=== PATIENT | female | born 1975 | race Caucasian/White ===

== ENCOUNTER → 2017-12-08 12:55 | Outpatient (CLI) | payer BC, SELFPAY ==
--- NOTE | 2017-12-08 13:01 | US_ITS ---
US transvaginal Ordering Physician: Emily Traore MD Patient Age: 42 years: Female HISTORY: ITS.REASON: DUBheavy periods... TECHNIQUE: Transvaginal pelvic ultrasound COMPARISON :Previous July 2016 exam. Similar appearance FINDINGS Retroflexed retroverted uterus. Uterus normal size. 9.1 cm length as 4.4 cm x 5.9 cm wide. No fibroids evident. Generous endometrial stripe measures just over 1 cm cm AP maximum thickness. Right ovary measures 2.6 x 1.7 x 2.7 cm.. Largest follicle right ovary measuring nearly 1 cm Left ovary measures 2.3 x 4.3 x 2.2 cm The more prominent follicles at left ovary. One measuring nearly 1.7 cm maximally and posterior left ovary. Another generous follicle measures 1.2 cm. Other tiny follicles left ovary. Also noted. Normal flow to both ovaries No fluid in cul-de-sac. . IMPRESSION: 1. Retroflexed retroverted uterus. Generous endometrial stripe measuring ~1 cm AP thickness 2. Ovaries normal in size with follicles bilaterally.. Generous follicles More generous follicles at left ovary noted.
== END ==
PROVIDERS: Family Provider Family Medicine; PCP Family Medicine; Visit Provider Family Medicine
DX: N93.8 Other specified abnormal uterine and vaginal bleeding (principal)
CPT/HCPCS: 76830

== ENCOUNTER 2018-01-16 06:01 | Day surgery (SDC) | payer BC, SELFPAY ==
[2018-01-14 15:58] VITALS: BMI 22.0
[2018-01-16] VITALS (9 sets, daily range): BP systolic 139–153; BP diastolic 88–97; PULSE 52–67; RESP 18–20; TEMP 36.6–36.9; O2SAT 97–99
[2018-01-16 06:39] LABS: Urine Pregnancy, HCG Qual. Negative (Negative)
--- NOTE | 2018-01-16 06:41 | P.PN_ITS ---
[facility] Anesthesia Checklist - Structural Data Admitted From: Home Planned Operative Procedure/s: d/c hyst Consent for Planned Operative Procedure(s) Verified: Yes Verified Documents: Surgical Consent - Airway Assessment C-Spine Mobility Assessed: Yes TMJ Mobility Assessed: Yes Dentition: Good Dentition - Neurological Assessment Level of Consciousness: Awake, Alert - Anesthesia Plan Anesthesia Risk discussed: Yes Anesthesia Plan: Verified ASA Class: I Anesthesia Type: General [facility] Anesthesia HX I have reviewed the patient's past medical history: Yes Medical History: Denies:: Cancer, Diabetes Mellitus Type 1, Diabetes Mellitus Type 2, MRSA, Seizures Other Medical History: Reports: Arthritis. Denies: Blood Transfusion Reaction Laterality Cases: Bilateral: Other Amputation: No Fractures: No *Family Hx:: Cancer, Diabetes, Heart Attack, Hypertension
--- NOTE | 2018-01-16 08:06 | P.OP_ITS ---
Date of procedure: 01/16/18 Pre-op Diagnosis:: Menorrhagia Post-op Diagnosis:: Menorrhagia Procedure performed:: Hysteroscopy with NovaSure ablation Surgeon:: Lake Sanders MD MECHANICAL PROCESS ENGINEER:: Saul Liu Anesthesia: LMA Estimated blood loss (mL): 50 Clinical Note:: She is a 42-year-old lady who complains of extremely heavy periods. Endometrial biopsy in my office was negative for hyperplasia or Operative findings:: She had an endometrial cavity that sounded to 8-1/2 cm. The width was 4.5 cm. The endometrium had a somewhat erythematous appearance possibly consistent with chronic endometritis. Operative note:: She was taken to the operating room where LMA anesthesia was found be adequate. She was prepped and draped in normal sterile fashion in the lithotomy position. A weighted speculum was placed in the vagina and the anterior lip of the cervix was grasped with a tenaculum. The uterus is retroverted and using Hayes dilators I dilated the cervix to approximately 5 mm. I then inserted a hysteroscope into the uterine cavity using saline as a distending media. The findings were as previously dictated. I then sounded the uterus to 8-1/2 cm. I estimated the endometrial cavity to be 5.5 cm. I then inserted the NovaSure device and the device was 4.5 cm wide. These numbers were placed in the machine. It was run through its program. I then inspected the endometrial cavity once again and photographs were taken. It appeared that the entire endometrial cavity was charred. I then injected approximately 3 cc of 0.5% ropivacaine at a 3:00, 5:00, 7:00, and 9:00 positions of the cervix. The patient tolerated the procedure well and was taken to the recovery room in excellent condition. All sponge instrument and needle counts were correct. The estimated blood loss was less than 50 cc. Condition: stable Disposition: PACU Specimens:: None Complications:: None
--- NOTE | 2018-01-16 08:09 | P.PN_ITS ---
[facility] Anesthesia Record Part I Intake, IV Amount: 300 Estimated blood loss (mL): 49 Urine output (mL): 100 Blood Products used (#): none Blood Pressure: 143/97 SaO2: 98 Pulse Rate: 52 Respiratory Rate: 18 Temperature: 98.1 F Patient is:: Drowsy, Stable Stable to PACU at:: 08:10
--- NOTE | 2018-01-16 08:09 | HMH.ANESII ---
[facility] Anesthesia Record Part II Discharge Time: 08:40 Destination: Surgical Day Care (OP Surgery) PACU nurse assessment reviewed?: Yes Patient Condition:: Good Anesthesia Complications:: None
--- NOTE | 2018-01-16 08:46 | PC.NURSE ---
0838-detailed report called to VICKY Romano 0840-Pt transported to post op via stretcher w/rails up and left in care of VICKY Romano w/bed locked in lowest position. VSS. Pt stable.
== END 2018-01-16 09:11 | disposition home or self-care (01) ==
LOC: OR 06:07
PROVIDERS: Family Provider Family Medicine; PCP Family Medicine; Visit Provider Nurse Practitioner Obstetrics & Gynecology
PROC: 0U5B8ZZ Destruction of Endometrium, Via Natural or Artificial Opening Endoscopic (ICD-10-PCS; CPT 58563; principal; 2018-01-16 07:30)
DX: N92.0 Excessive and frequent menstruation with regular cycle (principal)
CPT/HCPCS: 58563; 81025; 96374; J0131; J2405

== ENCOUNTER → 2018-01-29 20:09 | Outpatient (REF) | payer BC, SELFPAY | LOC: LAB 20:09 | PROVIDERS: Visit Provider Nurse Practitioner Family ==

== ENCOUNTER → 2018-05-18 08:37 | Outpatient (POV) | payer BC, SELFPAY | PROVIDERS: Visit Provider Physician Assistant | DX: Z00.00 Encounter for general adult medical examination without abnormal findings (principal) ==

== ENCOUNTER → 2018-07-20 08:15 | Outpatient (POV) | payer BC, SELFPAY | PROVIDERS: Family Provider Family Medicine; Visit Provider Physician Assistant | DX: Z00.00 Encounter for general adult medical examination without abnormal findings (principal) ==

== ENCOUNTER → 2018-09-03 09:20 | Outpatient (CLI) | payer BC, SELFPAY ==
--- NOTE | 2018-09-03 09:23 | MM_ITS ---
MM Dig screening mamm BI w/CAD ORDERING PHYSICIAN : Emily Traore MD PATIENT AGE: 42 years GENDER: Female COMPARISON: October, 2015August 2017 INDICATION: ITS.REASON: ROUTINE screening. 42-year-old. No hormones no new complaints. 1990 bilateral breast reduction Family history:. 2 maternal aunts with breast cancer in her 50s TECHNIQUE: Standard CC and MLO images were obtained. R2 CAD reviewed. Axillary cc views both breast FINDINGS: Moderate fibrolinear elements throughout both breast most notable retroareolar region RIGHT BREAST:Stable appearance right breast. Scattered benign calcifications. About the anterior right breast. No new densities or areas of concern. LEFT BREAST:No new findings of significant concern. The axillary cc view is quite helpful. It shows that the density in the deep left breast dissipated. IMPRESSION: .--------- . No new findings of significant concern. Bilateral follow-up in one year recommended and encouraged. BI-RADS Category: 2 Benign Finding(s) RECOMMENDED FOLLOW-UP: 1YR 1 YEAR FOLLOW-UP (A letter has been sent to the patient regarding results of the study.)
== END ==
PROVIDERS: PCP Family Medicine; Visit Provider Family Medicine
DX: Z12.31 Encounter for screening mammogram for malignant neoplasm of breast (principal)
CPT/HCPCS: 77067

== ENCOUNTER → 2018-09-15 08:38 | Outpatient (POV) | payer BC, SELFPAY | PROVIDERS: Visit Provider Dermatology | DX: Z00.00 Encounter for general adult medical examination without abnormal findings (principal) ==

== ENCOUNTER → 2018-12-14 14:01 | Outpatient (CLI) | payer BC, SELFPAY ==
--- NOTE | 2018-12-14 14:04 | US_ITS ---
US transvaginal HISTORY: Severe cramping with periods ITS.REASON: US T/V- Dysmenorrhea ORDERING PHYSICIAN: Lake Sanders MD PATIENT AGE: 43 years Comparison: None FINDINGS: The uterus is retroverted and measures 8 x 5 x 6 cm. There is a right and left lopez of the endometrium consistent with a bicornuate uterus. The endometrium is thickened at 12 mm there is some fluid in the endometrial cavity along with some irregular areas of isoechogenicity in the left horn of the endometrium. The left ovary is 3.8 x 2 x 2.9 cm. There are multiple follicles of the left ovary with the largest cystic area at 2 cm. The right ovary is 3 x 2.3 cm with a couple of follicles. There is minimal amount fluid around the uterus inferiorly. IMPRESSION: 1. Retroverted bicornuate uterus with thickened endometrium with fluid in the endometrial cavity and some irregular increased echogenicity in the left horn of endometrium which could represent blood. Please correlate with patient's phase of menstruation. 2. 2 cm left ovarian cyst. Minimal amount fluid in the pelvis.
== END ==
PROVIDERS: PCP Family Medicine; Visit Provider Nurse Practitioner Obstetrics & Gynecology
DX: N94.6 Dysmenorrhea, unspecified (principal)
CPT/HCPCS: 76830

== ENCOUNTER → 2019-09-15 14:42 | Outpatient (POV) | payer BC, SELFPAY | DX: Z00.00 Encounter for general adult medical examination without abnormal findings (principal) ==

== ENCOUNTER → 2019-11-09 09:01 | Outpatient (POV) | payer BC, SELFPAY | PROVIDERS: Visit Provider Dermatology | DX: Z00.00 Encounter for general adult medical examination without abnormal findings (principal) ==

== ENCOUNTER 2020-10-22 11:34 | Emergency (ER) | payer BC, SELFPAY ==
[2020-10-22 11:41] VITALS: BP 141/90; PULSE 69; RESP 20; TEMP 36.6; O2SAT 98; BMI 23.8
--- NOTE | 2020-10-22 11:58 | HMH.EDUTC ---
[facility] [place] Clinical Impression: Exposure to COVID-19 virus, Viral syndrome Disposition: Home, Self-Care Condition on Discharge: Good Instructions: Preventing the Spread of Coronavirus Discharge Instructions Additional Instructions: Drink plenty of fluids. Take tylenol for pain or fever. Return if you begin to have difficulty breathing. Follow up with your regular doctor. GO TO THE ER FOR ANY WORSENING SYMPTOMS Referrals: Emily Traore MD [Primary Care Provider] - Time of Disposition: 12:05 Medical Decision Making - Medical Records Medical records reviewed: No: I reviewed the patient's medical records. - Kieran Inquiry Pt receiving controlled substance: No Vital Signs: 10/22/20 11:41 10/22/20 12:10 Temperature 97.9 F 97.9 F Temperature Source Oral Oral Pulse Rate 69 Pulse Rate [Radial] 69 Respiratory Rate 20 20 Blood Pressure 141/90 H Blood Pressure [Right Arm] 141/90 H Blood Pressure Mean [Right Arm] 107 Blood Pressure Source Automatic Cuff Blood Pressure Source [Right Arm] Automatic Cuff Blood Pressure Position Sitting Blood Pressure Position [Right Arm] Sitting 02 Sat by Pulse Oximetry 98 Oxygen Delivery Method Room Air Room Air Orders (Tests/Meds): ORDERS Category Date Time Status Covid-19 Nasal PCR Sendout [facility] 10/22/20 11:40 [place] [facility] [place] - General Stated complaint: Covid exposure Time Seen by Provider: 10/22/20 12:04 Mode of Arrival: Ambulatory Source of Information: Patient Limitations: No Limitations Description of Symptoms (Recalled from Triage Doc. by RN): covid exposure, no smell, weird taste HEENT Symptoms (Recalled from RN notes): Yes Resp Symptoms (Recalled from RN notes): No Skin Symptoms (Recalled from RN notes): No MS Symptoms (Recalled from RN notes): No Functional Status (Recalled from RN notes): wnl - History of Present Illness Provider Complaint: Her boyfriend has had covid-19. She lives with him. She states that over the past 2 days she has lost her sense of smell. She denies any other symptoms. - Related Data Home Medications Medication Instructions Recorded Confirmed ixekizumab 80 mg/mL subcutaneous 80 mg SQ Q4W 12/28/18 12/21/19 auto-injector letrozole 2.5 mg tablet 2.5 mg PO DAILY tab 12/21/19 12/21/19 Previous Rx's Medication Instructions Recorded hmkudyzxxwerdtx-pobyywjjfiykwmg-AF 10 ml PO Q4-6H PRN 7 Days #118 ml 12/21/19 2 mg-30 mg-10 mg/5 mL oral syrup Allergies Allergy/AdvReac Type Severity Reaction Status Date / Time No Known Allergies Allergy Verified 12/21/19 17:53 - Worker's Comp Is this a Worker's Comp case?: No H History - Hepatitis A Screen Drug use history?: No High risk sexual behaviors?: No History of sexually transmitted infection?: No Currently employed?: No Childcare worker?: No Do you have indoor plumbing?: Yes Do you have electricity?: Yes Attestation statement:: This patient has been screened for Hepatitis A risk factors. I have reviewed the patient's past medical history: Yes Medical History: Denies:: Cancer, Diabetes Mellitus Type 1, Diabetes Mellitus Type 2, MRSA, Seizures Other Medical History: Reports: Arthritis. Denies: Blood Transfusion Reaction Laterality Cases: Bilateral: Other Other Surgeries: Yes: Dilation and Curettage, Hysterectomy-Total Amputation: No Fractures: No Comment: ablation - Social History Smoking Status: Never smoker Alcohol Intake: never Alcohol Intake Frequency:: holidays/special occasions only Substance Use Type: denies use Occupational Status: employed Housing: house Household Members: significant other Family Hx:: Cancer, Diabetes, Heart Attack, Hypertension ROS Obtained: Yes All systems reviewed & no additional complaints - Constitutional Constitutional: Reports system reviewed and no additional complaints, except as docu - Eyes Eyes: Reports system reviewed and no additional complaints, except
[2020-10-22 12:10] VITALS: BP 141/90; PULSE 69; RESP 20; TEMP 36.6; O2SAT 98
[2020-10-23 11:44] LABS: Covid-19 Nasal PCR Sendout UK Detected
--- NOTE | 2020-10-23 11:49 | PC.NURSE ---
PT CALLED AND NOTIFIED OF POSITIVE COVID RESULT
== END 2020-10-22 12:11 | disposition home or self-care (01) ==
PROVIDERS: Emergency Provider Nurse Practitioner Family; PCP Family Medicine
DX: U07.1 COVID-19 (principal)
CPT/HCPCS: 99201; U0003

== ENCOUNTER → 2021-01-16 13:54 | Outpatient (POV) | payer BC, SELFPAY | PROVIDERS: Visit Provider Dermatology | DX: Z00.00 Encounter for general adult medical examination without abnormal findings (principal) ==

== ENCOUNTER → 2021-09-19 08:15 | Outpatient (CLI) | payer BC, SELFPAY ==
[2021-09-19 08:54] LABS: Basophils # 0.1 K/mm3 (0-0.2); Basophils % 1.2 % (0.1-2.0); Eosinophils # 0.1 K/mm3 (0.0-0.4); Eosinophils % 3.3 % (0.1-12.0); Hematocrit 39.3 % (37.0-47.0); Hemoglobin 13.5 g/dL (12.2-16.2); Lymphocytes # 1.3 K/mm3 (0.7-4.5); Lymphocytes % 32.7 % (10-50); Mean Corpuscular HGB Conc 34.4 g/dL (31.8-35.4); Mean Corpuscular Hemoglobin 31.6 pg (27.0-31.2); Mean Platelet Volume 8.1 fl (7.4-10.4); Monocytes # 0.2 K/mm3 (0.1-1.0); Monocytes % 5.7 % (1.7-9.3); Neutrophils # 2.3 K/mm3 (1.8-7.8); Neutrophils % 57.2 % (37.0-80.0); Platelet Count 261 K/mm3 (142-424); Red Blood Count 4.27 M/mm3 (4.20-5.40)
[2021-09-19 09:27] LABS: Erythrocyte Sedimentation Rate 21 mm/hr (0-20)
[2021-09-19 09:41] LABS: Alanine Aminotransferase 15 U/L (12-78); Albumin Level 4.4 g/dl (3.5-5.0); Albumin/Globulin Ratio 1.6 (1.1-1.8); Alkaline Phosphatase 75 U/L (38-126); Anion Gap 10.4 mEq/L (5-15); Aspartate Amino Transferase 27 U/L (14-36); Bilirubin,Total 0.4 mg/dl (0.2-1.3); Blood Urea Nitrogen 15 mg/dl (7-17); Calcium 9.2 mg/dl (8.4-10.2); Carbon Dioxide 28 mmol/L (22.0-30.0); Chloride 107 mmol/L (98-107); Estimated Glomerular Filt Rate 77 ml/min (>60); GFR (African American) 93 ML/MIN (>60); Globulin 2.7 g/dL (1.3-3.2); Glucose 86 mg/dl (74-100); Potassium 4.4 mmoL/L (3.5-5.1); Sodium 141 mmol/L (136-145); Total Protein,Serum 7.1 g/dl (6.3-8.2)
[2021-09-19 09:47] LABS: C-Reactive Protein 0.8 mg/L (0-4)
[2021-09-25 06:03] LABS: QuantiFERON-TB Gold Plus Negative (Negative)
== END ==
PROVIDERS: Visit Provider Internal Medicine Rheumatology
DX: L40.0 Psoriasis vulgaris (principal); M25.50 Pain in unspecified joint; M35.00 Sjogren syndrome, unspecified; E53.8 Deficiency of other specified B group vitamins; R53.83 Other fatigue
CPT/HCPCS: 36415; 80053; 85025; 85651; 86140; 86480

== ENCOUNTER → 2022-04-16 15:10 | Outpatient (POV) | payer BC, SELFPAY | PROVIDERS: Visit Provider Dermatology | DX: Z00.00 Encounter for general adult medical examination without abnormal findings (principal) ==

== ENCOUNTER → 2022-04-16 15:39 | Outpatient (CLI) | payer BC, SELFPAY ==
[2022-04-16 17:07] LABS: Alanine Aminotransferase 18 U/L (12-78); Albumin Level 4.4 g/dl (3.5-5.0); Albumin/Globulin Ratio 1.5 (1.1-1.8); Alkaline Phosphatase 82 U/L (38-126); Anion Gap 10.2 mEq/L (5-15); Aspartate Amino Transferase 33 U/L (14-36); Blood Urea Nitrogen 12 mg/dl (7-17); Calcium 9.2 mg/dl (8.4-10.2); Carbon Dioxide 26 mmol/L (22.0-30.0); Chloride 107 mmol/L (98-107); Estimated Glomerular Filt Rate 77 ml/min (>60); GFR (African American) 93 ML/MIN (>60); Glucose 93 mg/dl (74-100); Potassium 4.2 mmoL/L (3.5-5.1); Sodium 139 mmol/L (136-145); Total Protein,Serum 7.4 g/dl (6.3-8.2)
[2022-04-16 17:18] LABS: Bilirubin,Total 0.1 mg/dl (0.2-1.3)
[2022-04-16 18:37] LABS: Basophils # 0.1 K/mm3 (0-0.2); Basophils % 1.1 % (0.1-2.0); Eosinophils # 0.2 K/mm3 (0.0-0.4); Eosinophils % 3.2 % (0.1-12.0); Hematocrit 39.9 % (37.0-47.0); Hemoglobin 13.5 g/dL (12.2-16.2); Lymphocytes # 1.4 K/mm3 (0.7-4.5); Lymphocytes % 28.6 % (10-50); Mean Corpuscular HGB Conc 33.8 g/dL (31.8-35.4); Mean Corpuscular Hemoglobin 31.1 pg (27.0-31.2); Mean Corpuscular Volume 91.8 fl (81-99); Monocytes # 0.3 K/mm3 (0.1-1.0); Monocytes % 6.4 % (1.7-9.3); Neutrophils % 60.6 % (37.0-80.0); Platelet Count 265 K/mm3 (142-424); Red Blood Count 4.35 M/mm3 (4.20-5.40); Red Cell Distribution Width 12.7 % (11.5-17.5)
[2022-04-19 10:46] LABS: QuantiFERON-TB Gold Plus Negative (Negative)
== END ==
LOC: LAB 15:40
PROVIDERS: PCP Family Medicine; Visit Provider Dermatology
DX: L40.0 Psoriasis vulgaris (principal); Z79.899 Other long term (current) drug therapy
CPT/HCPCS: 36415; 80053; 85025; 86480

== ENCOUNTER → 2022-04-26 11:15 | Outpatient (CLI) | payer BC, SELFPAY | PROVIDERS: PCP Family Medicine; Visit Provider Physician Assistant | DX: Z20.822 Contact with and (suspected) exposure to COVID-19 (principal) | CPT/HCPCS: C9803; U0003; U0005 ==

== ENCOUNTER → 2022-04-29 16:18 | Outpatient (CLI) | payer BC, SELFPAY ==
[2022-04-29 16:26] LABS: Microscopic, Urine URINE MICROSCOPIC (MICROSCOPIC)
[2022-04-29 17:32] LABS: Basophils # 0.1 K/mm3 (0-0.2); Basophils % 1.8 % (0.1-2.0); Eosinophils # 0.1 K/mm3 (0.0-0.4); Eosinophils % 2.1 % (0.1-12.0); Hematocrit 43.1 % (37.0-47.0); Hemoglobin 13.4 g/dL (12.2-16.2); Lymphocytes # 1.9 K/mm3 (0.7-4.5); Mean Corpuscular Hemoglobin 30.7 pg (27.0-31.2); Mean Corpuscular Volume 98.9 fl (81-99); Mean Platelet Volume 8.1 fl (7.4-10.4); Monocytes # 0.3 K/mm3 (0.1-1.0); Monocytes % 5.2 % (1.7-9.3); Neutrophils # 3.6 K/mm3 (1.8-7.8); Neutrophils % 59.8 % (37.0-80.0); Platelet Count 288 K/mm3 (142-424); Red Blood Count 4.36 M/mm3 (4.20-5.40)
[2022-04-29 18:16] LABS: Alanine Aminotransferase 18 U/L (12-78); Albumin Level 4.4 g/dl (3.5-5.0); Albumin/Globulin Ratio 1.4 (1.1-1.8); Alkaline Phosphatase 88 U/L (38-126); Anion Gap 13.3 mEq/L (5-15); Aspartate Amino Transferase 30 U/L (14-36); Bilirubin,Total 0.3 mg/dl (0.2-1.3); Blood Urea Nitrogen 14 mg/dl (7-17); Calcium 9.6 mg/dl (8.4-10.2); Carbon Dioxide 29 mmol/L (22.0-30.0); Chloride 103 mmol/L (98-107); Estimated Glomerular Filt Rate 59 ml/min (>60); GFR (African American) 72 ML/MIN (>60); Globulin 3.1 g/dL (1.3-3.2); Glucose 78 mg/dl (74-100); Potassium 4.3 mmoL/L (3.5-5.1); Sodium 141 mmol/L (136-145); Total Protein,Serum 7.5 g/dl (6.3-8.2)
[2022-04-29 18:21] LABS: C-Reactive Protein 0.5 mg/L (0-4)
[2022-04-29 19:11] LABS: Erythrocyte Sedimentation Rate 15 mm/hr (0-20)
[2022-04-29 20:21] LABS: Appearance,Urine CLEAR (Clear); Bilirubin,Urine Negative (Negative); Blood, Urine Negative (Negative); Color,Urine YELLOW (Yellow); Glucose,Urine (UA) Negative (Negative); Ketones,Urine Negative (Negative); Leukocyte Esterase,Urine Negative (Negative); Nitrate,Urine Negative (Negative); Protein,Urine Negative (Negative); Specific Gravity, Urine 1.015 (1.005-1.030); Urobilinogen,Urine 0.2 EU/dl (0.2)
== END ==
LOC: LAB 16:19
PROVIDERS: PCP Family Medicine; Visit Provider Internal Medicine Rheumatology
DX: M35.00 Sjogren syndrome, unspecified (principal); R53.83 Other fatigue; L40.9 Psoriasis, unspecified; E53.8 Deficiency of other specified B group vitamins; M25.50 Pain in unspecified joint
CPT/HCPCS: 36415; 80053; 81001; 85025; 85651; 86140

== ENCOUNTER 2022-08-18 13:17 | Emergency (ER) | payer BC, SELFPAY ==
[2022-08-18 14:00] VITALS: BP 121/86; PULSE 81; RESP 18; TEMP 37.1; O2SAT 99; BMI 25.0
--- NOTE | 2022-08-18 14:09 | EXP.UTC ---
Discharge Plan Disposition Patient Disposition: Home, Self-Care Condition: Good Prescriptions Prescriptions: New azithromycin [Zithromax Z-Scotty] 250 mg tablet See Rx Instructions .ROUTE .COMPLEX 5 Days Qty: 6 0RF Rx Instructions: For 250 mg dose pack: take 500 mg today (day 1), then 250 mg for 4 days (days 2-5) No Action Taltz Autoinjector (2 Pack) 80 mg/mL auto-injector 80 mg SQ Q4W Referrals Follow up/Referrals: Emily Traore MD [Primary Care Provider] - See instructions Activity Restrictions/Add. Instructions Additional Instructions/Restrictions: *Monitor Temp, Over the counter Motrin or Tylenol as directed/as needed Tylenol every 4 hours and Motrin every 6 hours (as long as your family doctor has told you that you can take it) for fever or pain. and straight to ER if unable to lower temp less than 101.0 after medication given *Warm salt water gargles may help to soothe the throat *Throat Lozenges? *Warm fluids like tea with honey may help to soothe the throat? *Sleep elevated *Humidifier/Vaporizer Your throat swab was sent for culture. Those results are typically sent to your primary care. Be sure to follow up in 2-3 days with your family doctor/primary care physician if no improvement so they can review those result and treat if necessary. If you don?t have a primary care doctor, I recommend you get one but in the mean time, you will have to return to a walk in clinic Follow up IMMEDIATELY for new or worsening symptoms or no Noticeable improvement over the next 48-72 hours. 911 for difficulty breathing or swallowing Clinical Impressions Clinical Impression: Pharyngitis Instructions Patient Instructions: Sore Throat Discharge ED Provider: Vashti Mayen [facility] General Stated complaint: sore throat Mode of Arrival: Ambulatory Source of Information: Patient Limitations: No Limitations Time Seen by Provider: 08/18/22 14:09 Description of Symptoms (Recalled from Triage Doc. by RN): PATIENT C/O SORE THROAT SINCE FRIDAY HEENT Symptoms (Recalled from RN notes): Yes Resp Symptoms (Recalled from RN notes): No Skin Symptoms (Recalled from RN notes): No MS Symptoms (Recalled from RN notes): No Functional Status (Recalled from RN notes): WNL History of Present Illness Provider Complaint: Patient states that she started on with sore throat States that it has continued to get worse states that she has taken her allergy medication thinking it may be allergies but has continued to get worse so she came in Related Data Home Medications Medication Instructions Recorded Confirmed ixekizumab 80 mg/mL subcutaneous 80 mg SQ Q4W PSORIATIC ARTHRITIS 12/28/18 08/18/22 auto-injector (Taltz Autoinjector (2 Pack)) Previous Rx's Medication Instructions Recorded azithromycin 250 mg tablet See Rx Instructions PO .COMPLEX 5 08/18/22 (Zithromax Z-Scotty) days #6 tabs Allergies Allergy/AdvReac Type Severity Reaction Status Date / Time No Known Allergies Allergy Verified 02/19/21 11:39 Worker's Comp Is this a Worker's Comp case?: No PFSH PFSH Surgical History (Updated 08/18/22 @ 14:04 by Linda Moe RN) History of hysterectomy Social History (Updated 08/18/22 @ 14:04 by Linda Moe RN) Smoking Status: Never smoker alcohol intake: never substance use type: denies use current occupational status: employed Travel in the last 8 weeks: None household members: significant other housing: house 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
[2022-08-18 14:17] LABS: UTC Strep Screen (Rapid) Negative (Negative)
[2022-08-18 14:18] VITALS: BP 121/86; PULSE 81; RESP 18; TEMP 37.1; O2SAT 99
== END 2022-08-18 14:20 | disposition home or self-care (01) ==
PROVIDERS: Emergency Provider Nurse Practitioner; PCP Family Medicine
DX: J02.9 Acute pharyngitis, unspecified (principal)
CPT/HCPCS: 87880; 99212; G0463

== ENCOUNTER → 2022-12-31 23:18 | Outpatient (CLI) | payer BC, SELFPAY | PROVIDERS: PCP Student in an Organized Health Care Education/Training Program; Visit Provider Student in an Organized Health Care Education/Training Program | DX: N39.0 Urinary tract infection, site not specified (principal); B96.89 Other specified bacterial agents as the cause of diseases classified elsewhere | CPT/HCPCS: 87086; 87088; 87186 ==

== ENCOUNTER → 2023-04-29 13:07 | Outpatient (POV) | payer BC, SELFPAY | PROVIDERS: Visit Provider Dermatology | DX: Z00.00 Encounter for general adult medical examination without abnormal findings (principal) ==

== ENCOUNTER → 2023-04-29 13:42 | Outpatient (CLI) | payer BC, SELFPAY ==
[2023-04-29 15:06] LABS: Alanine Aminotransferase 23 U/L (12-78); Albumin Level 4.4 g/dl (3.5-5.0); Alkaline Phosphatase 76 U/L (38-126); Aspartate Amino Transferase 32 U/L (14-36); Bilirubin,Indirect 0.2 mg/dL (0.0-0.9); Bilirubin,Total 0.2 mg/dl (0.2-1.3); Bilirubin,Unconjugated 0.3 mg/dL (0.0-1.1); Total Protein,Serum 7.3 g/dl (6.3-8.2)
[2023-05-02 00:07] LABS: QuantiFERON-TB Gold Plus Negative (Negative)
== END ==
PROVIDERS: PCP Family Medicine; Visit Provider Dermatology
DX: L40.0 Psoriasis vulgaris (principal); Z51.81 Encounter for therapeutic drug level monitoring
CPT/HCPCS: 36415; 80076; 86480

== ENCOUNTER 2023-08-04 13:54 | Emergency (ER) | payer BC, SELFPAY ==
[2023-08-04 14:00] VITALS: BP 152/93; PULSE 60; RESP 18; TEMP 36.6; O2SAT 97; BMI 24.3
--- NOTE | 2023-08-04 14:01 | EXP.UTC ---
Discharge Plan Disposition Patient Disposition: Home, Self-Care Condition: Good Prescriptions Prescriptions: New cyclobenzaprine 10 mg Tablet 10 mg PO BID PRN (Reason: Muscle Spasm) Qty: 20 0RF methylprednisolone 4 mg Tablets,Dose Pack 4 mg PO DIRECTED Qty: 21 0RF No Action celecoxib 200 mg capsule 200 mg PO BID Taltz Syringe 80 mg/mL syringe 80 mg SQ MONTHLY Referrals Follow up/Referrals: Emily Traore MD [Primary Care Provider] - See instructions Activity Restrictions/Add. Instructions Additional Instructions/Restrictions: Go home and rest. It would be best if you rested tomorrow too. No heavy lifting. No twisting. Take the oral medications as directed. The muscle relaxer (cyclobenzaprine--Flexeril) will make you drowsy, so don't drive or operate heavy machinery after taking it. Don't start the oral steroids (medrol dose pack) until tomorrow, since you had the shots in here today. Follow up with your regular doctor. GO TO THE ER FOR ANY WORSENING SYMPTOMS OR CONCERN, ESPECIALLY BOWEL OR BLADDER ISSUES, SADDLE AREA NUMBNESS, FEVER, ETC Clinical Impressions Clinical Impression: Back pain, thoracic Instructions Patient Instructions: Low Back Pain, DI for Low Back Pain, Cyclobenzaprine, Methylprednisolone Injection, Ketorolac Injection Discharge ED Provider: Mike Woodard [facility] General Stated complaint: lower back pain, no accident Time Seen by Provider: 08/04/23 14:01 Related Data Home Medications Medication Instructions Recorded Confirmed celecoxib 200 mg capsule 200 mg PO BID . 08/04/23 08/04/23 ixekizumab 80 mg/mL subcutaneous 80 mg SQ MONTHLY . 08/04/23 08/04/23 syringe (Taltz Syringe) Previous Rx's Medication Instructions Recorded cyclobenzaprine 10 mg tablet 10 mg PO BID PRN Muscle Spasm #20 08/04/23 tabs methylprednisolone 4 mg tablets in 4 mg PO DIRECTED #21 tabs 08/04/23 a dose pack Allergies Allergy/AdvReac Type Severity Reaction Status Date / Time No Known Allergies Allergy Verified 08/04/23 14:08 [facility] Disclaimer: The information contained in this section may have been updated after the patient was seen, as this information can be updated by other users. 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 current occupational exposures/hazards: No ROS Obtained: Yes All systems reviewed & no additional complaints except as documented Constitutional Constitutional: Denies chills and Denies fever(s) Eyes Eyes: Denies eye discharge ENT Ears, Nose, Mouth, and Throat: Denies dizziness, Denies otalgia and Denies sore throat Cardiovascular Cardiovascular: Denies chest pain Respiratory Respiratory: Denies shortness of breath, Denies chest congestion, Denies cough, Denies stridor and Denies wheezing Gastrointestinal Gastrointestingal: Denies nausea or vomiting Musculoskeletal Musculoskeletal: Reports as per HPI and Reports back pain Integumentary/Breasts Skin/Breast: Denies rash Neurologic Neurologic: Denies dizziness and Denies paresthesias Allergic/Immunologic Allergic/Immunologic: Denies wheezing Physical Exam General General appearance: alert and in no apparent distress Head Head exam: atraumatic, normocephalic and normal inspection Eye Eye exam: Present normal appearance, PERRL and EOMI ENT ENT exam: Present normal exam, normal oropharynx, mucous membranes moist, TM's normal bilaterally and normal external ear exam Neck Neck exam: Present normal inspection, full ROM and t
[2023-08-04 15:33] VITALS: BP 126/85; PULSE 79; RESP 18; TEMP 36.6; O2SAT 96
[2023-08-04 16:03] LABS: Microscopic, Urine URINE MICROSCOPIC (MICROSCOPIC)
[2023-08-04 16:19] LABS: Appearance,Urine CLEAR (Clear); Bilirubin,Urine Negative (Negative); Blood, Urine Negative (Negative); Color,Urine YELLOW (Yellow); Glucose,Urine (UA) Negative (Negative); Ketones,Urine Negative (Negative); Leukocyte Esterase,Urine Negative (Negative); Nitrate,Urine Negative (Negative); PH,Urine 6.5 (5.0-8.5); Protein,Urine Negative (Negative); Urobilinogen,Urine 0.2 EU/dl (0.2)
[2023-08-04 16:28] LABS: Squamous Epithelial Cell,Urine Occasional #/hpf (0-5)
== END 2023-08-04 15:00 | disposition home or self-care (01) ==
PROVIDERS: Emergency Provider Nurse Practitioner Family; PCP Family Medicine
DX: M54.6 Pain in thoracic spine (principal); M54.50 Low back pain, unspecified
CPT/HCPCS: 81001; 87086; 96372; 99212; 99214; G0463

== ENCOUNTER 2024-02-16 13:29 | Outpatient (CLI) | payer BC, SELFPAY ==
[2024-02-16 14:05] LABS: Basophils # 0.1 K/mm3 (0-0.2); Basophils % 0.9 % (0.1-2.0); Eosinophils # 0.1 K/mm3 (0.0-0.4); Eosinophils % 1.4 % (0.1-12.0); Hematocrit 40.1 % (37.0-47.0); Hemoglobin 13.3 g/dL (12.2-16.2); Lymphocytes # 1.4 K/mm3 (0.7-4.5); Lymphocytes % 20.8 % (10-50); Mean Corpuscular HGB Conc 33.2 g/dL (31.8-35.4); Mean Corpuscular Hemoglobin 31.5 pg (27.0-31.2); Mean Corpuscular Volume 94.7 fl (81-99); Mean Platelet Volume 8.1 fl (7.4-10.4); Monocytes # 0.3 K/mm3 (0.1-1.0); Monocytes % 4.1 % (1.7-9.3); Neutrophils # 4.9 K/mm3 (1.8-7.8); Neutrophils % 72.8 % (37.0-80.0); Platelet Count 245 K/mm3 (142-424); Red Blood Count 4.23 M/mm3 (4.20-5.40); Red Cell Distribution Width 12.1 % (11.5-17.5); White Blood Count 6.7 K/mm3 (4.8-10.8)
[2024-02-16 14:41] LABS: Chloride 106 mmol/L (98-107); Sodium 140 mmol/L (136-145)
[2024-02-16 14:42] LABS: Potassium 3.8 mmoL/L (3.5-5.1)
[2024-02-16 14:44] LABS: Alanine Aminotransferase 22 U/L (12-78); Alkaline Phosphatase 68 U/L (38-126); Aspartate Amino Transferase 34 U/L (14-36); Bilirubin,Total 0.6 mg/dl (0.2-1.3); Blood Urea Nitrogen 16 mg/dl (7-17); Estimated Glomerular Filt Rate 59 ml/min (>60); GFR (African American) 71 ML/MIN (>60)
[2024-02-16 14:45] LABS: Albumin Level 4.3 g/dl (3.5-5.0); Albumin/Globulin Ratio 1.6 (1.1-1.8); Anion Gap 7.8 mEq/L (5-15); Calcium 9.6 mg/dl (8.4-10.2); Carbon Dioxide 30 mmol/L (22.0-30.0); Globulin 2.7 g/dL (1.3-3.2); Glucose 85 mg/dl (74-100)
[2024-02-16 14:50] LABS: C-Reactive Protein 0.7 mg/L (0-4)
[2024-02-16 15:04] LABS: Erythrocyte Sedimentation Rate 23 mm/hr (0-20)
== END 2024-02-16 23:59 | disposition home or self-care (01) ==
LOC: LAB 13:29
PROVIDERS: PCP Family Medicine; Visit Provider Internal Medicine
DX: L40.9 Psoriasis, unspecified (principal); M25.50 Pain in unspecified joint; M35.00 Sjogren syndrome, unspecified; R53.83 Other fatigue
CPT/HCPCS: 36415; 80053; 85025; 85651; 86140

== ENCOUNTER 2024-03-09 10:26 | Outpatient (CLI) | payer BC, SELFPAY ==
--- OUTSIDE RECORDS SUMMARY | 2024-03-09 10:28 | XMS_ITS | Continuity of Care Document ---
Author Name Unknown Organization [facility] Address [address] [place] [id number] Phone Care Team Providers Care Brand Ambassador Promotional Model Name Role Phone Horace Hamilton MD Unavailable Unavailable Allergies, Adverse Reactions, Alerts Substance Reaction Status Criticality No Known Allergies Active No Inform ation Medications Medication Instructions Dosage Effective Dates (start - stop) Status Comments Celebrex 200 mg capsule take 1 capsule by oral route 2 times every day as needed for joint pain 200 MG - Active triamterene 37.5 mg-hydrochlorothiaz tunde 25 mg tablet take 1 tablet by oral route every day 1.00 tablet - Active One Daily For Women 18 mg-0.4 mg tablet Takes QD - Active Taltz Syringe 80 mg/mL subcutaneous inject 1 milliliter by subcutaneous route every 4 weeks in the abdomen, thigh, or upper arm rotating injection sites 80 MG - Active ibuprofen 200 mg tablet take 2 tablet by oral route every 6 hours as needed with food 400 MG - Active Celebrex 200 mg capsule take 1 capsule by oral route 2 times every day as needed 200 MG - No Longer Active Procedures Procedure Date Office Visit Level IV Office Visit Level IV Office Visit Level IV Office Visit Level IV Office Visit Level III Office Visit Level IV Office Visit Level IV Office Visit Level IV Office Visit Level IV Office Visit Level III Office Visit Level III Advance Directives Directive Yes / No Effective Date File Name No Information Encounters Encounter Description Practice Location Reason(s) For Visit Diagnoses Date Provider Providers Copied on Encounter Office Visit Level IV [facility] [address] [place] [address], [id number], tel:[phone] [facility] Follow Up of Psoriasis (chief complaint) Follow Up of Joint Pain (chief complaint) Vitamin B12 deficiencyPsori asisArthralgiaF atigueBody mass index (BMI) 25.0-25.9, adult Feb- 4 Alfonso Vu. [address] [place] [address], [id number]. tel:[phone] Referring Provider: Melecio Noland, [address] [place] [address], [address]. tel:[phone] Office Visit Level IV [facility] [address] [facility] [address] [place] [address], [id number], tel:[phone] [facility] Follow Up of Psoriasis (chief complaint) Follow Up of Joint Pain (chief complaint) Vitamin B12 deficiencyPsori asisArthralgias iccaFatigueBody mass index (BMI) 26.0-26.9, adult 3 Horace Duckworth. [address], [address] [place] [address], [id number], [place]. tel:[phone] Referring Provider: Melecio Noland, [facility] [address], [address]. tel:[phone] Office Visit Level IV [facility] [address] [facility] [address] [place] [address], [id number], tel:[phone] [place] [facility] Psoriasis (chief complaint) Joint Pain (chief complaint) Vitamin B12 deficiencyPsori asisArthralgias iccaFatigueBody mass index (BMI) 25.0-25.9, adultBody mass index (BMI) 26.0-26.9, adult Feb- 3 Horace Duckworth. [address], [address], [place], [place], [id number], [place]. tel:[phone] Referring Provider: Melecio Noland, [address] [place] [address], [id number]. tel:[phone] Office Visit Level IV [facility] [address] [place] [address], [id number], [place] tel:[phone] [facility] Psoriasis (chief complaint) Joint Pain (chief complaint) Vitamin B12 deficiencyPsori asisArthralgias iccaFatigueBody mass index (BMI) 25.0-25.9, adult Jarod- 2 Horace Duckworth. [address], [address], [place], [id number], [place]. tel:[phone] Referring Provider: Melecio Noland, [address] [place] [address], [id number]. tel:[phone] Office Visit Level III [facility] [address] [place] [address], [id number], [place] tel:[phone] [facility] psoriasis (chief complaint) Joint Pain (chief complaint) Vitamin B12 deficiencyPsori asisArthralgias iccaFatigueBody mass index (BMI) 25.0-25.9, adult Sep- 1 Horace Duckworth. [address], [address], [place], [id number], [place]. tel:[phone] Referring Provider: Melecio Noland, [address] [place] [address], [id number]. tel:[phone] Office Visit Level IV [facility], [address] [place] [address], [id number], [place] tel:[phone] [facility] psoriasis (chief complaint) Joint Pain (chief complaint) Vitamin B12 deficiencyPsori asisArthralgias iccaFatigueBody mass index (BMI) 25.0-25.9, adult March- 1 Kwabena Dong. [address] [place] [address], [id number], . tel:[phone] Referring Provider: Melecio Noland, [address] [place] [address], [id number]. tel:[phone] Office Visit Level IV [facility] [address] [place] [address], [id number], [place] tel:[phone] [facility] psoriasis (chief complaint) Joint Pain (chief complaint) Vitamin B12 deficiencyPsori asisArthralgias iccaFatigueBody mass index (BMI) 25.0-25.9, adult 0 Kwabena Dong. [address] [place] [address], [id number], [place]. tel:[phone] Referring Provider: Melecio Noland, [address] [place] [address], [id number]. tel:[phone] Office Visit Level IV [facility], [address] [place] [address], [id number], [place] tel:[phone] [facility] psoriasis (chief complaint) Joint Pain (chief complaint) Vitamin B12 deficiencyPsori asisArthralgiaF atigueBody mass index (BMI) 25.0-25.9, adultsicca Apr-2 0 Horace Duckworth. [address] [place] [address], [id number], [place]. tel:[phone] Referring Provider: Melecio Noland, [address] [place] [address], [id number]. tel:[phone] Office Visit Level IV [facility], [address] [place] [address], [id number], [place] tel:[phone] [facility] psoriasis (chief complaint) Joint Pain (chief complaint) Vitamin B12 deficiencyPsori asisArthralgiaF atECU Health Edge[facility] Hospitalody mass index (BMI) 25.0-25.9, adult 9 Horace Duckworth. [address], [place], [place], [id number], [place]. tel:[phone] Referring Provider: Melecio Noland, [address] [place] [address], [address]. tel:[phone] Office Visit Level III [facility] [address] [place] [address], [id number], [place] tel:[phone] [facility] psoriasis (chief complaint) Joint Pain (chief complaint) Vitamin B12 deficiencyPsori asisArthralgiaF [facility] [address] [place] [address]. [address], [place], [place], [id number]. tel:[phone] Referring Provider: Melecio Noland, [address] [place] [address], [address]. tel:[phone] Office Visit Level III [facility] [address] [place] [address], [id number], [place] tel:[phone] [facility] psoriasis (chief complaint) Joint Pain (chief complaint) Vitamin B12 deficiencyPsori asisArthralgiaF [facility] 0-201 [address]. [address], [place], [place], [id number]. tel:[phone] Referring Provider: Melecio Noland, [address] [place] [address], [address]. tel:[phone] [facility] [address] [place] [address], [id number], [place] tel:[phone] [facility] ArthralgiaFatig ueVitamin B12 deficiencyPsori [facility] 8-201 7 Jose Ferguson. [address], [address], [place], [place], [id number]. tel:[phone] Family History Family Member Type Diagnosis Age At Onset No Information Immunizations Vaccine Date Status Comments SARS-COV-2 (COVID-19) vaccin e, mRNA, spike protein, LNP, preservative free, 100 mcg/0.5mL dose (Moderna) administered Sourc e: Other Provider Flu (split) (3 yrs or older) administered Source: Other Provider Payers Payer name Insurance type Covered republican ID Authoriza tidaniel(s) [facility] National Account [id number] BL [id number] Social History Type Description Quantity Date Captured Comments Alcohol Use Details Unknown Caffeine Use Details Unknown Tobacco Use Status Current non-smoker Smoking Status Never smoker Sex Female Vital Signs Date / Time: Height Weight BMI Pulse Rate Blood Pressure Temperature Respiratory Rate Body Surface Area Head Circumference Head Circ. Percentile Wt./Constantino. Percentile BMI percentile Pulse Ox Inhaled Ox 10:12 AM 66.50 in 73.210 kg (161.40 lbs) 25.6 6 kg/m eter (2) 68 /min 138/90 mm[Hg] 97.70 F Chief Complaint And Reason For Visit From encounter dated '02/16/2024 09:15'. Follow Up of Psoriasis (chief complaint) Follow Up of Joint Pain (chief complaint). Description: The severity of the problem is mild. Pain scale: 4/10. The symptoms are intermittent. The problem has not changed. The primary symptoms reported include: pain. The locations affected since last visit are low back. Associated symptoms include fatigue and edema. Pertinent negatives include fever, infection, AM stiffness, change in vision, skinlesion(s), chest pain, changing cough and abdominal pain. Additional information: Just having some back pain but its not severe. Reason For Referral Reason For Referral No Information Plan Of Treatment Date Type Action Status Goal Lifestyle education regardin g diet completed Goal Lifestyle education regardin g diet completed Goal Lifestyle education regardin g diet completed Goal Lifestyle education regardin g diet completed Appointment Jolly Gordon BOOKED Patient Education Thumb Arthritis: Exerci ses completed Future Order: Lab Order CBC With Differential/Platelet ([id number]), Ordered on: Ordered Future Order: Lab Order Comp. Me tabolic Panel (14) ([id number]), Ordered on: Ordered Future Order: Lab Order C-Reacti ve Protein, Quant ([id number]), Ordered on: Ordered Future Order: Lab Order Sediment ation Rate-Westergren ([id number]), Ordered on: Ordered Future Order: Lab Order CBC With Differential/Platelet ([id number]), Ordered on: Ordered Future Order: Lab Order Comp. Me tabolic Panel (14) ([id number]), Ordered on: Ordered Future Order: Lab Order C-Reacti ve Protein, Quant ([id number]), Ordered on: Ordered Future Order: Lab Order Sediment ation Rate-Westergren ([id number]), Ordered on: Ordered Future Order: Lab Order UA, Comp lete w/ Micro Exam w/Rflx Culture, Comp ([id number]), Ordered on: Ordered Future Order: Lab Order CBC With Differential/Platelet ([id number]), Ordered on: Ordered Future Order: Lab Order Comp. Me tabolic Panel (14) ([id number]), Ordered on: Ordered Future Order: Lab Order C-Reacti ve Protein, Quant ([id number]), Ordered on: Ordered Future Order: Lab Order Sediment ation Rate-Westergren ([id number]), Ordered on: Ordered Future Order: Lab Order Urinalys is, Complete ([id number]), Ordered on: Ordered Future Order: Lab Order CBC With Differential/Platelet ([id number]), Ordered on: Ordered Future Order: Lab Order Comp. Me tabolic Panel (14) ([id number]), Ordered on: Ordered Future Order: Lab Order QuantiFE ENOC- TB Gold IT (Theratest) (TBQ), Ordered on: Ordered Future Order: Lab Order C-Reacti ve Protein, Quant ([id number]), Ordered on: Ordered Future Order: Lab Order Sediment ation Rate-Westergren ([id number]), Ordered on: Ordered Future Order: Lab Order CBC With Differential/Platelet ([id number]), Ordered on: Ordered Future Order: Lab Order Comp. Me tabolic Panel (14) ([id number]), Ordered on: Ordered Future Order: Lab Order CBC With Differential/Platelet ([id number]), Ordered on: Ordered Future Order: Lab Order Comp. [place] tabolic Panel (14) ([id number]), Ordered on: Ordered Future Order: Lab Order C-Reacti ve Protein, Quant ([id number]), Ordered on: Ordered Future Order: Lab Order Sediment ation Rate-Westergren ([id number]), Ordered on: Ordered Future Order: Lab Order ROSLYN by I FA with Reflex ([id number]), Ordered on: Ordered Future Order: Lab Order ROSLYN Comp rehensive Panel ([id number]), Ordered on: Ordered Future Order: Lab Order CBC With Differential/Platelet ([id number]), Ordered on: Ordered Future Order: Lab Order Comp. Me tabolic Panel (14) ([id number]), Ordered on: Ordered Future Order: Lab Order C-Reacti ve Protein, Quant ([id number]), Ordered on: Ordered Future Order: Lab Order Sediment ation Rate-Westergren ([id number]), Ordered on: Ordered Future Order: Lab Order Antinucl ear Antibodies, ROSLYN, IFA ([id number]), Ordered on: Ordered Future Order: Lab Order ROSLYN Comp rehensive Panel ([id number]), Ordered on: Ordered Future Order: Lab Order CBC With Differential/Platelet ([id number]), Ordered on: Ordered Future Order: Lab Order Comp. Me tabolic Panel (14) ([id number]), Ordered on: Ordered Future Order: Lab Order C-Reacti ve Protein, Quant ([id number]), Ordered on: Ordered Future Order: Lab Order Sediment ation Rate-Westergren ([id number]), Ordered on: Ordered Future Order: Lab Order CBC With Differential/Platelet ([id number]), Ordered on: Ordered Future Order: Lab Order C-Reacti ve Protein, Quant ([id number]), Ordered on: Ordered Future Order: Lab Order Comp. Me tabolic Panel (14) ([id number]), Ordered on: Ordered Future Order: Lab Order Sediment ation Rate-Westergren ([id number]), Ordered on: Ordered Future Order: Lab Order Vitamin B12 and Folate ([id number]), Ordered on: Ordered History Of Present Illness Encounter Date Complaint History Of Prese nt Illness Follow Up of Psoriasis The sympt oms are reported as being mild. The symptoms occur constantly. Improved with topical treatment. She is now on Topicort. She saw her junior linux administrator a few weeks ago. They discussed possibly using more systemic treatment if her scalp doesn't get better. Follow Up of Joint Pain The wai rity of the problem is mild. Pain scale: 4/10. The symptoms are intermittent. The problem has not changed. The primary symptoms reported include: pain. The locations affected since last visit are low back. Associated symptoms include fatigue and edema. Pertinent negatives include fever, infection, AM stiffness, change in vision, skin lesion(s), chest pain, changing cough and abdominal pain. Additional information: Just having some back pain but it's not severe. Follow Up of Psoriasis The sympt oms are reported as being mild. The symptoms occur constantly. Improved with topical treatment. She is now on Topicort. She saw her junior linux administrator a few weeks ago. They discussed possibly using more systemic treatment if her scalp doesn't get better. Follow Up of Joint Pain The wai rity of the problem is mild. Pain scale: 4/10. The symptoms are intermittent. The problem has not changed. The primary symptoms reported include: pain. The locations affected since last visit are low back. Associated symptoms include fatigue and edema. Pertinent negatives include fever, infection, AM stiffness, change in vision, skin lesion(s), chest pain, changing cough and abdominal pain. Additional information: Just having some back pain but it's not severe. Psoriasis The symptoms are reported as being mild. The symptoms occur constantly. Improved with topical treatment. She is now on Topicort. She saw her junior linux administrator a few weeks ago. They discussed possibly using more systemic treatment if her scalp doesn't get better. Joint Pain The severity of the problem is mild. Pain scale: 4/10. The symptoms are intermittent. The problem has not changed. The primary symptoms reported include: pain. The locations affected since last visit are low back. Associated symptoms include fatigue and edema. Pertinent negatives include fever, infection, AM stiffness, change in vision, skin lesion(s), chest pain, changing cough and abdominal pain. Additional information: Just having some back pain but it's not severe. Psoriasis The symptoms are reported as being mild. The symptoms occur constantly. Improved with topical treatment. She is now on Topicort. She saw her junior linux administrator a few weeks ago. They discussed possibly using more systemic treatment if her scalp doesn't get better. Joint Pain The severity of the problem is mild. Pain scale: 4/10. The symptoms are intermittent. The problem has not changed. The primary symptoms reported include: pain. The locations affected since last visit are low back. Associated symptoms include fatigue and edema. Pertinent negatives include fever, infection, AM stiffness, change in vision, skin lesion(s), chest pain, changing cough and abdominal pain. Additional information: Just having some back pain but it's not severe. psoriasis The symptoms are reported as being mild. The symptoms occur constantly. Improved with topical treatment. She is now on Topicort. She saw her junior linux administrator a few weeks ago. They discussed possibly using more systemic treatment if her scalp doesn't get better. Joint Pain The severity of the problem is mild. Pain scale: 4/10. The symptoms are intermittent. The problem has not changed. The primary symptoms reported include: pain. The locations affected since last visit are low back. Associated symptoms include fatigue and edema. Pertinent negatives include fever, infection, AM stiffness, change in vision, skin lesion(s), chest pain, changing cough and abdominal pain. Additional information: Just having some back pain but it's not severe. psoriasis The symptoms are reported as being mild. The symptoms occur constantly. Improved with topical treatment. She is now on Topicort. She saw her junior linux administrator a few weeks ago. They discussed possibly using more systemic treatment if her scalp doesn't get better. Joint Pain The severity of the problem is mild. Pain scale: 4/10. The symptoms are intermittent. The problem has not changed. The primary symptoms reported include: pain. The locations affected since last visit are low back. Associated symptoms include fatigue and edema. Pertinent negatives include fever, infection, AM stiffness, change in vision, skin lesion(s), chest pain, changing cough and abdominal pain. Additional information: Just having some back pain but it's not severe. psoriasis The symptoms are reported as being mild. The symptoms occur constantly. Improved with topical treatment. She is now on Topicort. She saw her junior linux administrator a few weeks ago. They discussed possibly using more systemic treatment if her scalp doesn't get better. Joint Pain The severity of the problem is mild. Pain scale: 4/10. The symptoms are intermittent. The problem has not changed. The primary symptoms reported include: pain. The locations affected since last visit are low back. Associated symptoms include fatigue and edema. Pertinent negatives include fever, infection, AM stiffness, change in vision, skin lesion(s), chest pain, changing cough and abdominal pain. Additional information: Just having some back pain but it's not severe. psoriasis The symptoms are reported as being mild. The symptoms occur constantly. Improved with topical treatment. She is now on Topicort. She saw her junior linux administrator a few weeks ago. They discussed possibly using more systemic treatment if her scalp doesn't get better. Joint Pain The severity of the problem is mild. Pain scale: 4/10. The symptoms are intermittent. The problem has not changed. The primary symptoms reported include: pain. The locations affected since last visit are low back. Associated symptoms include fatigue and edema. Pertinent negatives include fever, infection, AM stiffness, change in vision, skin lesion(s), chest pain, changing cough and abdominal pain. Additional information: Just having some back pain but it's not severe. psoriasis The symptoms are reported as being mild. The symptoms occur constantly. Improved with topical treatment. She is now on Topicort. She saw her junior linux administrator a few weeks ago. They discussed possibly using more systemic treatment if her scalp doesn't get better. Joint Pain The severity of the problem is mild. Pain scale: 4/10. The symptoms are intermittent. The problem has not changed. The primary symptoms reported include: pain. The locations affected since last visit are low back. Associated symptoms include fatigue and edema. Pertinent negatives include fever, infection, AM stiffness, change in vision, skin lesion(s), chest pain, changing cough and abdominal pain. Additional information: Just having some back pain but it's not severe. psoriasis The symptoms are reported as being mild. The symptoms occur constantly. Improved with topical treatment. She is now on Topicort. She saw her junior linux administrator a few weeks ago. They discussed possibly using more systemic treatment if her scalp doesn't get better. Joint Pain The severity of the problem is mild. Pain scale: 4/10. The symptoms are intermittent. The problem has not changed. The primary symptoms reported include: pain. The locations affected since last visit are low back. Associated symptoms include fatigue and edema. Pertinent negatives include fever, infection, AM stiffness, change in vision, skin lesion(s), chest pain, changing cough and abdominal pain. Additional information: Just having some back pain but it's not severe. psoriasis The symptoms are reported as being mild. The symptoms occur constantly. Improved with topical treatment. Joint Pain The severity of the problem is mild. Pain scale: 3/10. The symptoms are intermittent. The problem has not changed. The primary symptoms reported include: pain. The locations affected since last visit are low back and right shoulder. Associated symptoms include fatigue. Pertinent negatives include fever, AM stiffness, change in vision, skin lesion(s), chest pain, changing cough, edema and abdominal pain. Additional information: Pt took a new job in the interim that requried a lot of travel and resulted in increased joint pain from sitting. She no longer has that position. The only joints that are bothering her are the right shoulder (new) and low back pain. Functional Status Date Functional Assessmen t Pain Score 3/10 Instructions Date Instruction Additional Infor christy - Continue Taltz per Dermatology. Taltz has really helped her skin but not her joints.High-risk medication. Well tolerated and effective. No serious side effects- getting labs with dermatology for monitoring Related to Psoriasis stable Related to Fatig ue Oral B-12. At one ti me her level was very low so I encouraged her to always take it. Related to Vitamin B12 deficiency - Continue Celebrex 200 mg BID p.r.n. OA pain- She can wear a SPIKA brace at night for her thumbs/CMC oa- Can inject CMC joints if no betterMedication refilled. Labs ordered for monitoring as below.Return to clinic 6 months Related to Arthralgia Lifestyle education regarding di et Related to Body mass index [BMI] 25.0-25.9, adult Oral B-12. At one ti me her level was very low so I encouraged her to always take it. Related to Vitamin B12 deficiency - Continue Taltz. En couraged pt to take it more regularly because it will help if this is related to psoriatic arthritis. - getting labs with dermatology- I did order labs today since she has not had any in 6 months, and she has had more leg cramping. Related to Psoriasis - Continue Celebrex 200 mg BID- She can wear a SPIKA brace at night for her thumbs- Can inject if no better Related to Arthralgia - For sicca symptoms , I recommended conservative measures including frequent lubrication, avoiding stimulants, and regular dental and ophthalmic exams. Related to sicca stable Related to Fatig ue Oral B-12. At one ti me her level was very low so I encouraged her to always take it. Related to Vitamin B12 deficiency - Continue Taltz. En couraged pt to take it more regularly because it will help if this is related to psoriatic arthritis. - getting labs with dermatology Related to Psoriasis - For sicca symptoms , I recommended conservative measures including frequent lubrication, avoiding stimulants, and regular dental and ophthalmic exams. Related to sicca stable Related to Fatig ue - Start Celebrex 200 mg BID- Her thumbs are particularly worse. Left is worse. Pain radiates down inner wrist- She can wear a SPIKA brace at night- Can inject if no better- She is no longer on Letrozole. Related to Arthralgia Lifestyle education regarding di et Related to Body mass index [BMI] 26.0-26.9, adult Oral B-12. At one ti me her level was very low so I encouraged her to always take it. Related to Vitamin B12 deficiency - Continue Taltz. En couraged pt to take it more regularly because it will help if this is related to psoriatic arthritis. - getting labs with dermatology Related to Psoriasis - Start Celebrex 200 mg BID- Her thumbs are particularly worse. Left is worse. Pain radiates down inner wrist- She can wear a SPIKA brace at night- Can inject if no better- She is no longer on Letrozole. Related to Arthralgia - For sicca symptoms , I recommended conservative measures including frequent lubrication, avoiding stimulants, and regular dental and ophthalmic exams. Related to sicca stable Related to Fatig ue - For sicca symptoms , I recommended conservative measures including frequent lubrication, avoiding stimulants, and regular dental and ophthalmic exams. Related to sicca stable Related to Fatig ue resolved Related to Psori asis She is having more h and pain. Her thumbs are particularly worse. Left is worse. Pain radiates down inner wristI will mail her thumb exercises.She can wear a SPIKA brace.Can inject if needed.She is no longer on Letrizole. CBC and CMP Related to Arthralgia Oral B-12. At one ti me her level was very low so I encouraged her to always take it. Related to Vitamin B12 deficiency Lifestyle education regarding di et Related to Body mass index [BMI] 25.0-25.9, adult resolved Related to Psori asis She is having more h and pain. Her thumbs are particularly worse. Left is worse. Pain radiates down inner wristI will mail her thumb exercises.She can wear a SPIKA brace.Can inject if needed.She is no longer on Letrizole. CBC and CMP Related to Arthralgia - For sicca symptoms , I recommended conservative measures including frequent lubrication, avoiding stimulants, and regular dental and ophthalmic exams. Related to sicca stable Related to Fatig ue Oral B-12. At one ti me her level was very low so I encouraged her to always take it. Related to Vitamin B12 deficiency - For sicca symptoms , I recommended conservative measures including frequent lubrication, avoiding stimulants, and regular dental and ophthalmic exams.- will check SSA/SSB and ROSLYN. Mail order today. Related to sicca stable Related to Fatig ue resolved Related to Psori asis Oral B-12. At one ti me her level was very low so I encouraged her to always take it. Related to Vitamin B12 deficiency Ibuprofen is taken p retty regularly per patine.She is no longer on Letrizole. Related to Arthralgia - For sicca symptoms , I recommended conservative measures including frequent lubrication, avoiding stimulants, and regular dental and ophthalmic exams.- will check SSA/SSB and ROSLYN with next labs Related to sicca Related to Psori asis stable Related to Fatig ue Oral B-12. At one ti me her level was very low so I encouraged her to always take it. Related to Vitamin B12 deficiency Today the pain is mo stly in the hips.We will continue to watch thisShe will take 2 weeks of ibuprofen more consistently alternating with tylenol arthritisLetrozole did worsen the pain. Related to Arthralgia Oral B-12. At one ti me her level was very low so I encouraged her to always take it. Related to Vitamin B12 deficiency Related to Psori asis Today the pain is mo stly in the hips.We will continue to watch thisShe will take 2 weeks of ibuprofen more consistently alternating with tylenol arthritisConsider trial off of letrozole Related to Arthralgia stable Related to Fatig ue Lifestyle education regarding di et Related to Body mass index (BMI) 25.0-25.9, adult stable Related to Fatig ue She's having more tr ouble with the scalp. I gave her a pamphlet on otezla and she has a follow-up appointment with dermatology if the Topicort isn't working she'll return in one year Related to Psoriasis Oral B-12. At one ti me her level was very low so I encouraged her to always take it. Related to Vitamin B12 deficiency Today the pain is mo stly in the lumbar spine. Related to Arthralgia Oral B-12 Related to Vitam in B12 deficiency Minimal in scalp. Sh e does not feel she needs further treatment.Current PlansFollow up in 1 year: discussed with patient and provided information. Related to Psoriasis stable Related to Fatig ue Today the pain is mo stly in the lumbar spine. Related to Arthralgia Minimal in scalp. Sh e does not feel she needs further treatment.Current PlansFollow up in 1 year: discussed with patient and provided information. Related to Psoriasis Unclear why she's oreilly ving so much trouble with low B12. Right now she's taking 2 B12 tablets a day that are not sublingual. I am going to check a level and see what we need to do about supplementation. Related to Vitamin B12 deficiency I don't think her fa tigue is the autoimmune type fatigue that so debilitating. She is extremely busy working in number of jobs Related to Fatigue Today the pain is mo stly in the lumbar spine. I don't see any evidence for psoriatic arthritis.Current PlansContinued Clobex [place] 0.05%, as directed Liquid apply to rash prn, 1 Bottle, 30 days starting 04/12/2016, Ref. x3.CBC, PLATELETS & AUT DIFF (66149)METABOLIC PANEL, COMPREHENSIVE (06740)TSH (THYROID STIMULATING HORMONE) (06083)VITAMIN B-12 & FOLATE (60560) Related to Arthralgia Assessments Type Assessment Date impression assessment Psoriasis impression Current Rx: Talvalerie with her derma tologist Dr. Bella assessment Vitamin B12 deficiency assessment Arthralgia impression Four children. Young est adopted senior high school 2023. Previous Dr. Bravo and Dr. VuPatient with known psoriasis on Taltz per Dermatology No evidence for psoriatic arthritis. Her intermittent joint pain does not seem inflammatory. More degenerative in nature or related to overuse (tendonitis).History of BRCA 2 positive status post mastectomy October 2020She has had issues with De Quervain's tendonitis, CMC, arthritis. and tendonitis in her feet. assessment Fatigue impression impression assessment Body mass index [BMI] 25.0-25.9, adult Patient Care Teams Name Effective Dates (start - stop) Status Members No Information
[2024-03-11 21:22] LABS: QuantiFERON-TB Gold Plus Negative (Negative)
== END 2024-03-09 23:59 | disposition home or self-care (01) ==
LOC: LAB 10:27
PROVIDERS: PCP Family Medicine; Visit Provider Dermatology
DX: L40.0 Psoriasis vulgaris (principal); Z79.899 Other long term (current) drug therapy
CPT/HCPCS: 36415; 86480

== ENCOUNTER 2024-03-09 11:01 | Outpatient (POV) | payer BC, SELFPAY | END 2024-03-09 23:59 | disposition home or self-care (01) | LOC: SC 11:03 | PROVIDERS: PCP Family Medicine; Visit Provider Dermatology | DX: Z00.00 Encounter for general adult medical examination without abnormal findings (principal) ==

== ENCOUNTER 2024-08-16 12:53 | Outpatient (CLI) | payer BC, SELFPAY ==
[2024-08-16 13:36] LABS: Basophils # 0.1 K/mm3 (0-0.2); Basophils % 1.2 % (0.1-2.0); Eosinophils # 0.1 K/mm3 (0.0-0.4); Eosinophils % 1.2 % (0.1-12.0); Hematocrit 37.6 % (37.0-47.0); Hemoglobin 13.4 g/dL (12.2-16.2); Lymphocytes # 1.1 K/mm3 (0.7-4.5); Lymphocytes % 24.2 % (10-50); Mean Corpuscular HGB Conc 35.6 g/dL (31.8-35.4); Mean Corpuscular Hemoglobin 32.4 pg (27.0-31.2); Mean Platelet Volume 7.6 fl (7.4-10.4); Monocytes # 0.3 K/mm3 (0.1-1.0); Monocytes % 6.4 % (1.7-9.3); Neutrophils # 3.2 K/mm3 (1.8-7.8); Neutrophils % 67.1 % (37.0-80.0); Platelet Count 273 K/mm3 (142-424); Red Blood Count 4.13 M/mm3 (4.20-5.40); Red Cell Distribution Width 12.3 % (11.5-17.5); White Blood Count 4.7 K/mm3 (4.8-10.8)
[2024-08-16 13:56] LABS: Albumin Level 4.7 g/dl (3.5-5.0); Chloride 103 mmol/L (98-107); Potassium 3.9 mmoL/L (3.5-5.1); Sodium 137 mmol/L (136-145)
[2024-08-16 13:59] LABS: Alanine Aminotransferase 18 U/L (12-78); Albumin/Globulin Ratio 1.7 (1.1-1.8); Alkaline Phosphatase 62 U/L (38-126); Anion Gap 11.9 mEq/L (5-15); Aspartate Amino Transferase 28 U/L (14-36); Bilirubin,Total 0.6 mg/dl (0.2-1.3); Blood Urea Nitrogen 24 mg/dl (7-17); Carbon Dioxide 26 mmol/L (22.0-30.0); Estimated Glomerular Filt Rate 43 ml/min (>60); GFR (African American) 52 ML/MIN (>60); Globulin 2.7 g/dL (1.3-3.2); Total Protein,Serum 7.4 g/dl (6.3-8.2)
[2024-08-16 14:00] LABS: Calcium 9.6 mg/dl (8.4-10.2); Glucose 83 mg/dl (74-100)
== END 2024-08-16 23:59 | disposition home or self-care (01) ==
LOC: LAB 12:54
PROVIDERS: PCP Family Medicine; Visit Provider Nurse Practitioner Family
DX: M25.50 Pain in unspecified joint (principal); Z79.1 Long term (current) use of non-steroidal anti-inflammatories (NSAID)
CPT/HCPCS: 36415; 80053; 85025

== ENCOUNTER 2024-08-28 09:22 | Outpatient (CLI) | payer BC, SELFPAY ==
[2024-08-28 10:19] LABS: Chloride 106 mmol/L (98-107)
[2024-08-28 10:20] LABS: Potassium 3.9 mmoL/L (3.5-5.1); Sodium 139 mmol/L (136-145)
[2024-08-28 10:23] LABS: Anion Gap 9.9 mEq/L (5-15); Blood Urea Nitrogen 15 mg/dl (7-17); Calcium 9.2 mg/dl (8.4-10.2); Carbon Dioxide 27 mmol/L (22.0-30.0); Estimated Glomerular Filt Rate 66 ml/min (>60); GFR (African American) 80 ML/MIN (>60); Glucose 94 mg/dl (74-100)
== END 2024-08-28 23:59 | disposition home or self-care (01) ==
PROVIDERS: PCP Family Medicine; Visit Provider Physician Assistant
DX: N28.9 Disorder of kidney and ureter, unspecified (principal)
CPT/HCPCS: 36415; 80048

== ENCOUNTER 2024-10-21 09:49 | Outpatient (CLI) | payer BC, SELFPAY ==
[2024-10-21 10:51] LABS: Hematocrit 37.9 % (37.0-47.0); Hemoglobin 13.2 g/dL (12.2-16.2); Mean Corpuscular Hemoglobin 31.3 pg (27.0-31.2); Mean Corpuscular Volume 89.8 fl (81-99); Red Blood Count 4.22 M/mm3 (4.20-5.40); White Blood Count 4.2 K/mm3 (4.8-10.8)
[2024-10-21 10:52] LABS: Lymphocytes % 26.3 % (10-50); Mean Corpuscular HGB Conc 34.8 g/dL (31.8-35.4); Mean Platelet Volume 9.7 fl (7.4-10.4); Monocytes % 7.7 % (1.7-9.3); Neutrophils % 62.6 % (37.0-80.0); Platelet Count 252 K/mm3 (142-424); Red Cell Distribution Width 11.1 % (11.5-17.5)
[2024-10-21 10:53] LABS: Basophils # 0.1 K/mm3 (0-0.2); Basophils % 1.2 % (0.1-2.0); Eosinophils # 0.1 K/mm3 (0.0-0.4); Eosinophils % 2.2 % (0.1-12.0); Lymphocytes # 1.1 K/mm3 (0.7-4.5); Monocytes # 0.3 K/mm3 (0.1-1.0); Neutrophils # 2.6 K/mm3 (1.8-7.8)
[2024-10-21 11:00] LABS: Chloride 104 mmol/L (98-107); Potassium 4.2 mmoL/L (3.5-5.1); Sodium 133 mmol/L (136-145)
[2024-10-21 11:03] LABS: Anion Gap 6.2 mEq/L (5-15); Blood Urea Nitrogen 20 mg/dl (7-17); Calcium 9.3 mg/dl (8.4-10.2); Carbon Dioxide 27 mmol/L (22.0-30.0); Estimated Glomerular Filt Rate 58 ml/min (>60); GFR (African American) 71 ML/MIN (>60); Glucose 85 mg/dl (74-100)
== END 2024-10-21 23:59 | disposition home or self-care (01) ==
LOC: LAB 09:51
PROVIDERS: PCP Family Medicine; Visit Provider Nurse Practitioner Family
DX: Z01.810 Encounter for preprocedural cardiovascular examination (principal)
CPT/HCPCS: 36415; 80048; 85025

== ENCOUNTER 2025-01-03 11:38 | Day surgery (SDC) | payer BC, SELFPAY ==
[2024-12-31 11:00] VITALS: BMI 24.3
[2025-01-03 12:31] VITALS: BP 140/97; PULSE 77; RESP 18; TEMP 36.9; O2SAT 99
--- NOTE | 2025-01-03 13:11 | P.PNANES_ITS ---
[facility] Disclaimer: The information contained in this section may have been updated after the patient was seen, as this information can be updated by other users. 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 current occupational exposures/hazards: No caffeine: Yes Have you lived/traveled outside US in past 30 days?: No Contact w/someone who lives/traveled outside US past 30 days?: No Exposure to someone with infectious disease in past 14 days?: No Do you have a fever (greater than 100.4 F or 38 C)?: No Have you tested positive for COVID-19: No Exposed to someone with COVID-19 in past 14 days?: No Do you have a sore throat?: No Do you have a cough?: No Do you have any weakness?: No Are you experiencing any nausea/vomitting?: No Do you have any diarrhea?: No Are you experiencing any unusual bleeding?: No Do you have any muscle aches/pain?: No Do you have any abdominal pain?: No Are you experiencing loss of taste or smell?: No [facility] Anesthesia Checklist Patient Identification Patient Identification: Arm Band, Family and Verbal (Name & ) Structural Data Admitted From: Home Planned Operative Procedure/s: Colonoscopy Consent for Planned Operative Procedure(s) Verified: Yes Verified Documents: Surgical Consent and History and Physical NPO Status Verified Time NPO: 10:30 Chart Verification Results Verified: CBC and BMP Additional verifications Patient : No Anesthesia Reactions: No Hx Blood Transfusions: No Blood Transfusion Reaction: No Cardiovascular Assessment Heart Sounds: S1 & S2 Pulse Rhythm: Irregular Peripheral Edema: No Airway Assessment Mallampati Score:: Class II C-Spine Mobility Assessed: Yes (FROM demonstrated) TMJ Mobility Assessed: Yes Dentition: Good Dentition (Nothing loose per pt.) Neurological Assessment Level of Consciousness: Awake, Alert, Appropriate and Follows Commands Hx Seizures: No Numbness or tingling in extremities: No Anesthesia Plan Anesthesia Risk discussed: Yes Anesthesia Plan: Verified ASA Class: II Anesthesia Type: MAC
[2025-01-03 13:57] VITALS: O2SAT 99
--- NOTE | 2025-01-03 14:05 | P.HP_ITS ---
History of Present Illness *Admission Date: 01/03/25 *Reason for visit:: Screening for colon cancer *History of present illness: Mrs. Gordon is a 49-year-old female who is here for initial screening colonoscopy. The examination is deemed medically necessary for screening colonoscopy. The patient has been seen, interviewed and examined prior to the procedure by both myself and the anesthesia provider. [facility] Disclaimer: The information contained in this section may have been updated after the patient was seen, as this information can be updated by other users. 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 current occupational exposures/hazards: No caffeine: Yes Have you lived/traveled outside US in past 30 days?: No Contact w/someone who lives/traveled outside US past 30 days?: No Exposure to someone with infectious disease in past 14 days?: No Do you have a fever (greater than 100.4 F or 38 C)?: No Have you tested positive for COVID-19: No Exposed to someone with COVID-19 in past 14 days?: No Do you have a sore throat?: No Do you have a cough?: No Do you have any weakness?: No Are you experiencing any nausea/vomitting?: No Do you have any diarrhea?: No Are you experiencing any unusual bleeding?: No Do you have any muscle aches/pain?: No Do you have any abdominal pain?: No Are you experiencing loss of taste or smell?: No Other Medical History Have you received the Flu Vaccine for this season: No Have you received the Pneumonia Vaccine: No Review of Systems Review of Systems Review of systems (narrative): Negative *Cardiovascular Comments: Negative *Gastrointestinal Comments: Negative *Genitourinary Comments: Negative *Musculoskeletal Comments: Negative *Neurologic Comments: Negative Meds Home Medications and Allergies Home Medications ?Medication ?Instructions ?Recorded ?Confirmed ?Type celecoxib 200 mg capsule 200 mg PO BID PRN . 08/04/23 01/03/25 History ixekizumab 80 mg/mL subcutaneous 80 mg SQ MONTHLY . 08/04/23 01/03/25 History syringe (Taltz Syringe) sodium,potassium,mag sulfates 17.5 See Rx Instructions PO .COMPLEX 12/20/24 01/03/25 Rx gram-3.13 gram-1.6 gram oral soln #354 mL (Suprep Bowel Prep Kit) lisinopril 5 mg tablet 5 mg PO DAILY 12/31/24 01/03/25 History triamterene 37.5 0.5 tab PO DAILY 12/31/24 01/03/25 History mg-hydrochlorothiazide 25 mg tablet New Prescriptions to Start Prescriptions: Allergies Allergy/AdvReac Type Severity Reaction Status Date / Time No Known Allergies Allergy Verified 01/03/25 12:29 Exam Data for Last 24 hours Vital signs and Labs for Last 24 Hours: Temp Pulse Resp BP Pulse Ox O2 Del Method O2 Flow Rate 98.5 F 77 18 140/97 H 99 Nasal Cannula 5 01/03/25 12:31 01/03/25 12:31 01/03/25 12:31 01/03/25 12:31 01/03/25 12:31 01/03/25 13:57 01/03/25 13:57 I & O for Last 24 hours: Intake & Output 12/31/24 01/01/25 01/02/25 01/03/25 23:59 23:59 23:59 23:59 Weight 160 lb *Routine HEENT Exam Head: Present normocephalic Eye: Present EOMI and PERRL ENT: Present mucous membranes moist *Routine Neck Exam Neck: Present supple *Routine Respiratory Exam Respiratory: Present CTA bilaterally *Routine Cardiovascular Exam Cardiovascular: Present RRR *Routine Abdominal Exam Abdominal: Present soft and normoactive bowel sounds; Absent tenderness *Routine Rectal Exam Rectal:: deferred *Routine Genitalia Exam Genitalia:: deferred *Routine Extremities Exam Extremities: Absent cyanosis, clubbing or edema *Routine Skin Exam Skin: Present warm; Absent rash *Routine Neurological Exam Neurological: Present alert and oriented X3 Assessment and Plan *Assessment and plan (1) Screening for colon cancer: Status: Acute Category: Medical Code(s): Z12.11 - Encounter for screening for malignant neoplasm of colon Plan A/P: 1. Screening for colon cancer is the preprocedural diagnosis. The patient will be anesthetized/sedated using MAC sedation. The patient has been seen and examined. Cardiac and lung assessment prior to the examination is stable. Proceed with planned screening colonoscopy
--- NOTE | 2025-01-03 14:06 | P.PCN_ITS ---
[facility] Procedure Note Date: 01/03/25 Time: 14:20 Procedure Note:: Colonoscopy Procedure Report: Colonoscopy Endoscopist: Cyrus Morris II, MD Referring physician: Melchor Traore MD Date of Procedure: January 03, 2025 Equipment: Olympus 190 variable stiffness pediatric colonoscope Sedation: MAC sedation Indication: Mrs. Gordon is a 49-year-old female who is here for initial screening colonoscopy. She reports no abdominal pain, weight loss, change in her bowel habits or rectal bleeding. She reports no family history of colon cancer. She does state that her mother has had colonic polyps. Procedure: Prior to the procedure, a history and physical exam was performed, and patient's medications and allergies were reviewed. The risks, benefits and alternatives of the sedation and procedure were discussed with the patient. All questions were answered and informed consent was obtained. The patient was brought to the procedure room. Patient identification and proposed procedure were verified by the physician and the nurse. The patient was placed in a left lateral decubitus position and the scope was passed under direct vision. Throughout the procedure, the patient's blood pressure, pulse, and oxygen saturations were monitored continuously. The colonoscopy was accomplished without difficulty. The patient tolerated the procedure well. Findings: On digital rectal examination there was normal rectal tone. There were no external hemorrhoids. The colonoscope was introduced through the anal canal to the rectum and advanced to the cecum. The ileocecal valve and appendiceal orifice were identified. The scope was advanced a short distance into the ileum which appeared grossly normal. The scope was then withdrawn into the colon. The cecum, ascending, transverse, descending, sigmoid and rectum were grossly normal. There were no mucosal abnormalities identified. Upon retroflexion within the rectum there were grade 1-2 internal hemorrhoids. The preparation was excellent throughout with Blue Diamond Preparation Score of 9. The cecal time was 10 minutes. Impression: 1. Normal colonoscopy with intubation of the terminal ileum 2. Grade 1-2 internal hemorrhoids Plan: The patient will not require surveillance colonoscopy again for 10 years by ACS guidelines.
[2025-01-03 14:26] VITALS: BP 102/70; PULSE 71; RESP 16; O2SAT 98
[2025-01-03 14:36] VITALS: BP 99/69; PULSE 72; RESP 16; O2SAT 100
[2025-01-03 14:46] VITALS: BP 105/68; PULSE 71; RESP 16; O2SAT 97
[2025-01-03 14:56] VITALS: BP 113/74; PULSE 69; RESP 18; O2SAT 100
== END 2025-01-03 14:58 | disposition home or self-care (01) ==
PROVIDERS: PCP Family Medicine; Visit Provider Internal Medicine Gastroenterology
PROC: 0DJD8ZZ Inspection of Lower Intestinal Tract, Via Natural or Artificial Opening Endoscopic (ICD-10-PCS; CPT 45378; principal; 2025-01-03 13:30)
DX: K64.8 Other hemorrhoids (principal); Z12.11 Encounter for screening for malignant neoplasm of colon; Z83.719 Family history of colon polyps, unspecified
CPT/HCPCS: 45378

== ENCOUNTER 2025-02-16 09:05 | Outpatient (CLI) | payer BC, SELFPAY ==
[2025-02-16 09:36] LABS: Basophils % 0.8 % (0.1-2.0); Eosinophils # 0.1 K/mm3 (0.0-0.4); Eosinophils % 2.7 % (0.1-12.0); Hematocrit 37.4 % (37.0-47.0); Hemoglobin 12.6 g/dL (12.2-16.2); Lymphocytes % 27.1 % (10-50); Mean Corpuscular HGB Conc 33.7 g/dL (31.8-35.4); Mean Corpuscular Volume 92.1 fl (81-99); Mean Platelet Volume 9.8 fl (7.4-10.4); Monocytes # 0.3 K/mm3 (0.1-1.0); Monocytes % 8.1 % (1.7-9.3); Neutrophils # 2.3 K/mm3 (1.8-7.8); Nucleated Red Blood Cells # 0 10^3/uL; Nucleated Red Blood Cells % 0 %; Platelet Count 266 K/mm3 (142-424); Red Blood Count 4.06 M/mm3 (4.20-5.40); Red Cell Distribution Width 11.8 % (11.5-17.5); Red Cell Distribution Width-SD 39.8 fL; White Blood Count 3.7 K/mm3 (4.8-10.8)
[2025-02-16 09:58] LABS: Erythrocyte Sedimentation Rate 24 mm/hr (0-30)
[2025-02-16 10:32] LABS: C-Reactive Protein 0.5 mg/L (0-4)
[2025-02-17 16:19] LABS: Albumin Level 4.2 g/dl (3.5-5.0); Chloride 105 mmol/L (98-107); Potassium 4.1 mmoL/L (3.5-5.1); Sodium 141 mmol/L (136-145)
[2025-02-17 16:21] LABS: Blood Urea Nitrogen 12 mg/dl (7-17); Estimated Glomerular Filt Rate 76 ml/min (>60); GFR (African American) 92 ML/MIN (>60)
[2025-02-17 16:22] LABS: Alanine Aminotransferase 19 U/L (12-78); Albumin/Globulin Ratio 1.4 (1.1-1.8); Alkaline Phosphatase 72 U/L (38-126); Anion Gap 15.1 mEq/L (5-15); Aspartate Amino Transferase 28 U/L (14-36); Bilirubin,Total 0.8 mg/dl (0.2-1.3); Carbon Dioxide 25 mmol/L (22.0-30.0); Glucose 84 mg/dl (74-100); Total Protein,Serum 7.2 g/dl (6.3-8.2)
== END 2025-02-16 23:59 | disposition home or self-care (01) ==
LOC: LAB 09:06
PROVIDERS: PCP Family Medicine; Visit Provider Internal Medicine
DX: L40.9 Psoriasis, unspecified (principal); M25.50 Pain in unspecified joint; R53.83 Other fatigue; D84.821 Immunodeficiency due to drugs; Z79.899 Other long term (current) drug therapy; Z79.1 Long term (current) use of non-steroidal anti-inflammatories (NSAID)
CPT/HCPCS: 36415; 80053; 85025; 85651; 86140

== ENCOUNTER 2025-08-15 12:45 | Outpatient (CLI) | payer BC, SELFPAY ==
--- OUTSIDE RECORDS SUMMARY | 2024-09-20 05:45 | XMS_ITS ---
[facility] [address] [place] [id number] Care Team Providers Care Firearms Model Maker Name Role Phone Bentley Traore Primary Care Provider Allergies No Known Allergies Reason For Referral Reason FHx polyps Diagnosis 1 Encounter for screen ing colonoscopy (Z12.11) [facility] Referring Provider First Name Bentley Roche Referring Provider Last Name León Referring Provider Speciality Family Pra ctice Referred Provider TENA MORRIS Referred Provider Specialty Gastroentero logy General Notes Sonia Salamanca 10/11/20 24 4:21:29 PM > found assigned to Dr. Traore. Assigned to Azucena Lares Brynn 2024 4:25:39 PM > faxed to Dr. Morris office, Joanne Zeng 10/14/2024 9:51:05 AM > spoke with Benjie; confirmed they have order Referral Priority Routine REASON FOR VISIT 5 months, Needs shingles & flu vaccines Medications Medication SIG (Take, Route, Fr equency, Duration) Notes Start Date End Date Status Maxzide-25 37.5-25 MG 1/2 tab Orally Once a day Active Lisinopril 5 MG 1 tablet Orally Once a day; Duration: 30 day(s) Active Flonase Allergy Relief 50 MCG/ACT 1 spray in each nostril Nasally Once a day 08/27/2023 Active Taltz 80 MG/ML as directed subcutan eously every 4 weeks Active Vital Signs Weight 152.4 lbs 09/20/2024 Blood pressure systolic 120 mm Hg 09/20/20 24 Blood pressure diastolic 80 mm Hg 024 Heart Rate 82 /min 09/20/2024 Height 63.50 in 09/20/2024 BMI 26.57 kg/m2 09/20/2024 Encounters Encounter Location Date Provider Diagnosis Juan J [address] [place] [id number] 09/20/2024 Bentley Traore Essential hypertensi on I10 ; Hyperlipidemia, unspecified hyperlipidemia type E78.5 and Encounter for screening colonoscopy Z12.11 Assessments Encounter Date Diagnosis (ICD Code) Assessment Notes Treatment Notes Treatment Clinical Notes Section Notes 09/20/2024 Essential hypertension (ICD-10 - I10) 09/20/2024 Hyperlipidemia, unspecified hyperlipidemia type (ICD-10 - E78.5) 09/20/2024 Encounter for screening colonoscopy (ICD-10 - Z12.11) Plan Of Treatment Referrals Referral Date Details 09/20/2024 09/20/2024, FHx poly ps, TENA MORRIS Next Appt Details Follow Up: 6 Months, Reason: Progress Notes * LUZ CARVAJALDOB:1975 (49 yo F)Acc No.[id number]:09/20/2024 Progress Notes Patient: LUZ BARBA Provider: Bentley Traore M.D. :1975 A ge:48 Y S ex:Female Date:09/20/2024 Address:[address] [place] [address] [id number] Subjective: * Chief Complaints: * 1 . 5 months. 2. Needs shingles & flu vaccines. * HPI: C ardiology: The patient is here for a check up on Hypertension and Hyperlipidemia. Pt states she doing good and denies any new concerns. Pt states she is not fasting. Pt would like to discuss getting a screening colonoscopy. Denies : Chest Pain. D enies : Short of Breath. D enies : Dizziness. D enies : Palpitations. 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 * ROS: D ERMATOLOGY: no R juan pablo. n o H yue. G ASTROENTEROLOGY: no N ausea. n o V omiting. n o D iarrhea.? U ROLOGY: no D ifficulty urinating. n o B lood in urine. * Medical History: P soriasis, HCM, Western Blot Indeterminate, Brca2 , Flu shot 2023. * Surgical History: B reast Reduction 1990, Lymphnpodectomy, RT Side of Neck 01/09/2012, Tubal Ligation 01/2016, Hysterectomy, Oopherectomy, Cervix Remains- [facility] 04/07/2019, Bilateral Mastectomy with reconstruction 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 . * Family History: F ather: alive 75 yrs. M other: alive 71 yrs, HTN. P aternal Grand Father: .?Paternal Grand Mother: . M aternal Grand Father: . M aternal Grand Mother: . 1 sister(s) . 3 son(s) - healthy. . sister kidney disease, obese, excess spinal fluid Pt states her mother and aunt both tested positive for BRCA 2 as well. * Social History: C URRENT TOBACCO USE S moking Status: Patient does NOT smoke. C affeine: yes, frequency:daily. Exercise: yes. Home smoke detector use: yes. Marital Status: Single. New since last visit: none. 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 Past smoking status: no, Smoking status: Does not smoke. Occup. exposure: none. Recreational drug use: no. Alcohol: socially, Type: , Frequency: occasional ,Years: , Determination:. Travel ouside [place]: no. * Medications: T aking Taltz 80 MG/ML Solution Prefilled Syringe as directed subcutaneously every 4 weeks , Taking Flonase Allergy Relief 50 MCG/ACT Suspension 1 spray in each nostril Nasally Once a day , Taking Lisinopril 5 MG Tablet 1 tablet Orally Once a day , Taking Maxzide-25 37.5-25 MG Tablet 1/2 tab Orally Once a day , Discontinued metroNIDAZOLE 500 MG Tablet 1 tablet Orally Three times a day , Medication List reviewed and reconciled with the patient * Allergies: N .K.D.A. Objective: * Vitals: W t:152.4, Temp:98.3, BP:120/80, HR:82, Nurse:ROBERT, Ht: 63.50, BMI:26.57. * Examination: G eneral Examination: General Appearance: N AD. H EENT: u nremarkable.?Oral cavity: n o lesions, mucosa moist and WNL, no erythema. N karlie: s upple, no lymphadenopathy. C hest: n ormal shape and expansion. H eart: R SR. L ungs: c lear to auscultation. A bdomen: soft and nontender, no organomegaly or masses. N eurologic Exam: I ntact, gait normal. S kin: n ormal, no rash. P eripheral pulses: n ormal. E xtremities: n o leg edema. Assessment: * Assessment: 1. E ssential hypertension - I10 (Primary) 2 . H yperlipidemia, unspecified hyperlipidemia type - E78.5 3 . E ncounter for screening colonoscopy - Z12.11? Plan: * Treatment: * Follow Up: 6 Months * Images: Billing Information: * Visit Code: 26699 Office Visit, Est Pt., Level 4. * Procedure Codes: * Electronic signature of Bentley Traore MD on 08/15/2025 at 12:52 PM EDT Sign off status: Pending * Provider: Bentley Traore M.D. Date: 11/20/2023 Generated for Printi ng/Fanareng/eTransmitting on: 12:52 PM EDT History and Physical Notes * HPI (History of Present Illness) Category Sub-Category Detail Notes Category Not es Cardiology Short of Breath Chest Pain Palpitations Dizziness Examination Category Sub-Category Detail Notes Category Not es General Examination HEENT: unremarkable Heart: RSR Lungs: clear to auscultatio n Abdomen: soft and nontender, no organomegaly or masses Extremities: no leg edema General Appearance: NAD Skin: normal, no rash Neurologic Exam: Intact, gait normal Neck: supple, no lymphaden opathy Oral cavity: no lesions, mucosa m oist and WNL, no erythema Peripheral pulses: normal Chest: normal shape and exp ansion Consultation Request Notes Referral Date Referring Provider Referred Provider Not es 09/20/2024 Bentley Traore EARL FHx polyp s
--- OUTSIDE RECORDS SUMMARY | 2025-04-13 10:15 | XMS_ITS ---
Author Organization [facility] Address [address] [facility] [address] [place] [id number] Care Team Providers Care Pipe Line Walker Name Role Phone Bentley Traore Primary Care Provider Breanna Carter Unavailable [phone] Allergies No Known Allergies REASON FOR VISIT 6 Month Follow Up, Needs labs, colon cancer screening, & shingles vaccine Medications Medication SIG (Take, Route, Fr equency, Duration) Notes Start Date End Date Status Flonase Allergy Relief 50 MCG/ACT 1 spray in each nostril Nasally Once a day 08/27/2023 Active Maxzide-25 37.5-25 MG 1/2 tab Orally Onc e a day; Duration: 90 days Active Lisinopril 5 MG TAKE 1 TABLET BY SHIRA TH ONCE DAILY Orally Once a day; Duration: 90 days Active Taltz 80 MG/ML as directed subcutan eously every 4 weeks Active Vital Signs Weight 160.0 lbs 04/13/2025 Blood pressure systolic 130 mm Hg 04/13/20 25 Blood pressure diastolic 90 mm Hg 025 Heart Rate 83 /min 04/13/2025 Height 63.50 in 04/13/2025 BMI 27.9 kg/m2 04/13/2025 Encounters Encounter Location Date Provider Diagnosis Juan J [address] [facility] [address] [place] [phone] 04/13/2025 Breanna Carter Vitamin B12 deficien cy E53.8 ; Essential hypertension I10 ; Screening, lipid Z13.220 and BMI 27.0-27.9,adult Z68.27 Assessments Encounter Date Diagnosis (ICD Code) Assessment Notes Treatment Notes Treatment Clinical Notes Section Notes 04/13/2025 Vitamin B12 deficiency (ICD-10 - E53.8) c 04/13/2025 Essential hypertension (ICD-10 - I10) c 04/13/2025 Screening, lipid (ICD-10 - Z13.220) c 04/13/2025 BMI 27.0-27.9,adult (ICD-10 - Z68.27) c Plan Of Treatment Medication Medication Name Sig Start Date Stop Date Notes Maxzide-25 37.5-25 MG 1/2 tab Orally Onc e a day; Duration: 90 days Lisinopril 5 MG TAKE 1 TABLET BY ONCE DAILY Orally Once a day; Duration: 90 days Pending Test Test Name Order Date P-Vitamin B12 04/13/2025 P-Lipid Panel 04/13/2025 Next Appt Details Follow Up: via phone to repo rt test results, Reason: Progress Notes * LUZ CARVAJALDOB:1975 (49 yo F)Acc No.[id number]:04/13/2025 Progress Notes Patient: LUZ BARBA Provider: DEBBIE Eng :1975 A ge:49 Y S ex:Female Date:04/13/2025 Address:[address] [place] [address] [id number] Pcp:Bentley Traore Subjective: * Chief Complaints: * 1 . 6 Month Follow Up. 2. Needs labs, colon cancer screening, & shingles vaccine. * HPI: C ardiology: The patient is here for a check up on Hypertension and Hyperlipidemia. Pt states she is doing good and denies any new concerns. She had a c-scope in November 2024 and just had labs done at Rheumatology. * ROS: D ERMATOLOGY: no R juan [...] Tubal Ligation 01/2016, Hysterectomy, Oopherectomy, Cervix Remains- [facility] 04/07/2019, Bilateral Mastectomy with reconstruction 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 . * Family History: F ather: alive 76 [...] New since last visit: none. 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 Past smoking status: no, Smoking status: [...] 1 TABLET BY MOUTH ONCE DAILY , Discontinued Medrol 4 MG Tablet Therapy Pack as directed Orally , Medication List reviewed and reconciled with the patient * Allergies: N .K.D.A. Objective: * Vitals: W t: 160.0, Temp: 98.4, BP: 130/90, HR: 83, Nurse: ROBERT, Ht: 63.50, Repeat BP: 110/78, BMI:27.9. * Examination: G eneral Examination: General Appearance: N AD. H EENT: u nremarkable.?Oral cavity: n o lesions, mucosa moist and WNL, no erythema. N karlie: s upple, no lymphadenopathy. C hest: n ormal shape and expansion. H eart: R SR. L ungs: c lear to auscultation. A bdomen: b owel sounds present, soft and nontender. N eurologic Exam: I ntact, gait normal. S kin: n ormal, no rash. P eripheral pulses: n ormal (2+) bilaterally. E xtremities: n o leg edema. Assessment: * Assessment: 1. E ssential hypertension - I10 (Primary) 2 . V itamin B12 deficiency - E53.8 3 . S creening, lipid - Z13.220 4 . B VT 27.0-27.9,adult - Z68.27 c Plan: * Treatment: 2. V itamin B12 deficiency L AB: P-Vitamin B12 3. S creening, lipid L AB: P-Lipid Panel * Procedure Codes: 1 036F TOBACCO NON-USER, G8420 BMI<30 AND >=22 CALC & DOCU, G8950 PREHTN/HTN BP DOC INDCD F/U DOC, G8752 MOST RECENT SYSTOLIC BP < 140MM HG, G8754 MOST RECENT DIASTOLIC BP < 90MM HG * Follow Up: v ia phone to report test results * Images: Billing Information: * Visit Code: 97181 Office Visit, Est Pt., Level 4. * Procedure Codes: 1036F TOBACCO NON-USER. G8420 BMI<30 AND >=22 CALC & DOCU. G8950 PREHTN/HTN BP DOC INDCD F/U DOC. G8752 MOST RECENT SYSTOLIC BP < 140MM HG. G8754 MOST RECENT DIASTOLIC BP < 90MM HG. * Electronic signature of DEBBIE Payne on 08/15/2025 at 12:51 PM EDT Sign off status: Pending * Provider: DEBBIE Eng Date: 0 04/13/2025 Generated for [place] hebert/Twan/eTransmitting on: 1 12:51 PM EDT History and Physical Notes * Examination Category Sub-Category Detail Notes Category Not es General Examination HEENT: unremarkable Heart: RSR Lungs: clear to auscultatio n Abdomen: bowel sounds present , soft and nontender Extremities: no leg edema General Appearance: NAD Skin: normal, no rash Neurologic Exam: Intact, gait normal Neck: supple, no lymphaden opathy Oral cavity: no lesions, mucosa m oist and WNL, no erythema Peripheral pulses: normal (2+) bilatera lly Chest: normal shape and exp ansion
--- OUTSIDE RECORDS SUMMARY | 2025-04-14 04:35 | XMS_ITS ---
Author Organization [facility] Address [address] [place] [phone] Care Team Providers Care Housing Quality Standard Inspector Name Role Phone Bentley Traore Primary Care Provider Breanna Carter Unavailable [phone] Results Component Value Reference Range Notes P-Vitamin B12 Reviewed date:04/15/2025 01:00:51 PM Interpretation:338 Performing Lab: Notes/Report: CLIA: [id number] Chencho Mahajan MD, Industrial Maintenance Mechanic [address] [place] [address] , [facility] [place] [address] Test performed by [facility] Vitamin B12 693 052-4386 pg/mL P-Lipid Panel Reviewed date:04/15/2025 01:00:51 PM Interpretation:chol 205, non-hdl 150, ldl 133 Performing Lab: Notes/Report: Test performed by [facility] [address] [place] [address] Dr. [facility] C, [place] [address] Chencho Mahajan MD, Industrial Maintenance Mechanic CLIA: [id number] Cholesterol 205 <200 mg/dL Triglycerides 87 <150 mg/dL HDL Cholesterol 55 >39 mg/dL Cholesterol / HDL Ratio 3.73 0.00-4.44 Ratio Non-HDL Cholesterol 150 <130 mg/dL LDL Cholesterol (Calculation) 133 <130 mg/dL LDL Cholesterol Levels* Less than 100 mg/dL Optimal 100 to 129 mg/dL Near Optimal/ Above Optimal 130 to 159 mg/dL Borderline High 160 to 189 mg/dL High 190 mg/dL and above Very High * Categories as recommended by the 2004 ATPIII guidelines LDL/HDL Ratio 2.4 <3.3 Ratio LDL Cholesterol Patient History Test Date: 04/19/2024 LDL Results: 99 Units: mg/dL % Change: - Test Date: 04/14/2025 LDL Results: 133 Units: mg/dL % Change: +34% REASON FOR VISIT blood work Encounters Encounter Location Date Provider Diagnosis [facility] [address] [place] [id number] 04/14/2025 Breanna Carter Hyperlipidemia, unspecified hyperlipidemia type E78.5 and Vitamin B12 deficiency E53.8 Assessments Encounter Date Diagnosis (ICD Code) Assessment Notes Treatment Notes Treatment Clinical Notes Section Notes 04/14/2025 Hyperlipidemia, unspecified hyperlipidemia type (ICD-10 - E78.5) 04/14/2025 Vitamin B12 deficiency (ICD-10 - E53.8) Plan Of Treatment No Information Progress Notes * WEI CANDIDADOB:1975 (49 yo F)Acc No.[id number]:04/14/2025 Patient: LUZ BARBA Provider: DEBBIE Eng :1975 A ge:49 Y S ex:Female Date:04/14/2025 [facility] [id number] Pcp:Bentley Traore Subjective: * Chief Complaints: * 1 . Blood work. * Medical History: Objective: * Vitals: Assessment: * Assessment: 1. H yperlipidemia, unspecified hyperlipidemia type - E78.5 (Primary) 2 . V itamin B12 deficiency - E53.8 Plan: * Treatment: Value Reference Range C holesterol / HDL Ratio 3.73 0.00-4.44 - Ratio * C holesterol 205 H <200 - mg/dL * H DL Cholesterol 55 >39 - mg/dL * L DL Cholesterol (Calculation) 133 H <130 - mg/d L * L DL/HDL Ratio 2.4 <3.3 - Ratio * N on-HDL Cholesterol 150 H <130 - mg/dL * T riglycerides 87 <150 - mg/dL * Mckenzie Stroud 04/15/2025 01: 00:43 PM EDT > See phone encounter 2.?Vitamin B12 deficiency?LAB: P-Vitamin B12 (Collection Date & Time - 04/14/2025 07:25 AM)?338* Value Reference Range V itamin B12 065 989-4738 - pg/mL * Mckenzie Stroud 04/15/2025 01: 00:43 PM EDT > See phone encounter * Images: Billing Information: * Visit Code: * Procedure Codes: * Electronic signature of DEBBIE Payne on 08/15/2025 at 12:52 PM EDT Sign off status: Pending * Provider: DEBBIE Eng Date: 0 04/14/2025 Generated for [place] ng/Fanareng/eTransmitting on: 1 12:52 PM EDT
--- OUTSIDE RECORDS SUMMARY | 2025-08-02 08:45 | XMS_ITS | Encounter Summary ---
Author Organization [facility] Address [address] [place] [address] Care Team Providers Care Real Estate Transaction Manager Name Role Phone Melecio Traore MD Primary Care Provider [phone] Reason for Visit * Reason Comments Follow-up Arthralgia, unspecified joint Encounter Details Date Type Department Care Team (Late st Contact Info) Description 08/02/2025 8:45 AM EDT Office Visit [facility] RHEUMATOLOGY [address] [address] Horace Hamilton MD [address] [address] Arthralgia, unspecified joint (Primary Dx); [...] or training? Not on file Preferred Language Sri Lankan 09/17/2022 Comments No Sex and Gender Information [...] dabigatran, and rivaroxaban Cyclosporine Digoxin Diuretics Fluconazole [place] Methotrexate Other NSAIDs, medications for pain and [...] may report side effects to FDA at [phone]. Where should I keep my medication? Keep [...] documented in this encounter Progress Notes * Horace Hamilton MD - 08/02/2025 8:45 [...] is on Taltz for psoriasis per her data conversion developer. This is very effective. She reports hair [...] Procedure Laterality Date BREAST RECONSTRUCTION, BREAST TISSUE MALT LOADER REMOVAL, IMPLANT INSERTION Bilateral 06/26/2021 Procedure: BREAST TISSUE EXPANDERS EXCHANGE TO PERMANENT IMPLANTS BILATERAL; Surgeon: Quintin Lay MD; Location: [facility]; Service: Plastics; Laterality: Bilateral; BREAST SURGERY May 1991 Breast Reduction, bilateral mastectomy 10-03-20, ENDOMETRIAL ABLATION 2018 FAT GRAFTING Bilateral 06/26/2021 Procedure: BREAST REVISION WITH FAT GRAFTING BILATERAL; Surgeon: Quintin Lay MD; [facility]; Service: Plastics; Laterality: Bilateral; FAT GRAFTING Bilateral 09/24/2022 Procedure: FAT GRAFTING BILATERAL BREAST; Surgeon: Quintin Lay MD; Location: [facility]; Service: Plastics; Laterality: Bilateral; HYSTERECTOMY 2018 BSO LYMPH NODE BIOPSY 2010 MASTECTOMY bilateral 10-03-20 TUBAL ABDOMINAL LIGATION WOUND CLOSURE Bilateral 09/24/2022 Procedure: UPPER FLANK COMPLEX CLOSURE BILATERAL; Surgeon: Quintin Lay MD; Location: [facility]; Service: Plastics; Laterality: Bilateral; Family History: [...] joints - Osteoarthritis [facility] joints Four children. [facility]KU. 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 Bella - Continue Taltz per Dermatology. Taltz has really helped her skin but not her joints. High-risk medication. Well tolerated and effective. No serious side effects - High risk medication use - Immunosuppression due to medication - retirement (current) use of non-steroidal anti-inflammatories (nsaid) Celebrex Check CBC and CMP every 6 months. Lab order given today. Risks of NSAIDs discussed including GI upset, GI bleeding, renal or hepatic risks and the risk of cardiovascular disease and stroke. Warned patient not to take other NSAIDs including pxeo-lit-[id number] - Fatigue - Hair loss Check labs [...] those that have changed. Horace Hamilton MD [facility] [place] documented in this encounter Plan of Treatment Upcoming Encounters Date Type Department Care Team (Late st Contact Info) Description 01/30/2026 8:45 AM EDT Office Visit [facility] RHEUMATOLOGY [address] [address] Horace Hamilton MD [address] [id number] Scheduled Orders Name Type Priority Associated Diagnoses Orde r Schedule CBC Auto Differential Lab Routine Arthralgia, unspecified joint Psoriasis High risk medication use Immunosuppression due to drug therapy Other fatigue Ordered: 08/02/2025 Thyroid Panel With TSH Lab Routine Arthralgia, unspecified joint Psoriasis High risk medication use Immunosuppression due to drug therapy Other fatigue Expected: 08/07/2025 (Approximate), Expires: 11/01/2026 documented as of this encounter Procedures Procedure [...] fatigue documented in this encounter Results * (ABNORMAL) CBC & Differential (08/02/2025 9:29 [...] - 08/03/2025 1:06 AM EDT Performed at: [address] [place] [address] [id number] Sharepoint Application Developer: Ab Salcido MD, Phone: [phone] Patient Fasting: N us Horace Hamilton MD LAB BLOOD ORDERABLES Final Result Performing Organization Address [facility] Co de Phone Number [facility] (AMBULATORY) [address] [place] [address], [facility] [address] [place] [address], * Vitamin D,25-Hydroxy (08/02/2025 9:29 AM EDT) [facility] 25 Hydroxy, Vitamin D 34.4 30.0 - 100.0 ng/ml [facility] Comment: Reference Range for Total Vitamin D 25(OH) Deficiency <20.0 ng/mL Insufficiency 21-29 ng/mL Sufficiency 30-100 ng/mL Toxicity >100 ng/ml Blood 08/02/2025 9:29 AM EDT 08/02/2025 Narrative [facility] ([facility]) - 08/03/2025 1:06 AM EDT Performed at: [address] [place] [address] [id number] Sharepoint Application Developer: Ab Salcido MD, Phone: [phone] Patient Fasting: N us Horace Hamilton MD LAB BLOOD ORDERABLES Final Result Performing Organization Address City/[facility] Co de Phone Number [facility] (AMBULATORY) [address] [place] [address], [facility] [address] [place] [address], [place] [phone] * Vitamin B12 (08/02/2025 9:29 AM EDT) [facility] Vitamin B-12 346 211 - 946 pg/mL [facility] Comment:Results may be false ly increased if patient taking Biotin. Blood 08/02/2025 9:29 AM EDT 08/02/2025 Narrative [facility] ([facility]) - 08/03/2025 1:06 AM EDT Performed at: [address] [place] [address] [id number] Sharepoint Application Developer: Ab Salcido MD, Phone: [phone] Patient Fasting: N us Horace Hamilton MD LAB BLOOD ORDERABLES Final Result [facility] (AMBULATORY) [address] [place] [address], [facility] [address] [place] [address], [place] [phone] * Iron Profile w/o Ferritin (08/02/2025 9:29 AM EDT) [facility] TIBC 384 mcg/dL [facility] UIBC 256 112 - 346 mcg/dL [facility] Iron 128 37 - 145 mcg/dL [facility] Iron Saturation 33 20 - 50 % [facility] Blood 08/02/2025 9:29 AM EDT 08/02/2025 Narrative [facility] ([facility]) - 08/03/2025 1:06 AM EDT Performed at: [address] [place] [address] [address] [place], [place] [id number] Sharepoint Application Developer: Ab Salcido MD, Phone: [phone] Patient Fasting: N us Horace Hamilton MD LAB BLOOD ORDERABLES Final Result [facility] (AMBULATORY) [address] [place] [address], [place] [phone] [facility] [address] [place] [address], [place] [phone] * Ferritin (08/02/2025 9:29 AM EDT) Ferritin 65.00 13.00 - 150.00 ng/mL [facility] Comment:Results may be false ly decreased if patient taking Biotin. Blood 08/02/2025 9:29 AM EDT 08/02/2025 Narrative [facility] ([facility]) - 08/03/2025 1:06 AM EDT Performed at: [address] [place] [address] [id number] Sharepoint Application Developer: Ab Salcido MD, Phone: [phone] Patient Fasting: N us Horace Hamilton MD LAB BLOOD ORDERABLES Final Result Performing Organization Address [facility] Co de Phone Number [facility] ([facility]) [address] [place] [address], [place] [phone] [facility] [address] [place] [address], [place] [phone] * Sedimentation Rate (08/02/2025 9:29 AM EDT) Pathologist [facility] Sed Rate 9 0 - 30 mm/hr [facility] Blood 08/02/2025 9:29 AM EDT 08/02/2025 Narrative [facility] ([facility]) - 08/03/2025 1:06 AM EDT Performed at: [address] [place] [address] [id number] Sharepoint Application Developer: Ab Salcido MD, Phone: [phone] Patient Fasting: N us Horace Hamilton MD LAB BLOOD ORDERABLES Final Result Performing Organization Address City/[facility]/ZIP Co de Phone Number [facility] (AMBULATORY) [address] [place] [address], [place] [phone] [facility] [address] [place] [address], [place] [phone] * C-reactive Protein (08/02/2025 9:29 AM EDT) C-Reactive Protein <0.30 0.00 - 0.50 mg/dL [facility] Blood 08/02/2025 9:29 AM EDT 08/02/2025 Narrative [facility] ([facility]) - 08/03/2025 1:06 AM EDT Performed at: [address] [place] [address] [id number] Sharepoint Application Developer: Ab Salcido MD, Phone: [phone] Patient Fasting: N Horace Hamilton MD LAB BLOOD ORDERABLES Final Result [facility] ([facility]) [address] [place] [address], [facility] [address] [place] [address], * (ABNORMAL) Comprehensive Metabolic Panel (08/02/2025 9:29 AM EDT) Glucose 64(L) 65 - 99 mg/dL [facility] [...] - 08/03/2025 1:06 AM EDT Performed at: [address] [place] [address] [id number] Sharepoint Application Developer: Ab Salcido MD, Phone: [phone] Patient Fasting: N Horace Hamilton MD LAB BLOOD ORDERABLES Final Result [facility] ([facility]) [address] [place] [address], [place] [phone] [facility] [address] [place] [address], [place] [phone] documented in this encounter Visit Diagnoses Diagnosis Arthralgia, unspecified joint- Primary Psoriasis Other psoriasis High risk medication use Immunosuppression due to drug therapy Low vitamin D level Anemia, unspecified type Other fatigue documented in this encounter Care Teams Real Estate Transaction Manager Relationship Specialty Start Date End Date Melecio Traore MD [facility] [address] [facility] [address] [place] [address] PCP - General Family Medicine 06/24/21 documented as of this encounter
--- OUTSIDE RECORDS SUMMARY | 2025-08-15 12:51 | XMS_ITS | Encounter Summary ---
Author Organization [facility] ([place], [place], [place], [place]) Address [address] [place] [address] Care Team Providers Care Security Technician Name Role Phone Unavailable Primary Care Provider Unavailabl e Encounter Details Date Type Department Care Team (Late st Contact Info) Description 10/03/[address] [facility] [place] [facility] [place] [address] ProviderDonaldo MD [address] [place] [address] Social History Tobacco Use Types Packs/Day Years Used Date Smoking Tobacco: Never Assessed Comments Unknown Sex and Gender Information Value Date Recorded Sex Assigned at Not on file Legal Sex Female 6:43 PM CDT Gender Identity Not on file Sexual Orientation Not on file documented as of this encounter Miscellaneous Notes * Cerner Conversion Note - Donaldo ProviderMD - 10/03/2020 8:59 AM FARM MACHINE OPERATOR Pre Procedure Adult Entered On: 10/03/2020 9:01 EST Performed On: 10/03/2020 8:59 EST by ARNULFO ARMSTRONG RN Height and Weight, Clinical Dosing Height Source : Stated Height Entry Format : [place] Height, Feet : 5 ft(Converted to: 152 cm, 60 Inch) Height, Inches : 8 Inch(Converted to: 0 ft 8 Inch, 20.32 cm) Clinical Height : 172.72 cm Weight Source : Standing scale Weight Entry Format : [place] Clinical Dosing Weight : 72.73 kg Weight, Pounds : 160 lb Body Surface Area (BSA) : 1.86 m2 Body Mass Index : 24.4 kg/m2 (HI) [place] Body Weight : 63 kg ARNULFO ARMSTRONG RN - 10/03/2020 8:59 EST Health Histories Smoking Status : Never (less than 100 in lifetime; none in last 30 days) Smokeless Tobacco Status : Never ARNULFO ARMSTRONG RN - 10/03/2020 8:59 EST Social History (As Of: 10/03/2020 09:01:20 EST) Tobacco: Never (less than 100 in lifetime) Smoking Status. Never Smokeless Tobacco Status. (Last Updated: 09/25/2020 10:38:59 EST by Doris Ovalle Rn) Alcohol: Alcohol Use History Yes. Use in Last 12 Months: Yes. Alcohol Use Frequency Socially. (Last Updated: 09/25/2020 10:39:06 EST by Doris Ovalle Rn) Substance Abuse: Drug Use Hx: No. Use in Last 12 Months: No. (Last Updated: 09/25/2020 10:39:12 EST by Doris Ovalle Rn) Infectious Disease History Has the patient ever been tested for COVID-19? : No, Patient stated Does patient have symptoms of COVID-19? : No COVID19 Screening : No Experiencing Infectious Disease Symptoms : No symptoms Physical contact outside [place] in the last 30 days : No Infectious Disease History : Chicken pox/Shingles Tuberculosis Symptoms : None ARNULFO ARMSTRONG RN - 10/03/2020 8:59 EST COVID19 PreProcedure Screening Is this an Emergent or Add on Procedure? : No Date PreProcedure COVID-19 test known? : Yes Date of PreProcedure COVID-19 : 09/29/2020 EST Has patient been isolated since the test : Yes Exposed to COVID19 symptoms since test? : No ARNULFO ARMSTRONG RN - 10/03/2020 8:59 EST Anesthesia/Transfusion History Family History of Anesthesia Reaction : No prior transfusion(s) Transfusion History : Prior anesthesia without reaction Family History of Anesthesia Reaction : None ARNULFO ARMSTRONG RN - 10/03/2020 8:59 EST Functional Assessment Living Situation : Home Patient Lives With : Significant other(s) Persons Assisting Patient at Home : Alone Sensory Deficits : None Mobility Assistance Prior to Admission : Independent Current Home Treatments : None ARNULFO ARMSTRONG RN - 10/03/2020 8:59 EST [place] Suicide Severity Rating Scale (C-SSRS) CSSRS Past Month Wish to be : No CSSRS Past Month Suicidal Thoughts : No CSSRS Lifetime Suicide Behavior : No Suicide Severity Rating Score : 0 Suicide Severity Rating : No Additional Care Required at this time ARNULFO ARMSTRONG RN - 10/03/2020 8:59 EST Psychosocial History Do You Have a History of the Following? : Patient denies history Currently in Unsafe Situation : ARNULFO Darnell RN - 10/03/2020 8:59 EST Advance Directive Patient has Advance Directive *Q : No, patient refuses Advance Directive information ARNULFO ARMSTRONG RN - 10/03/2020 8:59 EST General Info Arrived From : Home Mode of Arrival on Unit : Ambulatory Legal Guardian : Unaccompanied Want Family/Rep/Phys Notified of Admit : No Emergency Contact #1 : Cory Salazar Emergency Contact #1 Emergency Contact #1 Relationship : S.O. Emergency Contact #2 : . Emergency Contact #2 Phone Number : . Emergency Contact #2 Relationship : . Information Obtained From : Patient Primary Language : Spanish Preferred Communication Mode : Verbal Communication Barrier : None Nursing Faculty Needed : ARNULFO Darnell RN - 10/03/2020 8:59 EST Sleep Apnea Risk Assmt Hx of Obstructive Sleep Apnea Diagnosis : No Snore Loudly : No Tired, Fatigued, or Sleepy During Day : No Observed Stopping Breathing During Sleep : No Have/Are Being Treated for Hypertension : No BMI Greater Than 35 kg/m2 : No Age over 50 Years Old : No Neck Circumference Greater Than 40 cm : No Gender Male : No STOP-BANG Sleep Apnea Risk Level Score : 0 ARNULFO ARMSTRONG RN - 10/03/2020 8:59 EST Uziel Scale Uziel Sensory Perception : No impairment Uziel Moisture : Rarely moist Uziel Activity : Walks frequently Uziel Mobility : No limitation Uziel Nutrition : Excellent Uziel Friction and Shear : No apparent problem Uziel Score : 23 ARNULFO ARMSTRONG RN - 10/03/2020 8:59 EST Fall Risk Scales ABCs Fall Injury Risk Identification : None SCHULER Hx Falls Immediate/Within 3 Months : No [place] Secondary Diagnosis : Yes SCHULER Use of Ambulatory Aid : None SCHULER IV Therapy or IV Access : Yes [place] Gait/Transferring : Normal, bedrest, immobile [place] Mental Status : Oriented to own ability [place] Fall Risk Score : 35 SCHULER Fall Scale Risk Level : 25-45 Medium Risk [place] Fall Interventions : Adequate lighting, Assistive devices within reach, Bed in low position, Call device within reach, Fall prevention handout/education per facility policy, Frequent orientation to call device, Frequent orientation to surroundings, Hourly comfort/safety rounds, Non-slip footwear, Personal items within reach, Reinforced to call for assistance before getting out of bed, Room free of clutter/spills, Upper side-rails up, Wheels locked, Wires/Cords secured Barriers to Learning : None evident Learning Style Preferences Patient : Printed materials, Verbal explanation ARNULFO ARMSTRONG RN - 10/03/2020 8:59 EST Valuables and Belongings Valuables and Belongings : Clothing, Personal items Clothing : Common streetwear Clothing Disposition : Sent to locker Personal Items : Cell phone Personal Items Disposition : Sent to locker ARNULFO ARMSTRONG RN - 10/03/2020 8:59 EST documented in this encounter Plan of Treatment Not on file documented as of this encounter Visit Diagnoses Not on filedocumented in this encounter
--- OUTSIDE RECORDS SUMMARY | 2025-08-15 12:51 | XMS_ITS | Encounter Summary ---
Author Organization [email or web address] ([place], [place], [place], [place]) Address [address] [address] Care Team Providers Care Supplemental Manager Name Role Phone Unavailable Primary Care Provider Unavailabl e Encounter Details Date Type Department Care Team (Late st Contact Info) Description 10/03/2020 Transcribed Document [facility] Family Medicine [facility] [address] ProviderDonaldo MD [address] [place] [address] Social History Tobacco Use Types Packs/Day Years Used Date Smoking Tobacco: Never Assessed Comments Unknown Sex and Gender Information Value Date Recorded Sex Assigned at Not on file Legal Sex Female 6:43 PM CDT Gender Identity Not on file Sexual Orientation Not on file documented as of this encounter Miscellaneous Notes * Cerner Conversion Note - Donaldo ProviderMD - 10/03/2020 10:53 AM 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 Name: JOLLY GORDON /Sex: 1975 Female Med Rec #: [id number] Physician: JAYCEE ROA MD-SUR Financial #: [id number] Pt. Type: O Room/Bed: Admit/Disch: 10/03/20 04:06:00 - Institution: [facility] [place] PACU Case Times Entry 1 In PACU I 10/03/20 15:13:00 Ready for PACU 10/03/20 16:06:00 Discharge Discharge from PACU 10/03/20 16:06:00 I Last Modified By: BELÉN POLLOCK, [id number]-OP CAR 10/03/20 16:06:36 Finalized By: BELÉN POLLOCK, [id number]-OP CAR Document Signatures Signed By: BELÉN POLLOCK, ONL-[id number]-OP CAR 10/03/20 16:06 documented in this encounter Plan of Treatment Not on file documented as of this encounter Visit Diagnoses Not on filedocumented in this encounter
--- OUTSIDE RECORDS SUMMARY | 2025-08-15 12:51 | XMS_ITS | Encounter Summary ---
Author Organization [employer] ([place], [place], [place], [place]) Address [address] [address] Care Team Providers Care Wire Bender Name Role Phone Unavailable Primary Care Provider Unavailabl e Encounter Details Date Type Department Care Team (Late st Contact Info) Description 10/03/2020 Transcribed Document [facility] [place] [facility] [place] [address] ProviderDonaldo MD [address] [place] [address] Social History Tobacco Use Types Packs/Day Years Used Date Smoking Tobacco: Never Assessed Comments Unknown Sex and Gender Information Value Date Recorded Sex Assigned at Not on file Legal Sex Female 6:43 PM CDT Gender Identity Not on file Sexual Orientation Not on file documented as of this encounter Miscellaneous Notes * Cerner Conversion Note - Donaldo ProviderMD - 10/03/2020 10:00 AM MANUFACTURING OPERATOR [facility] Main OR PreOp Summary Primary Physician: JAYCEE ROA MD-SUR Finalized Date/Time: 10/03/20 10:45:07 Pt. Name: JOLLY CARVAJAL /Sex: 1975 Female Med Rec #: [id number] Physician: JAYCEE ROA MD-SUR Financial #: [id number] Pt. Type: O Room/Bed: Admit/Disch: 10/03/20 04:06:00 - Institution: [facility] PreOp Case Times Entry 1 In Preop 10/03/20 08:00:00 Ready for Holding n/a Room Patient Ready for 10/03/20 10:00:00 Surgery Patient Out of Preop 10/03/20 10:15:00 Patient Out of n/a Holding Room Last Modified By: TERRA MERIDA RN 12/01/20 10:45:04 [facility] PreOp Case Times Audit 10/03/20 10:45:04 Data Specialist: JOSE ANTONIO Modifier: [id number] <*> Patient Out of Preop 10/03/20 10:10:00 Finalized By: TERRA MERIDA, RN Document Signatures Signed By: TERRA MERIDA, VICKY 10/03/20 10:45 Electronically signed by Nikunj [facility] Conversion Web Database Developer Cerner at 02/17/2023 12:11 PM CDT documented in this encounter Plan of Treatment Not on file documented as of this encounter Visit Diagnoses Not on filedocumented in this encounter
--- OUTSIDE RECORDS SUMMARY | 2025-08-15 12:51 | XMS_ITS | Referral Summary ---
Author Organization [employer] ([place], [place], [place], [place]) Address [address] [place] [address] Care Team Providers Care Database Administration Project Manager Name Role Phone Unavailable Primary Care Provider Unavailabl e Social History Tobacco Use Types Packs/Day Years Used Date Smoking Tobacco: Never Assessed Comments Unknown Sex and Gender Information Value Date Recorded Sex Assigned at Not on file Legal Sex Female 6:43 PM CDT Gender Identity Not on file Sexual Orientation Not on file Plan of Treatment Not on file
--- OUTSIDE RECORDS SUMMARY | 2025-08-15 12:51 | XMS_ITS | Encounter Summary ---
Author Organization [employer] ([place], [place], [place], [place]) Address [address] [address] Care Team Providers Care Missile Technician Name Role Phone Unavailable Primary Care Provider Unavailabl e Encounter Details Date Type Department Care Team (Late st Contact Info) Description 10/03/2020 Transcribed Document [facility] [place] [facility] [place] [address] ProviderDonaldo MD [address] [place] [address] Social History Tobacco Use Types Packs/Day Years Used Date Smoking Tobacco: Never Assessed Comments Unknown Sex and Gender Information Value Date Recorded Sex Assigned at Not on file Legal Sex Female 6:43 PM CDT Gender Identity Not on file Sexual Orientation Not on file documented as of this encounter Miscellaneous Notes * Cerner Conversion Note - Donaldo ProviderMD - 10/03/2020 9:30 AM SLIP FEEDER Time Out Documentation Entered On: 10/03/2020 9:15 EST Performed On: 10/03/2020 9:30 EST by ARNULFO ARMSTRONG, RN Time Out Documentation Procedure to be Performed : bilateral pec block ARNULFO ARMSTRONG RN - 10/03/2020 9:14 EST Time Out Pause Time : 10/03/2020 9:30 EST ARNULFO ARMSTRONG RN - 10/03/2020 9:56 EST All Activity Suspended : Yes Team Verbally Confirms Information : Correct patient identity, Correct side and site are marked, Consent form is present and accurate, Agreement on the procedure to be done, Correct patient position, Relevant images/results properly labeled/appropriately displayed, Confirm the skin prep has dried, Performed in location of procedure after prepped/draped, Performed before each procedure if multiple procedures ARNULFO ARMSTRONG RN - 10/03/2020 9:14 EST documented in this encounter Plan of Treatment Not on file documented as of this encounter Visit Diagnoses Not on filedocumented in this encounter
--- OUTSIDE RECORDS SUMMARY | 2025-08-15 12:51 | XMS_ITS | Encounter Summary ---
Author Organization [employer] ([place], [place], [place], [place]) Address [address] [place] [address] Care Team Providers Care Retail Director Name Role Phone Unavailable Primary Care Provider Unavailabl e Encounter Details Date Type Department Care Team (Late st Contact Info) Description 10/03/2020 Transcribed Document [facility] [place] [facility] [place] [address] ProviderDonaldo MD [facility] [place] [address] Social History Tobacco Use Types Packs/Day Years Used Date Smoking Tobacco: Never Assessed Comments Unknown Sex and Gender Information Value Date Recorded Sex Assigned at Not on file Legal Sex Female 6:43 PM CDT Gender Identity Not on file Sexual Orientation Not on file documented as of this encounter Miscellaneous Notes * Cerner Conversion Note - Historical ProviderMD - 10/03/2020 5:00 PM PLASTER DIE MAKER Chart Check - Review Order Profile Entered On: 10/03/2020 17:14 EST Performed On: 10/03/2020 17:14 EST by Azucena Guevara RN Chart Check Powerplans Initiated/Discontinued as Appropriate : Yes All Active Orders Reviewed : Yes Azucena Guevara RN - 10/03/2020 17:14 EST documented in this encounter Plan of Treatment Not on file documented as of this encounter Visit Diagnoses Not on filedocumented in this encounter
--- OUTSIDE RECORDS SUMMARY | 2025-08-15 12:52 | XMS_ITS | Encounter Summary ---
Author Organization [employer] ([place], [place], [place], [place]) Address [address] [place] [address] Care Team Providers Care Homicide Squad Sergeant Name Role Phone Unavailable Primary Care Provider Unavailabl e Encounter Details Date Type Department Care Team (Late st Contact Info) Description 10/03/2020 Transcribed Document [facility] [place] [facility] [place] [address] ProviderDonaldo MD [address] [place] [address] Social History Tobacco Use Types Packs/Day Years Used Date Smoking Tobacco: Never Assessed Comments Unknown Sex and Gender Information Value Date Recorded Sex Assigned at Not on file Legal Sex Female 6:43 PM CDT Gender Identity Not on file Sexual Orientation Not on file documented as of this encounter Miscellaneous Notes * Cerner Conversion Note - Donaldo ProviderMD - 10/03/2020 4:05 AM AUTOMOBILE RELOCATION ENGINEER Admission History, Adult Entered On: 10/03/2020 16:39 EST Performed On: 10/03/2020 16:38 EST by Azucena Guevara RN Advance Directive Patient has Advance Directive *Q : No, patient refuses Advance Directive information Azucena Guevara RN - 10/03/2020 16:38 EST Anesthesia/Transfusion History Family History of Anesthesia Reaction : No prior transfusion(s) Blood Transfusion Acceptable to Patient : Yes Transfusion History : Prior anesthesia without reaction Family History of Anesthesia Reaction : None Azucena Guevara RN - 10/03/2020 16:38 EST Anticipated Discharge Needs Discharge To, Anticipated : Home Anticipated Discharge Needs at This Time : None Azucena Guevara RN - 10/03/2020 16:38 EST Education Topics, Admission Orientation DCP GENERIC CODE Advance Directives : Verbalizes understanding Allergy Band Applied : Verbalizes understanding Assessment/Vital Signs : Verbalizes understanding Bed Control : Verbalizes understanding Call Light : Verbalizes understanding Confidentiality : Verbalizes understanding Diet/Room Service : Verbalizes understanding Fall Prevention : Verbalizes understanding Hand Hygiene : Verbalizes understanding Healthcare Provider Visit : Verbalizes understanding ID Band Applied : Verbalizes understanding Isolation Precautions : Verbalizes understanding Orientation to Room/Bathroom : Verbalizes understanding Patient Bill of Rights : Verbalizes understanding Patient Rights/Responsibilities : Verbalizes understanding Patient Safety : Verbalizes understanding Personal Privacy Code : Verbalizes understanding Rapid Response Initiated by Patient/Family : Verbalizes understanding Rounding : Verbalizes understanding Siderails use/risks : Verbalizes understanding Skin Precautions : Verbalizes understanding Smoking Policy : Verbalizes understanding Telemetry Monitoring : Verbalizes understanding Television/Phone : Verbalizes understanding Visiting Policy : Verbalizes understanding Azucena Guevara RN - 10/03/2020 16:38 EST Functional Assessment Living Situation : Home Patient Lives With : Significant other(s) Persons Assisting Patient at Home : Alone Mobility Assistance Prior to Admission : Independent Current Home Treatments : None Azucena Guevara RN - 10/03/2020 16:38 EST General Info Arrived From : Other: pacu Mode of Arrival on Unit : Stretcher Patient Arrival Date/Time : 10/03/2020 16:10 EST Legal Guardian : Other: RN Want Family/Rep/Phys Notified of Admit : No Emergency Contact #1 : Cory Salazar Emergency Contact #1 Emergency Contact #1 Relationship : S.O. Emergency Contact #2 : . Emergency Contact #2 Phone Number : . Emergency Contact #2 Relationship : . Information Obtained From : Patient Primary Language : Spanish Preferred Communication Mode : Verbal Communication Barrier : None Swahili Teacher Needed : No Azucena Guevara RN - 10/03/2020 16:38 EST Fall Risk Scales ABCs Fall Injury Risk Identification : None [place] Hx Falls Immediate/Within 3 Months : No [place] Secondary Diagnosis : No [place] Use of Ambulatory Aid : Bed rest/Nurse assist [place] IV Therapy or IV Access : Yes [place] Gait/Transferring : Normal, bedrest, immobile [place] Mental Status : Oriented to own ability [place] Fall Risk Score : 20 [place] Fall Scale Risk Level : 0-24 Low Risk [place] Fall Interventions : Adequate lighting, Bed in low position, Call device within [...] Preferences Patient : Printed materials, Verbal explanation Azucena Guevara RN - 10/03/2020 16:38 EST Health Histories Smoking Status : Never (less than 100 in lifetime; none in last 30 days) Smokeless Tobacco Status : Never Azucena Guevara RN - 10/03/2020 16:38 EST Social History (As Of: 10/03/2020 16:39:46 EST) Tobacco: Never (less than 100 in [...] (Last Updated: 09/25/2020 10:39:12 EST by Doris Oavlle Rn) Height and Weight, Clinical Dosing Height Source : Stated Height Entry Format : [place] Height, Feet : 5 ft(Converted to: 152 cm, 60 Inch) Height, Inches : 8 Inch(Converted to: 0 ft 8 Inch, 20.32 cm) Clinical Height : 172.72 cm Weight Source : Standing scale Weight Entry Format : [place] Clinical Dosing Weight : 72.73 kg Weight, Pounds : 160 lb Body Surface Area (BSA) : 1.86 m2 Body Mass Index : 24.4 kg/m2 ([place]) [place] Body Weight : 63 kg Azucena Guevara RN - 10/03/2020 16:38 EST Infectious Disease History Has the patient ever been tested for COVID-19? : Yes, Patient stated results Negative Date of COVID-19 test known? : Yes Date of COVID-19 Test : 09/29/2020 EST Does patient have symptoms of COVID-19? : No COVID19 Screening : No Experiencing Infectious Disease Symptoms : No symptoms Physical contact outside [place] in the last 30 days : No Infectious Disease History : Chicken pox/Shingles Tuberculosis Symptoms : None Azucena Guevara RN - 10/03/2020 16:38 EST Influenza Vaccine Asmt, Adult Previous Vaccines from Immunization Schedule : No qualifying data available. Influenza Immunization, Current Season : Yes Influenza Immunization Comment : up to date per patient Azucena Guevara RN - 10/03/2020 16:38 EST Pneumococcal Vaccine Previous Vaccines from Immunization Schedule : No qualifying data available. Pneumonia Immunization Received : No Pneumococcal Risk Assessment < Age 65 : None Azucena Guevara RN - 10/03/2020 16:38 EST Order Details Transport Mode Order Detail : Wheelchair Isolation Precautions Order Detail : Standard Precautions Order Detail : 0 IV Order Detail : 1 Oxygen Order Detail : 0 Nurse Collect Order Detail : 0 Lift/Transfer : Minimal Central Line Order Detail : No Room Service : Not Appropriate Arterial Line : No Patient Needs Meds Crushed/Liquid : No Azucena Guevara RN - 10/03/2020 16:38 EST Nutrition History Eating Poorly Due to Decreased Appetite : No Unplanned Weight Loss in Past 3-6 Months : No Malnutrition Screening Tool Total(mal) : 0 Malnutrition Screening Tool Risk Level : Patient not at risk Azucena Guevara RN - 10/03/2020 16:38 EST [place] Suicide Severity Rating Scale (C-SSRS) CSSRS Past Month Wish to be : No CSSRS Past Month Suicidal Thoughts : No CSSRS Lifetime Suicide Behavior : No Suicide Severity Rating Score : 0 Suicide Severity Rating : No Additional Care Required at this time Azucena Guevara RN - 10/03/2020 16:38 EST Psychosocial History Do You Have a History of the Following? : Patient denies history Currently in Unsafe Situation : No Azucena Guevara RN - 10/03/2020 16:38 EST Sleep Apnea Risk Assmt Hx of [...] Sleep Apnea Risk Level Score : 0 Azucena Guevara RN - 10/03/2020 16:38 EST Valuables and Belongings Valuables and Belongings : Clothing, Personal items Clothing : Common streetwear Clothing Disposition : With patient Personal Items : Cell phone Personal Items Disposition : Sent to locker, Sent to security/safe, With patient Azucena Guevara RN - 10/03/2020 16:38 EST documented in this encounter Plan of Treatment Not on file documented as of this encounter Visit Diagnoses Not on filedocumented in this encounter
--- OUTSIDE RECORDS SUMMARY | 2025-08-15 12:52 | XMS_ITS | Encounter Summary ---
[facility] Organization [facility] Address [address] [place] [address] Care Team Providers Care Metal Flooring Installer Name Role Phone Melecio Traore MD Primary Care Provider [phone] Encounter Details Date Type Department Care Team (Late st Contact Info) Description 08/03/2025 Results Follow-Up [facility] [address] [address] Horace Hamilton MD [address] [address] Social History Tobacco Use Types Packs/Day Years Used Date Smoking Tobacco: Never Smokeless Tobacco: Never Alcohol Use Standard Drinks/Week Comments Not Currently [...] or training? Not on file Preferred Language Cape Verdean 09/17/2022 Comments No Sex and Gender Information Value Date Recorded Sex Assigned at Not on file Legal Sex Female 4:39 PM EST Gender Identity Not on file Sexual Orientation Not on file documented as of this encounter Plan of Treatment Upcoming Encounters Date Type Department Care Team (Late st Contact Info) Description 01/30/2026 8:45 AM EDT Office Visit [facility] [address] [id number] Horace Hamilton MD [address] [address] documented as of this encounter Visit Diagnoses Not on filedocumented in this encounter Care Teams Metal Flooring Installer Relationship Specialty Start Date End Date Melecio Traore MD [address] [facility] [address] [facility] [address] [place] [address] PCP - General Family Medicine 06/24/21 documented as of this encounter
--- OUTSIDE RECORDS SUMMARY | 2025-08-15 12:53 | XMS_ITS | Encounter Summary ---
Author Organization [facility] Address [address] [place] [address] Care Team Providers Care Carpet Or Rug Layer Helper Name Role Phone Melecio Traore MD Primary Care Provider [phone] Encounter Details Date Type Department Care Team (Latest Contact Info) Description 08/02/2025 Travel Social History Tobacco Use Types Packs/Day Years [...] or training? Not on file Preferred Language Guyanese 09/17/2022 Comments No Sex and Gender Information Value Date Recorded Sex Assigned at Not on file Legal Sex Female 4:39 PM EST Gender Identity Not on file Sexual Orientation Not on file documented as of this encounter Plan of Treatment Upcoming Encounters Date Type Department Care Team (Late st Contact Info) Description 01/30/2026 8:45 AM EDT Office Visit [facility] [address] [phone] Horace Hamilton MD 330 [facility] [address] [place] [address] documented as of this encounter Visit Diagnoses Not on filedocumented in this encounter Care Teams Carpet Or Rug Layer Helper Relationship Specialty Start Date End Date Melecio Traore MD [address] [facility] [address] [facility] [address] [place] [address] PCP - General Family Medicine 06/24/21 documented as of this encounter
--- OUTSIDE RECORDS SUMMARY | 2025-08-15 12:53 | XMS_ITS | Encounter Summary ---
Author Organization [employer] ([place], [place], [place], [place]) Address [address] [place] [address] Care Team Providers Care Event Decorator Name Role Phone Unavailable Primary Care Provider Unavailabl e Encounter Details Date Type Department Care Team (Late st Contact Info) Description 10/04/2020 Transcribed Document [facility] Family Medicine [address] [place] [address] ProviderDonaldo MD [address] [place] [address] Social History Tobacco Use Types Packs/Day Years Used Date Smoking Tobacco: Never Assessed Comments Unknown Sex and Gender Information Value Date Recorded Sex Assigned at Not on file Legal Sex Female 6:43 PM CDT Gender Identity Not on file Sexual Orientation Not on file documented as of this encounter Miscellaneous Notes * Cerner Conversion Note - Donaldo ProviderMD - 10/04/2020 12:47 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 Use this form to write down the amount of fluid that has collected in the drainage container. Bring this form with you to your follow-up visits. Surgical drain #1 location: Date Time Amount Date Time Amount Date Time Amount Date Time Amount Date Time Amount Date Time Amount Date Time Amount Date Time Amount Date Time Amount Date Time Amount Date Time Amount Date Time Amount Date Time Amount Date Time Amount Date Time Amount Date Time Amount Date Time Amount Date Time Amount Date Time Amount Date Time Amount Date Time Amount Surgical drain #2 location: Date Time Amount Date Time Amount Date Time Amount Date Time Amount Date Time Amount Date Time Amount Date Time Amount Date Time Amount Date Time Amount Date Time Amount Date Time Amount Date Time Amount Date Time Amount Date Time Amount Date Time Amount Date Time Amount Date Time Amount Date Time Amount Date Time Amount Date Time Amount Date Time Amount This information is not intended to replace advice given to you by your health care provider. Make sure you discuss any questions you have with your health care provider. Document Released: 07/27/2018 Document Revised: 07/27/2018 Document Reviewed: 07/27/2018 Elsevier Patient Education ? 2020 [employer] Surgical Drain Record Empty your surgical drain as told by your health care provider. Use this form to write down the amount of fluid that has collected in the drainage container. Bring this form with you to your follow-up visits. Surgical drain #1 location: Date Time Amount Date Time Amount Date Time Amount Date Time Amount Date Time Amount Date Time Amount Date Time Amount Date Time Amount Date Time Amount Date Time Amount Date Time Amount Date Time Amount Date Time Amount Date Time Amount Date Time Amount Date Time Amount Date Time Amount Date Time Amount Date Time Amount Date Time Amount Date Time Amount Surgical drain #2 location: Date Time Amount Date Time Amount Date Time Amount Date Time Amount Date Time Amount Date Time Amount Date Time Amount Date Time Amount Date Time Amount Date Time Amount Date Time Amount Date Time Amount Date Time Amount Date Time Amount Date Time Amount Date Time Amount Date Time Amount Date Time Amount Date Time Amount Date Time Amount Date Time Amount This information is not intended to replace advice given to you by your health care provider. Make sure you discuss any questions you have with your health care provider. Document Released: 07/27/2018 Document Revised: 07/27/2018 Document Reviewed: 07/27/2018 Elsevier Patient Education ? 2020 [employer] Surgical Drain Record Empty your surgical drain as told by your health care provider. Use this form to write down the amount of fluid that has collected in the drainage container. Bring this form with you to your follow-up visits. Surgical drain #1 location: Date Time Amount Date Time Amount Date Time Amount Date Time Amount Date Time Amount Date Time Amount Date Time Amount Date Time Amount Date Time Amount Date Time Amount Date Time Amount Date Time Amount Date Time Amount Date Time Amount Date Time Amount Date Time Amount Date Time Amount Date Time Amount Date Time Amount Date Time Amount Date Time Amount Surgical drain #2 location: Date Time Amount Date Time Amount Date Time Amount Date Time Amount Date Time Amount Date Time Amount Date Time Amount Date Time Amount Date Time Amount Date Time Amount Date Time Amount Date Time Amount Date Time Amount Date Time Amount Date Time Amount Date Time Amount Date Time Amount Date Time Amount Date Time Amount Date Time Amount Date Time Amount This information is not intended to replace advice given to you by your health care provider. Make sure you discuss any questions you have with your health care provider. Document Released: 07/27/2018 Document Revised: 07/27/2018 Document Reviewed: 07/27/2018 Elsevier Patient Education ? 2020 [employer] Surgical Drain Record Empty your surgical drain as told by your health care provider. Use this form to write down the amount of fluid that has collected in the drainage container. Bring this form with you to your follow-up visits. Surgical drain #1 location: Date Time Amount Date Time Amount Date Time Amount Date Time Amount Date Time Amount Date Time Amount Date Time Amount Date Time Amount Date Time Amount Date Time Amount Date Time Amount Date Time Amount Date Time Amount Date Time Amount Date Time Amount Date Time Amount Date Time Amount Date Time Amount Date Time Amount Date Time Amount Date Time Amount Surgical drain #2 location: Date Time Amount Date Time Amount Date Time Amount Date Time Amount Date Time Amount Date Time Amount Date Time Amount Date Time Amount Date Time Amount Date Time Amount Date Time Amount Date Time Amount Date Time Amount Date Time Amount Date Time Amount Date Time Amount Date Time Amount Date Time Amount Date Time Amount Date Time Amount Date Time Amount This information is not intended to replace advice given to you by your health care provider. Make sure you discuss any questions you have with your health care provider. Document Released: 07/27/2018 Document Revised: 07/27/2018 Document Reviewed: 07/27/2018 Elsevier Patient Education ? 2020 [employer]. Surgical Drain Home Care Surgical drains are used to remove extra fluid that normally builds up in a surgical wound after surgery. A surgical drain helps to heal a surgical wound. Different kinds of surgical drains include: ??? Active drains. These drains use suction to pull drainage away from the surgical wound. Drainage flows through a tube to a container outside of the body. With these drains, you need to keep the bulb or the drainage container flat (compressed) at all times, except while you empty it. Flattening the bulb or container creates suction. ??? Passive drains. These drains allow fluid to drain naturally, by gravity. Drainage flows through a tube to a bandage (dressing) or a container outside of the body. Passive drains do not need to be emptied. A drain is placed during surgery. Right after surgery, drainage is usually bright red and a little thicker than water. The drainage may gradually turn yellow or pink and become thinner. It is likely that your health care provider will remove the drain when the drainage stops or when the amount decreases to 1?2 Tbsp (15?30 mL) during a 24-hour period. Supplies needed: ??? Tape. ??? Germ-free cleaning solution (sterile saline). ??? Cotton swabs. ??? Split gauze drain sponge: 4 x 4 inches (10 x 10 cm). ??? Gauze square: 4 x 4 inches (10 x 10 cm). How to care for your surgical drain Care for your drain as told by your health care provider. This is important to help prevent infection. If your drain is placed at your back, or any other zjhx-[id number] area, ask another person to assist you in performing the following tasks: General care ??? Keep the skin around the drain dry and covered with a dressing at all times. ??? Check your drain area every day for signs of infection. Check for: ? Redness, swelling, or pain. ? Pus or a bad smell. ? Cloudy drainage. ? Tenderness or pressure at the drain exit site. Changing the dressing Follow instructions from your health care provider about how to change your dressing. Change your dressing at least once a day. Change it more often if needed to keep the dressing dry. Make sure you: 1. Gather your supplies. 2. Wash your hands with soap and water before you change your dressing. If soap and water are not available, use hand weighter. 3. Remove the old dressing. Avoid using scissors to do that. 4. Wash your hands with soap and water again after removing the old dressing. 5. Use sterile saline to clean your skin around the drain. You may need to use a cotton swab to clean the skin. 6. Place the tube through the slit in a drain sponge. Place the drain sponge so that it covers your wound. 7. Place the gauze square or another drain sponge on top of the drain sponge that is on the wound. Make sure the tube is between those layers. 8. Tape the dressing to your skin. 9. Tape the drainage tube to your skin 1?2 inches (2.5?5 cm) below the place where the tube enters your body. Taping keeps the tube from pulling on any stitches (sutures) that you have. 10. Wash your hands with soap and water. 11. Write down the color of your drainage and how often you change your dressing. How to empty your active drain 1. Make sure that you have a measuring cup that you can empty your drainage into. 2. Wash your hands with soap and water. If soap and water are not available, use hand weighter. 3. Loosen any pins or clips that hold the tube in place. 4. If your health care provider tells you to strip the tube to prevent clots and tube blockages: ??? Hold the tube at the skin with one hand. Use your other hand to pinch the tubing with your thumb and first finger. ??? Gently move your fingers down the tube while squeezing very lightly. This clears any drainage, clots, or tissue from the tube. ??? You may need to do this several times each day to keep the tube clear. Do not pull on the tube. 5. Open the bulb cap or the drain plug. Do not touch the inside of the cap or the bottom of the plug. 6. Turn the device upside down and gently squeeze. 7. Empty all of the drainage into the measuring cup. 8. Compress the bulb or the container and replace the cap or the plug. To compress the bulb or the container, squeeze it firmly in the middle while you close the cap or plug the container. 9. Write down the amount of drainage that you have in each 24-hour period. If you have less than 2 Tbsp (30 mL) of drainage during 24 hours, contact your health care provider. 10. Flush the drainage down the toilet. 11. Wash your hands with soap and water. Contact a health care provider if: ??? You have redness, swelling, or pain around your drain area. ??? You have pus or a bad smell coming from your drain area. ??? You have a fever or chills. ??? The skin around your drain is warm to the touch. ??? The amount of drainage that you have is increasing instead of decreasing. ??? You have drainage that is cloudy. ??? There is a sudden stop or a sudden decrease in the amount of drainage that you have. ??? Your drain tube falls out. ??? Your active drain does not stay compressed after you empty it. Summary ??? Surgical drains are used to remove extra fluid that normally builds up in a surgical wound after surgery. ??? Different kinds of surgical drains include active drains and passive drains. Active drains use suction to pull drainage away from the surgical wound, and passive drains allow fluid to drain naturally. ??? It is important to care for your drain to prevent infection. If your drain is placed at your back, or any other almd-ag-ebvdp area, ask another person to assist you. ??? Contact your health care provider if you have redness, swelling, or pain around your drain area. This information is not intended to replace advice given to you by your health care provider. Make sure you discuss any questions you have with your health care provider. Document Released: 10/17/2001 Document Revised: 11/24/2019 Document Reviewed: 11/24/2019 [employer] Patient Education ? 2020 [employer] Exercises Following Breast Surgery The following exercises are recommended and safe to do after you have surgery on your breast or your lymph nodes near your armpit (axillary nodes). These exercises may improve your ability to move your chest, shoulders, and back (mobility). This can help to relieve pain, swelling, and stiffness that you may experience after surgery. Exercises Ask your health care provider which exercises are safe for you. Do exercises exactly as told by your health care provider and adjust them as directed. You should not feel pain when you do these exercises. Stop right away if you feel any pain. Do not begin these exercises until told by your health care provider. Deep breathing 1. Lie down on your back. You may bend your knees for comfort. 2. Slowly breathe in as much air as you can and expand your chest and abdomen. ??? Think about pushing your belly button away from your spine while you do this. ??? It may help to put your hands on your belly so you can feel it expand. 3. Slowly breathe out. Repeat these steps 4?5 times or the number of times that is comfortable for you. Wand exercise 1. Lie down on your back. You may bend your knees for comfort. 2. Position your hands so your thumbs are pointing to each other. With both hands, hold a wand-shaped object, such as a broom handle or a cane. Your hands should be about shoulder width apart on the object. 3. Start with the object resting across your hips. 4. Slowly lift the wand toward the ceiling. Use your unaffected arm to help lift the wand. If it is comfortable for you, lengthen the movement to go from your hips to over your head. Repeat these steps 5?7 times. Elbow winging 1. Lie down on your back. You may bend your knees for comfort. 2. Clasp your hands together behind your head so that your elbows point toward the ceiling. 3. Keep your hands together and move your elbows apart and down toward the floor as far as you comfortably can. Repeat these steps 5?7 times. Swelling reduction, lying down 1. Lie down on your back. You may bend your knees for comfort. 2. Raise (elevate) your affected arm above the level of your heart and keep it elevated during the exercise. You may rest your arm on top of pillows to make this easier. 3. Open and close your hand 15?25 times in a row. 4. Bend and straighten your elbow 15?25 times in a row. 5. You may keep your arm elevated for up to 45 minutes at a time. This helps to reduce swelling. Do this exercise 2?4 times a day. Swelling reduction, sitting 1. Hold a tennis ball, a rolled-up towel, or a similar object in your hand on your affected side. 2. Slowly squeeze the ball or towel. Try to do this using only your hand muscles. 3. Relax your hand. Repeat these steps 15?25 times. Shoulder blade stretch 1. Sit in a chair, facing a table. Your back should be against the back of the chair. 2. Place your unaffected arm on the table with your palm down and your elbow bent. This arm will support you and will not move during the exercise. 3. Place your affected arm on the table with your palm down and your elbow straight. 4. Slide your affected arm forward, toward the opposite side of the table, but avoid leaning forward. ??? While you do this, you should feel your shoulder blade on your affected side move away from the back of the chair. ??? You may put a towel under your hand to help it slide more easily. Repeat these steps 5?7 times. Shoulder blade squeeze 1. Sit in a stable chair with good posture. Avoid letting your back touch the back of the chair. 2. Your arms should be at your sides with your elbows bent. You may rest your forearms on a pillow. 3. Squeeze your shoulder blades together. Think about trying to bring them down and back. ??? Keep your shoulders level. ??? Do not lift your shoulders up toward your ears. 4. Relax your muscles completely before you repeat this exercise. Repeat these steps 5?7 times. Side bend 1. Sit in a stable chair with your feet flat on the floor. You may put your feet shoulder-width apart to help you feel more stable. 2. Clasp your hands together in your lap and lift your hands slowly over your head until your arms are straight. You may use your unaffected arm to help lift your other arm. 3. With your arms above your head, bend at your waist to your right so you feel a stretch in your left side. 4. Straighten your abdomen and move your arms back to the center, above your head. 5. Repeat step 3 on the other side of your body, by bending to the left until you feel a stretch in your right side. Repeat these steps 5?7 times. Chest wall stretch 1. Stand facing a corner. Put one foot near the corner and the other foot about 18 inches (45 cm) behind the forward foot. It does not matter which foot is forward. 2. Bend your elbows and place your forearms on the wall, one on each side of the corner. Your elbows should be as close to shoulder height as possible. 3. Keep your body straight as you move your hips toward the corner. Do not let your shoulders move up toward your ears. Repeat these steps 5?7 times. Wall climb, flexion 1. Stand facing a wall with your toes about 8?10 inches (20?25 cm) from the wall. 2. Place your hands on the wall, about shoulder width apart. 3. Move your hands up the wall and stretch toward the ceiling (flexion). ??? Do not let your shoulders shrug. ??? Do not arch your back. Repeat these steps 5?7 times. Wall climb, abduction 1. Stand about 18 inches (45.7 cm) from a wall, with your affected side facing the wall. 2. Bend the elbow of your arm on your affected side, and place your hand on the wall. 3. Move your hand up the wall and toward the ceiling (abduction). Do not let your shoulders shrug. Repeat these steps 5?7 times. Contact a health care provider if you: ??? Feel like you are getting weaker. ??? Have trouble doing any of the exercises. ??? Often fall or lose your balance. ??? Have pain or swelling that gets worse. ??? Develop: ? New pain or swelling. ? A feeling of heaviness in your arm. ? Headaches that are different than usual. ? Numbness or tingling in your arms or chest. ??? Become dizzy. ??? Have blurry vision. ??? Develop problems in your incisions, such as bleeding or drainage. This information is not intended to replace advice given to you by your health care provider. Make sure you discuss any questions you have with your health care provider. Document Released: 05/12/2007 Document Revised: 02/10/2020 Document Reviewed: 07/23/2019 [employer] Patient Education ? 2020 [employer] Total or Modified Radical Mastectomy, Care After This sheet gives you information about how to care for yourself after your procedure. Your health care provider may also give you more specific instructions. If you have problems or questions, contact your health care provider. What can I expect after the procedure? After the procedure, it is common to have: ??? Pain. ??? Numbness. ??? Stiffness in the arm or shoulder. ??? Feelings of stress, sadness, or depression. If the lymph nodes under your arm were removed, you may have arm swelling, weakness, or numbness on the same side of your body as your surgery. Follow these instructions at home: Incision care ??? Follow instructions from your health care provider about how to take care of your incision. Make sure you: ? Wash your hands with soap and water before you change your bandage (dressing). If soap and water are not available, use hand weighter. ? Change your dressing as told by your health care provider. ? Leave stitches (sutures), skin glue, or adhesive strips in place. These skin closures may need to stay in place for 2 weeks or longer. If adhesive strip edges start to loosen and curl up, you may trim the loose edges. Do not remove adhesive strips completely unless your health care provider tells you to do that. ??? Check your incision area every day for signs of infection. Check for: ? Redness, swelling, or more pain. ? Fluid or blood. ? Warmth. ? Pus or a bad smell. ??? If you were sent home with a surgical drain in place, follow instructions from your health care provider about emptying it. Bathing ??? Do not take baths, swim, or use a hot tub until your health care provider approves. Ask your health care provider if you may take showers. You may only be allowed to take sponge baths. Activity ??? Return to your normal activities as told by your health care provider. Ask your health care provider what activities are safe for you. ??? Avoid activities that take a lot of effort. ??? Be careful to avoid any activities that could cause an injury to your arm on the side of your surgery. ??? Do not lift anything that is heavier than 10 lb (4.5 kg), or the limit that you are told, until your health care provider says that it is safe. ??? Avoid lifting with the arm on the side of your surgery. ??? Do not carry heavy objects on your shoulder. ??? After your drain is removed, do exercises to prevent stiffness and swelling in your arm. Talk with your health care provider about which exercises are safe for you. General instructions ??? Take yitv-lvb-vxagqtc and prescription medicines only as told by your health care provider. ??? You may eat what you usually do. ??? Keep your arm raised (elevated) above the level of your heart when you are sitting or lying down. ??? Do not wear tight jewelry on your arm, wrist, or fingers on the side of your surgery. ??? You may be given a tight sleeve (compression bandage) to wear over your arm on the side of your surgery. Wear this sleeve as told by your health care provider. ??? Ask your health care provider when you can start wearing a bra or using a breast prosthesis. ??? Before you are involved in certain procedures such as giving blood or having your blood pressure checked, tell all your health care providers if lymph nodes under your arm were removed. This is important information. Follow-up ??? Keep all follow-up visits as told by your health care provider. This is important. ??? Get checked for extra fluid around your lymph nodes (lymphedema) as often as told by your health care provider. Contact a health care provider if: ??? You have a fever. ??? Your pain medicine is not working. ??? Your arm swelling, weakness, or numbness has not improved after a few weeks. ??? You have new swelling in your breast area or arm. ??? You have redness, swelling, or more pain in your incision area. ??? You have fluid or blood coming from your incision. ??? Your incision feels warm to the touch. ??? You have pus or a bad smell coming from your incision. Get help right away if: ??? You have very bad pain in your breast area or arm. ??? You have chest pain. ??? You have difficulty breathing. Summary ??? Follow instructions from your health care provider about how to take care of your incision. Check your incision area every day for signs of infection. ??? Ask your health care provider what activities are safe for you. ??? Keep all follow-up visits as told by your health care provider. This is important. ??? Make sure you know which symptoms should cause you to contact your health care provider or to get help right away. This information is not intended to replace advice given to you by your health care provider. Make sure you discuss any questions you have with your health care provider. Document Released: 06/12/2005 Document Revised: 12/24/2019 Document Reviewed: 07/24/2018 [employer] Patient Education ? 2020 [employer] Total or Modified Radical Mastectomy A total mastectomy and a modified radical mastectomy are surgeries that are done as part of treatment for breast cancer. You will have one of those types of surgery. Both types involve removing a breast. ??? In a total mastectomy (simple mastectomy), all breast tissue including the nipple will be removed. ??? In a modified radical mastectomy, lymph nodes under the arm will be removed along with the breast and nipple. Some of the lining over the muscle tissues under the breast may also be removed. These procedures may also be used to help prevent breast cancer. A preventive (prophylactic) mastectomy may be done if you are at an increased risk of breast cancer due to harmful changes (mutations) in certain genes (BRCA genes). In that case, the procedure involves removing both of your breasts. This can reduce your risk of developing breast cancer in the future. For a transgender person, a total mastectomy may be done as part of a surgical transition from female to male. Let your health care provider know about: ??? Any allergies you have. ??? All medicines you are taking, including vitamins, herbs, eye drops, creams, and qtwg-vdm-dkixpdy medicines. ??? Any problems you or family members have had with anesthetic medicines. ??? Any blood disorders you have. ??? Any surgeries you have had. ??? Any medical conditions you have. ??? Whether you are or may be . What are the risks? Generally, this is a safe procedure. However, problems may occur, including: ??? Pain. ??? Infection. ??? Bleeding. ??? Allergic reactions to medicines. ??? Scar tissue. ??? Chest numbness on the side of the surgery. ??? Fluid buildup under the skin flaps where your breast was removed (seroma). ??? Sensation of throbbing or tingling. ??? Stress or sadness from losing your breast. If you have the lymph nodes under your arm removed, you may have arm swelling, weakness, or numbness on the same side of your body as your surgery. What happens before the procedure? Staying hydrated Follow instructions from your health care provider about hydration, which may include: ??? Up to 2 hours before the procedure ? you may continue to drink clear liquids, such as water, clear fruit juice, black coffee, and plain tea. Eating and drinking restrictions Follow instructions from your health care provider about eating and drinking, which may include: ??? 8 hours before the procedure ? stop eating heavy meals or foods such as meat, fried foods, or fatty foods. ??? 6 hours before the procedure ? stop eating light meals or foods, such as toast or cereal. ??? 6 hours before the procedure ? stop drinking milk or drinks that contain milk. ??? 2 hours before the procedure ? stop drinking clear liquids. Medicines ??? Ask your health care provider about: ? Changing or stopping your regular medicines. This is especially important if you are taking diabetes medicines or blood thinners. ? Taking medicines such as aspirin and ibuprofen. These medicines can thin your blood. Do not take these medicines unless your health care provider tells you to take them. ? Taking dpkh-cvv-rxdhynf medicines, vitamins, herbs, and supplements. ??? Your health care team may give you antibiotic medicine to help prevent infection. General instructions ??? You may be checked for extra fluid around your lymph nodes (lymphedema). ??? Plan to have someone take you home from the hospital or clinic. ??? Plan to have a responsible adult care for you for at least 24 hours after you leave the hospital or clinic. This is important. ??? Ask your health care provider how your surgical site will be marked or identified. ??? You may be asked to shower with a germ-killing soap. What happens during the procedure? To lower your risk of infection: ? Your health care team will wash or sanitize their hands. ? Your skin will be washed with soap. ??? An IV will be inserted into one of your veins. ??? You will be given a medicine to make you fall asleep (general anesthetic). ??? A wide incision will be made around your nipple. The skin and nipple inside the incision will be removed along with all breast tissue. ??? If you are having a modified radical mastectomy: ? The lining over your chest muscles will be removed. ? The incision may be extended to reach the lymph nodes under your arm, or a second incision may be made. ? Lymph nodes will be removed. ??? Breast tissue and lymph nodes that are removed will be sent to the lab for testing. ??? You may have a drainage tube inserted into your incision to collect fluid that builds up after surgery. This tube will be connected to a suction bulb on the outside of your body to remove the fluid. ??? Your incision or incisions will be closed with stitches (sutures). ??? A bandage (dressing) will be placed over your breast area. If lymph nodes were removed, a dressing will also be placed under your arm. The procedure may vary among health care providers and hospitals. What happens after the procedure? Your blood pressure, heart rate, breathing rate, and blood oxygen level will be monitored until the medicines you were given have worn off. ??? You will be given pain medicine as needed. ??? You will be encouraged to get up and walk as soon as you can. ??? Your IV can be removed when you are able to eat and drink. ??? You may have a drainage tube in place for 2?3 days to prevent a collection of blood (hematoma) from developing in the breast area. You will be given instructions about caring for the drain before you go home. ??? A pressure bandage may be applied for 1?2 days to prevent bleeding or swelling. Ask your health care provider how to care for your pressure bandage at home. Summary ??? In a total mastectomy (simple mastectomy), all breast tissue including the nipple will be removed. In a modified radical mastectomy, the lymph nodes under the arm will be removed along with the breast and nipple. ??? Before the procedure, follow instructions from your health care provider about eating and drinking, and ask about changing or stopping your regular medicines. ??? You will be given a medicine to make you fall asleep (general anesthetic) during the procedure. This information is not intended to replace advice given to you by your health care provider. Make sure you discuss any questions you have with your health care provider. Document Released: 07/15/2002 Document Revised: 12/24/2019 Document Reviewed: 07/24/2018 Elsevier Patient Education ? 2020 [employer] documented in this encounter Plan of Treatment Not on file documented as of this encounter Visit Diagnoses Not on filedocumented in this encounter
--- OUTSIDE RECORDS SUMMARY | 2025-08-15 12:53 | XMS_ITS | Encounter Summary ---
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 Javascript Html Css Name Role Phone Unavailable Primary Care Provider Unavailabl e Encounter Details Date Type Department Care Team (Late st Contact Info) Description 10/04/2020 Transcribed Document [facility] [place] [facility] [place] [address] ProviderDonaldo MD [facility] [place] [address] Social History Tobacco Use Types Packs/Day Years Used Date Smoking Tobacco: Never Assessed Comments Unknown Sex and Gender Information Value Date Recorded Sex Assigned at Not on file Legal Sex Female 6:43 PM CDT Gender Identity Not on file Sexual Orientation Not on file documented as of this encounter Miscellaneous Notes * Cerner Conversion Note - Donaldo Russell MD - 10/04/2020 12:47 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 [facility] [address] [place] [address] JOLLY GORDON :1975 Visit Time:10/03/2020 Your Visit Summary Your Care Team Admitting Physician - JAYCEE ROA MD-SUR Attending Physician - JAYCEE ROA MD-SUR Primary Care Physician - JAYCEE ROGER MD-[facility] Referring Physician - JAYCEE ROA MD-SUR Your Diagnosis BRCA positive, Genetic susceptibility to malignant neoplasm of breast, Genetic susceptibility to malignant neoplasm of breast These Are Your Goals to go home What to do next Follow-Up Appointments Follow Up with JAYCEE ROA When In 8 days 10/12/2020 EST [facility] [address] [place] [address]- Medications What How Much When Instructions Next Dose ixekizumab (Taltz Prefilled Syringe 80 mg/ mL subcutaneous solution) 80 Milligram(s) SubCutaneous Every 4 Weeks 4 weeks Take your medications faithfully. Do NOT skip medication. Do NOT stop taking medications without the direction of a physician. Carry a list of your medications with you at all times, and take this medication list with you to your first follow up visit. Report any side effects. Avoid herbal remedies unless discussed with your physician. As part of your treatment plan, your physician may have prescribed a limited course of a controlled substance. This medication may be given to help people with moderate or severe pain or for other medical conditions, but there are risks involved with treatment. Common side effects may include nausea, constipation, drowsiness, sweating, itching, dry mouth, and rash. More serious side effects may include cognitive and motor impairment, like problems with thinking, concentrating, alertness, and movement (e.g. slowed reflexes), and driving and operating heavy machinery can be dangerous. It is important for you to talk to your physician if you have these side effects or questions. These controlled substances can produce physical dependence and be habit-forming if taken for an extended period of time, which means that the body has gotten used to them and may experience withdrawal symptoms if they are abruptly stopped. Withdrawal symptoms can include runny nose, sweating, goose bumps, diarrhea, abdominal cramping, rapid heartbeat, difficulty sleeping, and nervousness. Please dispose of unused and medications per your retail pharmacy guidance. Allergies No Known Allergies No Known Medication Allergies Immunizations This Visit No Immunizations Found Education Materials Surgical Drain Record Empty your surgical drain [...] 07/27/2018 Document Reviewed: 07/27/2018 Elsevier Patient Education ?? 2020 [employer]. Surgical Drain Record Empty [...] 07/27/2018 Document Reviewed: 07/27/2018 Elsevier Patient Education ?? 2020 [employer] Surgical Drain Record Empty [...] 07/27/2018 Document Reviewed: 07/27/2018 Elsevier Patient Education ?? 2020 [employer] Surgical Drain Record Empty [...] 07/27/2018 Document Revised: 07/27/2018 Document Reviewed: 07/27/2018 [employer] Patient Education ?? 2020 [employer]. Surgical Drain Home Care Surgical drains are [...] stops or when the amount decreases to 1???2 Tbsp (15???30 mL) during a 24-hour period. Supplies needed: [...] placed at your back, or any other ckkz-wp-zhdqg area, ask another person to assist you [...] and water are not available, use hand elevator conductor. 3. Remove the old dressing. Avoid using [...] Tape the drainage tube to your skin 1???2 inches (2.5???5 cm) below the place where the tube [...] and water are not available, use hand elevator conductor. 3. Loosen any pins or clips that [...] placed at your back, or any other uswd-ny-wvaai area, ask another person to assist you. ??? Contact your health care provider if you have redness, swelling, or pain around your drain area. This information is not intended to replace advice given to you by your health care provider. Make sure you discuss any questions you have with your health care provider. Document Released: 10/17/2001 Document Revised: 11/24/2019 Document Reviewed: 11/24/2019 [employer] Channel Patient Education ?? 2020 [employer] Exercises Following Breast Surgery The following [...] 3. Slowly breathe out. Repeat these steps 4???5 times or the number of times that [...] to over your head. Repeat these steps 5???7 times. Elbow winging 1. Lie down on your back. You may bend your knees for comfort. 2. Clasp your hands together behind your head so that your elbows point toward the ceiling. 3. Keep your hands together and move your elbows apart and down toward the floor as far as you comfortably can. Repeat these steps 5???7 times. Swelling reduction, lying down 1. Lie down on your back. You may bend your knees for comfort. 2. Raise (elevate) your affected arm above the level of your heart and keep it elevated during the exercise. You may rest your arm on top of pillows to make this easier. 3. Open and close your hand 15???25 times in a row. 4. Bend and straighten your elbow 15???25 times in a row. 5. You may keep your arm elevated for up to 45 minutes at a time. This helps to reduce swelling. Do this exercise 2???4 times a day. Swelling reduction, sitting 1. Hold a tennis ball, a rolled-up towel, or a similar object in your hand on your affected side. 2. Slowly squeeze the ball or towel. Try to do this using only your hand muscles. 3. Relax your hand. Repeat these steps 15???25 times. Shoulder blade stretch 1. Sit in [...] it slide more easily. Repeat these steps 5???7 times. Shoulder blade squeeze 1. Sit in [...] you repeat this exercise. Repeat these steps 5???7 times. Side bend 1. Sit in a [...] in your right side. Repeat these steps 5???7 times. Chest wall stretch 1. Stand facing [...] up toward your ears. Repeat these steps 5???7 times. Wall climb, flexion 1. Stand facing a wall with your toes about 8???10 inches (20???25 cm) from the wall. 2. Place your hands on the wall, about shoulder width apart. 3. Move your hands up the wall and stretch toward the ceiling (flexion). ??? Do not let your shoulders shrug. ??? Do not arch your back. Repeat these steps 5???7 times. Wall climb, abduction 1. Stand about 18 inches (45.7 cm) from a wall, with your affected side facing the wall. 2. Bend the elbow of your arm on your affected side, and place your hand on the wall. 3. Move your hand up the wall and toward the ceiling (abduction). Do not let your shoulders shrug. Repeat these steps 5???7 times. Contact a health care provider if [...] 05/12/2007 Document Revised: 02/10/2020 Document Reviewed: 07/23/2019 [employer] Patient Education ?? 2020 [employer] Total or Modified Radical Mastectomy, Care [...] and water are not available, use hand elevator conductor. ? Change your dressing as told by [...] safe for you. General instructions ??? Take dvfn-wqm-sunehfg and prescription medicines only as told by [...] 06/12/2005 Document Revised: 12/24/2019 Document Reviewed: 07/24/2018 [employer] Patient Education ?? 2020 [employer]. Total or Modified Radical Mastectomy A total [...] including vitamins, herbs, eye drops, creams, and mbhy-wdk-yshsmdg medicines. ??? Any problems you or family [...] Up to 2 hours before the procedure ??? you may continue to drink clear liquids, such as water, clear fruit juice, black coffee, and plain tea. Eating and drinking restrictions Follow instructions from your health care provider about eating and drinking, which may include: ??? 8 hours before the procedure ??? stop eating heavy meals or foods such as meat, fried foods, or fatty foods. ??? 6 hours before the procedure ??? stop eating light meals or foods, such as toast or cereal. ??? 6 hours before the procedure ??? stop drinking milk or drinks that contain milk. ??? 2 hours before the procedure ??? stop drinking clear liquids. Medicines ??? Ask your health care provider about: ? Changing or stopping your regular medicines. This is especially important if you are taking diabetes medicines or blood thinners. ? Taking medicines such as aspirin and ibuprofen. These medicines can thin your blood. Do not take these medicines unless your health care provider tells you to take them. ? Taking rwos-ces-fstgwtn medicines, vitamins, herbs, and supplements. ??? Your [...] have a drainage tube in place for 2???3 days to prevent a collection of blood (hematoma) from developing in the breast area. You will be given instructions about caring for the drain before you go home. ??? A pressure bandage may be applied for 1???2 days to prevent bleeding or swelling. Ask [...] 07/15/2002 Document Revised: 12/24/2019 Document Reviewed: 07/24/2018 [employer] Channel Patient Education ?? 2020 [employer]. Emergency Awareness and Preventative Care STROKE is an EMERGENCY Every Minute Counts Act FAST and Check for these signs: FACE Does the face look uneven? ARM Does one arm drift down? SPEECH Does their speech sound strange? TIME Call at any sign of stroke Stroke Risk Factors Atrial Fibrillation (irregular heartbeat) Diabetes Family history of stroke Heart Disease Heavy alcohol use High Blood Pressure High Cholesterol Physical inactivity and obesity Smoking Cigarette Smoking The facts are clear, cigarette smoking will shorten your life. Smoking can cause many illnesses along the way. As a healthcare provider, we recommend that you stop smoking. Assistance with quitting is available by contacting 0-509-RFGH-NOW. This is a free resource providing counseling, support, and referral. Or you may contact your personal physician. National Suicide Prevention Lifeline: The National Suicide Prevention Lifeline is a national network of local crisis centers that provides free and confidential emotional support to people in suicidal crisis or emotional distress 24 hours a day, 7 days a week. Don't Wait! Stop a Heart Attack Before it Starts What is a heart attack? A heart attack is damage or to a part of the heart from severely decreased or lack of blood flow to the heart. Over time, arteries can become narrow from the buildup of fat and cholesterol, which is called plaque. The plaque can rupture causing a blood clot to form. When the blood clot forms, the artery can become severely narrowed or completely blocked, causing a heart attack. Heart attack is the leading cause of in the [place]. 85% of muscle damage occurs within the first 2 hours. Delay in the recognition of heart attack symptoms increases the chances of . Know the early symptoms of a heart attack: Nausea Feeling of fullness in chest Jaw Pain Pain that travels down one or both arms Fatigue/being tired Anxiety Back Pain Chest pressure, squeezing, or discomfort Shortness of breath Sweating, or a cold sweat Feeling of impending doom There are unusual signs of a heart attack, too! Women, the elderly, and diabetics may present with atypical symptoms: Fainting/dizziness Weakness Confusion Risk Factors for a Heart Attack Some heart disease risk factors, such as age and family history, cannot be changed. Others, like smoking and lack of exercise, can be changed. Smoking High Cholesterol High Blood Pressure Family History Obesity Age Gender (Males are at higher risk) Lack of Exercise Diabetes Diet Stress Excessive Alcohol Intake If you or someone you know is experiencing the signs and symptoms of a heart attack, DON???T DELAY. Call immediately and seek help. If someone collapses, perform CPR! Do not attempt to drive if you are having symptoms of heart attack. Hands-Only CPR Why Hands-Only CPR? Hands-Only CPR has been shown to be as effective as conventional CPR for cardiac arrests that occur outside of a hospital. Survival depends on immediately receiving CPR from someone nearby. How do you perform Hands-Only CPR? There are two easy steps: Call if you see a teen or adult collapse Push hard and fast in the center of the chest at a beat of 100 beats per minute. Save a life! 4 WAYS TO GET AHEAD OF SEPSIS SEPSIS is a MEDICAL EMERGENCY. Time matters! Infections put you and your family at risk for a life-threatening condition called sepsis. Sepsis is the body's extreme response to an infection. It is life-threatening, and without timely treatment, sepsis can rapidly lead to tissue damage, organ failure, and . Sepsis happens when an infection you already have-in your skin, lungs, urinary tract or somewhere else-triggers a chain reaction throughout your body. 1 PREVENT INFECTIONS Take good care of chronic conditions. Talk to your doctor about getting the recommended vaccines. 2 PRACTICE GOOD HYGIENE Wash your hands frequently. Keep cuts or open sores clean and covered until they are healed. 3 KNOW THE SYMPTOMS Confusion or disorientation Shortness of breath High heart rate Fever, shivering, or feeling very cold Extreme pain or discomfort Clammy or sweaty skin 4 ACT FAST Get medical care IMMEDIATELY if you suspect sepsis or if you have an infection that is not getting better or is getting worse. To learn more about sepsis and how to prevent infections, visit www.cdc.gov/sepsis. Test Results Laboratory or Other Results This Visit (last charted value for your 10/03/2020 visit) Hematology 09/25/2020 10:49 AM WBC: 4.2 K/uL -- Normal range between ( 3.9 and 10.0 ) RBC: 4.02 Million/uL -- Normal range between ( 3.93 and 5.22 ) Hct: 37.0 % -- Normal range between ( 34.1 and 44.9 ) Hgb: 12.4 Gram/dL -- Normal range between ( 11.2 and 15.7 ) Platelet Count: 220 K/uL -- Normal range between ( 163 and 369 ) MCH: 30.8 pg -- Normal range between ( 25.6 and 32.2 ) MCHC: 33.5 Gram/dL -- Normal range between ( 32.3 and 36.5 ) MCV: 92.0 fL -- Normal range between ( 79.0 and 94.8 ) Slide Review: No RDW: 11.3 % -- Normal range between ( 11.6 and 14.4 ) MPV: 10.6 fL -- Normal range between ( 9.4 and 12.4 ) Microbiology 09/29/2020 2:25 PM Novel Coronavirus 2019: Negative General Chemistry 09/25/2020 10:49 AM Creatinine Level: 0.89 mg/dL -- Normal range between ( 0.55 and 1.02 ) Sodium Level: 142 mmol/L -- Normal range between ( 136 and 146 ) Potassium Level: 3.8 mmol/L -- Normal range between ( 3.5 and 5.1 ) Chloride Level: 109 mmol/L -- Normal range between ( 102 and 112 ) Carbon Dioxide Level: 30 mmol/L -- Normal range between ( 21 and 32 ) Anion Gap: 7 -- Normal range between ( 9 and 20 ) Bun/Creatinine: 13.5 -- Normal range between ( 8.0 and 20.0 ) Calcium Level: 9.5 mg/dL -- Normal range between ( 8.5 and 10.1 ) eGFR : >60 mL/min/1.73m2 eGFR NonAfrican: >60 mL/min/1.73m2 Glucose Level: 79 mg/dL -- Normal range between ( 74 and 106 ) Blood Urea Nitrogen: 12 mg/dL -- Normal range between ( 7 and 22 ) Patient Name:WEI JOLLY ABDUL I have received and understand this information and was given the opportunity to ask questions. Patient/Academic Coach Name: Patient/Academic Coach Signature: Relationship to Patient: Clinician/Hospital Academic Coach Signature: Date: Electronically signed by Nikunj, [facility] Conversion Pulmonary Physician Keith at 02/17/2023 12:13 PM CDT documented in this encounter Plan of Treatment Not on file documented as of this encounter Visit Diagnoses Not on filedocumented in this encounter
--- OUTSIDE RECORDS SUMMARY | 2025-08-15 12:53 | XMS_ITS | Patient Health Record ---
Author Organization [facility] Address [address] [place] [id number] Care Team Providers Care Postal Support Employee Name Role Phone Bentley Traore Primary Care Provider Breanna Carter Unavailable [phone] Allergies No Known Allergies Results Component Value Reference Range Notes P-Vitamin B12 Reviewed date:04/15/2025 01:00:51 PM Interpretation:338 Performing Lab: Notes/Report: Test performed by [facility] [address] [place] [address] , [address], [place] [address] Chencho Mahajan MD, Workday Senior Associate CLIA: [id number] Vitamin B12 [phone] pg/mL P-Lipid Panel Reviewed date:04/15/2025 01:00:51 PM Interpretation:chol 205, non-hdl 150, ldl 133 Performing Lab: Notes/Report: Test performed by [facility] [address] [place] [address] , [address], [place] [address] Chencho Mahajan MD, Workday Senior Associate CLIA: [id number] Cholesterol 205 <200 mg/dL Triglycerides 87 <150 [...] Results: 133 Units: mg/dL % Change: +34% Urinalysis - Inhouse Reviewed date:06/17/2025 05:04:22 PM [...] - 38 plat 155 100 - 400 Influenza Screen (in house) Reviewed date:01/28/2025 06:20:57 [...] PM Interpretation: Performing Lab: Notes/Report: Result: Neg TEN-stool panel Reviewed date:08/26/2024 08:57:20 AM Interpretation:Abnormal Performing Lab: Notes/Report: Abnormal H-BMP Reviewed date:08/30/2024 11:14:45 PM Interpretation:Normal Performing Lab: Notes/Report: NA 139 136-145 mmol/L K 3.9 3.5-5.1 mmoL/L CL 106 98-107 mmol/L CO2 27 22.0-30.0 mmol/L GAP 9.9 5-15 mEq/L BUN 15 7-17 mg/dl CREATT 0.90 0.52-1.04 mg/dl GFRAA 80 >60 ML/MIN EGFR 66 >60 ml/min GLU 94 74-100 mg/dl CA 9.2 8.4-10.2 mg/dl Medications Medication SIG (Take, Route, Fr equency, Duration) Notes Start Date End Date Status Lisinopril 5 MG TAKE 1 TABLET BY ONCE DAILY Orally Once a day; Duration: 90 days Active Albuterol Sulfate HFA 108 (90 Base) MCG/ACT 1 puff as needed Inhalation every 4 hrs, prn 06/15/2025 Active Promethazine-DM 6.25-15 MG/5ML 5 mL Orally every 6 hrs, prn 06/15/2025 Active Maxzide-25 37.5-25 MG 1/2 tab Orally Onc e a day; Duration: 90 days Active Flonase Allergy Relief 50 MCG/ACT 1 spray in each nostril Nasally Once a day 08/27/2023 Active Taltz 80 MG/ML as directed subcutan eously every 4 weeks Active Immunizations Vaccine Route Administration Date Status Comme nts xFlu shot-36 months and older IM Intramuscular 09/11/2009 Administered ppd ID Intradermal 07/01/2012 Administered Hepatitis A (adult) Unknown 09/02/2018 Administered Hepatitis A (adult) Unknown 03/12/2019 Administered Fluzone PF Quad (6-35 months) Unknown 09/02/2018 Administered Fluzone PF Quad (6-35 months) Unknown 09/01/2019 Administered Fluzone PF Quad (6-35 months) Unknown 08/21/2020 Administered Fluzone PF Quad (6-35 months) Unknown 08/28/2021 Administered Fluzone PF Quad (6-35 months) Unknown 09/10/2022 Administered Fluzone PF Quad (6-35 months) Unknown 09/11/2023 Administered COVID 19 Moderna Unknown 11/22/2020 Administered COVID 19 Moderna Unknown 12/22/2020 Administered COVID 19 Moderna Unknown 09/12/2021 Administered Problems Problem Type SNOMED Code ICD Code Onset Dates Problem Status W/U Status Risk Notes Problem Essential hypertension (30776426) HTN [Hypertension] (401.9) Active confirmed Problem Vitamin B12 deficiency (098380820) Vitamin B12 deficiency (E53.8) Active confirmed Problem Essential hypertension (62533939) Essential hypertension (I10) Active confirmed Problem Psoriasis (1304628) Other psoriasis (L40.8) Active confirmed Problem Fibrocystic breast changes (31395219) Diffuse cystic mastopathy of right breast (N60.11) Active confirmed Problem Screening for malignant neoplasm of cervix (257659285) Encounter for screening for malignant neoplasm of cervix (Z12.4) Active confirmed Problem Abnormal vaginal bleeding (086918626) DUB (dysfunctional uterine bleeding) (N93.8) Active confirmed Problem Hyperlipidaemia (10788317) Hyperlipidemia, unspecified hyperlipidemia type (E78.5) Active confirmed Problem Lymphadenopathy (61279100) Lymphadenopathy of head and neck (R59.1) Active confirmed Problem Disorder of conjunctiva (28584401) Conjunctiva disorder (H11.9) Active confirmed Problem Pterygium of left eye (548905848044514) Pterygium of left eye (H11.002) Active confirmed Vital Signs Heart Rate 78 /min 06/15/2025 Blood pressure diastolic 70 mm Hg 06/15/2025 Height 63.50 in 06/15/2025 Blood pressure systolic 116 mm Hg 06/15/2025 Weight 161 lbs 06/15/2025 BMI 28.07 kg/m2 06/15/2025 Encounters Encounter Location Date Provider Diagnosis [facility] [address] [place] [id number] 08/18/2024 Breannameir Carter Renal insufficiency N28.9 and Diarrhea, unspecified type R19.7 [facility] [address] [place] [id number] 08/23/2024 Breannameir Carter Diarrhea, unspecifie d type R19.7 [facility] [address] [place] [address] [place] [id number] 09/20/2024 Bentley Traore Essential hypertensi on I10 ; Hyperlipidemia, unspecified hyperlipidemia type E78.5 and Encounter for screening colonoscopy Z12.11 [facility] [address] [place] [id number] 01/24/2025 Bentley Traore URI (upper respirato ry infection) J06.9 and Laryngitis J04.0 [facility] [address] [place] [id number] 04/13/2025 Breannameir Carter Vitamin B12 deficien cy E53.8 ; Essential hypertension I10 ; Screening, lipid Z13.220 and BMI 27.0-27.9,adult Z68.27 [facility] [address] [place] [id number] 04/14/2025 Breanna Emma Hyperlipidemia, unspecified hyperlipidemia type E78.5 and Vitamin B12 deficiency E53.8 [facility] [address] [place] [id number] 06/15/2025 Breannameir Carter Bronchitis J40 and Proteinuria, unspecified type R80.9 [facility] [address] [place], [place] [id number] 08/26/2024 Breanna Carter [facility] [address] [place] [id number] 08/30/2024 Breanna Carter [facility] [address] [place], [place] [id number] 02/21/2025 Bentley Traore [facility] [address] [place], [place] [id number] 04/15/2025 Breanna Carter [facility] [address] [place], [place] [id number] 04/25/2025 Bentley Traore [facility] [address] [place], [place] [id number] 06/27/2025 Bentley Traore Assessments Encounter Date Diagnosis (ICD Code) Assessment Notes Treatment Notes Treatment Clinical Notes Section Notes 08/18/2024 Renal insufficiency (ICD-10 - N28.9) Will decrease maxzide dose and recheck BMP in 1 week. Will monitor BP. 08/18/2024 Diarrhea, unspecified type (ICD-10 - R19.7) 09/20/2024 Essential hypertension (ICD-10 - I10) 09/20/2024 Hyperlipidemia, unspecified hyperlipidemia type (ICD-10 - E78.5) 01/24/2025 URI (upper respiratory infection) (ICD-10 - J06.9) 01/24/2025 Laryngitis (ICD-10 - J04.0) 04/13/2025 Vitamin B12 deficiency (ICD-10 - E53.8) c 04/13/2025 Essential hypertension (ICD-10 - I10) c 06/15/2025 Bronchitis (ICD-10 - J40) 06/15/2025 Proteinuria, unspecified type (ICD-10 - R80.9) Increase water intake. 04/14/2025 Hyperlipidemia, unspecified hyperlipidemia type (ICD-10 - E78.5) 08/23/2024 Diarrhea, unspecified type (ICD-10 - R19.7) 04/14/2025 Vitamin B12 deficiency (ICD-10 - E53.8) 04/13/2025 Screening, lipid (ICD-10 - Z13.220) c 09/20/2024 Encounter for screening colonoscopy (ICD-10 - Z12.11) 04/13/2025 BMI 27.0-27.9,adult (ICD-10 - Z68.27) c Plan Of Treatment Pending Test Test Name Order Date P-Vitamin B12 04/13/2025 P-Lipid Panel 04/13/2025 Insurance Providers Payer Name Payer Address Payer Phone Subscriber Number Group Number Insured Name Patient Relationship to Insured Coverage Start Date Coverage End Date [employer] [address] [place] [address] [id number] CARVAJAL Self - patient is the insured Medications Administered Medication Instructions Date of Administration Dosage Notes B-12 11/29/2015 1 mL B-12 12/13/2015 1 mL B-12 12/23/2016 1 mL B-12 12/01/2017 1 mL B-12 03/01/2019 1 mL B-12 07/14/2019 1 mL B-12 04/23/2024 1 mL Medical (General) History Medical History History ICD Code Psoriasis HCM Western Blot Indeterminate Brca2 Flu shot 2023 Surgical History Surgery Date(Month/Year) Breast Reduction 1990 Lymphnpodectomy, RT Side of Neck 012 Tubal Ligation 01/2016 Hysterectomy, Oopherectomy, Cervix [facility] 04/07/2019 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
--- OUTSIDE RECORDS SUMMARY | 2025-08-15 12:53 | XMS_ITS | Encounter Summary ---
Author Organization [employer] ([place], [place], [place], [place]) Address [address] [place] [address] Care Team Providers Care Mandarin Chinese Teacher Name Role Phone Unavailable Primary Care Provider Unavailabl e Encounter Details Date Type Department Care Team (Late st Contact Info) Description 10/03/2020 Transcribed Document [facility] Radiology [address] [place] [address] Quintin Lay MD [facility] [address] [address] Social History Tobacco Use Types Packs/Day Years Used Date Smoking Tobacco: Never Assessed Comments Unknown Sex and Gender Information Value Date Recorded Sex Assigned at Not on file Legal Sex Female 6:43 PM CDT Gender Identity Not on file Sexual Orientation Not on file documented as of this encounter Miscellaneous Notes * [employer]ner Conversion Note - Quintin Lay MD - 10/03/2020 3:52 PM EST DATE OF PROCEDURE: 10/03/2020 SURGEON: Quintin Lay MD PREOPERATIVE DIAGNOSES: 1. Genetic predisposition to breast cancer. 2. Bilateral absent breast. POSTOPERATIVE DIAGNOSES: 1. Genetic predisposition to breast cancer. 2. Bilateral absent breast. TOY ASSEMBLY SUPERVISOR: DEBBIE Navarro. ANESTHESIA: General. PROCEDURE PERFORMED: Bilateral immediate prepectoralis implant-based breast reconstruction with placement of a tissue reconciliation manager and AlloDerm. The tissue reconciliation manager is Allergan brand full profile, volume 400 mL, base with 12 cm, serial number on the right is [id number] and serial number on the left is [id number]. The AlloDerm is 360 sq cm. The lot number on the right is [id number] and the lot number on the left is [id number]. INDICATION: The patient is a 44-year-old white female who presents to my office with a genetic predisposition to breast cancer, planning bilateral mastectomy. We discussed the main techniques. She ultimately elected to pursue with implant-based breast reconstruction. The technique, potential complications, and typical postoperative course were discussed with the patient. She indicated her understanding and wished to proceed. FINDINGS: 1. Bilateral absent breast. 2. Viable skin flaps. DESCRIPTION OF PROCEDURE: The patient was taken from preoperative holding to the operating room after informed consent was signed and on the chart and placed under general anesthesia successfully. Prior to induction of anesthesia, the patient received a prophylactic dose of antibiotics and had bilateral lower extremity sequential compression devices in place and operational. She was placed supine on the operating room table. She had a pillow placed beneath her knees. Her arms were gently abducted to 90 degrees and she had ulnar nerve padding. Her chest wall was prepped and draped in the usual sterile fashion. After properly identifying the patient and the patient's problem, Dr. Oconnor proceeded with bilateral nipple-sparing mastectomies. At the conclusion of his procedure, I commenced mine. The pockets were copiously irrigated with antibiotic solution. Hemostasis was achieved with electrocautery. The skin flaps were noted to be viable. The tissue reconciliation manager and AlloDerm were brought onto the operative field. The AlloDerm was rinsed in saline for 2 minutes. The tissue reconciliation manager was placed in the subcutaneous space and secured at the medial, central, and lateral suture tabs. AlloDerm was used for soft tissue support and secured with 3-0 Vicryl suture in a horizontal mattress fashion. Two 15-Romansh Shaquille drains were placed in the subcutaneous space, brought out the thoracoabdominal region, and secured with 3-0 nylon suture in a standard fashion. A rim of mastectomy skin was excised with a 10 blade. The skin was then temporarily closed with jose. My attention was then turned to the left side. AlloDerm and tissue reconciliation manager were brought onto the operative field. The AlloDerm was rinsed in saline for 2 minutes. The tissue reconciliation manager was placed in the subcutaneous space and secured at the medial, central, and lateral suture tabs with 2-0 silk suture. The AlloDerm was used for soft tissue support and secured with 3-0 Vicryl suture in a horizontal mattress fashion. Two 15-Romansh Shaquille drains were placed in the subcutaneous space, brought out the thoracoabdominal region, and secured with 3-0 nylon suture in a standard fashion. A rim of mastectomy skin was excised. Simultaneously, the skin was closed with 3-0 Monocryl suture in a deep dermal buried interrupted fashion and 3-0 Stratafix suture in an intracuticular fashion. A MARLENE incisional wound VAC was applied to the incision site. The drains were dressed with a Biopatch and Tegaderm. A surgical bra was applied. The case was turned over to Anesthesia, at which point the patient was awoken from general anesthesia successfully and taken to PACU in stable condition. I was present for the entire procedure. All counts were correct. ESTIMATED BLOOD LOSS: Minimal. DRAINS: 4. COMPLICATIONS: None immediate. /[id number] MD MISSY Carbajal/PATTIE / MISSY / CARMEN /[id number] documented in this encounter Plan of Treatment Not on file documented as of this encounter Visit Diagnoses Not on filedocumented in this encounter
--- OUTSIDE RECORDS SUMMARY | 2025-08-15 12:53 | XMS_ITS | Encounter Summary ---
Author Organization [employer] ([place], [place], [place], [place]) Address [address] [place] [address] Care Team Providers Care Supply Room Clerk Name Role Phone Unavailable Primary Care Provider Unavailabl e Encounter Details Date Type Department Care Team (Late st Contact Info) Description 10/04/2020 Transcribed Document [facility] Family Medicine [address] [place] [address] ProviderDonaldo MD [facility] [place] [address] Social History Tobacco Use Types Packs/Day Years Used Date Smoking Tobacco: Never Assessed Comments Unknown Sex and Gender Information Value Date Recorded Sex Assigned at Not on file Legal Sex Female 6:43 PM CDT Gender Identity Not on file Sexual Orientation Not on file documented as of this encounter Miscellaneous Notes * Cerner Conversion Note - Historical ProviderMD - 10/04/2020 5:00 AM PRIVACY OFFICER Chart Check - Review Order Profile Entered On: 10/04/2020 3:39 EST Performed On: 10/04/2020 5:00 EST by Ximena Toscano Rn Chart Check Powerplans Initiated/Discontinued as Appropriate : Yes All Active Orders Reviewed : Yes Ximena Toscano Rn - 10/04/2020 3:39 EST Electronically signed by Nikunj [facility] Conversion Interior Design Instructor Cerner at 02/17/2023 12:16 PM CDT documented in this encounter Plan of Treatment Not on file documented as of this encounter Visit Diagnoses Not on filedocumented in this encounter
--- OUTSIDE RECORDS SUMMARY | 2025-08-15 12:53 | XMS_ITS | Encounter Summary ---
Author Organization [employer] ([place], [place], [place], [place]) Address [address] [place] [address] Care Team Providers Care Testing Coordinator Name Role Phone Unavailable Primary Care Provider Unavailabl e Encounter Details Date Type Department Care Team (Late st Contact Info) Description 10/04/2020 Transcribed Document [facility] [place] [facility] [place] [address] ProviderDonaldo MD [facility] [place] [address] Social History Tobacco Use Types Packs/Day Years Used Date Smoking Tobacco: Never Assessed Comments Unknown Sex and Gender Information Value Date Recorded Sex Assigned at Not on file Legal Sex Female 6:43 PM CDT Gender Identity Not on file Sexual Orientation Not on file documented as of this encounter Miscellaneous Notes * Cerner Conversion Note - Historical ProviderMD - 10/04/2020 12:43 PM CHIEF OF ANESTHESIOLOGY Stroke/Warfarin Instructions Entered On: 10/04/2020 12:43 EST Performed On: 10/04/2020 12:43 EST by Maci Urias RN Stroke/Warfarin Instructions Stroke/TIA Discharge Ins : N/A Warfarin Discharge Ins : N/A Maci Urias RN - 10/04/2020 12:43 EST documented in this encounter Plan of Treatment Not on file documented as of this encounter Visit Diagnoses Not on filedocumented in this encounter
--- OUTSIDE RECORDS SUMMARY | 2025-08-15 12:54 | XMS_ITS | Encounter Summary ---
Author Organization [employer] ([place], [place], [place], [place]) Address [address] [place] [address] Care Team Providers Care Technical Sales Support Manager Name Role Phone Unavailable Primary Care Provider Unavailabl e Encounter Details Date Type Department Care Team (Late st Contact Info) Description 04/07/2019 Transcribed Document [facility] Family Medicine [facility] [place] [address] ProviderDonaldo MD [address] [place] [address] Social History Tobacco Use Types Packs/Day Years Used Date Smoking Tobacco: Never Assessed Comments Unknown Sex and Gender Information Value Date Recorded Sex Assigned at Not on file Legal Sex Female 6:43 PM CDT Gender Identity Not on file Sexual Orientation Not on file documented as of this encounter Miscellaneous Notes * Cerner Conversion Note - Donaldo ProviderMD - 04/07/2019 11:07 AM CDT Pre Procedure Adult Entered On: 04/07/2019 11:10 EDT Performed On: 04/07/2019 11:07 EDT by Veronica Chung Rn Height and Weight, Clinical Dosing Height Source : Stated Height Entry Format : [place] Height, Feet : 5 ft(Converted to: 152 cm, 60 Inch) Height, Inches : 8 Inch(Converted to: 0 ft 8 Inch, 20.32 cm) Clinical Height : 172.72 cm Weight Source : Standing scale Weight Entry Format : [place] Clinical Dosing Weight : 75 kg Weight, Pounds : 165 lb Body Surface Area (BSA) : 1.89 m2 Body Mass Index : 25.1 kg/m2 (HI) [place] Body Weight : 63 kg Veronica Chung Rn - 04/07/2019 11:07 EDT Health Histories Smoking Status : Never (less than 100 in lifetime; none in last 30 days) Smokeless Tobacco Status : Never Veronica Chung Rn - 04/07/2019 11:07 EDT Social History (As Of: 04/07/2019 11:10:03 EDT) Infectious Disease History Infectious Disease History : Chicken pox/Shingles Fever/Chills Last 48 Hours : No Travel To Regions with Travel Advisories : No Travel Outside [place] Within Last 30 Days : No Contact With Traveler to Advisory Region : No Tuberculosis Symptoms : None Veronica Chung Rn - 04/07/2019 11:07 EDT Anesthesia/Transfusion History Family History of Anesthesia Reaction : No prior transfusion(s) Transfusion History : Prior anesthesia without reaction Family History of Anesthesia Reaction : None Veronica Chung Rn - 04/07/2019 11:07 EDT Functional Assessment Living Situation : Home Patient Lives With : Dependent Child/Children, Spouse Current Home Treatments : None Veronica Chung Rn - 04/07/2019 11:07 EDT Psychosocial History Currently in Unsafe Situation : No Tried to Harm Yourself in the Past? : No Thoughts of Harming/Killing Yourself : No Veronica Chung Rn - 04/07/2019 11:07 EDT Advance Directive Patient has Advance Directive *Q : No, patient refuses Advance Directive information Veronica Chung Rn - 04/07/2019 11:07 EDT General Info Want Family/Rep/Phys Notified of Admit : No Emergency Contact #1 : Cory Gordon Emergency Contact #1 Phone Number : [phone] Emergency Contact #1 Relationship : Emergency Contact #2 : Melissa Tracy Emergency Contact #2 Phone Number : [phone] Emergency Contact #2 Relationship : mother Primary Language : Arabic Communication Barrier : Veronica Hartman Rn - 04/07/2019 11:07 EDT Sleep Apnea Risk Assmt Hx of Obstructive [...] Sleep Apnea Risk Level Score : 0 Veronica Chung Rn - 04/07/2019 11:07 EDT U[place]iel Scale [place] Sensory Perception : No impairment [place] Moisture : Rarely moist [place] Activity : Walks frequently [place] Mobility : No limitation [place] Nutrition : Excellent [place] Friction and Shear : No apparent problem Uziel Score : 23 Veronica Chung Rn - 04/07/2019 11:07 EDT Fall Risk Scales ABCs Fall Injury Risk Identification : None [place] Hx Falls Immediate/Within 3 Months : No [place] Secondary Diagnosis : No [place] Use of Ambulatory Aid : None [place] IV Therapy or IV Access : Yes [place] Gait/Transferring : Normal, bedrest, immobile [place] Mental Status : Oriented to own ability [place] Fall Risk Score : 20 [place] Fall Scale Risk Level : 0-24 Low Risk [place] Fall Interventions : Adequate lighting, Assistive devices within reach, Bed in low position, Call device within reach, Frequent orientation to call device, Frequent orientation to surroundings, Hourly comfort/safety rounds, Non-slip footwear, Personal items within reach, Reinforced to call for assistance before getting out of bed, Room free of clutter/spills, Upper side-rails up, Wheels locked, Wires/Cords secured Veronica Chung Rn - 04/07/2019 11:07 EDT Valuables and Belongings Valuables and Belongings : Clothing Clothing : Common streetwear Clothing Disposition : With family Veronica Chung Rn - 04/07/2019 11:07 EDT Antonella Coma [place] Best Motor Response : Obey commands [place] Best Verbal Response : Oriented [place] Eye Opening Response : Spontaneous [place] Coma Score : 15 Veronica Chung Rn - 04/07/2019 11:07 EDT documented in this encounter Plan of Treatment Not on file documented as of this encounter Visit Diagnoses Not on filedocumented in this encounter
--- OUTSIDE RECORDS SUMMARY | 2025-08-15 12:54 | XMS_ITS | Encounter Summary ---
Author Organization [employer] ([place], [place], [place], [place]) Address [address] [address] Care Team Providers Care U.S. Revenue Officer Name Role Phone Unavailable Primary Care Provider Unavailabl e Encounter Details Date Type Department Care Team (Late st Contact Info) Description 10/04/2020 Transcribed Document [facility] [place] Family Medicine [facility] [place] [address] ProviderDonaldo MD [address] [place] [id number] Social History Tobacco Use Types Packs/Day Years Used Date Smoking Tobacco: Never Assessed Comments Unknown Sex and Gender Information Value Date Recorded Sex Assigned at Not on file Legal Sex Female 6:43 PM CDT Gender Identity Not on file Sexual Orientation Not on file documented as of this encounter Miscellaneous Notes * Cerner Conversion Note - Donaldo ProviderMD - 10/04/2020 8:37 AM COMPOSITION SIDING WORKER Initial Discharge Planning Entered On: 10/04/2020 8:38 EST Performed On: 10/04/2020 8:37 EST by SHAWNA GARCIA RN-Sports Complex Attendant Initial Assessment I Previously Documented Living Environment : No qualifying data available. Living Situation : Home Patient Lives With : Significant other(s) Emergency Contact #1 : Cory Salazar Emergency Contact #1 Emergency Contact #1 Relationship : S.O. Emergency Contact #2 : . Emergency Contact #2 Phone Number : . Emergency Contact #2 Relationship : . Enter Doctors Name : Melecio León Does Patient have PCP Listed? : Yes SHAWNA GARCIA RN-Sports Complex Attendant - 10/04/2020 8:37 EST Initial Assessment II Sensory and Motor Deficits : None Current Home Treatments and Equipment : None SHAWNA GARCIA RN-Sports Complex Attendant - 10/04/2020 8:37 EST Discharge Needs I Anticipated Discharge Date : 10/04/2020 EST Anticipated Discharge To, CM : Home with family care Current Home Treatment/Equipment : Current Home Treatment/Equipment No qualifying data available. Post Acute/Home Treatments : None Documentation Status Complete : Yes SHAWNA GARCIA RN-Sports Complex Attendant - 10/04/2020 8:37 EST Discharge Needs II Professional Skilled Services : Professional Skilled Services No qualifying data available. Needs Assistance with Transportation : No Discharge Options Discussed with Patient : Discharge transportation, Outpatient services SHAWNA GARCIA RN-Sports Complex Attendant - 10/04/2020 8:37 EST Narrative Note Narrative Note : Patient underwent bilateral breast reconstruction with tissue frame catcher. Lives at home with S.O., iADLs. Plan is to return home, no services needed at this time........................sds SHAWNA GARCIA RN-Sports Complex Attendant - 10/04/2020 8:37 EST documented in this encounter Plan of Treatment Not on file documented as of this encounter Visit Diagnoses Not on filedocumented in this encounter
--- OUTSIDE RECORDS SUMMARY | 2025-08-15 12:54 | XMS_ITS | Encounter Summary ---
Author Organization [employer] ([place], [place], [place], [place]) Address [address] [address] Care Team Providers Care Runner Man Name Role Phone Unavailable Primary Care Provider Unavailabl e Encounter Details Date Type Department Care Team (Late st Contact Info) Description 09/25/2020 Transcribed Document [facility] [place] Family Medicine [facility] [place] [address] ProviderDonaldo MD [address] [place] [address] Social History Tobacco Use Types Packs/Day Years Used Date Smoking Tobacco: Never Assessed Comments Unknown Sex and Gender Information Value Date Recorded Sex Assigned at Not on file Legal Sex Female 6:43 PM CDT Gender Identity Not on file Sexual Orientation Not on file documented as of this encounter Miscellaneous Notes * Cerner Conversion Note - Donaldo ProviderMD - 09/25/2020 10:39 AM FELT PULLER PAT Adult Entered On: 09/25/2020 10:43 EST Performed On: 09/25/2020 10:39 EST by Doris Ovalle Rn Vital Measurements Temperature Source : Temporal artery scanning Temperature Mode : Fahrenheit Temperature, Fahrenheit : 98.2 Deg F Clinical Temperature, C : 36.8 Deg C Peripheral Pulse Rate : 59 bpm (LOW) Respiratory Rate : 18 Breaths/Min Systolic Blood Pressure : 167 mmHg (HI) Diastolic Blood Pressure : 86 mmHg Oxygen Saturation : 99 % Oxygen Therapy Mode : Room air Doris Ovalle Rn - 09/25/2020 10:39 EST Height and Weight, Clinical Dosing Height Source : Stated Height Entry Format : Hardeman Height, Feet : 5 ft(Converted to: 152 cm, 60 Inch) Height, Inches : 8 Inch(Converted to: 0 ft 8 Inch, 20.32 cm) Clinical Height : 172.72 cm Weight Source : Standing scale Weight Entry Format : Hardeman Clinical Dosing Weight : 72.73 kg Weight, Pounds : 160 lb Body Surface Area (BSA) : 1.86 m2 Body Mass Index : 24.4 kg/m2 (HI) Calcium Body Weight : 63 kg Doris Ovalle Rn - 09/25/2020 10:39 EST Health Histories Smoking Status : Never (less than 100 in lifetime; none in last 30 days) Smokeless Tobacco Status : Never Doris Ovalle Rn - 09/25/2020 10:39 EST Social History (As Of: 09/25/2020 10:43:33 EST) Tobacco: Never (less than 100 in [...] : Chicken pox/Shingles Tuberculosis Symptoms : None Doris Ovalle Rn - 09/25/2020 10:39 EST COVID19 PreProcedure Screening Is this an Emergent or Add on Procedure? : No Date PreProcedure COVID-19 test known? : No Has patient been isolated since the test : N/A - PreProcedure, in-person visit Exposed to COVID19 symptoms since test? : N/A - PreProcedure, in-person visit Doris Ovalle Rn - 09/25/2020 10:39 EST Anesthesia/Transfusion History Family History of Anesthesia Reaction : No prior transfusion(s) Transfusion History : Prior anesthesia without reaction Family History of Anesthesia Reaction : None Doris Ovalle Rn - 09/25/2020 10:39 EST Advance Directive Patient has Advance Directive *Q : No, patient refuses Advance Directive information Doris Ovalle Rn - 09/25/2020 10:39 EST Jal Suicide Severity Rating Scale (C-SSRS) CSSRS Past Month Wish to be : No CSSRS Past Month Suicidal Thoughts : No CSSRS Lifetime Suicide Behavior : No Suicide Severity Rating Score : 0 Suicide Severity Rating : No Additional Care Required at this time Doris Ovalle Rn - 09/25/2020 10:39 EST Psychosocial History Do You Have a History of the Following? : Patient denies history Currently in Unsafe Situation : No Doris Ovalle Rn - 09/25/2020 10:39 EST Teaching/Learning Assessment Barriers To Learning : None evident Individuals Taught : Patient Readiness to Learn : Cooperative Readiness to Learn : Explanation, Printed materials Learning Style Preferences Patient : Printed materials, Verbal explanation Doris Ovalle Rn - 09/25/2020 10:39 EST Education Topics, Periop Preadmission Perioperative Education Grid Arrival Time/Place : Verbalizes understanding NPO Status/Directions : Verbalizes understanding Preprocedure Preparations : Verbalizes understanding Preprocedure Tests/Labs : Verbalizes understanding Responsible Adult : Verbalizes understanding Take/Hold Medications Pre-Procedure : Verbalizes understanding Doris Ovalle Rn - 09/25/2020 10:39 EST General Info Arrived From : Home Mode of Arrival on Unit : Ambulatory Patient Arrival Date/Time : 09/25/2020 10:16 EST Legal Guardian : Unaccompanied Want Family/Rep/Phys Notified of Admit : No Emergency Contact #1 : Cory Salazar Emergency Contact #1 Emergency Contact #1 Relationship : S.O. Emergency Contact #2 : . Emergency Contact #2 Phone Number : . Emergency Contact #2 Relationship : . Information Obtained From : Patient Primary Language : Spanish Preferred Communication Mode : Verbal Communication Barrier : None Color Sprayer Needed : No Doris Ovalle Rn - 09/25/2020 10:39 EST Uziel Scale Uziel Sensory Perception : No impairment Uziel Moisture : Rarely moist Uziel Activity : Walks frequently Uziel Mobility : No limitation Uziel Nutrition : Adequate Uziel Friction and Shear : No apparent problem Uziel Score : 22 Doris Ovalle Rn - 09/25/2020 10:39 EST Sleep Apnea Risk Assmt Hx of [...] Sleep Apnea Risk Level Score : 0 Doris Ovalle Rn - 09/25/2020 10:39 EST Electronically signed by Nikunj [facility] Conversion Cvor Nurse Cerner at 02/17/2023 12:10 PM CDT documented in this encounter Plan of Treatment Not on file documented as of this encounter Visit Diagnoses Not on filedocumented in this encounter
--- OUTSIDE RECORDS SUMMARY | 2025-08-15 12:54 | XMS_ITS | Encounter Summary ---
Author Organization [employer] ([place], [place], [place], [place]) Address [address] [address] Care Team Providers Care Marketing Intelligence Analyst Name Role Phone Unavailable Primary Care Provider Unavailabl e Encounter Details Date Type Department Care Team (Late st Contact Info) Description 04/08/2019 Transcribed Document [facility] [place] Family Medicine [facility] [place] [address] ProviderDonaldo MD [address] [place] [address] Social History Tobacco Use Types Packs/Day Years Used Date Smoking Tobacco: Never Assessed Comments Unknown Sex and Gender Information Value Date Recorded Sex Assigned at Not on file Legal Sex Female 6:43 PM CDT Gender Identity Not on file Sexual Orientation Not on file documented as of this encounter Miscellaneous Notes * Cerner Conversion Note - Donaldo ProviderMD - 04/08/2019 3:30 PM CDT Nursing Discharge Summary Entered On: 04/08/2019 15:31 EDT Performed On: 04/08/2019 15:30 EDT by Kyung Sinha Rn Discharge Documentation Discharge Date/Time : 04/08/2019 15:10 EDT Patient Disposition, General : Discharge Discharge To : Home with ambulatory/outpatient follow-up Mode Of Departure, General Discharge : Private vehicle Accompanied By, Discharge : Significant other IV Discontinued : Yes Personal Belongings With Patient : Yes Patient Education Completed : Yes Teaching Method : Explanation, Printed materials Teaching Evaluation : Verbalizes understanding Kyung Sinha Rn - 04/08/2019 15:30 EDT documented in this encounter Plan of Treatment Not on file documented as of this encounter Visit Diagnoses Not on filedocumented in this encounter
--- OUTSIDE RECORDS SUMMARY | 2025-08-15 12:54 | XMS_ITS | Encounter Summary ---
Author Organization [employer] ([place], [place], [place], [place]) Address [address] [address] Care Team Providers Care Pediatric Allergist Name Role Phone Unavailable Primary Care Provider Unavailabl e Encounter Details Date Type Department Care Team (Late st Contact Info) Description 10/03/2020 Transcribed Document [facility] [place] Family [place] [facility] [place] [address] ProviderDonaldo MD [address] [place] [address] Social History Tobacco Use Types Packs/Day Years Used Date Smoking Tobacco: Never Assessed Comments Unknown Sex and Gender Information Value Date Recorded Sex Assigned at Not on file Legal Sex Female 6:43 PM CDT Gender Identity Not on file Sexual Orientation Not on file documented as of this encounter Miscellaneous Notes * Cerner Conversion Note - Donaldo ProviderMD - 10/03/2020 9:32 AM LIFE TESTER OUT[employer]ARD MOTORS Peripheral Nerve Block Entered On: 10/03/2020 9:58 EST Performed On: 10/03/2020 9:32 EST by ARNULFO ARMSTRONG RN Peripheral Nerve Block Peripheral Nerve Block Start Date/Time : 10/03/2020 9:32 EST Verbally Confirm Pt, Site, and Procedure : Yes Site Preparation : Chlorhexidine (Hibiclens) Peripheral Nerve Block : Pectoralis Laterality : Bilateral Peripheral Nerve Block Performed by : JAYCEE MCLAUGHLIN MD-ANS Medication Delivery Method : Single Shot Peripheral Nerve Block Assisted by : ARNULFO ARMSTRONG, RN Ultra sound used during insertion : Yes Nerve Block Activity, Patient Tolerance : Good Peripheral Nerve Block End Date/Time : 10/03/2020 9:56 EST ARNULFO ARMSTRONG RN - 10/03/2020 9:57 EST Electronically signed by Nikunj [facility] Conversion Administrative Liaison Cerner at 02/17/2023 12:33 PM CDT documented in this encounter Plan of Treatment Not on file documented as of this encounter Visit Diagnoses Not on filedocumented in this encounter
--- OUTSIDE RECORDS SUMMARY | 2025-08-15 12:54 | XMS_ITS | Encounter Summary ---
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 Role Phone Unavailable Primary Care Provider Unavailabl e Encounter Details Date Type Department Care Team (Late st Contact Info) Description 04/08/2019 Transcribed Document [facility] Family Medicine [facility] [place] [address] ProviderDonaldo MD [address] [place] [id number] Social History Tobacco Use Types Packs/Day Years Used Date Smoking Tobacco: Never Assessed Comments Unknown Sex and Gender Information Value Date Recorded Sex Assigned at Not on file Legal Sex Female 6:43 PM CDT Gender Identity Not on file Sexual Orientation Not on file documented as of this encounter Miscellaneous Notes * Cerner Conversion Note - Donaldo Russell MD - 04/08/2019 3:00 PM CDT [place] [id number] JOLLY GORDON :1975 Visit Time:04/07/2019 Your Visit Summary Your Care Team Admitting Physician - JAYCEE TORRES MD-[facility] Attending Physician - JAYCEE TORRES MD-[facility] Primary Care Physician - JAYCEE ROGER MD-[facility] Referring Physician - JAYCEE TORRES MD-[facility] Your Diagnosis Dysmenorrhea Other specified abnormal uterine and vaginal bleeding, Other specified abnormal uterine and vaginal bleeding What to do next Instructions From Your Care Team Diet after Discharge: Regular diet as tolerated, _, _ Fluid Restriction after Discharge: _ Activity after Discharge: As tolerated, Rest and relax today, No strenuous activity Lifting Restrictions: No heavy lifting over 10 pounds Weight Bearing: _ Bedrest: _ Driving after Discharge: Do not drive for 2 weeks May Return to Work/School: Showering/Bathing: _, _ Notify Provider of: Wound/Incision Care after Discharge: Keep operative site/wound site clean and dry, _ Medical Equipment for Home Use: Home Health Services: Community Services: Discharge Activity: Discharge Activity: No strenuous activities Diet: Discharge Diet: Resume usual diet as tolerated Follow-Up Appointments Follow Up with JAYCEE TORRES When Within 2 weeks Comments Call for follow up appointment Where: [address] [place] [address] [facility] [place] (1) Medications What How Much When Instructions Next Dose ixekizumab (Taltz Prefilled Syringe 80 mg/ mL subcutaneous solution) 80 Milligram(s) SubCutaneous Every 4 Weeks Take your medications faithfully. Do NOT skip [...] This Visit No Immunizations Found Education Materials Laparoscopically Assisted Vaginal Hysterectomy, Care After This sheet gives you information about how to care for yourself after your procedure. Your health care provider may also give you more specific instructions. If you have problems or questions, contact your health care provider. What can I expect after the procedure? After the procedure, it is common to have: ??? Soreness and numbness in your incision areas. ??? Abdominal pain. You will be given pain medicine to control it. ??? Vaginal bleeding and discharge. You will need to use a sanitary napkin after this procedure. ??? Sore throat from the breathing tube that was inserted during surgery. Follow these instructions at home: Medicines ??? Take nnig-kfi-owkqmuo and prescription medicines only as told by your health care provider. ??? Do not take aspirin or ibuprofen. These medicines can cause bleeding. ??? Do not drive or use heavy machinery while taking prescription pain medicine. ??? Do not drive for 24 hours if you were given a medicine to help you relax (sedative) during the procedure. Incision care ??? Follow instructions from your health care provider about how to take care of your incisions. Make sure you: ? Wash your hands with soap and water before you change your bandage (dressing). If soap and water are not available, use hand miller head assistant wet process. ? Change your dressing as told by [...] for: ? Redness, swelling, or pain. ? Fluid or blood. ? Warmth. ? Pus or a bad smell. Activity ??? Get regular exercise as told by your health care provider. You may be told to take short walks every day and go farther each time. ??? Return to your normal activities as told by your health care provider. Ask your health care provider what activities are safe for you. ??? Do not douche, use tampons, or have sexual intercourse for at least 6 weeks, or until your health care provider gives you permission. ??? Do not lift anything that is heavier than 10 lb (4.5 kg), or the limit that your health care provider tells you, until he or she says that it is safe. General instructions ??? Do not take baths, swim, or use a hot tub until your health care provider approves. Take showers instead of baths. ??? Do not drive for 24 hours if you received a sedative. ??? Do not drive or operate heavy machinery while taking prescription pain medicine. ??? To prevent or treat constipation while you are taking prescription pain medicine, your health care provider may recommend that you: ? Drink enough fluid to keep your urine clear or pale yellow. ? Take pgby-rpc-pakkyyw or prescription medicines. ? Eat foods that are high in fiber, such as fresh fruits and vegetables, whole grains, and beans. ? Limit foods that are high in fat and processed sugars, such as fried and sweet foods. ??? Keep all follow-up visits as told by your health care provider. This is important. Contact a health care provider if: ??? You have signs of infection, such as: ? Redness, swelling, or pain around your incision sites. ? Fluid or blood coming from an incision. ? An incision that feels warm to the touch. ? Pus or a bad smell coming from an incision. ??? Your incision breaks open. ??? Your pain medicine is not helping. ??? You feel dizzy or light-headed. ??? You have pain or bleeding when you urinate. ??? You have persistent nausea and vomiting. ??? You have blood, pus, or a bad-smelling discharge from your vagina. Get help right away if: ??? You have a fever. ??? You have severe abdominal pain. ??? You have chest pain. ??? You have shortness of breath. ??? You faint. ??? You have pain, swelling, or redness in your leg. ??? You have heavy bleeding from your vagina. Summary ??? After the procedure, it is common to have abdominal pain and vaginal bleeding. ??? You should not drive or lift heavy objects until your health care provider says that it is safe. ??? Contact your health care provider if you have any symptoms of infection, excessive vaginal bleeding, nausea, vomiting, or shortness of breath. This information is not intended to replace advice given to you by your health care provider. Make sure you discuss any questions you have with your health care provider. Document Released: 10/08/2012 Document Revised: 12/16/2017 Document Reviewed: 12/16/2017 [employer] Patient Education ?? 2019 [employer]. acetaminophen and oxycodone (a SEET a MIN oh fen and OX i KOE done) Endocet 10/325, Endocet 2.5/325, Endocet 5/325, Endocet 7.5/325, Nalocet, Percocet 10/325, Percocet 2.5/325, Percocet 5/325, Percocet 7.5/325, Primalev, Primlev, Roxicet, Xartemis XR What is the most important information I should know about acetaminophen and oxycodone? MISUSE OF OPIOID MEDICINE CAN CAUSE ADDICTION, OVERDOSE, OR . Keep the medication in a place where others cannot get to it. An overdose of acetaminophen can damage your liver or cause . Call your doctor at once if you have pain in your upper stomach, loss of appetite, dark urine, or jaundice (yellowing of your skin or eyes). Taking opioid medicine during may cause life-threatening withdrawal symptoms in the . Fatal side effects can occur if you use opioid medicine with alcohol, or with other drugs that cause drowsiness or slow your breathing. Stop taking this medicine and call your doctor right away if you have skin redness or a rash that spreads and causes blistering and peeling. What is acetaminophen and oxycodone? Oxycodone is an opioid pain medication, sometimes called a narcotic. Acetaminophen is a less potent pain reliever that increases the effects of oxycodone. Acetaminophen and oxycodone is a combination medicine used to relieve moderate to severe pain. Acetaminophen and oxycodone may also be used for purposes not listed in this medication guide. What should I discuss with my healthcare provider before taking acetaminophen and oxycodone? You should not use this medicine if you are allergic to acetaminophen or oxycodone, or if you have: ? severe asthma or breathing problems; or ?? a blockage in your stomach or intestines. Tell your doctor if you have ever had: ? liver disease; ?? a drug or alcohol addiction; ?? kidney disease; ?? a head injury or seizures; ?? urination problems; or ?? problems with your thyroid, pancreas, or gallbladder. If you use opioid medicine while you are , your baby could become dependent on the drug. This can cause life-threatening withdrawal symptoms in the baby after it is born. Babies born dependent on opioids may need medical treatment for several weeks. Do not breast-feed. This medicine can pass into breast milk and cause drowsiness, breathing problems, or in a nursing baby. How should I take acetaminophen and oxycodone? Follow all directions on your prescription label. Never take this medicine in larger amounts, or for longer than prescribed. An overdose can damage your liver or cause . Tell your doctor if the medicine seems to stop working as well in relieving your pain. Never share this medicine with another person, especially someone with a history of drug abuse or addiction. MISUSE CAN CAUSE ADDICTION, OVERDOSE, OR . Keep the medicine in a place where others cannot get to it. Selling or giving away acetaminophen and oxycodone is against the law. Measure liquid medicine carefully. Use the dosing syringe provided, or use a medicine dose-measuring device (not a kitchen spoon). If you need surgery or medical tests, tell the doctor ahead of time that you are using this medicine. You should not stop using this medicine suddenly. Follow your doctor's instructions about tapering your dose. Store at room temperature away from moisture and heat. Keep track of your medicine. You should be aware if anyone is using it improperly or without a prescription. Do not keep leftover opioid medication. Just one dose can cause in someone using this medicine accidentally or improperly. Ask your pharmacist where to locate a drug take-back disposal program. If there is no take-back program, flush the unused medicine down the toilet. What happens if I miss a dose? Since this medicine is used for pain, you are not likely to miss a dose. Skip any missed dose if it is almost time for your next dose. Do not use two doses at one time. What happens if I overdose? Seek emergency medical attention or call the Poison Help line at . An overdose of acetaminophen and oxycodone can be fatal. The first signs of an acetaminophen overdose include loss of appetite, nausea, vomiting, stomach pain, sweating, and confusion or weakness. Later symptoms may include pain in your upper stomach, dark urine, and yellowing of your skin or the whites of your eyes. Overdose can also cause severe muscle weakness, pinpoint pupils, very slow breathing, extreme drowsiness, or coma. What should I avoid while taking acetaminophen and oxycodone? Avoid driving or operating machinery until you know how this medicine will affect you. Dizziness or drowsiness can cause falls, accidents, or severe injuries. Do not drink alcohol. Dangerous side effects or could occur. Ask a doctor or pharmacist before using any other medicine that may contain acetaminophen (sometimes abbreviated as APAP). Taking certain medications together can lead to a fatal overdose. What are the possible side effects of acetaminophen and oxycodone? Get emergency medical help if you have signs of an allergic reaction: hives; difficulty breathing; swelling of your face, lips, tongue, or throat. Opioid medicine can slow or stop your breathing, and may occur. A person caring for you should seek emergency medical attention if you have slow breathing with long pauses, blue colored lips, or if you are hard to wake up. In rare cases, acetaminophen may cause a severe skin reaction that can be fatal. This could occur even if you have taken acetaminophen in the past and had no reaction. Stop taking this medicine and call your doctor right away if you have skin redness or a rash that spreads and causes blistering and peeling. Call your doctor at once if you have: ? noisy breathing, sighing, shallow breathing; ?? a light-headed feeling, like you might pass out; ?? weakness, tiredness, fever, unusual bruising or bleeding; ?? confusion, unusual thoughts or behavior; ?? problems with urination; ?? liver problems--nausea, upper stomach pain, tiredness, loss of appetite, dark urine, loc-colored stools, jaundice (yellowing of the skin or eyes); or ?? low cortisol levels-- nausea, vomiting, loss of appetite, dizziness, worsening tiredness or weakness. Seek medical attention right away if you have symptoms of serotonin syndrome, such as: agitation, hallucinations, fever, sweating, shivering, fast heart rate, muscle stiffness, twitching, loss of coordination, nausea, vomiting, or diarrhea. Serious side effects may be more likely in older adults and those who are overweight, malnourished, or debilitated. Long-term use of opioid medication may affect fertility (ability to have children) in men or women. It is not known whether opioid effects on fertility are permanent. Common side effects include: ? dizziness, drowsiness, feeling tired; ?? feelings of extreme happiness or sadness; ?? nausea, vomiting, stomach pain; ?? constipation; or ?? headache. This is not a complete list of side effects and others may occur. Call your doctor for medical advice about side effects. You may report side effects to FDA at 0-556-AZN-3336. What other drugs will affect acetaminophen and oxycodone? You may have breathing problems or withdrawal symptoms if you start or stop taking certain other medicines. Tell your doctor if you also use an antibiotic, antifungal medication, heart or blood pressure medication, seizure medication, or medicine to treat HIV or hepatitis C. Opioid medication can interact with many other drugs and cause dangerous side effects or . Be sure your doctor knows if you also use: ? cold or allergy medicines, bronchodilator asthma/COPD medication, or a diuretic ('water pill'); ?? medicines for motion sickness, irritable bowel syndrome, or overactive bladder; ?? other narcotic medications--opioid pain medicine or prescription cough medicine; ?? a sedative like Valium--diazepam, alprazolam, lorazepam, Xanax, Klonopin, Versed, and others; ?? drugs that make you sleepy or slow your breathing--a sleeping pill, muscle relaxer, medicine to treat mood disorders or mental illness; ?? drugs that affect serotonin levels in your body--a stimulant, or medicine for depression, Parkinson's disease, migraine headaches, serious infections, or nausea and vomiting. This list is not complete. Other drugs may affect acetaminophen and oxycodone, including prescription and uykf-mmn-xnodgek medicines, vitamins, and herbal products. Not all possible interactions are listed here. Where can I get more information? Your doctor or pharmacist can provide more information about acetaminophen and oxycodone. Remember, keep this and all other medicines out of the reach of children, never share your medicines with others, and use this medication only for the indication prescribed. Every effort has been made to ensure that the information provided by [employer]. ('[employer]') is accurate, up-to-date, and complete, but no guarantee is made to that effect. Drug information contained herein may be time sensitive. [employer] information has been compiled for use by healthcare practitioners and consumers in the [place] and therefore [employer] does not warrant that uses outside of the [place] are appropriate, unless specifically indicated otherwise. [employer] drug information does not endorse drugs, diagnose patients or recommend therapy. [employer] drug information is an informational resource designed to assist licensed healthcare practitioners in caring for their patients and/or to serve consumers viewing this service as a supplement to, and not a substitute for, the expertise, skill, knowledge and judgment of healthcare practitioners. The absence of a warning for a given drug or drug combination in no way should be construed to indicate that the drug or drug combination is safe, effective or appropriate for any given patient. [employer] does not assume any responsibility for any aspect of healthcare administered with the aid of information [employer] provides. The information contained herein is not intended to cover all possible uses, directions, precautions, warnings, drug interactions, allergic reactions, or adverse effects. If you have questions about the drugs you are taking, check with your doctor, nurse or pharmacist. Copyright 7144-6305 [employer]. Version: 18.02. Revision Date: 09/30/2018.ibuprofen (EYE bue PROE fen) Advil, Genpril, IBU, Midol IB, Motrin IB, Proprinal, Smart Sense Children's Ibuprofen What is the most important information I should know about ibuprofen? Ibuprofen can increase your risk of fatal heart attack or stroke, especially if you use it terminal operator or take high doses, or if you have heart disease. Do not use this medicine just before or after heart bypass surgery (coronary artery bypass graft, or CABG). Ibuprofen may also cause stomach or intestinal bleeding, which can be fatal. These conditions can occur without warning while you are using ibuprofen, especially in older adults. What is ibuprofen? Ibuprofen is a nonsteroidal anti-inflammatory drug (NSAID). Ibuprofen works by reducing hormones that cause inflammation and pain in the body. Ibuprofen is used to reduce fever and treat pain or inflammation caused by many conditions such as headache, toothache, back pain, arthritis, menstrual cramps, or minor injury. This medicine is used in adults and children who are at least 6 months old. Ibuprofen may also be used for purposes not listed in this medication guide. What should I discuss with my healthcare provider before taking ibuprofen? Ibuprofen can increase your risk of fatal heart attack or stroke, especially if you use it terminal operator or take high doses, or if you have heart disease. Even people without heart disease or risk factors could have a stroke or heart attack while taking this medicine. Do not use this medicine just before or after heart bypass surgery (coronary artery bypass graft, or CABG). Ibuprofen may also cause stomach or intestinal bleeding, which can be fatal. These conditions can occur without warning while you are using ibuprofen, especially in older adults. You should not use ibuprofen if you are allergic to it, or if you have ever had an asthma attack or severe allergic reaction after taking aspirin or an NSAID. Ask a doctor or pharmacist if it is safe for you to take this medicine if you have: ? heart disease, high blood pressure, high cholesterol, diabetes, or if you smoke; ?? a history of heart attack, stroke, or blood clot; ?? a history of stomach ulcers or bleeding; ?? asthma; ?? liver or kidney disease; ?? fluid retention; or ?? a connective tissue disease such as Marfan syndrome, Sjogren's syndrome, or lupus. Taking ibuprofen during the last 3 months of may harm the unborn baby. Do not use this medicine without a doctor's advice if you are . It is not known whether ibuprofen passes into breast milk or if it could affect a nursing baby. Ask a doctor before using this medicine if you are breast-feeding. Do not give ibuprofen to a child younger than 2 years old without the advice of a doctor. How should I take ibuprofen? Use exactly as directed on the label, or as prescribed by your doctor. Do not use in larger amounts or for longer than recommended. Use the lowest dose that is effective in treating your condition. Do not take more than your recommended dose. An ibuprofen overdose can damage your stomach or intestines. The maximum amount of ibuprofen for adults is 800 milligrams per dose or 3200 mg per day (4 maximum doses). Use only the smallest amount of ibuprofen needed to get relief from your pain, swelling, or fever. A child's dose of ibuprofen is based on the age and weight of the child. Carefully follow the dosing instructions provided with children's ibuprofen for the age and weight of your child. Ask a doctor or pharmacist if you have questions. Take ibuprofen with food or milk to lessen stomach upset. Shake the oral suspension (liquid) well just before you measure a dose. Measure liquid medicine with the dosing syringe provided, or with a special dose-measuring spoon or medicine cup. If you do not have a dose-measuring device, ask your pharmacist for one. The ibuprofen chewable tablet must be chewed before you swallow it. If you use this medicine long-term, you may need frequent medical tests. Store at room temperature away from moisture and heat. Do not allow the liquid medicine to freeze. Read all patient information, medication guides, and instruction sheets provided to you. Ask your doctor or pharmacist if you have any questions. What happens if I miss a dose? Since ibuprofen is used when needed, you may not be on a dosing schedule. If you are on a schedule, use the missed dose as soon as you remember. Skip the missed dose if it is almost time for your next scheduled dose. Do not use extra medicine to make up the missed dose. What happens if I overdose? Seek emergency medical attention or call the Poison Help line at . Overdose symptoms may include nausea, vomiting, stomach pain, drowsiness, black or bloody stools, coughing up blood, shallow breathing, fainting, or coma. What should I avoid while taking ibuprofen? Avoid drinking alcohol. It may increase your risk of stomach bleeding. Avoid taking aspirin while you are taking ibuprofen. Avoid taking ibuprofen if you are taking aspirin to prevent stroke or heart attack. Ibuprofen can make aspirin less effective in protecting your heart and blood vessels. If you must use both medications, take the ibuprofen at least 8 hours before or 30 minutes after you take the aspirin (non-enteric coated form). Ask a doctor or pharmacist before using any cold, allergy, or pain medicine. Many medicines available over the counter contain aspirin or other medicines similar to ibuprofen. Taking certain products together can cause you to get too much of this type of medication. Check the label to see if a medicine contains aspirin, ibuprofen, ketoprofen, or naproxen. What are the possible side effects of ibuprofen? Get emergency medical help if you have signs of an allergic reaction: sneezing, runny or stuffy nose; wheezing or trouble breathing; hives; swelling of your face, lips, tongue, or throat. Get emergency medical help if you have signs of a heart attack or stroke: chest pain spreading to your jaw or shoulder, sudden numbness or weakness on one side of the body, slurred speech, leg swelling, feeling short of breath. Stop using ibuprofen and call your doctor at once if you have: ? changes in your vision; ?? shortness of breath (even with mild exertion); ?? swelling or rapid weight gain; ?? the first sign of any skin rash, no matter how mild; ?? signs of stomach bleeding--bloody or tarry stools, coughing up blood or vomit that looks like coffee grounds; ?? liver problems--nausea, upper stomach pain, itching, tired feeling, flu-like symptoms, loss of appetite, dark urine, loc-colored stools, jaundice (yellowing of the skin or eyes); ?? kidney problems--little or no urinating, painful or difficult urination, swelling in your feet or ankles, feeling tired or short of breath; ?? low red blood cells (anemia)--pale skin, feeling light-headed or short of breath, rapid heart rate, trouble concentrating; or ?? severe skin reaction--fever, sore throat, swelling in your face or tongue, burning in your eyes, skin pain followed by a red or purple skin rash that spreads (especially in the face or upper body) and causes blistering and peeling. Common side effects may include: ? upset stomach, mild heartburn, nausea, vomiting; ?? bloating, gas, diarrhea, constipation; ?? dizziness, headache, nervousness; ?? mild itching or rash; or ?? ringing in your ears. This is not a complete list of side effects and others may occur. Call your doctor for medical advice about side effects. You may report side effects to FDA at 4-049-IHB-1154. What other drugs will affect ibuprofen? Ask your doctor before using ibuprofen if you take an antidepressant such as citalopram, escitalopram, fluoxetine (Prozac), fluvoxamine, paroxetine, sertraline (Zoloft), trazodone, or vilazodone. Taking any of these medicines with an NSAID may cause you to bruise or bleed easily. Ask a doctor or pharmacist if it is safe for you to use ibuprofen if you are also using any of the following drugs: ? lithium; ?? methotrexate; ?? a blood thinner (warfarin, Coumadin, Jantoven); ?? heart or blood pressure medication, including a diuretic or 'water pill'; or ?? steroid medicine (such as prednisone). This list is not complete. Other drugs may interact with ibuprofen, including prescription and swnt-tfy-wyluzof medicines, vitamins, and herbal products. Not all possible interactions are listed in this medication guide. Where can I get more information? Your pharmacist can provide more information about ibuprofen. Remember, keep this and all other medicines out of the reach of children, never share your medicines with others, and use this medication only for the indication prescribed. Every effort has been made to ensure that the information provided by [employer]. ('[employer]') is accurate, up-to-date, and complete, but no guarantee is made to that effect. Drug information contained herein may be time sensitive. [employer] information has been compiled for use by healthcare practitioners and consumers in the [place] and therefore [employer] does not warrant that uses outside of the [place] are appropriate, unless specifically indicated otherwise. [employer] drug information does not endorse drugs, diagnose patients or recommend therapy. [employer] drug information is an informational resource designed to assist licensed healthcare practitioners in caring for their patients and/or to serve consumers viewing this service as a supplement to, and not a substitute for, the expertise, skill, knowledge and judgment of healthcare practitioners. The absence of a warning for a given drug or drug combination in no way should be construed to indicate that the drug or drug combination is safe, effective or appropriate for any given patient. [employer] does not assume any responsibility for any aspect of healthcare administered with the aid of information [employer] provides. The information contained herein is not intended to cover all possible uses, directions, precautions, warnings, drug interactions, allergic reactions, or adverse effects. If you have questions about the drugs you are taking, check with your doctor, nurse or pharmacist. Copyright 7286-4787 [employer]. Version: 18.01. Revision Date: 01/30/2017. Emergency Awareness and Preventative Care STROKE is [...] Assistance with quitting is available by contacting 7-493-XNJLNOW. This is a free resource providing counseling, support, and referral. Or you may contact your personal physician. [place] [facility]: The National Suicide Prevention Lifeline is a [...] CPR? There are two easy steps: Call 9-1 if you see a teen or adult [...] and how to prevent infections, visit www.cdc.gov/sepsis. Patient Portal Reminder: Be sure to sign up for the [facility] patient portal, which gives you 26/05 access to your medical information ??? including these discharge instructions ??? using your computer, smartphone, or tablet. Just go to [employer] to get started. Questions? Call . Test Results Laboratory or Other Results This Visit (last charted value for your 04/07/2019 visit) Hematology 04/08/19 04:38:00 Hct: 31.2 % -- Normal range between ( 34.1 and 44.9 ) Hgb: 10.5 Gram/dL -- Normal range between ( 11.2 and 15.7 ) 04/07/19 11:30:00 WBC: 4.1 K/uL -- Normal range between ( 3.9 and 10.0 ) RBC: 4.04 Million/uL -- Normal range between ( 3.93 and 5.22 ) Platelet Count: 218 K/uL -- Normal range between ( 163 and 369 ) MCH: 31.4 pg -- Normal range between ( 25.6 and 32.2 ) MCHC: 33.4 Gram/dL -- Normal range between ( 32.3 and 36.5 ) MCV: 94.1 fL -- Normal range between ( 79.0 and 94.8 ) Slide Review: No Eos %: 2.0 % -- Normal range between ( 1.0 and 7.0 ) Emanuel #: 0.31 K/uL -- Normal range between ( 0.24 and 0.82 ) Eos #: 0.08 K/uL -- Normal range between ( 0.04 and 0.54 ) Emanuel %: 7.6 % -- Normal range between ( 4.7 and 12.5 ) Baso %: 0.5 % -- Normal range between ( 0.0 and 1.0 ) Baso #: 0.02 K/uL -- Normal range between ( 0.01 and 0.08 ) RDW: 11.8 % -- Normal range between ( 11.6 and 14.4 ) Neut %: 57.7 % -- Normal range between ( 34.0 and 71.0 ) Neut #: 2.36 K/uL -- Normal range between ( 1.56 and 6.13 ) Lymph %: 32.0 % -- Normal range between ( 19.3 and 53.0 ) Lymph #: 1.31 K/uL -- Normal range between ( 1.18 and 3.74 ) MPV: 10.3 fL -- Normal range between ( 9.4 and 12.4 ) IG#: 0 x10(3)/uL IG%: 0 % -- Normal range between ( 0 and 1 ) Blood Bank 04/07/19 11:35:00 ABO/Rh Repeat: A POS 04/07/19 11:33:00 ABO/Rh: A POS Antibody Screen (Tube): Negative [facility]SC General Chemistry 04/07/19 11:30:00 Creatinine Level: 0.91 mg/dL -- Normal range between ( 0.55 and 1.02 ) Sodium Level: 140 mmol/L -- Normal range between ( 136 and 146 ) Potassium Level: 3.8 mmol/L -- Normal range between ( 3.5 and 5.1 ) Chloride Level: 108 mmol/L -- Normal range between ( 102 and 112 ) Carbon Dioxide Level: 24 mmol/L -- Normal range between ( 21 and 32 ) Anion Gap: 12 -- Normal range between ( 9 and 20 ) Bun/Creatinine: 15.4 -- Normal range between ( 8.0 and 20.0 ) Calcium Level: 8.1 mg/dL -- Normal range between ( 8.5 and 10.1 ) eGFR : >60 mL/min/1.73m2 eGFR NonAfrican: >60 mL/min/1.73m2 Glucose Level: 81 mg/dL -- Normal range between ( 74 and 106 ) Blood Urea Nitrogen: 14 mg/dL -- Normal range between ( 7 and 22 ) Patient Name:WEIJOLLY I have received and understand this information and was given the opportunity to ask questions. Patient/Research Pharmacist Name: Patient/Research Pharmacist Signature: Relationship to Patient: Clinician/Hospital Research Pharmacist Signature: Date: documented in this encounter Plan of Treatment Not on file documented as of this encounter Visit Diagnoses Not on filedocumented in this encounter
--- OUTSIDE RECORDS SUMMARY | 2025-08-15 12:54 | XMS_ITS | Encounter Summary ---
Author Organization [employer] ([place], [place], [place], [place]) Address [address] [address] Care Team Providers Care Digester Cook Name Role Phone Unavailable Primary Care Provider Unavailabl e Encounter Details Date Type Department Care Team (Late st Contact Info) Description 10/03/2020 Transcribed Document [facility] [place] [facility] [place] [address] ProviderDonaldo MD [address] [place] [id number] Social History Tobacco Use Types Packs/Day Years Used Date Smoking Tobacco: Never Assessed Comments Unknown Sex and Gender Information Value Date Recorded Sex Assigned at Not on file Legal Sex Female 6:43 PM CDT Gender Identity Not on file Sexual Orientation Not on file documented as of this encounter Miscellaneous Notes * Cerner Conversion Note - Donaldo ProviderMD - 10/03/2020 10:53 AM CASING FINISHER AND STUFFER DOMINGO Main OR IntraOp Summary Primary Physician: JAYCEE ROA MD-SUR Finalized Date/Time: 10/03/20 15:09:31 Pt. Name: JOLLY GORDON FRANKO /Sex: 1975 Female Med Rec #: [id number] Physician: JAYCEE ROA MD-SUR Financial #: [id number] Pt. Type: O Room/Bed: [facility] Admit/Disch: 10/03/20 04:06:00 - Institution: [facility] [place] IntraOp Case Attendance Entry 1 Entry 2 Entry 3 Case Attendee JAYCEE ROA HILL, JOSEPH L, MD-MACEY LEOS PA-C MD-SUR Role Performed Surgeon/Proceduralist, Surgeon/Proceduralist, Physician retail assistant First Second Time In 10/03/20 10:26:00 10/03/20 11:45:00 10/03/20 10:26:00 Time Out 10/03/20 13:41:00 10/03/20 15:09:00 10/03/20 13:41:00 Procedure Mastectomy Breast Reconstruction, Mastectomy Simple(Bilateral), Tissue Chair Pad Maker Breast Simple(Bilateral), Breast Reconstruction Breast Reconstruction, Tissue Chair Pad Maker Breast Other Attendee Superficial Wound Closed By: Last Modified By: Herlinda Schaffer, Herlinda Hu, Herlinda Hu, RN 10/03/20 15:09:15 10/03/20 15:09:15 10/03/20 15:09:15 Entry 4 Entry 5 Entry 6 Case Attendee Herlinda Schaffer, RICK TEIXEIRA ST STULL, KELSI A, NEWSCAST PRODUCER Role Performed Special Deputy Sheriff, First Scrub, First NEWSCAST PRODUCER/Nurse Emergency Medicine Specialist Time In 10/03/20 10:26:00 10/03/20 10:26:00 10/03/20 10:26:00 Time Out 10/03/20 13:54:00 10/03/20 15:09:00 10/03/20 15:09:00 Procedure Mastectomy Mastectomy Mastectomy Simple(Bilateral), Simple(Bilateral), Simple(Bilateral), Breast Reconstruction, Breast Reconstruction, Breast Reconstruction, Tissue Chair Pad Maker Breast Tissue Chair Pad Maker Breast Tissue Chair Pad Maker Breast Other Attendee Superficial Wound Closed By: Last Modified By: Herlinda Schaffer, Herlinda Hu, RN Herlinda Schaffer, RN 10/03/20 15:09:15 10/03/20 15:09:15 10/03/20 15:09:15 Entry 7 Entry 8 Entry 9 Case Attendee GABRIEL MERAZ ST TERRY, JULIA OTHER, ATTENDEE Role Performed Scrub, Second Special Deputy Sheriff, Second Vendor Time In 10/03/20 11:39:00 10/03/20 11:55:00 10/03/20 11:55:00 Time Out 10/03/20 12:11:00 10/03/20 12:24:00 10/03/20 15:09:00 Procedure Mastectomy Mastectomy Breast Reconstruction Simple(Bilateral), Simple(Bilateral), Breast Reconstruction, Breast Reconstruction, Tissue Chair Pad Maker Breast Tissue Chair Pad Maker Breast Other Attendee LUNCH RELIEF LUNCH RELIEF KANDICE: ALLERGAN REP Superficial Wound Closed By: Last Modified By: Herlinda Schaffer, Herlinda Hu, RN Herlinda Schaffer, VICKY 10/03/20 15:09:15 10/03/20 15:09:15 10/03/20 15:09:15 Entry 10 Entry 11 Case Attendee ANUSHA MELTON PA-C Wellnitz, Sara, RN Role Performed Physician retail assistant Special Deputy Sheriff, First Time In 10/03/20 11:55:00 10/03/20 13:54:00 Time Out 10/03/20 15:09:00 10/03/20 14:05:00 Procedure Breast Reconstruction, Mastectomy Tissue Chair Pad Maker Breast Simple(Bilateral), Breast Reconstruction, Tissue Chair Pad Maker Breast Other Attendee BREAK Superficial Wound Closed By: Last Modified By: Herlinda Schaffer, Herlinda Hu, VICKY 10/03/20 15:09:15 10/03/20 15:09:15 [facility] IntraOp Case Attendance Audit 10/03/20 15:09:15 Mandrel Press Hand: [id number] Modifier: [id number] 1 <*> Procedure Mastectomy Simple(Bilateral), Breast Reconstruction 2 <+> Time Out 2 <*> Procedure Breast Reconstruction, Tissue Chair Pad Maker Breast 3 <*> Procedure Mastectomy Simple(Bilateral), Breast Reconstruction, Tissue Chair Pad Maker Breast 4 <*> Procedure Mastectomy Simple(Bilateral), Breast Reconstruction, Tissue Chair Pad Maker Breast 5 <+> Time Out 5 <*> Procedure Mastectomy Simple(Bilateral), Breast Reconstruction, Tissue Chair Pad Maker Breast 6 <+> Time Out 6 <*> Procedure Mastectomy Simple(Bilateral), Breast Reconstruction, Tissue Chair Pad Maker Breast 7 <*> Procedure Mastectomy Simple(Bilateral), Breast Reconstruction, Tissue Chair Pad Maker Breast 8 <*> Procedure Mastectomy Simple(Bilateral), Breast Reconstruction, Tissue Chair Pad Maker Breast 9 <+> Time Out 9 <*> Procedure Breast Reconstruction 10 <+> Time Out 10 <*> Procedure Breast Reconstruction, Tissue Chair Pad Maker Breast 11 <*> Procedure Mastectomy Simple(Bilateral), Breast Reconstruction, Tissue Chair Pad Maker Breast 10/03/20 14:08:50 Mandrel Press Hand: [id number] Modifier: [id number] <+> Time Out 4 <*> Procedure Mastectomy Simple(Bilateral), Breast Reconstruction, Tissue Chair Pad Maker Breast <+> 11 Case Attendee <+> 11 Role Performed <+> 11 Time In <+> 11 Time Out <+> 11 Procedure <+> 11 Other Attendee 10/03/20 13:41:49 Mandrel Press Hand: [id number] Modifier: [id number] <+> Time Out 1 <*> Procedure Mastectomy Simple(Bilateral), Breast Reconstruction 3 <+> Time Out 3 <*> Procedure Mastectomy Simple(Bilateral), Breast Reconstruction, Tissue Chair Pad Maker Breast 10/03/20 13:13:23 Mandrel Press Hand: [id number] Modifier: [id number] 2 <*> Time In 10/03/20 10:26:00 2 <*> Procedure Breast Reconstruction, Tissue Chair Pad Maker Breast <+> 10 Case Attendee <+> 10 Role Performed <+> 10 Time In <+> 10 Procedure 10/03/20 13:08:43 Mandrel Press Hand: [id number] Modifier: [id number] <+> 9 Case Attendee <+> 9 Role Performed <+> 9 Time In <+> 9 Procedure <+> 9 Other Attendee 10/03/20 12:29:20 Mandrel [employer] Hand: [id number] Modifier: [id number] <+> Time Out 7 <*> Procedure Mastectomy Simple(Bilateral), Breast Reconstruction, Tissue Chair Pad Maker Breast 8 <+> Time Out 8 <*> Procedure Mastectomy Simple(Bilateral), Breast Reconstruction, Tissue Chair Pad Maker Breast 10/03/20 11:55:28 Mandrel Press Hand: [id number] Modifier: [id number] <+> 8 Case Attendee <+> 8 Role Performed <+> 8 Time In <+> 8 Procedure <+> 8 Other Attendee 10/03/20 11:50:36 Mandrel [employer] Hand: [id number] Modifier: [id number] 1 <*> Procedure Mastectomy Simple(Bilateral), Breast Reconstruction 2 <*> Procedure Breast Reconstruction, Tissue Chair Pad Maker Breast 3 <*> Procedure Mastectomy Simple(Bilateral), Breast Reconstruction, Tissue Chair Pad Maker Breast 4 <*> Procedure Mastectomy Simple(Bilateral), Breast Reconstruction, Tissue Chair Pad Maker Breast 5 <*> Procedure Mastectomy Simple(Bilateral), Breast Reconstruction, Tissue Chair Pad Maker Breast 6 <+> Time In 6 <*> Procedure Mastectomy Simple(Bilateral), Breast Reconstruction, Tissue Chair Pad Maker Breast <+> 7 Case Attendee <+> 7 Role Performed <+> 7 Time In <+> 7 Procedure <+> 7 Other Attendee 10/03/20 11:05:14 Mandrel Press Hand: [id number] Modifier: [id number] 1 <*> Procedure Mastectomy Simple(Bilateral), Breast Reconstruction 2 <*> Procedure Breast Reconstruction, Tissue Chair Pad Maker Breast 3 <+> Time In 3 <*> Procedure Mastectomy Simple(Bilateral), Breast Reconstruction, Tissue Chair Pad Maker Breast 4 <+> Time In 4 <*> Procedure Mastectomy Simple(Bilateral), Breast Reconstruction, Tissue Chair Pad Maker Breast 5 <+> Time In 5 <*> Procedure Mastectomy Simple(Bilateral), Breast Reconstruction, Tissue Chair Pad Maker Breast <+> 6 Case Attendee <+> 6 Role Performed <+> 6 Procedure [facility] IntraOp Case Times Entry 1 Patient In Room Time 10/03/20 10:26:00 Out Room Time 10/03/20 15:09:00 Anesthesia Start Time 10/03/20 10:26:00 Stop Time 10/03/20 15:09:00 Anesthesia Ready 10/03/20 10:26:00 Surgery / Procedure Times Start Time 10/03/20 10:53:00 Stop Time 10/03/20 15:06:00 Last Modified By: Herlinda Schaffer RN 10/03/20 15:09:13 [facility] IntraOp Case Times Audit 10/03/20 15:09:13 Mandrel Press Hand: [id number] Modifier: [id number] <+> 1 Out Room Time <+> 1 Stop Time 10/03/20 15:08:23 [employer]rel Press Hand: [id number] Modifier: [id number] <+> 1 Stop Time [facility] IntraOp Cautery Entry 1 Entry 2 ESU Identification Cautery Type Monopolar ESU Monopolar ESU Cautery Type Comments ID Number [id number] ID Type Hospital Number Hospital Number Cautery Settings Cut Setting 30 30 Coag Setting 30 30 Blend Setting Bipolar Setting Argon Setting [facility] Grounding Pad Ground Pad Type Adult Adult Grounding Pad Type Comment Grounding Pad Site Right Buttock Left buttock Grounding Pad Site Comment Grounding Pad Herlinda Schaffer, RN Herlinda Schaffer, RN Applied By Grounding Pad Site Warm, dry and intact Warm, dry and intact Skin Condition Before Cautery Site Skin Condition Before Comment Grounding Pad Site Unchanged Unchanged Skin Condition After Cautery Site Skin Condition After Comment Last Modified By: Herlinda Schaffer RN Herlinda Schaffer RN 10/03/20 11:04:18 10/03/20 11:04:18 [facility] IntraOp Communication Entry 1 Entry 2 Communication To Family/Significant other Family/Significant other Comment START UPDATE Communication By Herlinda Schaffer RN STRIFLING, JOHN R, MD-SUR Date and Time 10/03/20 10:55:00 10/03/20 13:35:00 Last Modified By: Herlinda Schaffer RN Bruner, Kristen D, RN 10/03/20 11:04:31 10/03/20 14:13:11 [facility] IntraOp Communication Audit 10/03/20 14:13:11 [employer] Hand: [id number] Modifier: [id number] <+> 2 Date and Time 10/03/20 14:13:01 [employer] Hand: [id number] Modifier: [id number] <+> 2 Communication By <+> 2 Communication To <+> 2 Comment [facility] IntraOp Counts Verification Entry 1 Procedure Mastectomy Simple(Bilateral), Breast Reconstruction, Tissue Chair Pad Maker Breast Count Info Count Type Sponge, Sharps, Instrument, Miscellaneous Counts Verification Baseline/pre-procedure Sequence Count Results Not Applicable Counts Performed By Count Performed By RICK PERKINS ST (Scrub) Count Performed By Herlinda Schaffer RN (RN) Last Modified By: Herlinda Schaffer RN 10/03/20 11:04:45 [facility] IntraOp Counts Final Entry 1 Procedure Mastectomy Simple(Bilateral), Breast Reconstruction, Tissue Chair Pad Maker Breast Final Count Info Count Type Sponge, Sharps, Miscellaneous Counts Verification Skin Closure/end of Sequence procedure Count Results Correct, surgeon notified Counts Performed By Count Performed By RICK PERKINS ST (Scrub) Count Performed By Herlinda Schaffer RN (RN) Last Modified By: Herlinda Schaffer RN 10/03/20 14:51:16 [facility] IntraOp Counts Final Audit 10/03/20 14:51:16 Mandrel Press Hand: [id number] Modifier: [id number] 1 <*> Procedure Mastectomy Simple(Bilateral), Breast Reconstruction, Tissue Chair Pad Maker Breast 1 <+> Count Performed By (Scrub) 1 <+> Count Performed By (RN) [facility] IntraOp Cultures and Spec Summary Entry 1 Cultrures and Specimens Specimen Ordered: Yes Test(s) Routine/Path-Lab Requested/Final Disposition Last Modified By: Herlinda Schaffer RN 10/03/20 11:04:58 [facility] IntraOp Departure from OR Entry 1 Integumentary Assessment Integumentary WDL Assessment WDL Transfer/Handoff Transfer to PACU Phase I Handoff Method Bedside/Face to face Post-op Transport Stretcher/Gurney Via Patient Transport Herlinda Schaffer RN, Accompanied by HERMINIO WALTON CRNA Last Modified By: Herlinda Schaffer RN 10/03/20 11:08:28 [facility] IntraOp Departure from OR Audit 10/03/20 11:08:28 Mandrel Press Hand: [id number] Modifier: [id number] 1 <*> Patient Transport Accompanied by Herlinda Schaffer RN [facility] IntraOp Drains and Tubes Entry 1 Entry 2 Device Type Yared Hayes round Yared Hayes round drain drain Size 15MM 15MM Drain/Tube Activity Inserted Inserted Drain/Tube Suction Bulb Bulb Drain/Tube Drainage Device Location OPERATIVE SITE: RIGHT OPERATIVE SITE: RIGHT BREAST BREAST Method of Drainage Passive Passive Chest Tubes Connectivity Tube Dressing Dry, Intact Dry, Intact Condition Surgical Drains and Tubes Irrigation Comment Last Modified By: Herlinda Schaffer, Herlinda Hu RN 10/03/20 13:54:13 10/03/20 13:54:13 [facility] IntraOp Dressing and Packing Entry 1 Entry 2 Type Dressing Dressing Location OPSITE: RIGHT BREAST OPSITE: LEFT BREAST Wound Dressing Item Occlusive dressing, Occlusive dressing, Other Other Wound Packing Type Tape Type Supplemental Applications Applied By ANUSHA MELTON PA-C SNELLING, LAUREL, PA-C Other Comments BIOPATCH; MARLENE BIOPATCH; MARLENE DRESSING; FLUFFS; BRA DRESSING; FLUFFS; BRA Last Modified By: Herlinda Schaffer, Herlinda Hu RN 10/03/20 14:51:06 10/03/20 14:51:06 [facility] IntraOp Fire Risk Assessment Entry 1 Fire Info Surgical Site or 1- Yes Incision Above the Xyphoid Open O2 Source 0- No (Mask or Cannula) Available Ignition 1- Yes (ESU, Laser, Light Source) Fire Risk 2 Assessment Score Fire Score Fire Risk Yes Assessment Complete Fire Risk Herlinda Schaffer, portainer operator Verified By Fire Risk 10/03/20 10:26:00 Assessment Verified Date/Time Fire Risk Standard Fire Yes Safety Precautions Followed Last Modified By: Herlinda Schaffer RN 10/03/20 11:08:52 [facility] IntraOp General Case Rn L And D 1 Case Information OR OR 09 SJE Case Level 1 Room Verified Yes Wound Class I - Clean Specialty SN General Anesthesia Type General ASA Class 2 Diagnosis Preop Diagnosis BRCA2 GENE MUTATION POSITIVE Postop Same As Preop No Postop Diagnosis SEE MD POSTOP NOTE Last Modified By: Herlinda Schaffer RN 10/03/20 11:09:44 [facility] IntraOp Implant Log Entry 1 Entry 2 Entry 3 Type Tissue Implant Implant (Synthetic) Tissue Implant (Biologic) (Biologic) Implant Log Implant Type Tissue Chair Pad Maker Tissue Implant Type Tissue Tissue Implant TISS ALDRM SLCT RTM RISK CONTROL PRODUCT LIABILITY DIRECTOR TISSUE FV TISS ALDRM SLCT RTM Identification [id number] Description Implant Quantity 1 1 1 Implant Site OPSITE: RIGHT BREAST OPSITE: RIGHT BREAST OPSITE: LEFT BREAST Implant Identification Model Number Implant [id number] Identification Serial Number Implant [id number] Identification Lot Number Implant Lifecell Allergan:Inamed Lifecell Identification Aesthetics Rope Silica Machine Operator Name: Implant [id number] Identification Catalog Number Implant Size 16*20CM 400CC 16*20CM Implant Has an Yes Yes Yes Expiration Date Implant Expiration 12/03/21 03/01/25 12/03/21 Date Wasted Radioactive Material Time Implanted Tissue Implant Continue for Tissue Implant Documentation Tissue Identification Number Graft Prep Per Yes Yes Rope Silica Machine Operator Instructions: Tissue Preparation N/A N/A Method: Reconstitution Solution: Reconstitution Solution Lot Number Reconstitution Solution Expiration Date: Thawing Solution Thawing Solution Lot Number Thawing Solution Expiration Date Preparation Materials, Other Preparation Materials, Other Lot Number Preparation Materials, Other Expiration Date Tissue ROLAND HERNANDEZ MD-MIKE ROLAND HERNANDEZ MD-PLA Prepared/Processed By Rope Silica Machine Operator Yes Yes Paperwork Completed Implant Type Comment Last Modified By: Herlinda Schaffer, RN Herlinda Schaffer, RN Herlinda Schaffer, RN 10/03/20 12:44:34 10/03/20 12:44:34 10/03/20 13:06:42 Entry 4 Type Implant (Synthetic) Implant Log Implant Type Tissue Chair Pad Maker Tissue Implant Type Implant RISK CONTROL PRODUCT LIABILITY DIRECTOR TISSUE FV Identification [id number] Description Implant Quantity 1 Implant Site OPSITE:LEFT BREAST Implant Identification Model Number Implant [id number] Identification Serial Number Implant Identification Lot Number Implant Allergan:Inamed Identification Aesthetics Rope Silica Machine Operator Name: Implant [id number] Identification Catalog Number Implant Size 400CC Implant Has an Yes Expiration Date Implant Expiration 05/30/24 Date Wasted Radioactive Material Time Implanted Tissue Implant Continue for Tissue Implant Documentation Tissue Identification Number Graft Prep Per Rope Silica Machine Operator Instructions: Tissue Preparation Method: Reconstitution Solution: Reconstitution Solution Lot Number Reconstitution Solution Expiration Date: Thawing Solution Thawing Solution Lot Number Thawing Solution Expiration Date Preparation Materials, Other Preparation Materials, Other Lot Number Preparation Materials, Other Expiration Date Tissue Prepared/Processed By Rope Silica Machine Operator Paperwork Completed Implant Type Comment Last Modified By: Herlinda Schaffer RN 10/03/20 13:06:42 [facility] IntraOp Implant Log Audit 10/03/20 13:06:42 Mandrel Press Hand: [id number] Modifier: [id number] <+> 3 Implant Identification Description <+> 3 Implant Identification Lot Number <+> 3 Implant Identification Rope Silica Machine Operator Name: <+> 3 Implant Size <+> 3 Implant Expiration Date <+> 3 Implant Site <+> 3 Implant Quantity <+> 3 Implant Identification Catalog Number <+> 3 Tissue Implant Type <+> 3 Graft Prep Per Rope Silica Machine Operator Instructions: <+> 3 Tissue Preparation Method: <+> 3 Tissue Prepared/Processed By <+> 3 Rope Silica Machine Operator Paperwork Completed <+> 3 Implant Has an Expiration Date <+> 3 Type <+> 4 Implant Identification Description <+> 4 Implant Identification Serial Number <+> 4 Implant Identification Rope Silica Machine Operator Name: <+> 4 Implant Size <+> 4 Implant Expiration Date <+> 4 Implant Site <+> 4 Implant Quantity <+> 4 Implant Identification Catalog Number <+> 4 Implant Type <+> 4 Implant Has an Expiration Date <+> 4 Type [facility] IntraOp Intraoperative Assessment Entry 1 Handoff Method Other Valid History / Yes Physical in Chart Preoperative Yes Checklist Reviewed/Evaluated Allergies Reviewed Yes Patient is Latex No Sensitive Isolation Not applicable Precautions Noted Level of WDL Consciousness (WDL = Alert, Oriented to Person, Place, and Time) Skin Assessment Yes Verified Present Upon IVs Arrival to OR Last Modified By: Herlinda Schaffer RN 10/03/20 11:09:53 [facility] IntraOp Intraoperative Equipment Entry 1 Type Equipment Equipment Equipment Eladia Suction System ID Number OR 9 Intraop Monitoring Electrocardiogram Three lead placement (ECG) Electrode Placement Blood Pressure Non-Invasive BP Device Source Blood Pressure Arm, left upper Location Pulse Oximeter Hand, right Probe Site Antiembolic Devices Antiembolic Devices Sequential compression device, knee high Antiembolic Device Bilateral Location Antiembolic Device OR 9 ID Number Antiembolic Device 40 [id number] Setting Scopes Photo/Video Documentation Photo No Video No Last Modified By: Herlinda Schaffer RN 10/03/20 11:10:11 [facility] IntraOp Medication Admin Entry 1 Entry 2 Entry 3 Medication/Irrigant Bacitracin 50,000units Ancef 1Gm powder - Garamycin 80mg 2ml powder vial - [id number] injection - [id number] Combo Med List 1 - Combo Med 1 - Combo Med 1 - Combo Med Time Administered 10/03/20 12:29:00 10/03/20 12:29:00 10/03/20 12:29:00 Route of IRRIGATION W/1000ML OF Irrigation w/1000ml Irrigation w/1000ml Administration 0.9%NaCl: RIGHT BREAST 0.9%NaCl: RIGHT BREAST 0.9%NaCl: RIGHT BREAST Dose Dose [id number] 1 80 Unit of Measure units gram mg Volume QS Administered By ROLAND HERNANDEZ MD-PLA HILL, JOSEPH L, MD-PLA HILL, JOSEPH L, MD-PLA Procedure Irrigation Irrigant Volume In Irrigant Volume Out Last Modified By: Herlinda Schaffer, RN Herlinda Schaffer, RN Herlinda Schaffer, RN 10/03/20 13:47:25 10/03/20 13:47:25 10/03/20 13:47:25 Entry 4 Entry 5 Entry 6 Medication/Irrigant Ancef 1Gm powder - Garamycin 80mg 2ml Bacitracin 50,000units [id number] injection - [id number] powder vial - [id number] Combo Med List 1 - Combo Med 1 - Combo Med 1 - Combo Med Time Administered 10/03/20 13:45:00 10/03/20 13:46:00 10/03/20 13:46:00 Route of Irrigation w/1000ml Irrigation w/1000ml Irrigation w/1000ml Administration 0.9%NaCl: LEFT BREAST 0.9%NaCl: LEFT BREAST 0.9%NaCl: LEFT BREAST Dose Dose 1 80 [id number] Unit of Measure gram mg units Volume qs qs qs Administered By ROLAND HERNANDEZ MD-PLA HILL, JOSEPH L, MD-PLA HILL, JOSEPH L, MD-PLA Procedure Irrigation Irrigant Volume In Irrigant Volume Out Last Modified By: Herlinda Schaffer, RN Herlinda Schaffer, RN Herlinda Schaffer, RN 10/03/20 13:47:25 10/03/20 13:47:25 10/03/20 13:47:25 [facility] IntraOp Medication Admin Audit 10/03/20 13:47:25 Mandrel Press Hand: [id number] Modifier: [id number] 1 <*> Medication/Irrigant Bacitracin 50,000units powder vial - [id number] 1 <*> Route of Administration IRRIGATION W/1000ML OF 0.9%NaCl 2 <*> Medication/Irrigant Ancef 1Gm powder - [id number] 2 <*> Route of Administration Irrigation w/1000ml 0.9%NaCl 3 <*> Medication/Irrigant Garamycin 80mg 2ml injection - [id number] 3 <*> Route of Administration Irrigation w/1000ml 0.9%NaCl <+> 4 Medication/Irrigant <+> 4 Route of Administration <+> 4 Volume <+> 4 Administered By <+> 4 Dose <+> 4 Time Administered <+> 4 Combo Med List <+> 4 Unit of Measure <+> 5 Medication/Irrigant <+> 5 Route of Administration <+> 5 Volume <+> 5 Administered By <+> 5 Dose <+> 5 Time Administered <+> 5 Combo Med List <+> 5 Unit of Measure <+> 6 Medication/Irrigant <+> 6 Route of Administration <+> 6 Volume <+> 6 Administered By <+> 6 Dose <+> 6 Time Administered <+> 6 Combo Med List <+> 6 Unit of Measure [facility] IntraOp Patient Positioning Entry 1 Procedure Mastectomy Simple(Bilateral), Breast Reconstruction, Tissue Chair Pad Maker Breast Body Position Supine Left Arm Position Secured on padded arm board Right Arm Position Secured on padded arm board Left Leg Position Uncrossed, parallel Right Leg Position Uncrossed, parallel Feet Uncrossed Yes Pressure Points Yes Checked Positioning Devices Safety Strap, Thighs, Arm Board, Pillows, Head Rest Positioned By MACEY VARELA PA-C, HERMINIO WALTON CRNA, JAYCEE ROA MD-ELEN, Herlinda Schaffer, RN, ROLAND HERNANDEZ MD-MIKE Position Verified Positioning Yes Verified by Anesthesia Positioning Yes Verified by Surgeon Last Modified By: Herlinda Schaffer RN 10/03/20 11:10:32 [facility] IntraOp Sign In Entry 1 Patient, Site, Yes Procedure Identified Surgical Consent Yes Confirmed Relevant Surgical Yes Documents Available Surgical Site Yes Marked by person performing procedure Anesthesia Machine Yes Check Completed Medication Checks Yes Completed Allergies Yes Airway Difficult No Airway/Aspiration Risk Difficult Yes Airway/Aspiration Intervention Equipment Available Blood Loss Risk Yes Blood Loss Yes Intervention Equipment Prepared and Ready Blood Identifiers Not applicable Verified Per Policy Hypothermia Risk Yes Warming Measures Yes Taken Last Modified By: Herlinda Schaffer RN 10/03/20 11:10:38 [facility] Intra Op Sign Out Entry 1 RN Confirmation Surgical Yes Procedure(s) Identified Instrument, Sponge Yes and Sharps Counts Correct/Documented Equipment Problems N/A Documented Specimen Labeled Yes Correctly Urinary Catheter Yes Documented in IView [place] Patient Yes Recovery Concerns Reviewed with Anesthesia Provider, Surgeon and RN [place] Patient Yes Management Concerns Reviewed with Anesthesia Provider, Surgeon and RN Safety Checklist Yes Elements Complete? RN Sign Out Herlinda Schaffer, RN Signature RN Sign Out 10/03/20 15:08:00 Signature Date/Time Plan of Care Outcome - Fire Risk OUTCOME STATEMENT: Goal met Patient is free from injury related to surgical fire Plan of Care Outcome - Pt Positioning OUTCOME STATEMENT: Goal met Absence of signs and symptoms of positioning injury. Plan of Care Outcome - Skin Prep OUTCOME STATEMENT: Goal met Intraoperative care is consistent with measures to prevent infection Plan of Care Outcome - Xray/Images OUTCOME STATEMENT: N/A Absence of observable signs or symptoms of radiation injury Plan of Care Outcome - Counts OUTCOME STATEMENT: Goal met Absence of signs and symptoms of injury related to extraneous objects Last Modified By: Herlinda Schaffer RN 10/03/20 15:08:30 [facility] Intra Op Sign Out Audit 10/03/20 15:08:30 Mandrel Press Hand: [id number] Modifier: [id number] <+> 1 RN Sign Out Signature Date/Time [facility] IntraOp Skin Prep Entry 1 Procedure Mastectomy Simple(Bilateral), Breast Reconstruction, Tissue Chair Pad Maker Breast Prescribed Yes Pre-Surgical Prep Completed Prep Area CHEST/BREASTS NECK TO MID ABDOMEN. Intraop Prep Integumentary WDL Assessment WDL Prep Agents Chlorhexadine gluconate Prep by Herlinda Schaffer, VICKY Hair Removal Methods No hair removal performed Last Modified By: Herlinda Schaffer RN 10/03/20 11:10:51 SJE IntraOp Surgical Procedures Entry 1 Entry 2 Entry 3 Procedure Mastectomy Simple Breast Reconstruction Tissue Chair Pad Maker Breast Modifiers Bilateral Additional BILATERAL TOTAL Procedure MASTECTOMIES WITH Description IMMEDIATE BILATERAL BREAST RECONSTRUCTION WITH TISSUE EXPANDERS Primary Procedure Yes No No Primary Surgeon JAYCEE ROA HILL, JOSEPH L, MD-PLA HILL, JOSEPH L, MD-PLA MD-ELEN Start 10/03/20 10:53:00 10/03/20 10:53:00 10/03/20 10:53:00 Stop 10/03/20 15:06:00 10/03/20 15:06:00 10/03/20 15:06:00 Physician States Cecum Reached Anesthesia Type General General General Specialty SN General SN Plastic SN Plastic Wound Class I - Clean I - Clean I - Clean Last Modified By: Herlinda Schaffer, RN Herlinda Schaffer, RN Herlinda Schaffer, RN 10/03/20 15:08:45 10/03/20 15:09:09 10/03/20 15:09:28 SJE IntraOp Surgical Procedures Audit 10/03/20 15:09:28 Mandrel Press Hand: [id number] Modifier: [id number] <*> Procedure Tissue Chair Pad Maker Breast 3 <+> Specialty 10/03/20 15:09:09 Mandrel Press Hand: [id number] Modifier: [id number] <*> Procedure Breast Reconstruction 10/03/20 15:08:45 Mandrel Press Hand: [id number] Modifier: [id number] <*> Procedure Mastectomy Simple 2 <*> Procedure Breast Reconstruction 10/03/20 15:08:31 Mandrel Press Hand: [id number] Modifier: [id number] <+> 1 Stop <+> 2 Stop <+> 3 Stop 10/03/20 11:31:25 Mandrel Press Hand: [id number] Modifier: [id number] 1 <*> Procedure Mastectomy Simple SJE IntraOp Temp Regulation Devices Entry 1 Temp Regulation Temperature Conductive warming Regulation Device device placed over patient Temperature OR 9 Regulation Device Serial/Unit Number Temperature Lower body Regulation Site Temperature Device 43 DEGREES C Setting Temperature Herlinda Schaffer RN Regulation Device Applied by Last Modified By: Herlinda Schaffer RN 10/03/20 11:11:16 SJE IntraOp Time Out Entry 1 Entry 2 Procedure to be Mastectomy Breast Reconstruction, Performed Simple(Bilateral), Tissue Chair Pad Maker Breast Breast Reconstruction Time Out Time Out Pause Time 10/03/20 10:50:00 10/03/20 11:59:00 All activity Yes Yes suspended (unless life threatening emergency) Team Verbally Correct patient Correct patient Confirms Information identity, Correct side identity, Correct side and site are marked, and site are marked, Consent form is present Consent form is present and accurate, Agreement and accurate, Agreement on the procedure to be on the procedure to be done, Correct patient done, Correct patient position, Relevant position, Relevant images/results properly images/results properly labeled/appropriately labeled/appropriately displayed, Confirm displayed, Confirm antibiotics have been antibiotics have been administered, Confirm administered, Confirm the skin prep has the skin prep has dried, Confirm dried, Confirm prosthesis/implant/devic prosthesis/implant/devic e is present, Performed e is present, Performed in location of in location of procedure after procedure after prepped/draped prepped/draped Time Out Comment Antibiotic Yes Yes Prophylaxis Administered Or In Progress Within the Last 60 Minutes Beta Karlene N/A N/A Administered Venous Yes Yes Thromboembolism Prophylaxis Required Anticipated Critical Events Surgeon None expected None expected Anesthesia Provider None expected None expected Nursing Assures Sterility of Sterility of instruments, Implant instruments, Implant Availability Availability Essential Imaging Yes Yes Labeled and Displayed Anticipated Critical Event Comment Last Modified By: Herlinda Schaffer RN Bruner, Kristen D, RN 10/03/20 13:07:24 10/03/20 13:07:24 SJE IntraOp Time Out Audit 10/03/20 13:07:24 Mandrel Press Hand: [id number] Modifier: [id number] <*> Procedure to be Performed Mastectomy Simple(Bilateral), Breast Reconstruction <+> 2 Beta Karlene Administered <+> 2 All activity suspended (unless life threatening emergency) <+> 2 Venous Thromboembolism Prophylaxis Required <+> 2 Antibiotic Prophylaxis Administered Or In Progress Within the Last 60 Minutes <+> 2 Surgeon <+> 2 Anesthesia Provider <+> 2 Nursing Assures <+> 2 Essential Imaging Labeled and Displayed <+> 2 Time Out Pause Time <+> 2 Procedure to be Performed <+> 2 Team Verbally Confirms Information Case Comments <None> Finalized By: Herlinda Schaffer, RN Document Signatures Signed By: Herlinda Schaffer RN 10/03/20 15:09 documented in this encounter Plan of Treatment Not on file documented as of this encounter Visit Diagnoses Not on filedocumented in this encounter
--- OUTSIDE RECORDS SUMMARY | 2025-08-15 12:54 | XMS_ITS | Encounter Summary ---
Author Organization [employer] ([place], [place], [place], [place]) Address [address] [place] [address] Care Team Providers Care Rackman Name Role Phone Unavailable Primary Care Provider Unavailabl e Encounter Details Date Type Department Care Team (Late st Contact Info) Description 04/07/2019 Transcribed Document [facility] [place] Formerly [facility], [facility] [place] [address] ProviderDonaldo MD [address] [place] [address] Social History Tobacco Use Types Packs/Day Years Used Date Smoking Tobacco: Never Assessed Comments Unknown Sex and Gender Information Value Date Recorded Sex Assigned at Not on file Legal Sex Female 6:43 PM CDT Gender Identity Not on file Sexual Orientation Not on file documented as of this encounter Miscellaneous Notes * Cerner Conversion Note - Donaldo ProviderMD - 04/07/2019 1:39 PM CDT [facility] PACU Summary Primary Physician: JAYCEE TORRES III, MD Finalized Date/Time: 04/07/19 15:43:37 Pt. Name: JOLLY CARVAJAL /Sex: 1975 Female Med Rec #: [id number] Physician: JAYCEE TORRES III, MD Financial #: [id number] Pt. Type: O Room/Bed: / Admit/Disch: 04/07/19 10:30:00 - Institution: [facility] PACU Case Times Entry 1 In PACU I 04/07/19 14:24:00 Ready for PACU 04/07/19 15:24:00 Discharge Discharge from PACU 04/07/19 15:24:00 I Last Modified By: Cira Bustos, [id number] CAR 04/07/19 15:43:27 [facility] Main OR PACU Case Times Audit 04/07/19 15:43:27 Trial Consultant: [id number] Modifier: [id number] <+> 1 Ready for PACU Discharge <+> 1 Discharge from PACU I Finalized By: Cira Bustos, [id number]-OP CAR Document Signatures Signed By: Cira Bustos, [id number]-OP CAR 04/07/19 15:43 Electronically signed by Nikunj [facility] Conversion Insurance Marketing Rep Cerner at 02/17/2023 12:35 PM CDT documented in this encounter Plan of Treatment Not on file documented as of this encounter Visit Diagnoses Not on filedocumented in this encounter
--- OUTSIDE RECORDS SUMMARY | 2025-08-15 12:54 | XMS_ITS | Encounter Summary ---
Author Organization [employer] ([place], [place], [place], [place]) Address [address] [place] [address] Care Team Providers Care Personal Support Worker Name Role Phone Unavailable Primary Care Provider Unavailabl e Encounter Details Date Type Department Care Team (Late st Contact Info) Description 04/08/2019 Transcribed Document [facility] [place] [address] [place] [address] ProviderDonaldo MD [address] [place] [address] Social History Tobacco Use Types Packs/Day Years Used Date Smoking Tobacco: Never Assessed Comments Unknown Sex and Gender Information Value Date Recorded Sex Assigned at Not on file Legal Sex Female 6:43 PM CDT Gender Identity Not on file Sexual Orientation Not on file documented as of this encounter Miscellaneous Notes * Cerner Conversion Note - Donaldo Russell MD - 04/08/2019 2:54 PM CDT Patient Education Materials Follows:and Gynecology Laparoscopically Assisted Vaginal Hysterectomy, Care After This [...] these instructions at home: Medicines ??? Take bdtv-qjc-wayvuvt and prescription medicines only as told by [...] and water are not available, use hand coach operator. ? Change your dressing as told by [...] urine clear or pale yellow. ? Take cwtx-gcw-smapizu or prescription medicines. ? Eat foods that [...] 10/08/2012 Document Revised: 12/16/2017 Document Reviewed: 12/16/2017 [employer] Interactive Patient Education ? 2019 [employer] documented in this encounter Plan of Treatment Not on file documented as of this encounter Visit Diagnoses Not on filedocumented in this encounter
--- OUTSIDE RECORDS SUMMARY | 2025-08-15 12:54 | XMS_ITS | Encounter Summary ---
Author Organization [employer] ([place], [place], [place], [place]) Address [address] [place] [address] Care Team Providers Care Tray Drier Name Role Phone Unavailable Primary Care Provider Unavailabl e Encounter Details Date Type Department Care Team (Late st Contact Info) Description 10/03/2020 Transcribed Document [facility] [place] [address] [place] [address] ProviderDonaldo MD [facility], [facility] [place], [place] [id number] Social History Tobacco Use Types Packs/Day Years Used Date Smoking Tobacco: Never Assessed Comments Unknown Sex and Gender Information Value Date Recorded Sex Assigned at Not on file Legal Sex Female 6:43 PM CDT Gender Identity Not on file Sexual Orientation Not on file documented as of this encounter Miscellaneous Notes * Cerner Conversion Note - Historical ProviderMD - 10/03/2020 8:17 AM SENIOR PENSIONS ADMINISTRATOR Consult Phone Call Documentation Entered On: 10/04/2020 8:33 EST Performed On: 10/03/2020 8:17 EST by ASHLEY JOHNSON Phone Call for Consults Consult Phone Call/Page Attempt : First call Consult Reason : courtesy notification Physician Requested for Consult : OSMANI ROGER MD-FAM Physician Covering for Consult : OSMANI ROGER MD-FAM Date and Time Call Returned : 10/04/2020 8:33 EST Physician Returning Call : osmani rogre CHERYL - 10/04/2020 8:32 EST documented in this encounter Plan of Treatment Not on file documented as of this encounter Visit Diagnoses Not on filedocumented in this encounter
--- OUTSIDE RECORDS SUMMARY | 2025-08-15 12:54 | XMS_ITS | Encounter Summary ---
Author Organization [employer] ([place], [place], [place], [place]) Address [address] [place] [address] Care Team Providers Care Social Contact Worker Name Role Phone Unavailable Primary Care Provider Unavailabl e Encounter Details Date Type Department Care Team (Late st Contact Info) Description 04/08/2019 Transcribed Document [facility] [place] Medicine [facility] [place] [address] ProviderDonaldo MD [address] [place] [address] Social History Tobacco Use Types Packs/Day Years Used Date Smoking Tobacco: Never Assessed Comments Unknown Sex and Gender Information Value Date Recorded Sex Assigned at Not on file Legal Sex Female 6:43 PM CDT Gender Identity Not on file Sexual Orientation Not on file documented as of this encounter Miscellaneous Notes * Cerner Conversion Note - Donaldo Russell MD - 04/08/2019 2:51 PM CDT Patient: JOLLY GORDON Age: 43 years Sex: Female : 1975 Associated Diagnoses: None Author: JAYCEE TORRES III, MD Subjective Chief complaint. No complaints. Ambulating. voiding. reji po. Health Status Allergies: Allergic Reactions (All) No Known Allergies No Known Medication Allergies, Allergies (2) Active Reaction No Known Allergies None Documented No Known Medication Allergies None Documented Current medications: Home Medications (1) Active Taltz Prefilled Syringe 80 mg/mL subcutaneous solution 80 mg, SubCutaneous, R0Boend , Medications (14) Active Scheduled: (2) #NaCl 0.9% *FLUSH* inj 10 mL 10 mL, IV Push, Q12H docusate sodium 100 mg cap 100 mg 1 Cap, Oral, BID Continuous: (2) lactated ringers 1,000 mL 1,000 mL, IntraVENous, 100 mL/Hr Normosol-R 1,000 mL 1,000 mL, IntraVENous, 100 mL/Hr PRN: (10) #NaCl 0.9% *FLUSH* inj 10 mL 10 mL, IV Push, See Comment acetaminophen/oxyCODONE 325/10 mg tab 1 Tab, Oral, Q4H acetaminophen/oxyCODONE 325/5 mg tab 1 Tab, Oral, Q3H famotidine 20 mg tab 20 mg 1 Tab, Oral, PREOP HYDROmorphone 1 mg/1 mL inj 1 mg 1 mL, IV Push, Q2H ibuprofen 600 mg tab 600 mg 1 Tab, Oral, Q6H ondansetron 4 mg/2 mL inj 4 mg 2 mL, IV Push, Q4H promethazine 25 mg tab 6.25 mg 0.25 Tab, Oral, Q4H promethazine 25 mg/1 mL inj 12.5 mg 0.5 mL, IV Push, Q6H zolpidem 5 mg tab 5 mg 1 Tab, Oral, At Bedtime Problem list: Active Problems (1) Psoriasis Objective VS/Measurements Vitals Signs (last 24 hrs) Last Charted Minimum Maximum Mon HR 54 (APR 07 15:17) 54 (APR 07 15:17) 61 (APR 07 15:02) Resp Rate 16 (APR 07:17) 14 (APR 07 15:02) 16 (APR 07 15:17) SBP 116 (APR 07:17) 116 (APR 07 15:17) 128 (APR 07 15:02) DBP L 59 (APR 07:17) L 59 (APR 07 15:17) 68 (APR 07 15:02) MAP 82 (APR 07 15:17) 82 (APR 07 15:17) 92 (APR 07 15:02) SpO2 100 (APR 07 15:17) 99 (APR 07 15:02) 100 (APR 07 15:17) General: Alert and oriented, No acute distress. Eye: Pupils are equal, round and reactive to light. HENT: Normocephalic. Neck: Supple. Respiratory: Respirations are non-labored. Gastrointestinal: Soft, Non-distended, Normal postop abdominal tenderness. Genitourinary: perineum intact- scant bleeding. Musculoskeletal: no calf tenderness. Neurologic: Alert, Oriented. Psychiatric: Appropriate mood & affect. Results Review General results Interpretation: Radiology Results No Radiology Results Found Impression and Plan Assessment and Plan: Course: Progressing as expected. POD#1. Home. Precautions. Pelvic rest. No straining/driving. Percocet 5mg #20. f/u 2 wks. documented in this encounter Plan of Treatment Not on file documented as of this encounter Visit Diagnoses Not on filedocumented in this encounter
--- OUTSIDE RECORDS SUMMARY | 2025-08-15 12:54 | XMS_ITS | Encounter Summary ---
Author Organization [employer] ([place], [place], [place], [place]) Address [address] [place] [address] Care Team Providers Care Combination Technician Name Role Phone Unavailable Primary Care Provider Unavailabl e Encounter Details Date Type Department Care Team (Late st Contact Info) Description 10/03/2020 Transcribed Document [facility] [place] [facility] [place] [address] ProviderDonaldo MD [address] [place] [address] Social History Tobacco Use Types Packs/Day Years Used Date Smoking Tobacco: Never Assessed Comments Unknown Sex and Gender Information Value Date Recorded Sex Assigned at Not on file Legal Sex Female 6:43 PM CDT Gender Identity Not on file Sexual Orientation Not on file documented as of this encounter Miscellaneous Notes * Cerner Conversion Note - Donaldo ProviderMD - 10/03/2020 4:11 PM SERGEANT MISSILE CREWMAN Pain Assessment Entered On: 10/04/2020 3:38 EST Performed On: 10/04/2020 3:30 EST by Ximena Toscano Rn Intervention Information: acetaminophen-oxyCODONE Performed by Ximena Toscano Rn on 10/04/2020 02:30:00 EST acetaminophen-oxyCODONE,1Tab Oral,Pain (Mild 1-3) Pain Assessment Pain Assessment : Follow-up assessment Pain Scale Goal : 4 Pain Scale Used : 0-10 Scale Pain Improved by Intervention : Yes Ximena Toscano Rn - 10/04/2020 3:37 EST Pain Scale Intensity : 0 Ximena Toscano Rn - 10/04/2020 3:37 EST Image 4 - Images currently included in the form version of this document have not been included in the text rendition version of the form. documented in this encounter Plan of Treatment Not on file documented as of this encounter Visit Diagnoses Not on filedocumented in this encounter
--- OUTSIDE RECORDS SUMMARY | 2025-08-15 12:54 | XMS_ITS | Clinical Summary ---
Author Organization [employer] ([place], [place], [place], [place]) Address [address] [place] [address] Care Team Providers Care Plan Checker Name Role Phone Unavailable Primary Care Provider [...]
--- OUTSIDE RECORDS SUMMARY | 2025-08-15 12:54 | XMS_ITS | Encounter Summary ---
Author Organization [employer] ([place], [place], [place], [place]) Address [address] [place] [address] Care Team Providers Care Phonograph Needle Tip Maker Name Role Phone Unavailable Primary Care Provider Unavailabl e Encounter Details Date Type Department Care Team (Late st Contact Info) Description 04/07/2019 Transcribed Document [facility] [place] Medicine [facility] [place] [address] ProviderDonaldo MD [address] [place] [address] Social History Tobacco Use Types Packs/Day Years Used Date Smoking Tobacco: Never Assessed Comments Unknown Sex and Gender Information Value Date Recorded Sex Assigned at Not on file Legal Sex Female 6:43 PM CDT Gender Identity Not on file Sexual Orientation Not on file documented as of this encounter Miscellaneous Notes * Cerner Conversion Note - Donaldo Russell MD - 04/07/2019 2:19 PM CDT DATE OF PROCEDURE: 04/07/2019 PREOPERATIVE DIAGNOSIS(ES): 1. Abnormal uterine bleeding. 2. Dysmenorrhea. POSTOPERATIVE DIAGNOSIS(ES): 1. Abnormal uterine bleeding. 2. Dysmenorrhea. PROCEDURE: Laparoscopic-assisted vaginal hysterectomy with bilateral salpingo-oophorectomy. SURGEON: Melecio Shepherd III, M.D. UNCLAIMED PROPERTY OFFICER: Eryn Ellington PA-C. ANESTHESIA: General endotracheal. FINDINGS: 1. Normal-appearing uterus, tubes, and ovaries. 2. Lots of stool in the bowel. DRAINS/CATHETERS: Olvera to gravity. ESTIMATED BLOOD LOSS: 100 mL. COMPLICATIONS: None. DESCRIPTION OF PROCEDURE: Patient was taken to the operating room where general anesthesia was achieved. She was prepped and draped in usual sterile fashion with a Olvera catheter and Hulka manipulator being placed. Access to the abdominal cavity was gained using a 10-mm Optiview at the umbilicus. Pneumoperitoneum was achieved. 10-mm ports were placed in the left and right lower quadrant. 10-mm LigaSure was used to take down the IP ligaments, the round ligament, broad ligaments. Uterine arteries were then skeletonized. Bladder flap was created. Uterine arteries were then taken using a 10-mm LigaSure. The cardinal ligaments were also secured in similar fashion. Attention was then turned to the vaginal portion of the case. Circumferential injection with 0.25% Marcaine with epinephrine was made. A circumferential vaginal incision was made around the cervix. Anterior and posterior colpotomies were made. Uterosacral ligaments were clamped with curved Pura's, cut, and secured using Derrick suture ligature method. The specimen was then removed intact. The cuff was then closed horizontally in a running locked fashion with 0 chromic. Care was taken to incorporate the uterosacral ligaments into the lateral apices. Irrigation was performed. Good hemostasis noted. Pneumoperitoneum was re-achieved. Irrigation performed in abdomen and good hemostasis noted. The fascial defects in the left and right lower quadrant were closed using cone and suture passer. Counts were correct at the end of the case. Time-out was performed prior to case beginning. She did receive prophylactic antibiotics and wore pneumatic compression devices on lower extremities throughout. Skin edges were reapproximated with subcuticular stitch of 3-0 Monocryl. Steri-Strips and sterile dressing were applied. She went to recovery room in stable condition. Melecio Shepherd III, M.D. Dict: 04/07/2019 14:19:58 Trans: 04/07/2019 17:59:21 CC1: Melecio Shepherd III, M.D. documented in this encounter Plan of Treatment Not on file documented as of this encounter Visit Diagnoses Not on filedocumented in this encounter
--- OUTSIDE RECORDS SUMMARY | 2025-08-15 12:54 | XMS_ITS | Encounter Summary ---
Author Organization [employer] ([place], [place], [place], [place]) Address [address] [place] [address] Care Team Providers Care Electric Meter Repairer Helper Name Role Phone Unavailable Primary Care Provider Unavailabl e Encounter Details Date Type Department Care Team (Late st Contact Info) Description 04/07/2019 Transcribed Document [facility] [place] Family Medicine [address] [place] [address] ProviderDonaldo MD [facility] [place] [address] Social History Tobacco Use Types Packs/Day Years Used Date Smoking Tobacco: Never Assessed Comments Unknown Sex and Gender Information Value Date Recorded Sex Assigned at Not on file Legal Sex Female 6:43 PM CDT Gender Identity Not on file Sexual Orientation Not on file documented as of this encounter Miscellaneous Notes * Cerner Conversion Note - Historical ProviderMD - 04/07/2019 11:02 AM CDT Pediatric Growth Entered On: 04/07/2019 11:02 EDT Performed On: 04/07/2019 11:02 EDT by Madina Gold [facility] Unit Coord Height and Weight, Clinical Dosing Weight Source : Standing scale Weight Entry Format : Barren Clinical Dosing Weight : 75 kg Weight, Pounds : 165 lb [facility] - 04/07/2019 11:02 EDT documented in this encounter Plan of Treatment Not on file documented as of this encounter Visit Diagnoses Not on filedocumented in this encounter
--- OUTSIDE RECORDS SUMMARY | 2025-08-15 12:54 | XMS_ITS | Encounter Summary ---
Author Organization [employer] ([place], [place], [place], [place]) Address [address] [address] Care Team Providers Care Shipping Technician Name Role Phone Unavailable Primary Care Provider Unavailabl e Encounter Details Date Type Department Care Team (Late st Contact Info) Description 10/09/2020 Transcribed Document [facility] Surgery - [facility] [place] [address] [place] [address] Jaycee Roa MD [address] [place] [address] Social History Tobacco Use Types Packs/Day Years Used Date Smoking Tobacco: Never Assessed Comments Unknown Sex and Gender Information Value Date Recorded Sex Assigned at Not on file Legal Sex Female 6:43 PM CDT Gender Identity Not on file Sexual Orientation Not on file documented as of this encounter Miscellaneous Notes * Cerner Conversion Note - Jaycee Roa MD - 10/09/2020 2:14 PM EST Patient: JOLLY GORDON Age: 44 Years Sex: Female : 1975 Admit Date 10/03/2020 04:06 Discharge Date 10/04/2020 13:46 Primary Care Provider JAYCEE ROGER MD-[facility] Discharge Diagnosis BRCA positive 10/04/2020 Z15.01 ICD-10-CM Procedures SN - Proc - Procedure: 1. Right total nipple-sparing mastectomy. 2. Left total nipple-sparing mastectomy. [1] Bilateral immediate prepectoralis implant-based breast reconstruction with placement of a tissue lathe turner and AlloDerm. The tissue lathe turner is Allergan brand full profile, volume 400 mL, base with 12 cm, serial number on the right is [id number] and serial number on the left is [id number]. The AlloDerm is 360 sq cm. The lot number on the right is [id number] and the lot number on the left is [id number]. [2] Reason for Hospitalization Ms. Gordon is a 44-year-old female patient with a diagnosis of BRCA gene mutation. She requested bilateral prophylactic mastectomy with reconstruction. After the risks and benefits of operative intervention were explained to her, she wished to proceed. [3] Hospital Course On the day of admission the patient was taken to the operating room by Dr. Roa where she underwent the first 2 surgical procedures listed above. Following completion of these procedures Dr. Choco Hernandez completed the additional procedure listed above. All these procedures were tolerated by the patient without any complications. Postoperatively the patient was taken to the recovery room followed by admission to the medical surgical floor. On the first postoperative day patient was afebrile and her vital signs were stable. She was having only minimal postsurgical pain. She was tolerating her diet without any nausea and vomiting. She had ambulated multiple times a day in the flores independently. On this day following evaluation by Dr. Roa and Dr. Hernandez the patient was found to be stable for discharge home. Discharge Disposition Home Discharge Follow Up JAYCEE ROA - In 8 days 10/12/2020 Discharge Medications (1) Active Taltz Prefilled Syringe 80 mg/mL subcutaneous solution 80 mg, SubCutaneous, [id number] Code Status No Code Status Order on Record Condition on Discharge Stable Consulting Physicians JAYCEE MCLAUGHLIN MD-ANS Patient Discharge Summary Orders Usual diet as tolerated Light activity until seen in follow-up Patient was instructed on discontinuation of her bilateral chest dressings Patient was also instructed on home care of Yared-Hayes drains as well as emptying and recording amounts to be brought to her follow-up appointment. [1] Operative Report; JAYCEE ROA MD-SUR 10/04/2020 08:58 EST [2] Operative Report; ROLAND HERNANDEZ MD-MIKE 10/03/2020 14:52 EST [3] Operative Report; JAYCEE ROA MD-SUR 10/04/2020 08:58 EST documented in this encounter Plan of Treatment Not on file documented as of this encounter Visit Diagnoses Not on filedocumented in this encounter
--- OUTSIDE RECORDS SUMMARY | 2025-08-15 12:54 | XMS_ITS | Encounter Summary ---
Author Organization [employer] ([place], [place], [place], [place]) Address [address] [address] Care Team Providers Care Call Worker Name Role Phone Unavailable Primary Care Provider Unavailabl e Encounter Details Date Type Department Care Team (Late st Contact Info) Description 10/04/2020 Transcribed Document [facility] [place] [address] [place] [address] ProviderDonaldo MD [facility] [place] [address] Social History Tobacco Use Types Packs/Day Years Used Date Smoking Tobacco: Never Assessed Comments Unknown Sex and Gender Information Value Date Recorded Sex Assigned at Not on file Legal Sex Female 6:43 PM CDT Gender Identity Not on file Sexual Orientation Not on file documented as of this encounter Miscellaneous Notes * Cerner Conversion Note - Historical ProviderMD - 10/04/2020 2:00 AM NEURO OPHTHALMOLOGIST Manager Business Intelligence Details Entered On: 10/04/2020 1:06 EST Performed On: 10/04/2020 2:00 EST by Ximena Toscano Rn Order Details Transport Mode Order Detail : Wheelchair Isolation Precautions Order Detail : Standard Precautions Order Detail : 0 IV Order Detail : 1 Oxygen Order Detail : 0 Nurse Collect Order Detail : 0 Lift/Transfer : Minimal Central Line Order Detail : No Room Service : Not Appropriate Arterial Line : No Patient Needs Meds Crushed/Liquid : No Ximena Toscano Rn - 10/04/2020 1:06 EST documented in this encounter Plan of Treatment Not on file documented as of this encounter Visit Diagnoses Not on filedocumented in this encounter
--- OUTSIDE RECORDS SUMMARY | 2025-08-15 12:54 | XMS_ITS | Encounter Summary ---
Author Organization [employer] ([place], [place], [place], [place]) Address [address] [place] [address] Care Team Providers Care Systems Integration Engineer Name Role Phone Unavailable Primary Care Provider Unavailabl e Encounter Details Date Type Department Care Team (Late st Contact Info) Description 10/03/2020 Transcribed Document [facility] [place] [address] [place] [address] ProviderDonaldo MD [facility] [place], [place] [address] Social History Tobacco Use Types Packs/Day Years Used Date Smoking Tobacco: Never Assessed Comments Unknown Sex and Gender Information Value Date Recorded Sex Assigned at Not on file Legal Sex Female 6:43 PM CDT Gender Identity Not on file Sexual Orientation Not on file documented as of this encounter Miscellaneous Notes * Cerner Conversion Note - Donaldo ProviderMD - 10/03/2020 5:19 PM SITE SAFETY REPRESENTATIVE Patient: JOLLY GORDON Age: 44 years Sex: Female : 1975 Associated Diagnoses: None Author: BLANCA VIEYRA, [facility] verified patient's allergies and home medication list with pharmacy records and are as follows: Home Medications (1) Active Taltz Prefilled Syringe 80 mg/mL subcutaneous solution 80 mg, SubCutaneous, [id number] Allergies (2) Active Reaction No Known Allergies No Known Medication Allergies Thank you, Blanca Vieyra, LucilaD, MSCR, BCPS documented in this encounter Plan of Treatment Not on file documented as of this encounter Visit Diagnoses Not on filedocumented in this encounter
--- OUTSIDE RECORDS SUMMARY | 2025-08-15 12:54 | XMS_ITS ---
Author Organization [facility] Address [address] [place] [address] Care Team Providers Care Solar Energy System Installer Name Role Phone Melecio Traore MD Primary Care Provider [phone] Rheumatology - External Fill Status:Enrolled (Active) Start date:08/02/2024 Enrollment date:08/02/2024 Enrollment reason:Identified as being on target medication Current support & services provided:Benefits Investigation, External Pharmacy Dispensing Linked medications:Ixekizumab (Patient Reported) Linked problems:Psoriasis (Active) Continued Care and Services Coordination
--- OUTSIDE RECORDS SUMMARY | 2025-08-15 12:54 | XMS_ITS | Encounter Summary ---
Author Organization [employer] ([place], [place], [place], [place]) Address [address] [address] Care Team Providers Care Blood Or Blood Bank Technician Name Role Phone Unavailable Primary Care Provider Unavailabl e Encounter Details Date Type Department Care Team (Late st Contact Info) Description 10/04/2020 Transcribed Document [facility] [place] [facility] [place] [address] ProviderDonaldo MD [address] [place] [address] Social History Tobacco Use Types Packs/Day Years Used Date Smoking Tobacco: Never Assessed Comments Unknown Sex and Gender Information Value Date Recorded Sex Assigned at Not on file Legal Sex Female 6:43 PM CDT Gender Identity Not on file Sexual Orientation Not on file documented as of this encounter Miscellaneous Notes * Cerner Conversion Note - Donaldo ProviderMD - 10/04/2020 2:09 PM LIBRARIAN HELPER Nursing Discharge Summary Entered On: 10/04/2020 14:10 EST Performed On: 10/04/2020 14:09 EST by Jenniffer Royal Rn Discharge Documentation Discharge Date/Time : 10/04/2020 13:40 EST Patient Disposition, General : Discharge Discharge To : Home with ambulatory/outpatient follow-up Mode Of Departure, General Discharge : Private vehicle IV Discontinued : Yes Personal Belongings With Patient : Yes Pt's Own Supply of Medications Returned : No patient supply of medications to return Prescriptions Given to Patient : No Medications Given to Patient : No Discharge Instructions Reviewed With, Opportunity For Questions Given : Patient, Significant other Patient Education Completed : Yes Teaching Method : Explanation, Printed materials Teaching Evaluation : Verbalizes understanding Education Comment : Discharge teaching and education performed, patient verbalized understanding. Jenniffer Royal Rn - 10/04/2020 14:09 EST Electronically signed by Nikunj [facility] Conversion Storm Door Maker Cerner at 02/17/2023 12:32 PM CDT documented in this encounter Plan of Treatment Not on file documented as of this encounter Visit Diagnoses Not on filedocumented in this encounter
--- OUTSIDE RECORDS SUMMARY | 2025-08-15 12:54 | XMS_ITS | Encounter Summary ---
Author Organization [employer] ([place], [place], [place], [place]) Address [address] [place] [address] Care Team Providers Care Livestock Sales Representative Name Role Phone Unavailable Primary Care Provider Unavailabl e Encounter Details Date Type Department Care Team (Late st Contact Info) Description 04/07/2019 Transcribed Document [facility] [place] [facility] [place] [address] ProviderDonaldo MD [address] [place] [address] Social History Tobacco Use Types Packs/Day Years Used Date Smoking Tobacco: Never Assessed Comments Unknown Sex and Gender Information Value Date Recorded Sex Assigned at Not on file Legal Sex Female 6:43 PM CDT Gender Identity Not on file Sexual Orientation Not on file documented as of this encounter Miscellaneous Notes * Cerner Conversion Note - Donaldo ProviderMD - 04/07/2019 1:30 PM CDT [facility] PreOp Summary Primary Physician: JAYCEE TORRES III, MD Finalized Date/Time: 04/07/19 13:11:06 Pt. Name: JOLLY CARVAJAL /Sex: 1975 Female Med Rec #: [id number] Physician: JAYCEE TORRES III, MD Financial #: [id number] Pt. Type: O Room/Bed: Admit/Disch: 04/07/19 10:30:00 - Institution: [facility] PreOp Case Times Entry 1 In Preop 04/07/19 10:45:00 Ready for Holding n/a Room Patient Ready for 04/07/19 11:38:00 Surgery Patient Out of Preop 04/07/19 13:08:00 Patient Out of n/a Holding Room Last Modified By: JOHNNY BERNAL 04/07/19 13:11:04 [facility] PreOp Case Times Audit 04/07/19 13:11:04 Unit Director: RODERICK Modifier: [email or web address] <+> 1 Patient Out of Preop Finalized By: JOHNNY BERNAL Document Signatures Signed By: JOHNNY BERNAL 04/07/19 13:11 Electronically signed by Nikunj [facility] Conversion Stock Crane Operator Cerner at 02/17/2023 12:38 PM CDT documented in this encounter Plan of Treatment Not on file documented as of this encounter Visit Diagnoses Not on filedocumented in this encounter
--- OUTSIDE RECORDS SUMMARY | 2025-08-15 12:54 | XMS_ITS | Clinical Summary ---
Author Organization [facility] Address [address] [place] [address] Care Team Providers Care Manager Order Name Role Phone Unavailable Primary Care Provider Unavailabl e Social History Tobacco Use Types Packs/Day Years Used Date Smoking Tobacco: Never Assessed Comments Unknown Sex and Gender Information Value Date Recorded Sex Assigned at Female 07/10/2022 10:16 AM EDT Legal Sex Female 7:46 PM EDT Gender Identity Female 07/10/2022 10:16 AM EDT Sexual Orientation Not on file Plan of Treatment Health Maintenance Due Date Last Done Comments [facility]-Depression Screening 1975 [facility]-/Child/Adol SDOH Screenings 1975 [facility]- SDOH Screenings 1991 [facility]-Adult SDOH Screenings 1991 [facility]-DTaP,Tdap,and Td Vaccine s (1 - Tdap) 1992 [facility]-Hepatitis B Vaccines (1 of 3 - 19+ 3-dose series) 1992 [facility]-Pap Smear 1994 [facility]-Cervical Cancer Screening 2003 [facility]-HPV/Cotest 2003 CT Colonography 2018 Colonoscopy 2018 FIT-DNA 2018 FIT 2018 FOBT 2018 Sigmoidoscopy 2018 [facility]-Colorectal Cancer Screening 2018 [facility]-Pneumococcal Vaccine: 50 + Years (1 of 1 - PCV) 2023 [facility]-Zoster Vaccines (1 of 2) 2023 [id number] Vaccine (1 - 20 24-25 season) 2025 [facility]-Influenza Vaccine (#1) 2025 HPV Vaccines Aged Out No longer eligi ble based on patient's age to complete this topic [facility]-HIB Vaccines Aged Out No longer e ligible based on patient's age to complete this topic [facility]-Hepatitis A Vaccines Aged Out No longer eligible based on patient's age to complete this topic [facility]-IPV Vaccines Aged Out No longer e ligible based on patient's age to complete this topic [facility]-Rotavirus Vaccines Aged Out No lo nger eligible based on patient's age to complete this topic
--- OUTSIDE RECORDS SUMMARY | 2025-08-15 12:54 | XMS_ITS | Encounter Summary ---
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 Name: JOLLY GORDON FRANKO /Sex: 1975 Female Med Rec #: [id number] Physician: JAYCEE TORRES III, MD Financial #: [id number] Pt. Type: O Room/Bed: [facility] Admit/Disch: 04/07/19 15:59:00 - Institution: [facility] IntraOp Case Attendance Entry 1 Entry 2 Entry 3 Case Attendee JAYCEE TORRES III, MD WICKER, KAREN KIM, MARIE RICE RN Role Performed Surgeon/Proceduralist, MECHANICAL TECH/Nurse Financial Institution Treasurer Detention Sergeant, First First Time In 04/07/19 13:18:00 04/07/19 13:18:00 04/07/19 13:18:00 Time Out 04/07/19 14:31:00 04/07/19 14:31:00 04/07/19 14:31:00 Procedure Vaginal Hysterectomy Vaginal Hysterectomy Vaginal Hysterectomy Lap Assisted Lap Assisted Lap Assisted Other Attendee Superficial Wound Closed By: Last Modified By: MARIE CHAIREZ, MARIE CLINE, MARIE CLINE RN 04/07/19 14:19:41 04/07/19 14:19:41 04/07/19 14:19:41 Entry 4 Entry 5 Entry 6 Case Attendee RODNEY GRACE ST Dooley, Carol, RN OTHER, ATTENDEE #1 Role Performed Scrub, First Scrub, Second Student Time In 04/07/19 13:18:00 04/07/19 13:50:00 04/07/19 13:18:00 Time Out 04/07/19 14:31:00 04/07/19 14:31:00 04/07/19 14:31:00 Procedure Vaginal Hysterectomy Vaginal Hysterectomy Vaginal Hysterectomy Lap Assisted Lap Assisted Lap Assisted Other Attendee KT STODDARD Superficial Wound Closed By: Last Modified By: MARIE CHAIREZ, MARIE CLINE, MARIE CLINE RN 04/07/19 14:19:41 04/07/19 14:19:41 04/07/19 14:19:41 Entry 7 Entry 8 Case Attendee SAROJ MAN PA-C Shannon, Patrick Role Performed Physician infertility medical assistant, Ancillary Time In 04/07/19 13:18:00 04/07/19 13:18:00 Time Out 04/07/19 14:31:00 04/07/19 14:31:00 Procedure Vaginal Hysterectomy Vaginal Hysterectomy Lap Assisted Lap Assisted Other Attendee Superficial Wound Closed By: Last Modified By: MARIE CHAIREZ, MARIE CLINE RN 04/07/19 14:19:41 04/07/19 14:19:41 [facility] IntraOp Case Attendance Audit 04/07/19 14:19:41 Careers Adviser: CRMOSS Modifier: CRMOSS 1 <+> Time Out 1 <*> Procedure Vaginal Hysterectomy Lap Assisted 2 <+> Time Out 2 <*> Procedure Vaginal Hysterectomy Lap Assisted 3 <+> Time Out 3 <*> Procedure Vaginal Hysterectomy Lap Assisted 4 <+> Time Out 4 <*> Procedure Vaginal Hysterectomy Lap Assisted 5 <+> Time Out 5 <*> Procedure Vaginal Hysterectomy Lap Assisted 6 <+> Time Out 6 <*> Procedure Vaginal Hysterectomy Lap Assisted 7 <+> Time Out 7 <*> Procedure Vaginal Hysterectomy Lap Assisted 8 <+> Time Out 8 <*> Procedure Vaginal Hysterectomy Lap Assisted 04/07/19 14:09:56 Careers Adviser: CRMOSS Modifier: CRMOSS 1 <*> Procedure Vaginal Hysterectomy Lap Assisted 2 <*> Procedure Vaginal Hysterectomy Lap Assisted 3 <*> Procedure Vaginal Hysterectomy Lap Assisted 4 <*> Procedure Vaginal Hysterectomy Lap Assisted 5 <*> Procedure Vaginal Hysterectomy Lap Assisted 6 <*> Procedure Vaginal Hysterectomy Lap Assisted 7 <*> Procedure Vaginal Hysterectomy Lap Assisted 8 <+> Time In 8 <*> Procedure Vaginal Hysterectomy Lap Assisted 04/07/19 14:09:53 Careers Adviser: CRMOSS Modifier: CRMOSS <+> 8 Case Attendee <+> 8 Role Performed <+> 8 Procedure 04/07/19 13:57:04 Careers Adviser: CRMOSS Modifier: CRMOSS 1 <+> Time In 1 <*> Procedure Vaginal Hysterectomy Lap Assisted 2 <+> Time In 2 <*> Procedure Vaginal Hysterectomy Lap Assisted 3 <+> Time In 3 <*> Procedure Vaginal Hysterectomy Lap Assisted 4 <+> Time In 4 <*> Procedure Vaginal Hysterectomy Lap Assisted 5 <+> Time In 5 <*> Procedure Vaginal Hysterectomy Lap Assisted 6 <+> Time In 6 <*> Procedure Vaginal Hysterectomy Lap Assisted 7 <+> Time In 7 <*> Procedure Vaginal Hysterectomy Lap Assisted [facility] IntraOp Case Times Entry 1 Patient In Room Time 04/07/19 13:18:00 Out Room Time 04/07/19 14:31:00 Anesthesia Start Time 04/07/19 13:18:00 Stop Time 04/07/19 14:31:00 Anesthesia Ready 04/07/19 13:18:00 Surgery / Procedure Times Start Time 04/07/19 13:39:00 Stop Time 04/07/19 14:21:00 Last Modified By: MARIE CHAIREZ RN 04/07/19 14:19:39 [facility] IntraOp Case Times Audit 04/07/19 14:19:39 Careers Adviser: CRMOSS Modifier: CRMOSS <+> 1 Out Room Time <+> 1 Stop Time <+> 1 Stop Time [facility] IntraOp Cautery Entry 1 ESU Identification Cautery Type Monopolar ESU ID Number [id number] ID Type Hospital Number Cautery Settings Cut Setting 30 Coag Setting 30 ESU Grounding Pad Ground Pad Type Adult Grounding Pad Site Right thigh Grounding Pad MARIE CHAIREZ RN Applied By Grounding Pad Site Warm, dry and intact Skin Condition Before Cautery Grounding Pad Site Unchanged Skin Condition After Cautery Last Modified By: MARIE CHAIREZ RN 04/07/19 12:47:41 [facility] IntraOp Communication Entry 1 Communication To Family/Significant other Comment START OF PROCEDURE Last Modified By: MARIE CHAIREZ RN 04/07/19 12:47:53 [facility] IntraOp Counts Verification Entry 1 Procedure Vaginal Hysterectomy Lap Assisted Count Info Count Type Sponge, Sharps, Instrument Counts Verification Baseline/pre-procedure Sequence Count Results Correct, surgeon notified Counts Performed By Count Performed By RODNEY GRACE ST (Scrub) Count Performed By MARIE CHAIREZ RN (RN) Last Modified By: MARIE CHAIREZ RN 04/07/19 12:48:08 [facility] IntraOp Counts Final Entry 1 Procedure Vaginal Hysterectomy Lap Assisted Final Count Info Count Type Sponge, Sharps Counts Verification Skin Closure/end of Sequence procedure Count Results Correct, surgeon notified Counts Performed By Count Performed By RODNEY GRACE ST (Scrub) Count Performed By MARIE CHAIREZ RN (RN) Last Modified By: MARIE CHAIREZ RN 04/07/19 14:10:18 [facility] IntraOp Cultures and Spec Summary Entry 1 Cultrures and Specimens Specimen Ordered: Yes Specimens Types Pathology Specimen(s) Labeled Pathology and Sent to Last Modified By: MARIE CHAIREZ RN 04/07/19 12:48:13 [facility] IntraOp Delays Entry 1 Delay Reason Surgeon late - did not call Duration 48 Minute(s) Last Modified By: MARIE CHAIREZ RN 04/07/19 13:44:16 [facility] IntraOp Departure from OR Entry 1 Integumentary Assessment Integumentary WDL Assessment WDL Transfer/Handoff Transfer to PACU Phase I Handoff Method Bedside/Face to face Post-op Transport Stretcher/Gurney Via Patient Transport MARIE CHAIREZ RN, Accompanied by DANISH ROSAS CRNA Last Modified By: MARIE CHAIREZ RN 04/07/19 12:48:23 [facility] IntraOp Dressing and Packing Entry 1 Type Dressing Location abdomen Wound Dressing Item 2x2's, Skin adhesive, Steristrip Applied By SAROJ MAN PA-C Last Modified By: MARIE CHAIREZ RN 04/07/19 12:48:48 [facility] IntraOp Fire Risk Assessment Entry 1 Fire Info Surgical Site or 0- No Incision Above the Xyphoid Open O2 Source 0- No (Mask or Cannula) Available Ignition 1- Yes (ESU, Laser, Light Source) Fire Risk 1 Assessment Score Fire Score Fire Risk Yes Assessment Complete Fire Risk MARIE CHAIREZ RN Assessment Verified By Fire Risk 04/07/19 13:18:00 Assessment Verified Date/Time Fire Risk Standard Fire Yes Safety Precautions Followed Last Modified By: MARIE CHAIREZ RN 04/07/19 13:43:49 [facility] IntraOp Fire Risk Assessment Audit 04/07/19 13:43:49 Careers Adviser: AGNES Modifier: CRMOSS <+> 1 Fire Risk Assessment Verified Date/Time [facility] IntraOp General Case Hogshead Hand 1 Case Information OR OR 02 S[facility] Case Level 1 Room Verified Yes Wound Class II - Clean-Contaminated Specialty SN Gynecology Anesthesia Type General ASA Class 1 Diagnosis Preop Diagnosis DYSMENORRHEA, AUB Postop Same As Preop No Postop Diagnosis DICTATED BY MD Last Modified By: MARIE CHAIREZ RN 04/07/19 13:46:44 [facility] IntraOp General Case Data Audit 04/07/19 13:46:44 Careers Adviser: CRMMIRIAN Modifier: CRMOSS <+> 1 ASA Class <+> 1 Preop Diagnosis [facility] IntraOp Intraoperative Assessment Entry 1 Handoff Method Other Valid History / Yes Physical in Chart Preoperative Yes Checklist Reviewed/Evaluated Allergies Reviewed Yes Patient is Latex No Sensitive Isolation Not applicable Precautions Noted Level of WDL Consciousness (WDL = Alert, Oriented to Person, Place, and Time) Skin Assessment Yes Verified Present Upon IVs Arrival to OR Last Modified By: MARIE CHAIREZ RN 04/07/19 12:49:27 [facility] IntraOp Intraoperative Equipment Entry 1 Equipment Equipment Other Intraop Monitoring Electrocardiogram Three lead placement (ECG) Electrode Placement Blood Pressure Non-Invasive BP Device Source Antiembolic Devices Antiembolic Devices Sequential compression device, knee high Antiembolic Device Bilateral Location Scopes Photo/Video Documentation Photo No Video No Last Modified By: MARIE CHAIREZ RN 04/07/19 12:49:37 [facility] IntraOp Medication Admin Entry 1 Medication/Irrigant Marcaine 0.5% w/ epinephrine 1:200,000 30ml vial - [id number] Route of LOCAL Administration Dose Dose 30 Unit of Measure ml Administered By JAYCEE TORRES III, MD Procedure Irrigation Last Modified By: MARIE CHAIREZ RN 04/07/19 12:49:53 [facility] IntraOp Patient Positioning Entry 1 Procedure Vaginal Hysterectomy Lap Assisted Body Position Lithotomy Left Arm Position Tucked and padded at side Right Arm Position Tucked and padded at side Left Leg Position Secured in Leg Hannah Right Leg Position Secured in Leg Hannah Feet Uncrossed Yes Pressure Points Yes Checked Positioning Devices Stirrups/Leg Hannah, Boot, Pad, Mattress Positioned By MARIE CHAIREZ, VICKY, DANISH ROSAS, LICHA, JAYCEE TORRES III, MD, SAROJ MAN PA-C Position Verified Positioning Yes Verified by Anesthesia Positioning Yes Verified by Surgeon Last Modified By: MARIE CHAIREZ RN 04/07/19 12:51:12 [facility] IntraOp Sign In Entry 1 Patient, Site, Yes Procedure Identified Surgical Consent Yes Confirmed Relevant Surgical Yes Documents Available Surgical Site N/A Marked by person performing procedure Anesthesia Machine Yes Check Completed Medication Checks Yes Completed Allergies Yes Airway Difficult No Airway/Aspiration Risk Difficult Yes Airway/Aspiration Intervention Equipment Available Blood Loss Risk Yes Blood Loss Yes Intervention Equipment Prepared and Ready Blood Identifiers Not applicable Verified Per Policy Hypothermia Risk Yes Warming Measures Yes Taken Last Modified By: MARIE CHAIREZ RN 04/07/19 12:51:22 [facility] Intra Op Sign Out Entry 1 [...] Checklist Yes Elements Complete? RN Sign Out MARIE HCAIREZ RN Signature RN Sign Out 04/07/19 14:31:00 Signature Date/Time Plan of Care Outcome - [...] related to extraneous objects Last Modified By: MARIE CHAIREZ RN 04/07/19 14:20:02 [facility] Intra Op Sign Out Audit 04/07/19 14:20:02 Careers Adviser: CRMOSS Modifier: CRMOSS <+> 1 Urinary Catheter Documented in IView 04/07/19 14:19:51 Careers Adviser: CRMOSS Modifier: CRMOSS <+> 1 RN Sign Out Signature Date/Time [facility] IntraOp Skin Prep Entry 1 Procedure Vaginal Hysterectomy Lap Assisted Prescribed Yes Pre-Surgical Prep Completed Prep Area ABDOMEN, VAGINA Intraop Prep Integumentary WDL Assessment WDL Prep Agents Betadine solution, Chloraprep Prep by MARIE CHAIREZ RN Hair Removal Methods No hair removal performed Last Modified By: MARIE CHAIREZ RN 04/07/19 12:51:35 [facility] IntraOp Surgical Procedures Entry 1 Procedure Vaginal Hysterectomy Lap Assisted Additional LAVH Procedure Description Primary Procedure Yes Primary Surgeon JAYCEE TORRES III, MD Start 04/07/19 13:39:00 Stop 04/07/19 14:21:00 Anesthesia Type General Specialty SN Gynecology Wound Class II - Clean-Contaminated Last Modified By: MARIE CHAIREZ RN 04/07/19 14:20:05 [facility] IntraOp Surgical Procedures Audit 04/07/19 14:20:05 Careers Adviser: CRMOSS Modifier: CRMOSS <+> 1 Start <+> 1 Stop [facility] IntraOp Temp Regulation Devices Entry 1 Temp Regulation Temperature Conductive warming Regulation Device device placed over patient Temperature Upper body Regulation Site Temperature Device 43 DEGREES C Setting Temperature DANISH ROSAS CRNA Regulation Device Applied by Last Modified By: MARIE CHAIREZ RN 04/07/19 12:51:53 [facility] IntraOp Time Out Entry 1 Procedure to be Vaginal Hysterectomy Performed Lap Assisted Time Out Time Out Pause Time 04/07/19 13:38:00 All activity Yes suspended (unless life threatening emergency) Team Verbally Correct patient Confirms Information identity, Correct side and site are marked, Consent form is present and accurate, Agreement on the procedure to be done, Correct patient position, Relevant images/results properly labeled/appropriately displayed, Confirm antibiotics have been administered, Confirm the skin prep has dried, Confirm prosthesis/implant/devic e is present, Performed in location of procedure after prepped/draped Antibiotic Yes Prophylaxis Administered Or In Progress Within the Last 60 Minutes Beta Karlene N/A Administered Venous Yes Thromboembolism Prophylaxis Required Anticipated Critical Events Surgeon None expected Anesthesia Provider None expected Nursing Assures Sterility of instruments, Equipment concerns or issues Essential Imaging N/A Labeled and Displayed Last Modified By: MARIE CHAIREZ RN 04/07/19 13:43:19 Case Comments <None> Finalized By: Vianca Diaz, RN Document Signatures Signed By: MARIE CHAIREZ RN 04/07/19 14:20 Vianca Diaz RN 04/08/19 08:45 Unfinalized History Date/Time Username Reason for Unfinalizing Freetext Reason for Unfinalizing 04/08/19 08:45 MINE Modify Pick List documented in this encounter Plan of Treatment Not on file documented as of this encounter Visit Diagnoses Not on filedocumented in this encounter
--- OUTSIDE RECORDS SUMMARY | 2025-08-15 12:54 | XMS_ITS | Encounter Summary ---
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 Role Phone Unavailable Primary Care Provider Unavailabl e Encounter Details Date Type Department Care Team (Late st Contact Info) Description 10/04/2020 Transcribed Document [facility] Family Medicine [facility] [place] [address] ProviderDonaldo MD [address] [place] [id number] Social History Tobacco Use Types Packs/Day Years Used Date Smoking Tobacco: Never Assessed Comments Unknown Sex and Gender Information Value Date Recorded Sex Assigned at Not on file Legal Sex Female 6:43 PM CDT Gender Identity Not on file Sexual Orientation Not on file documented as of this encounter Miscellaneous Notes * Cerner Conversion Note - Donaldo ProviderMD - 10/04/2020 8:38 AM 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 : No Patient/Family Notified of Plan : Yes Discharge To Care Management : Home/Residential/Longterm or Self Care -01 SHAWNA GARCIA RN-Branch Manager Trainee - 10/04/2020 8:38 EST documented in this encounter Plan of Treatment Not on file documented as of this encounter Visit Diagnoses Not on filedocumented in this encounter
--- OUTSIDE RECORDS SUMMARY | 2025-08-15 12:54 | XMS_ITS | Clinical Summary ---
Author Organization [facility] Address [address] [place] [address] Care Team Providers Care Horologist Apprentice Name Role Phone Melecio Traore MD Primary Care Provider [phone] Allergies No known active allergies Medications Ixekizumab (Taltz) 80 MG/ML solution auto-injector Inject 80 mg under the skin into the appropriate area as directed Every 30 (Thirty) Days. Active ibuprofen (ADVIL,MOTRIN) 200 MG tablet Take 1 tablet by mouth Every 6 (Six) Hours As Needed for Mild Pain. Active multivitamin with minerals (ONE DAILY FOR WOMEN PO) Take 1 tablet by mouth Daily. Active celecoxib (CeleBREX) 200 MG capsule Take 1 capsule by mouth 2 (Two) Times a Day As Needed for Mild Pain. 60 capsule 5 5 Active celecoxib (CeleBREX) 200 MG capsule Take 1 capsule by mouth 2 (Two) Times a Day. 08/02/20 25 Discontin ued(Reord er) triamterene-hy drochlorothiaz tunde (DYAZIDE) 37.5-25 MG per capsule Take 1 capsule by mouth Every Morning. 07/29/20 25 Discontin ued(*Ther apy completed ) lisinopril (PRINIVIL,ZEST RIL) 5 MG tablet Take 1 tablet by mouth Daily. 4 07/29/20 25 Discontin ued(*Ther apy completed ) Active Problems Problem Noted Date Diagnosed Date High risk medication use 08/02/2025 Immunosuppression due to drug therapy 08/02/2025 rn long term care (current) use of n on-steroidal anti-inflammatories (nsaid) 08/16/2024 Assessment & Plan (08/16/2024 8:40 AM EDT): Celebrex Check CBC and CMP every 6 months. Lab order given today. Arthralgia 08/12/2024 Assessment & Plan (08/16/2024 8:47 AM EDT): Four children. Youngest adopted senior high school [address]. [address] Bravo and Dr. Vu Patient with known psoriasis on Taltz per Dermatology No evidence for psoriatic arthritis. Her intermittent joint pain does not seem inflammatory. More degenerative in nature or related to overuse (tendonitis). 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 and tendonitis in her feet. - Continue Celebrex 200 mg BID p.r.n. OA pain - She can wear a SPIKA brace at night for her thumbs/CMC oa - Thumbs doing well. - Medication refill declined. Labs ordered for monitoring as below. - Leg cramping/foot cramping occurs twice a week. - She has had diarrhea and nausea. Recommend follow up with PCP - Instructed her to stay well hydrated. - She can trial magnesium lotion. Avoiding supplements due to frequent diarrhea. - Return to clinic 6 months Vitamin B 12 deficiency 07/29/2024 Assessment & Plan (08/12/2024 8:05 AM EDT): Oral B12, at one time her level was very low so encouraged her to always take it. Fatigue 07/29/2024 Assessment & Plan (08/12/2024 8:04 AM EDT): Stable Psoriasis 07/29/2024 Assessment & Plan (08/12/2024 8:04 AM EDT): Current Rx: José Manuel with her product manager e commerce Dr. Bella - Continue José Manuel per Dermatology. Taltz has really helped her skin but not her joints. High-risk medication. Well tolerated and effective. No serious side effects - getting labs with dermatology for monitoring Encounters Date Type Department Care Team Description 08/03/2025 Results [facility] [address] [phone] Horace Hamilton MD 08/02/2025 8:45 AM EDT Office Visit [facility] [address] [place] [phone] Horace Hamilton MD Arthralgia, unspecified joint (Primary Dx); Psoriasis; High risk medication use; Immunosuppression due to drug therapy; Low vitamin D level; Anemia, unspecified type; Other fatigue 08/02/2025 Travel from Last 3 Months Immunizations Immunization Administration Dates Next Due COVID-19 (MODERNA) 1st,2nd,3rd Dose Monovalent 0 12/22/2020,11/22/2020 Influenza, Unspecified 08/22/2021 Social History Tobacco Use Types Packs/Day Years [...] or training? Not on file Preferred Language Zimbabwean 09/17/2022 Comments No Sex and Gender Information Value Date Recorded Sex Assigned at Not on file Legal Sex Female 4:39 PM EST Gender Identity Not on file Sexual Orientation Not on file Last Filed Vital Signs Vital Sign Reading Time Taken Comments Blood Pressure 118/70 08/02/2025 8:44 AM EDT Pulse 96 08/02/2025 8:44 AM EDT Temperature 36.6 C (97.9 F) 08/02/2025 8:44 AM EDT Respiratory Rate 18 09/24/2022 10:30 AM EST Oxygen Saturation 97% 09/24/2022 10:30 AM EST Inhaled Oxygen Concentration - - Weight 74 kg (163 lb 3.2 oz) 08/02/2025 8:44 AM EDT Height 172.7 cm (5' 8 ) 08/02/2025 8:44 AM EDT Body Mass Index 24.81 08/02/2025 8:44 AM EDT Plan of Treatment Upcoming Encounters Date Type Department Care Team (Late st Contact Info) Description 01/30/2026 8:45 AM EDT Office Visit [facility] R[facility] [address] [phone] Horace Hamilton MD 330 [facility] [address] [place] [address] Health Maintenance Due Date Last Done Comments Annual Gynecologic Pelvic an d Breast Exam 1975 Pneumococcal Vaccine 50+ (1 of 2 - PCV) 1992 TDAP/TD VACCINES (1 - Tdap) 1992 ZOSTER VACCINE (1 of 2) 1992 COLON CANCER SCREENING 5 YEA R SIGMOIDOSCOPY [address] COLONOGRAPHY 2018 FECAL OCCULT BLOOD TEST 2018 FIT Testing (1 year) 2018 ANNUAL PHYSICAL 06/22/2021 HEPATITIS C SCREENING 06/22/2021 COLOGUARD 11/23/2024 11/23/2021 COLORECTAL CANCER SCREENING 11/23/2024 INFLUENZA VACCINE 06/03/2025 08/18/2024, , 09/10/2022, Additional history exists Medical Devices Implanted Type Area Mud Jack Nozzle Worker Device Identifier Shelf Expiration Date Model / Serial / Lot Bilateral Temporary Tissue Expanders Implant Brst Gel Natrelle Inspira Smoth Cohesive Xf/P 525cc - [id number] Implanted:Qty : 1 on 06/26/2021 by Quintin Lay MD at [facility] Implant Right: Breast [employer] [id number] / / [id number] Brst Gel Natrelle Inspira Smoth Cohesive Xf/P 525cc - [id number] Implanted:Qty : 1 on 06/26/2021 by Quintin Lay MD at [facility] Implant Left: Breast [employer] [id number] / / [id number] Dev Contrl Tiss Stratafix Spiral Mncryl Ud 3/0 Pls 30cm - [id number] Implanted:Qty : 1 on 09/24/2022 by Quintin Lay MD at [facility] Implant Right: Breast [employer] J [employer] J [id number] 06/02/2024 [id number] / / [id number] Dev Contrl Tiss Stratafix Spiral Mncryl Ud 3/0 Pls 30cm - [id number] Implanted:Qty : 1 on 09/24/2022 by Quintin Lay MD at [facility] Implant Left: Breast [employer] J [employer] J 06/02/2024 [id number] / / [id number] Procedures Procedure Name Priority Date/Time Associated Diagnosis Comments CBC AND DIFFERENTIAL Routine 08/02/2025 9:29 AM EDT VITAMIN D,25-HYDROXY Routine 08/02/2025 9:29 AM EDT Low vitamin D level Arthralgia, unspecified joint Psoriasis High risk medication use Immunosuppression due to drug therapy Other fatigue VITAMIN B12 Routine 08/02/2025 9:29 AM EDT Arthralgia, unspecified joint Psoriasis High risk medication use Immunosuppression due to drug therapy Other fatigue IRON PROFILE Routine 08/02/2025 9:29 AM EDT [...] Immunosuppression due to drug therapy Other fatigue C-REACTIVE PROTEIN Routine 08/02/2025 9: 29 AM EDT Arthralgia, unspecified joint Psoriasis High risk medication use Immunosuppression due to drug therapy Other fatigue COMPREHENSIVE METABOLIC PANEL Routine 08/02/2025 9:29 AM EDT Arthralgia, unspecified joint Psoriasis High risk medication use Immunosuppression due to drug therapy Other fatigue from Last 3 Months Results * Iron Profile w/o Ferritin (08/02/2025 9:29 AM EDT) TIBC 384 mcg/dL [facility] UIBC 256 112 - 346 mcg/dL [facility] Iron 128 37 - 145 mcg/dL [facility] Iron Saturation 33 20 - 50 % [facility] Blood 08/02/2025 9:29 AM EDT 08/02/2025 Narrative [facility] (AMBULATORY) - 08/03/2025 1:06 AM EDT Performed at: [address] [place] [id number] Usability Architect: Ab Salcido MD, Phone: [phone] Patient Fasting: N Horace Hamilton MD LAB BLOOD ORDERABLES Final Result [facility] (AMBULATORY) [address] [place] [address], [place] [phone] [facility] [address] [place] [address], * Vitamin D,25-Hydroxy (08/02/2025 9:29 AM EDT) 25 Hydroxy, Vitamin D 34.4 30.0 - 100.0 ng/ml [facility] Comment: Reference Range for Total Vitamin D 25(OH) Deficiency <20.0 ng/mL Insufficiency 21-29 ng/mL Sufficiency 30-100 ng/mL Toxicity >100 ng/ml Blood 08/02/2025 9:2 9 AM EDT 08/02/2025 Narrative [facility] [employer] [facility] (AMBULATORY) - 08/03/2025 1:06 AM EDT Performed at: [address] [place] [address] [address] [place], [place] [id number] Usability Architect: Ab Salcido MD, Phone: [phone] Patient Fasting: N us Horace Hamilton MD LAB BLOOD ORDERABLES Final Result Performing Organization Address [facility] Co de Phone Number [facility] (AMBULATORY) [address] [place] [address], [facility] [address] [place] [address], * Sedimentation Rate (08/02/2025 9:29 AM EDT) [facility] Sed Rate 9 0 - 30 mm/hr [facility] Blood 08/02/2025 9:29 AM EDT 08/02/2025 Narrative [facility] (AMBULATORY) - 08/03/2025 1:06 AM EDT Performed at: [address] [place] [address] [address] [place], [place] [id number] Usability Architect: Ab Salcido MD, Phone: [phone] Patient Fasting: N us Horace Hamilton MD LAB BLOOD ORDERABLES Final Result Performing Organization Address [facility] de Phone Number [facility] (AMBULATORY) [address] [place] [address], [place] [phone] [facility] [address] [place] [address], * (ABNORMAL) CBC & Differential (08/02/2025 9:29 AM EDT) [facility] WBC 3.84 3.40 - 10.80 10*3/mm3 [facility] [...] 08/03/2025 1:06 AM EDT Performed at: [address] [place] [id number] Usability Architect: Ab Salcido MD, Phone: [phone] Patient Fasting: N Horace Hamilton MD LAB BLOOD ORDERABLES Final Result [facility] (AMBUL[facility]ORY) [address] [place] [address], [place] [phone] [facility] [address] [place] [address], [place] [phone] * C-reactive Protein (08/02/2025 9:29 AM EDT) [facility] C-Reactive Protein <0.30 0.00 - 0.50 mg/dL [facility] Blood 08/02/2025 9:29 AM EDT 08/02/2025 Narrative [facility] (AMBULATORY) - 08/03/2025 1:06 AM EDT Performed at: [address] [place] [id number] Usability Architect: Ab Salcido MD, Phone: [phone] Patient Fasting: N us Horace Hamilton MD LAB BLOOD ORDERABLES Final Result Performing Organization Address [facility]/ZIP Co de Phone Number [facility] ([facility]) [address] [place] [address], [facility] [address] [place] [address], * Ferritin (08/02/2025 9:29 AM EDT) [facility] Ferritin 65.00 13.00 - 150.00 ng/mL [facility] Comment:Results may be false ly decreased if patient taking Biotin. Blood 08/02/2025 9:29 AM EDT 08/02/2025 Narrative [facility] (AMBULATORY) - 08/03/2025 1:06 AM EDT Performed at: [address] [place] [id number] Usability Architect: Ab Salcido MD, Phone: [phone] Patient Fasting: N us Horace Hamilton MD LAB BLOOD ORDERABLES Final Result Performing Organization Address City/[facility]/ZIP Co de Phone Number [facility] (AMBULATORY) [address] [place] [address], [facility] [address] [place] [address], * Vitamin B12 (08/02/2025 9:29 AM EDT) [facility] Vitamin B-12 346 211 - 946 pg/mL [facility] Comment:Results may be false ly increased if patient taking Biotin. Blood 08/02/2025 9:29 AM EDT 08/02/2025 Narrative [facility] (AMBULATORY) - 08/03/2025 1:06 AM EDT Performed at: [address] [place] [address] [place], [place] [id number] Usability Architect: Ab Salcido MD, Phone: [phone] Patient Fasting: N Horace Hamilton MD LAB BLOOD ORDERABLES Final Result [facility] [employer] [facility] (AMBULATORY) [address] [place] [address], [facility] [address] [place] [address], * (ABNORMAL) Comprehensive Metabolic Panel (08/02/2025 9:29 AM EDT) Pathologist [facility] Glucose 64(L) 65 - 99 mg/dL [facility] [...] 08/03/2025 1:06 AM EDT Performed at: [address] [place] [id number] Usability Architect: Ab Salcido MD, Phone: [phone] Patient Fasting: N Horace Hamilton MD LAB BLOOD ORDERABLES Final Result [facility] (AMBULATORY) [address] [place] [address], [facility] [address] [place] [address], [place] [phone] from Last 3 Months Insurance Care Teams Horologist Apprentice Relationship Specialty Start Date End Date Melecio Traore MD [address] [place] [facility] [address] [place] [address] PCP - General Family Medicine 06/24/21
--- OUTSIDE RECORDS SUMMARY | 2025-08-15 12:54 | XMS_ITS | Encounter Summary ---
Author Organization [employer] ([place], [place], [place], [place]) Address [address] [place] [address] Care Team Providers Care Automation Test Engineer Name Role Phone Unavailable Primary Care Provider Unavailabl e Encounter Details Date Type Department Care Team (Late st Contact Info) Description 10/04/2020 Transcribed Document [facility] Surgery - [employer] [address] [place] [address] Melecio Oconnor MD [address] [place] [address] Social History Tobacco Use Types Packs/Day Years Used Date Smoking Tobacco: Never Assessed Comments Unknown Sex and Gender Information Value Date Recorded Sex Assigned at Not on file Legal Sex Female 6:43 PM CDT Gender Identity Not on file Sexual Orientation Not on file documented as of this encounter Miscellaneous Notes * Cerner Conversion Note - Melecio Oconnor MD - 10/04/2020 9:58 AM EST DATE OF PROCEDURE: 10/03/2020 SURGEON: Melecio Oconnor MD PREOPERATIVE DIAGNOSIS: BRCA gene mutation. POSTOPERATIVE DIAGNOSIS: BRCA gene mutation. PROCEDURES PERFORMED: 1. Right total nipple-sparing mastectomy. 2. Left total nipple-sparing mastectomy. AUTOMOTIVE ENGINEERING TEACHER: Shree Trevino PA-C. ANESTHESIA: General. ESTIMATED BLOOD LOSS: 20 mL. COMPLICATIONS: None. OPERATIVE INDICATIONS: Ms. Gordon is a 44-year-old female patient with a diagnosis of BRCA gene mutation. She requested bilateral prophylactic mastectomy with reconstruction. After the risks and benefits of operative intervention were explained to her, she wished to proceed. OPERATIVE FINDINGS: She had evidence of previous bilateral breast reduction. Otherwise, her breast tissue was normal without any masses or adenopathy. DESCRIPTION OF PROCEDURE: After obtaining informed consent, Ms. Gordon was taken to the operating room and placed in a supine position. General anesthesia was induced. Her chest was prepped and draped in usual sterile fashion. Attention was turned to the right side, where a nipple-sparing skin incision was made in the inframammary crease. Dissection down to the level of chest wall was achieved using electrocautery. Next, the breast tissue was elevated off the pectoralis major muscle to include the muscle fascia in the specimen. Next, the skin flap was created using electrocautery. This was taken to the clavicle superiorly, the sternum medially, the inframammary crease inferiorly, and the latissimus dorsi muscle laterally. The breast tissue was removed and marked with a stitch in the 12 o'clock position and passed off and sent to Pathology. Meticulous hemostasis was ensured using electrocautery. Attention was then turned to the left side, where an identical nipple-sparing incision was made in the inframammary crease. The breast tissue was also elevated off the pectoralis major muscle to include the muscle fascia in the specimen. Next, the same skin flap was created using electrocautery. This was taken to the clavicle superiorly, the sternum medially, the inframammary crease inferiorly, and the latissimus dorsi muscle laterally. The breast tissue was then removed and marked with a stitch in the 12 o'clock position and passed off and sent to Pathology. Meticulous hemostasis was ensured using electrocautery. At this point, care of Ms. Gordon was transferred to Dr. Quintin Lay for completion of his reconstruction portion of the procedure. All sponge, needle, and instrument counts were correct at the end of my portion of the procedure. There were no complications. Ms. Gordon tolerated the procedure well. /[id number] MD MARCELLUS Hobson/PATTIE / MARCELLUS / MODL /[id number] CC: Quintin Lay MD [facility] documented in this encounter Plan of Treatment Not on file documented as of this encounter Visit Diagnoses Not on filedocumented in this encounter
--- OUTSIDE RECORDS SUMMARY | 2025-08-15 12:54 | XMS_ITS | Encounter Summary ---
Author Organization [employer] ([place], [place], [place], [place]) Address [address] [place] [address] Care Team Providers Care Special Shopper Name Role Phone Unavailable Primary Care Provider Unavailabl e Encounter Details Date Type Department Care Team (Late st Contact Info) Description 10/04/2020 Transcribed Document [facility] Surgery - [employer] [address] [place] [address] Melecio Oconnor MD [address] [place] [address] Social History Tobacco Use Types Packs/Day Years Used Date Smoking Tobacco: Never Assessed Comments Unknown Sex and Gender Information Value Date Recorded Sex Assigned at Not on file Legal Sex Female 6:43 PM CDT Gender Identity Not on file Sexual Orientation Not on file documented as of this encounter Miscellaneous Notes * Cerner Conversion Note - Melecio Oconnor MD - 10/04/2020 9:50 AM EST Patient: JOLLY GORDON Age: 44 Years Sex: Female : 1975 Subjective Doing very well. No overnight issues. Intake & Output Intake & Output Totals Last 24 Hours (7a-7a) Intake (18 Events) Continuous Infusions (791.25 mL) Medications (4.25 mL) Surgical Services Intake (1700 mL) Output (15 Events) Olvera Catheter (1250 mL) Surgical Drain/Tube Output: (175 mL) Urine Voided (Volume) (1300 mL) Input Total: 2495.5 mL Output Total: 2725 mL Balance: -229.5 mL Vital Signs T: 36.9 ??C TMIN: 36.4 ??C TMAX: 36.9 ??C HR: 62(Monitored) RR: 16 BP: 110/68 SpO2: 99% HT: 172.72 cm WT: 72.73 kg BMI: 24.4 Physical Exam Chest looks great. No hematoma. Serous drain fluid VTE Risk Total Score VTE Prophylaxis - Surgical Sequential Compression Device Start: 10/03/20 16:11:00 EST, Bilateral, Length: Knee High, While patient is in bed, Continuous Order (MACEY VARELA PA-C) Assessment/Plan POD #1 s/p bilat mastectomy D/c home today. F/u next week. BRCA positive Z15.01, Genetic susceptibility to malignant neoplasm of breast Z15.01, Genetic susceptibility to malignant neoplasm of breast Z15.01 Orders: Diet, Adult Path Tissue Request, Sendout Path Tissue Request, Sendout Pathology Tissue Request Pathology Tissue Request SENDOUT REPORT Medications Inpatient morphine, 2 mg= 1 mL, IV Push, Q2H, PRN Percocet 5/325 oral tablet, 1 Tab, Oral, Q4H, PRN Sodium Chloride 0.45% with KCl 20 mEq/L 1,000 mL, 1000 mL, IntraVENous Home Taltz Prefilled Syringe 80 mg/mL subcutaneous solution, 80 mg, SubCutaneous, [id number] Labs Results SEP 25 10:49 142 109 12 / 79 3.8 30 0.89 \ SEP 25 10:49 \ 12.4 / 4.2 220 / 37.0 \ No qualifying data available. Imaging Results (Last 24 Hours) No Radiology Results Found Problem List/Past Medical History Ongoing Arthritis BRCA2 positive Psoriasis Historical No qualifying data Procedure/Surgical History breast reduction bilateral 1990, hysterectomy 2018, Laparoscopy, surgical, ablation of uterine fibroid(s) including intraoperative ultrasound guidance and monitoring, radiofrequency, lymph node removal from neck 2010, tubal ligation 2015. Allergies No Known Allergies No Known Medication Allergies documented in this encounter Plan of Treatment Not on file documented as of this encounter Visit Diagnoses Not on filedocumented in this encounter
[2025-08-15 16:51] LABS: Triiodothryronine (T3) Uptake 31 % (23.5-40.5)
[2025-08-15 16:52] LABS: Free Thyroxine Index 2.3 ug/dL (5.93-13.13); T4 (Thyroxine) 7.3 ug/dl (5.53-11.0)
[2025-08-15 17:05] LABS: Thyroid Stimulating Hormone 1.39 uIU/mL (0.465-4.68)
[2025-08-15 17:06] LABS: Thyroid Stimulating Hormone 1.36 uIU/mL (0.465-4.68)
== END 2025-08-15 23:59 | disposition home or self-care (01) ==
PROVIDERS: PCP Family Medicine; Visit Provider Internal Medicine
DX: M25.50 Pain in unspecified joint (principal); L40.9 Psoriasis, unspecified; D84.821 Immunodeficiency due to drugs; R79.89 Other specified abnormal findings of blood chemistry; D64.9 Anemia, unspecified; Z79.899 Other long term (current) drug therapy
CPT/HCPCS: 36415; 84436; 84443; 84479

== ENCOUNTER 2025-08-18 12:39 | Outpatient (CLI) | payer BC, SELFPAY ==
--- OUTSIDE RECORDS SUMMARY | 2024-09-20 05:45 | XMS_ITS ---
Author Organization [facility] Address [address] [place] [id number] Care Team Providers Care Torch Shearer Name Role Phone Bentley Traore Primary Care Provider Allergies No Known Allergies Reason For Referral Reason FHx polyps Diagnosis 1 Encounter for screen ing colonoscopy (Z12.11) [facility] Referring Provider First Name Bentley Roche Referring [...] eously every 4 weeks Active Vital Signs Blood pressure systolic 120 mm Hg 09/20/20 24 Blood pressure diastolic 80 mm Hg 024 Heart Rate 82 /min 09/20/2024 Height 63.50 in 09/20/2024 Weight 152.4 lbs 09/20/2024 BMI 26.57 kg/m2 09/20/2024 Encounters Encounter Location Date Provider Diagnosis Juan J [address] [place] [phone] 09/20/2024 Bentley Traore Essential hypertensi on I10 [...] Notes * LUZ CARVAJALDOB:1975 (49 yo F)Acc No.[id number]:09/20/2024 Progress Notes Patient: LUZ BARBA Provider: Bentley Traore M.D. :1975 A ge:48 Y S ex:Female Date:09/20/2024 Address:[address] [place] [address] [place], [id number] Subjective: * Chief Complaints: * 1 . [...] Palpitations. 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 * ROS: D [...] Tubal Ligation 01/2016, Hysterectomy, Oopherectomy, Cervix Remains- [facility] 04/07/2019, Bilateral Mastectomy with reconstruction for [...] New since last visit: none. 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 Past smoking status: no, Smoking status: [...] * Images: Billing Information: * Visit Code: 42947 Office Visit, Est Pt., Level 4. * Procedure Codes: * Electronic signature of Bentley Traore MD on 08/18/2025 at 12:43 PM EDT Sign off status: Pending * Provider: Bentley Traore M.D. Date: 11/20/2023 Generated for Printi ng/Fanareng/eTransmitting on: 12:43 PM EDT History and Physical Notes * [...]
--- OUTSIDE RECORDS SUMMARY | 2025-01-24 11:00 | XMS_ITS ---
[facility] Organization [facility] Address [address] [place] [id number] Care Team Providers Care Movement Assembler Name Role Phone Bentley Traore Primary Care Provider Allergies No Known Allergies Results Component Value Reference Range Notes Influenza Screen (in house) Reviewed date:01/28/2025 06:20:57 PM Interpretation: Performing Lab: Notes/Report: results Neg CBC Fingerstick (in house) Reviewed date:01/28/2025 06:21:08 PM Interpretation: Performing Lab: Notes/Report: wbc 4.2 3.5 - 10 lym 22.4% 15 - 50 mid 5.7% 2 - 15 gran 71.9% 35 - 80 rbc 3.53 3.5 - 5.5 hgb 11.3 11.5 - 16.5 hct 32.1 35 - 55 mcv 91.0 75 - 100 mch 32.1 25 - 35 mchc 35.3 31 - 38 plat 187 100 - 400 Covid test (in house) Reviewed date:01/28/2025 06:21:23 PM Interpretation: Performing Lab: Notes/Report: Result: Neg REASON FOR VISIT no voice ,drainage Medications Medication SIG (Take, Route, Fr equency, Duration) Notes Start Date End Date Status Medrol 4 MG as directed Orally; Duration: 6 days 01/24/2025 Active Taltz 80 MG/ML as directed subcutan eously every 4 weeks Active Lisinopril 5 MG TAKE 1 TABLET BY ONCE DAILY; Duration: 30 Active Flonase Allergy Relief 50 MCG/ACT 1 spray in each nostril Nasally Once a day 08/27/2023 Active Maxzide-25 37.5-25 MG 1/2 tab Orally Once a day Active Vital Signs Blood pressure systolic 120 mm Hg 01/25/20 25 Blood pressure diastolic 80 mm Hg 025 Heart Rate 85 /min 01/24/2025 Height 63.50 in 01/24/2025 Weight 161.6 lbs 01/24/2025 BMI 28.17 kg/m2 01/24/2025 Encounters Encounter Location Date Provider Diagnosis [facility] [address] [facility] [address] [place] [id number] 01/24/2025 Bentley Traore URI (upper respirato ry infection) J06.9 and Laryngitis J04.0 Assessments Encounter Date Diagnosis (ICD Code) Assessment Notes Treatment Notes Treatment Clinical Notes Section Notes 01/24/2025 URI (upper respiratory infection) (ICD-10 - J06.9) 01/24/2025 Laryngitis (ICD-10 - J04.0) Plan Of Treatment Medication Medication Name Sig Start Date Stop Date Notes Medrol 4 MG as directed Orally; Duration: 6 days Next Appt Details Follow Up: prn, Reason: Progress Notes * LUZ CARVAJALDOB:1975 (49 yo F)Acc No.[id number]:01/24/2025 Progress Notes Patient: LUZ BARBA Provider: Bentley Traore M.D. :1975 A ge:49 Y S ex:Female Date:01/24/2025 Address:[address] [place] [address] [id number] Subjective: * Chief Complaints: * 1 . No voice ,drainage. * HPI: E NT/respiratory: The patient is here today with c/o cough, sinus drainage and hoarseness. Pt states this started on Friday, and yesterday she started to lose her voice. 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 49 year old female presents with c/o cough. c/o post nasal drainage. Denies : sore throat. D enies : Fever. D enies : Chest Pain. D enies : Short of Breath. * ROS: D ERMATOLOGY: no R juan pablo. n o H yue. * Medical History: P soriasis, HCM, Western Blot Indeterminate, Brca2 , Flu shot 2023. 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 * Hospitalization/Major Diagno stic Procedure: D enies Past Hospitalization. * Family History: F ather: alive 76 yrs. M other: alive 72 yrs, HTN. P aternal Grand Father: .?Paternal [...] New since last visit: none. 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 Past smoking status: no, Smoking status: [...] nostril Nasally Once a day , Taking Maxzide-25 37.5-25 MG Tablet 1/2 tab Orally Once a day , Taking Lisinopril 5 MG Tablet TAKE 1 TABLET BY MOUTH ONCE DAILY , Medication List reviewed and reconciled with the patient * Allergies: N .K.D.A. Objective: * Vitals: W t: 161.6, Temp: 98.3, BP: 120/80, HR: 85, O2 Sat: 99% on RA, Nurse: ROBERT, Ht: 63.50, BMI:28.17. Assessment: * Assessment: 1. U RI (upper respiratory infection) - J06.9 (Primary) 2 . L aryngitis - J04.0 Plan: * Treatment: Value Reference Range w bc 4.2 3.5 - 10 * l ym 22.4% 15 - 50 * m id 5.7% 2 - 15 * g ran 71.9% 35 - 80 * r bc 3.53 3.5 - 5.5 * h gb 11.3 11.5 - 16.5 * h ct 32.1 35 - 55 * m cv 91.0 75 - 100 * m ch 32.1 25 - 35 * m chc 35.3 31 - 38 * p lat 187 100 - 400 * Qing Mullenira 01/24/2025 4:23:56 PM > , Provider reviewed results while patient in office. ?LAB: Covid test (in house) (Collection Date & Time - 01/24/2025)* Value Reference Range R esult: Neg * Naz Keane Trina 01/24/2025 04 :36:27 PM > Provider reviewed results while patient in office. 2.?Laryngitis? Start Medrol Tablet Therapy Pack, 4 MG, as directed, Orally, 6 days, 1.?? * Labs: * L ab: Influenza Screen (in house) (Collection Date & Time - 01/24/2025) Value Reference Range r esults Neg * Naz Keane Trina 01/24/2025 04 :38:26 PM > Provider reviewed results while patient in office. * Procedure Codes: 9 [address] [place], [address] Flu Test- Nasal Swab, Modifiers: QW , 41439 COVID TEST IN HOUSE, Modifiers: QW , 55444 CBC WITH AUTO DIFF, 30511 CAPILLARY BLOOD DRAW, 3074F SYST BP LT 130 MM HG, 3079F DIAST BP 80-89 MM HG * Follow Up: p rn * Images: Billing Information: * Visit Code: 42577 Office Visit, Est Pt., Level 3. * Procedure Codes: [address] [place]. [address] Flu Test- Nasal Swab. Modifiers: QW 71332 COVID TEST IN HOUSE. Modifiers: QW 27992 CBC WITH AUTO DIFF. 47261 CAPILLARY BLOOD DRAW. 3074F SYST BP LT 130 MM HG. 3079F DIAST BP 80-89 MM HG. * Electronic signature of Bentley Traore MD on 08/18/2025 at 12:44 PM EDT Sign off status: Pending * Provider: Bentley Traore M.D. Date: 0 01/24/2025 Generated for Barrington hebert/Twan/Heath on: 1 12:44 PM EDT History and Physical Notes * HPI (History of Present Illness) Category Sub-Category Detail Notes Category Not es ENT/respiratory sore throat Short of Breath Chest Pain cough Fever post nasal drainage
--- OUTSIDE RECORDS SUMMARY | 2025-04-13 10:15 | XMS_ITS ---
Author Organization [facility] Address [address] [facility] [address] [place] [id number] Care Team Providers Care Commercial Retoucher Name Role Phone Bentley Traore Primary Care Provider Breanna Carter Unavailable [phone] Allergies No Known Allergies REASON FOR VISIT [...] weeks Active Vital Signs Blood pressure systolic 130 mm Hg 04/13/20 25 Blood pressure diastolic 90 mm Hg 025 Heart Rate 83 /min 04/13/2025 Height 63.50 in 04/13/2025 Weight 160.0 lbs 04/13/2025 BMI 27.9 kg/m2 04/13/2025 Encounters Encounter Location Date Provider Diagnosis Juan J [address] [facility] [address] [place] [id number] 04/13/2025 Breanna Carter Vitamin B12 deficien cy [...] Notes * LUZ CARVAJALDOB:1975 (49 yo F)Acc No.[id number]:04/13/2025 Progress Notes Patient: LUZ BARBA Provider: DEBBIE Eng :1975 A ge:49 Y S ex:Female Date:04/13/2025 Address:[address] [place] [address] [id number] Pcp:Bentley Traore Subjective: * Chief Complaints: * [...] Tubal Ligation 01/2016, Hysterectomy, Oopherectomy, Cervix Remains- [facility] 04/07/2019, Bilateral Mastectomy with reconstruction for prophylaxis [...] New since last visit: none. 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 Past smoking status: no, Smoking status: [...] creening, lipid - Z13.220 4 . B NJ 27.0-27.9,adult - Z68.27 c Plan: * Treatment: [...] * Images: Billing Information: * Visit Code: 61511 Office Visit, Est Pt., Level 4. * Procedure Codes: 1036F TOBACCO NON-USER. G8420 BMI<30 AND >=22 CALC & DOCU. G8950 PREHTN/HTN BP DOC INDCD F/U DOC. G8752 MOST RECENT SYSTOLIC BP < 140MM HG. G8754 MOST RECENT DIASTOLIC BP < 90MM HG. * Electronic signature of DEBBIE Payne on 08/18/2025 at 12:43 PM EDT Sign off status: Pending * Provider: DEBBIE Eng Date: 0 04/13/2025 Generated for Bar[place] hebert/Twan/eTransmitting on: 1 12:43 PM EDT History and Physical Notes [...]
--- OUTSIDE RECORDS SUMMARY | 2025-04-14 04:35 | XMS_ITS ---
Author Organization [facility] Address [address] [facility] [address] [place] [id number] Care Team Providers Care Ux Researcher Name Role Phone Bentley Traore Primary Care Provider Breanna Carter Unavailable [phone] Results Component Value Reference Range Notes P-Vitamin B12 Reviewed date:04/15/2025 01:00:51 PM Interpretation:338 Performing Lab: Notes/Report: Test performed by [employer] [address] [place] [address] , [address], [place] [address] Chencho Mahajan MD, Physics Technician CLIA: [id number] Vitamin B12 695 873-1621 pg/mL P-Lipid Panel Reviewed date:04/15/2025 01:00:51 PM Interpretation:chol 205, non-hdl 150, ldl 133 Performing Lab: Notes/Report: Test performed by [facility] [address] [place] [address] , [address], [place] [address] Chencho Mahajan MD, Physics Technician CLIA: [id number] Cholesterol 205 <200 mg/dL Triglycerides 87 <150 [...] Provider Diagnosis [facility] [address] [place] [phone] 04/14/2025 Breanna Carter Hyperlipidemia, unspecified hyperlipidemia type E78.5 and Vitamin B12 deficiency E53.8 Assessments Encounter Date Diagnosis (ICD Code) Assessment Notes Treatment Notes Treatment Clinical Notes Section Notes 04/14/2025 Hyperlipidemia, unspecified hyperlipidemia type (ICD-10 - E78.5) 04/14/2025 Vitamin B12 deficiency (ICD-10 - E53.8) Plan Of Treatment No Information Progress Notes * WEI CANDIDADOB:1975 (49 yo F)Acc No.[id number]:04/14/2025 Patient: LUZ BARBA Provider: DEBBIE Eng :1975 A ge:49 Y S ex:Female Date:04/14/2025 Address:[facility] [id number] Pcp:Bentley Traore Subjective: * Chief Complaints: * [...] AM)?338* Value Reference Range V itamin B12 506 611-6575 - pg/mL * Mckenzie Stroud 04/15/2025 01: 00:43 PM EDT > See phone encounter * Images: Billing Information: * Visit Code: * Procedure Codes: * Electronic signature of DEBBIE Payne on 08/18/2025 at 12:43 PM EDT Sign off status: Pending * Provider: DEBBIE Eng Date: 0 04/14/2025 Generated for [place] ng/Fanareng/eTransmitting on: 1 12:43 PM EDT
--- OUTSIDE RECORDS SUMMARY | 2025-06-15 06:15 | XMS_ITS ---
[facility] Address [address] [place] [id number] Care Team Providers Care Process Engineering Intern Name Role Phone Bentley Traore Primary Care Provider Breanna Carter Unavailable [phone] Allergies No Known Allergies Results Component Value Reference Range Notes Urinalysis - Inhouse Reviewed date:06/17/2025 05:04:22 PM Interpretation: Performing Lab: Notes/Report: Color/Clarity yellow/clear Leuk neg Nitrite neg Urobili 3.2 Protein 1+ pH 5.5 Blood neg Sp. Gr. 1.010 Ketone neg Bili neg Gluc neg CBC Fingerstick (in house) Reviewed date:06/17/2025 05:04:22 PM Interpretation: Performing Lab: Notes/Report: wbc 4.1 3.5 - 10 lym 33.2 15 - 50 mid 6.1 2 - 15 gran 60.7 35 - 80 rbc 4.30 3.5 - 5.5 hgb 13.7 11.5 - 16.5 hct 39.2 35 - 55 mcv 91.0 75 - 100 mch 31.9 25 - 35 mchc 35.0 31 - 38 plat 155 100 - 400 REASON FOR VISIT Chest Congestion Medications Medication SIG (Take, Route, Fr equency, Duration) Notes Start Date End Date Status Lisinopril 5 MG TAKE 1 TABLET BY SHIRA TH ONCE DAILY Orally Once a day; Duration: 90 days Active Albuterol Sulfate HFA 108 (90 Base) MCG/ACT 1 puff as needed Inhalation every 4 hrs, prn 06/15/2025 Active Maxzide-25 37.5-25 MG 1/2 tab Orally Onc e a day; Duration: 90 days Active Flonase Allergy Relief 50 MCG/ACT 1 spray in each nostril Nasally Once a day 08/27/2023 Active Taltz 80 MG/ML as directed subcutan eously every 4 weeks Active Promethazine-DM 6.25-15 MG/5ML 5 mL Orally every 6 hrs, prn 06/15/2025 Active Vital Signs Blood pressure systolic 116 mm Hg 06/15/20 25 Blood pressure diastolic 70 mm Hg 025 Heart Rate 78 /min 06/15/2025 Height 63.50 in 06/15/2025 Weight 161 lbs 06/15/2025 BMI 28.07 kg/m2 06/15/2025 Encounters Encounter Location Date Provider Diagnosis [facility] [address] [place] [id number] 06/15/2025 Breanna Carter Bronchitis J40 and Proteinuria, unspecified type R80.9 Assessments Encounter Date Diagnosis (ICD Code) Assessment Notes Treatment Notes Treatment Clinical Notes Section Notes 06/15/2025 Bronchitis (ICD-10 - J40) 06/15/2025 Proteinuria, unspecified type (ICD-10 - R80.9) Increase water intake. Plan Of Treatment Medication Medication Name Sig Start Date Stop Date Notes Albuterol Sulfate HFA 108 (9 0 Base) MCG/ACT 1 puff as needed Inhalation every 4 hrs, prn 06/15/2025 Promethazine-DM 6.25-15 MG/5ML 5 mL Orally every 6 hrs, prn 06/15/2025 Treatment Notes Assessment Notes Proteinuria, unspecified type Increase w ater intake. Next Appt Details Follow Up: prn, Reason: Progress Notes * LUZ CARVAJALDOB:1975 (49 yo F)Acc No.[id number]:06/15/2025 Progress Notes Patient: LUZ BARBA Provider: DEBBIE Eng :1975 A ge:49 Y S ex:Female Date:06/15/2025 Address:[address] [place] [address] [id number] Pcp:Bentley Traore Subjective: * Chief Complaints: * 1 . Chest Congestion. * HPI: E NT/respiratory: 49 year old female presents with c/o chest congestion P t here for chest congestion. Pt states this started a few days ago. Pt states that she not getting better. Denies : sore throat. D enies : cough. D enies : nasal congestion. D enies : Fever. D enies : ear pain. D enies : Chest Pain. D enies : Short of Breath. D enies : headache. D enies : dizziness. D enies : body aches. U rology: c/o flank pain b ilateral. Denies : frequent urination. D enies : burning sensation.? * ROS: D ERMATOLOGY: no R juan [...] Tubal Ligation 01/2016, Hysterectomy, Oopherectomy, Cervix Remains- [facility] 04/07/2019, Bilateral Mastectomy with reconstruction for [...] New since last visit: none. 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 Past smoking status: no, Smoking status: Does [...] TAKE 1 TABLET BY MOUTH ONCE DAILY Orally Once a day , Medication List reviewed and reconciled with the patient * Allergies: N .K.D.A. Objective: * Vitals: W t: 161, Temp: 98.7, BP: 116/70, HR: 78, Nurse: pe, Ht: 63.50, BMI:28.07. * Examination: E NT/Respiratory: General Appearance: N AD. E ars: a uditory canals normal bilaterally, TM's WNL. N ose : n ormal, no lesions, nares patent. S inuses : n on tender bilaterally. O ral cavity : n o erythema or exudate seen on pharynx. N karlie : no cervical lymphadenopathy. H eart : R RR, normal S1 S2, no murmurs. L ungs: e xpiratory wheezes, no rales. Assessment: * Assessment: 1. B ronchitis - J40 (Primary) 2 . P roteinuria, unspecified type - R80.9? Plan: * Treatment: Value Reference Range w bc 4.1 3.5 - 10 * l ym 33.2 15 - 50 * m id 6.1 2 - 15 * g ran 60.7 35 - 80 * r bc 4.30 3.5 - 5.5 * h gb 13.7 11.5 - 16.5 * h ct 39.2 35 - 55 * m cv 91.0 75 - 100 * m ch 31.9 25 - 35 * m chc 35.0 31 - 38 * p lat 155 100 - 400 * Lorrie Powers 06/15/2025 1 1:15:28 AM EDT > Provider reviewed results while patient in office. 2.?Proteinuria, unspecified type?LAB: Urinalysis - Inhouse (Collection Date & Time - 06/15/2025)* Value Reference Range C olor/Clarity yellow/clear * L euk neg * N itrite neg * U robili 3.2 * P rotein 1+ * p H 5.5 * B lood neg * S p. Gr. 1.010 * K etone neg * B kylee neg * G maddy neg * Lorrie Powers 06/15/2025 1 1:13:57 AM EDT > Provider reviewed results while patient in office. Notes: Increase water intake.?? * Procedure Codes: 8 1002 Urinalysis, no micro, 327[address] CBC WITH AUTO DIFF, 82381 CAPILLARY BLOOD DRAW * Follow Up: p rn * Images: Billing Information: * Visit Code: 17651 Office Visit, Est Pt., Level 3. * Procedure Codes: 56093 Urinalysis, no micro. 93559 CBC WITH AUTO DIFF. 38517 CAPILLARY BLOOD DRAW. * Electronic signature of DEBBIE Payne on 08/18/2025 at 12:45 PM EDT Sign off status: Pending * Provider: DEBBIE Eng Date: 0 06/15/2025 Generated for Alejai emilee/Fanareng/eTransmitting on: 1 12:45 PM EDT History and Physical Notes * HPI (History of Present Illness) Category Sub-Category Detail Notes Category Not es ENT/respiratory sore throat ear pain Short of Breath Chest Pain cough Fever headache chest congestion Pt here for chest co ngestion. Pt states this started a few days ago. Pt states that she not getting better nasal congestion dizziness body aches Urology frequent urination burning sensation flank pain bilateral Examination Category Sub-Category Detail Notes Category Not es ENT/Respiratory Oral cavity : no erythema or exudate s een on pharynx Sinuses : non tender bilateral ly Ears: auditory canals norm al bilaterally, TM's WNL Neck : no cervical lymphade nopathy Heart : RRR, normal S1 S2, n o murmurs Lungs: expiratory wheezes, no rales General Appearance: NAD Nose : normal, no lesions, nares patent
--- OUTSIDE RECORDS SUMMARY | 2025-08-02 08:45 | XMS_ITS | Encounter Summary ---
Author Organization [facility] Address [address] [place] [address] Care Team Providers Care Nnp Name Role Phone Melecio Traore MD Primary Care Provider [phone] Reason for Visit * Reason Comments Follow-up Arthralgia, unspecified joint Encounter Details Date Type Department Care Team (Late st Contact Info) Description 08/02/2025 8:45 AM EDT Office Visit [facility] RHE[facility]ATOLOGY [address] [address] Horace Hamilton MD [address] [address] Arthralgia, unspecified joint (Primary Dx); Psoriasis; High risk medication use; Immunosuppression due to drug therapy; Low vitamin D level; Anemia, unspecified type; Other fatigue Social History Tobacco Use Types Packs/Day Years Used Date Smoking Tobacco: Never Smokeless Tobacco: Never Tobacco Cessation:Counseling Given: Not Answered Alcohol Use Standard Drinks/Week Comments Not Currently 0 (1 standard drink = 0.6 oz pur e alcohol) rare, socially Abuse Screen Answer Date Recorded Feels Unsafe at Home or Work/School no 09/24/2022 Feels Threatened by Someone no 09/04 Does Anyone Try to Keep You From Having Contact with Others or Doing Things Outside Your Home? no 09/24/2022 Physical Signs of Abuse Present no 09/24/2022 Housing Stability Answer Date Recorded Current Living Arrangements home 09/04 Potentially Unsafe Housing Conditions Not on abby e 09/24/2022 Disabilities Answer Date Recorded Difficulty Concentrating, Remembering or Making Decisions no 09/24/2022 Difficulty Managing Errands Independently no 09/24/2022 Education Answer Date Recorded Help with school or training? Not on file Preferred Language Moroccan 09/17/2022 Comments No Sex and Gender Information Value Date Recorded Sex Assigned at Not on file Legal Sex Female 4:39 PM EST Gender Identity Not on file Sexual Orientation Not on file documented as of this encounter Last Filed Vital Signs Vital Sign Reading Time Taken Comments Blood Pressure 118/70 08/02/2025 8:44 AM EDT Pulse 96 08/02/2025 8:44 AM EDT Temperature 36.6 C (97.9 F) 08/02/2025 8:44 AM EDT Respiratory Rate - - Oxygen Saturation - - Inhaled Oxygen Concentration - - Weight 74 kg (163 lb 3.2 oz) 08/02/2025 8:44 AM EDT Height 172.7 cm (5' 8 ) 08/02/2025 8:44 AM EDT Body Mass Index 24.81 08/02/2025 8:44 AM EDT documented in this encounter Patient Instructions * Patient Instructions* Horace Hamilton MD - 08/02/2025 8:45 AM EDT Celecoxib Capsules What is this medication? CELECOXIB (sell a KOX ib) treats mild to moderate pain, inflammation, or arthritis. It belongs to agroup of medications called NSAIDs. This medicine may be used for other purposes; ask your health care provider or pharmacist if you have questions. COMMON BRAND NAME(S): Celebrex What should I tell my care team before I take this medication? They need to know if you have any of these conditions: Bleeding disorder Coronary artery bypass graft (CABG) the past 2 weeks Frequently drink alcohol Heart attack Heart disease Heart failure High blood pressure High levels of potassium in your blood Kidney disease Liver disease Low red blood cell levels Lung or breathing disease, such as asthma Receiving steroids, such as dexamethasone or prednisone Stomach bleeding Stomach or intestine problems Take medications that treat or prevent blood clots Tobacco use An unusual or allergic reaction to celecoxib, other medications, foods, dyes, or preservatives or trying to get How should I use this medication? Take this medication by mouth with water. Take it as directed on the prescription label at the sametime every day. Do not cut, crush, or chew this medication. Swallow the capsules whole. You may open the capsule and put the contents in 1 teaspoon of applesauce. Swallow the medication and applesauce right away. Do not chew the medication or applesauce. A special MedGuide will be given to you by the pharmacist with each prescription and refill. Be sure to read this information carefully each time. Talk to your care team about the use of this medication in children. While it may be prescribed forchildren as young as 2 years for selected conditions, precautions do apply. People 65 years and older may have a stronger reaction and need a smaller dose. Overdosage: If you think you have taken too much of this medicine contact a poison control center or emergency room at once. NOTE: This medicine is only for you. Do not share this medicine with others. What if I miss a dose? If you miss a dose, take it as soon as you can. If it is almost time for your next dose, take only that dose. Do not take double or extra doses. What may interact with this medication? Do not take this medication with any of the following: Cidofovir Ketorolac Thioridazine This medication may also interact with the following: Alcohol Aspirin and aspirin-like medications Atomoxetine Certain medications for blood pressure, heart disease, irregular heartbeat Certain medications for mental health conditions Certain medications that treat or prevent blood clots, such as warfarin, enoxaparin, dalteparin, apixaban, dabigatran, and rivaroxaban Cyclosporine Digoxin Diuretics Fluconazole Justice Addition Methotrexate Other NSAIDs, medications for pain and inflammation, such as ibuprofen or naproxen Pemetrexed Rifampin Steroid medications, such as prednisone or cortisone This list may not describe all possible interactions. Give your health care provider a list of all the medicines, herbs, non-prescription drugs, or dietary supplements you use. Also tell them if you smoke, drink alcohol, or use illegal drugs. Some items may interact with your medicine. What should I watch for while using this medication? Visit your care team for regular checks on your progress. Tell your care team if your symptoms do not start to get better or if they get worse. Do not take other medications that contain aspirin, ibuprofen, or naproxen with this medication. Side effects such as stomach upset, nausea, or ulcers may be more likely to occur. Many non-prescription medications contain aspirin, ibuprofen, or naproxen. Always read labels carefully. This medication can cause serious ulcers and bleeding in the stomach. It can happen with no warning. Tobacco, alcohol, older age, and poor health can also increase risks. Call your care team right away if you have stomach pain or blood in your vomit or stool. This medication does not prevent a heart attack or stroke. This medication may increase the chance of a heart attack or stroke. The chance may increase the longer you use this medication or if you have heart disease. If you take aspirin to prevent a heart attack or stroke, talk to your care team about using this medication. This medication may cause serious skin reactions. They can happen weeks to months after starting the medication. Contact your care team right away if you notice fevers or flu-like symptoms with a rash. The rash may be red or purple and then turn into blisters or peeling of the skin. You may also notice a red rash with swelling of the face, lips, or lymph nodes in your neck or under your arms. Talk to your care team if you wish to become or think you might be . This medication can cause serious defects if used after 20 weeks of . Your care team will monitor you closely if you need to take it between weeks 20 and 30 of . It is not recommended to take this medication after 30 weeks of . This medication may affect your coordination, reaction time, or judgment. Do not drive or operate machinery until you know how this medication affects you. Sit up or stand slowly to reduce the risk of dizzy or fainting spells. Drinking alcohol with this medication can increase the risk of these side effects. Be careful brushing or flossing your teeth or using a toothpick because you may get an infection orbleed more easily. If you have any dental work done, tell your dentist you are receiving this medication. This medication may make it more difficult to get . Talk to your care team if you are concerned about your fertility. What side effects may I notice from receiving this medication? Side effects that you should report to your care team as soon as possible: Allergic reactions--skin rash, itching, hives, swelling of the face, lips, tongue, or throat Bleeding--bloody or black, tar-like stools, vomiting blood or brown material that looks like coffeegrounds, red or dark brown urine, small red or purple spots on skin, unusual bruising or bleeding Heart attack--pain or tightness in the chest, shoulders, arms, or jaw, nausea, shortness of breath,cold or clammy skin, feeling faint or lightheaded Heart failure--shortness of breath, swelling of ankles, feet, or hands, sudden weight gain, unusualweakness or fatigue Increase in blood pressure Kidney injury--decrease in the amount of urine, swelling of the ankles, hands, or feet Liver injury--right upper belly pain, loss of appetite, nausea, light-colored stool, dark yellow orbrown urine, yellowing skin or eyes, unusual weakness or fatigue Rash, fever, and swollen lymph nodes Redness, blistering, peeling, or loosening of the skin, including inside the mouth Stroke--sudden numbness or weakness of the face, arm, or leg, trouble speaking, confusion, trouble walking, loss of balance or coordination, dizziness, severe headache, change in vision Side effects that usually do not require medical attention (report to your care team if they continue or are bothersome): Headache Loss of appetite Nausea Upset stomach This list may not describe all possible side effects. Call your doctor for medical advice about side effects. You may report side effects to FDA at 8-502-IXK-1132. Where should I keep my medication? Keep out of the reach of children and pets. Store at room temperature between 15 and 30 degrees C (59 and 86 degrees F). Get rid of any unused medication after the expiration date. To get rid of medications that are no longer needed or have : Take the medication to a medication take-back program. Check with your pharmacy or law enforcement to find a location. If you cannot return the medication, check the label or package insert to see if the medication should be thrown out in the garbage or flushed down the toilet. If you are not sure, ask your care team. If it is safe to put it in the trash, empty the medication out of the container. Mix the medication with cat litter, dirt, coffee grounds, or other unwanted substance. Seal the mixture in a bag or container. Put it in the trash. NOTE: This sheet is a summary. It may not cover all possible information. If you have questions about this medicine, talk to your doctor, pharmacist, or health care provider. ?? 2023 Elsevier/Gold Standard (2023-07-13 00:00:00) documented in this encounter Progress Notes * Nicola Soler RN - 08/02/2025 8:45 AM EDTAddended by: NICOLA SOLER on: 08/15/2025 02:11 PM Modules accepted: Orders * Horace Hamilton MD - 08/02/2025 8:45 AM EDT Images from the original note were not included. Office Follow Up Date: 08/02/2025 Patient Name: Jolly Gordon Date of : 1975 Referring Physician: No ref. provider found Chief Complaint: Chief Complaint Patient presents with Follow-up Arthralgia, unspecified joint History of Present Illness: Jolly Gordon is a 49 y.o. female who is here today for followup on joint pain. She is a former Dr. Bravo and Dr. Donita Vu patient. Overall she has been doing well. No swollen joints. No flares of psoriasis. She denies any recent injuries or infections. We prescribed her Celebrex 200 mg twice daily as needed for joint pain. She declines refills today. She is on Taltz for psoriasis per her res habilitation assistant. This is very effective. She reports hair loss in the interim and wants her thyroid checked History of Present Illness Subjective Review of Systems: Review of Systems Constitutional: Positive for fatigue and unexpected weight gain. Negative for chills, fever and unexpected weight loss. HENT: Negative for mouth sores, sinus pressure and sore throat. Eyes: Negative for pain and redness. Respiratory: Negative for cough and shortness of breath. Cardiovascular: Negative for chest pain. Gastrointestinal: Positive for diarrhea. Negative for abdominal pain, blood in stool, nausea, vomiting and GERD. Endocrine: Negative for polydipsia and polyuria. Genitourinary: Negative for dysuria, genital sores and hematuria. Musculoskeletal: Positive for arthralgias. Negative for back pain, joint swelling, myalgias, neck pain and neck stiffness. Skin: Positive for dry skin. Negative for rash and bruise. Neurological: Negative for seizures, weakness, numbness and memory problem. Hematological: Negative for adenopathy. Does not bruise/bleed easily. Psychiatric/Behavioral: Negative for depressed mood. The patient is not nervous/anxious. 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 Fatigue Osteoarthritis Psoriasis Spinal headache 28 year ago with vaginal Vitamin B12 deficiency (non anemic) Vitamin D deficiency Past Surgical History: Past Surgical History: Procedure Laterality Date BREAST RECONSTRUCTION, BREAST TISSUE DESIGN SUPERVISOR REMOVAL, IMPLANT INSERTION Bilateral 06/26/2021 Procedure: BREAST TISSUE EXPANDERS EXCHANGE TO PERMANENT IMPLANTS BILATERAL; Surgeon: Quintin Lay MD; Location: [facility] OR; Service: Plastics; Laterality: Bilateral; BREAST SURGERY May 1991 Breast Reduction, bilateral mastectomy 10-03-20, ENDOMETRIAL ABLATION 2017 FAT GRAFTING Bilateral 06/26/2021 Procedure: BREAST REVISION WITH FAT GRAFTING BILATERAL; Surgeon: Quintin Lay MD; Location: [facility] OR; Service: Plastics; Laterality: Bilateral; FAT GRAFTING Bilateral 09/24/2022 Procedure: FAT GRAFTING BILATERAL BREAST; Surgeon: Quintin Lay MD; Location: [facility] OR; Service: Plastics; Laterality: Bilateral; HYSTERECTOMY 2018 BSO LYMPH NODE BIOPSY 2010 MASTECTOMY bilateral 10-03-20 TUBAL ABDOMINAL LIGATION WOUND CLOSURE Bilateral 09/24/2022 Procedure: UPPER FLANK COMPLEX CLOSURE BILATERAL; Surgeon: Quintin Lay MD; Location: [facility] OR; Service: Plastics; Laterality: Bilateral; Family History: History reviewed. No pertinent family history. Social History: Social History Socioeconomic History Marital status: Tobacco Use Smoking status: Never Smokeless tobacco: Never Vaping Use Vaping status: Never Used Substance and Sexual Activity Alcohol use: Not Currently Comment: rare, socially Drug use: Never Sexual activity: Yes Partners: Male Medications: Current Outpatient Medications: celecoxib (CeleBREX) 200 MG capsule, Take 1 capsule by mouth 2 (Two) Times a Day As Needed for MildPain., Disp: 60 capsule, Rfl: 5 ibuprofen (ADVIL,MOTRIN) 200 MG tablet, Take 1 tablet by mouth Every 6 (Six) Hours As Needed for Mild Pain., Disp: , Rfl: Ixekizumab (Taltz) 80 MG/ML solution auto-injector, Inject 80 mg under the skin into the appropriate area as directed Every 30 (Thirty) Days., Disp: , Rfl: multivitamin with minerals (ONE DAILY FOR WOMEN PO), Take 1 tablet by mouth Daily., Disp: , Rfl: Allergies: No Known Allergies Objective Vital Signs: Vitals: 08/02/25 0844 BP: 118/70 Pulse: 96 Temp: 97.9 ??F (36.6 ??C) Weight: 74 kg (163 lb 3.2 oz) Height: 172.7 cm (68 ) PainSc: 2 Body mass index is 24.81 kg/m??. Physical Exam: Physical Exam MUSCULOSKELETAL: No peripheral synovitis Enlarged CMC joints thumbs Complete joint exam was performed including the MCPs, PIPs, DIPs of the hands, wrists, elbows, shoulders, hips, knees and ankles. No soft tissue swelling or tenderness is present except as above. General: The patient is well-developed and well nourished. Cooperative, alert and oriented. Affect is normal. Hydration appears normal. HEENT: Normocephalic and atraumatic. Lids and conjunctiva are normal. Pupils are equal and sclera are clear. Oropharynx is clear NECK neck is supple without adenopathy, masses or thyromegaly. CARDIOVASCULAR: Regular rate and rhythm. No murmurs, rubs or gallops LUNGS: Effort is normal. Lungs are clear bilateral ABDOMEN: Not examined EXTREMITIES: Peripheral pulses are intact. No clubbing. SKIN: No rashes. No subcutaneous nodules. No digital ulcers. No sclerodactyly. NEUROLOGIC: Gait is normal. Strength testing is normal. No focal neurologic deficits Results Review: Labs: Lab Results Component Value Date GLUCOSE 90 09/17/2022 BUN 12 09/17/2022 CREATININE 0.81 09/17/2022 EGFR 89.7 09/17/2022 BCR 14.8 09/17/2022 K 4.0 09/17/2022 CO2 27.0 09/17/2022 CALCIUM 9.9 09/17/2022 Lab Results Component Value Date WBC 4.06 09/17/2022 HGB 13.8 09/17/2022 HCT 39.7 09/17/2022 MCV 91.9 09/17/2022 PLT 216 09/17/2022 No results found for: SEDRATE No results found for: CRP No results found for: QUANTIFERO , QUANTITB1 , QUANTITB2 , QUANTIFERN , QUANTIFERM , QUANTITBGLDP No results found for: RF No results found for: HEPBSAG , HEPAIGM , HEPBIGMCORE , HEPCVIRUSABY Procedures Assessment / Plan - Arthralgias of multiple joints - Osteoarthritis CMC joints Four children. [facility]. 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 Bella No evidence for psoriatic arthritis. Her intermittent joint pain does not seem inflammatory. More degenerative in nature or related to overuse (tendonitis). 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 and tendonitis in her feet. - Continue celecoxib 200 mg BID p.r.n. OA pain - She can wear a SPIKA brace at night for her thumbs/CMC osteoarthritis - Thumbs doing well. - She does not take the celecoxib that often. Refilled - Labs ordered for monitoring as below including thyroid studies with her hair loss complaint today. - Return to clinic 6 months - Psoriasis Current Rx: Taltz with her res habilitation assistant Dr. Bella - Continue Taltz per Dermatology. Taltz has really helped her skin but not her joints. High-risk medication. Well tolerated and effective. No serious side effects - High risk medication use - Immunosuppression due to medication - halfway (current) use of non-steroidal anti-inflammatories (nsaid) Celebrex Check CBC and CMP every 6 months. Lab order given today. Risks of NSAIDs discussed including GI upset, GI bleeding, renal or hepatic risks and the risk of cardiovascular disease and stroke. Warned patient not to take other NSAIDs including [id number] - Fatigue - Hair loss Check labs as below Assessment & Plan 1. Arthralgia, unspecified joint 2. Psoriasis 3. High risk medication use 4. Immunosuppression due to drug therapy 5. Low vitamin D level 6. Anemia, unspecified type 7. Other fatigue Orders Placed This Encounter Procedures Comprehensive Metabolic Panel CBC Auto Differential C-reactive Protein Sedimentation Rate Thyroid Panel With TSH Ferritin Iron Profile w/o Ferritin Vitamin B12 Vitamin D,25-Hydroxy New Medications Ordered This Visit Medications celecoxib (CeleBREX) 200 MG capsule Sig: Take 1 capsule by mouth 2 (Two) Times a Day As Needed for Mild Pain. Dispense: 60 capsule Refill: 5 Follow Up: Return in about 6 months (around 01/30/2026). Discussed plan of care in detail with the patient today. Patient verbalized understanding and agrees. I confirm accuracy of unchanged data/findings which have been carried forward from previous visit. I have updated appropriately those that have changed. Horace Hamilton MD [facility] [place] documented in this encounter Plan of Treatment Upcoming Encounters Date Type Department Care Team (Late st Contact Info) Description 01/30/2026 8:45 AM EDT Office Visit [facility] RHEUMATOLOGY [address] [address] Horace Hamilton MD [address] [id number] Scheduled Orders Name Type Priority Associated Diagnoses Orde r Schedule CBC Auto Differential Lab Routine Arthralgia, unspecified joint Psoriasis High risk medication use Immunosuppression due to drug therapy Other fatigue Ordered: 08/02/2025 documented as of this encounter Procedures Procedure Name Priority Date/Time Associated Diagnosis Comments IRON PROFILE Routine 08/02/2025 9:29 AM EDT Anemia, unspecified type Arthralgia, unspecified joint Psoriasis High risk medication use Immunosuppression due to drug therapy Other fatigue VITAMIN D,25-HYDROXY Routine 08/02/2025 9:29 AM EDT Low vitamin D level Arthralgia, unspecified joint Psoriasis High risk medication use Immunosuppression due to drug therapy Other fatigue SEDIMENTATION RATE Routine 08/02/2025 9: 29 AM EDT Arthralgia, unspecified joint Psoriasis High risk medication use Immunosuppression due to drug therapy Other fatigue CBC AND DIFFERENTIAL Routine 08/02/2025 9:29 AM EDT C-REACTIVE PROTEIN Routine 08/02/2025 9: 29 AM EDT Arthralgia, unspecified joint Psoriasis High risk medication use Immunosuppression due to drug therapy Other fatigue FERRITIN Routine 08/02/2025 9:29 AM EDT Anemia, unspecified type Arthralgia, unspecified joint Psoriasis High risk medication use Immunosuppression due to drug therapy Other fatigue VITAMIN B12 Routine 08/02/2025 9:29 AM EDT Arthralgia, unspecified joint Psoriasis High risk medication use Immunosuppression due to drug therapy Other fatigue COMPREHENSIVE METABOLIC PANEL Routine 08/02/2025 9:29 AM EDT Arthralgia, unspecified joint Psoriasis High risk medication use Immunosuppression due to drug therapy Other fatigue documented in this encounter Results * Thyroid Panel With TSH (08/15/2025) Blood us Horace Hamilton MD LAB BLOOD ORDERABLES Final Result [facility] (AM[facility]ULAT[facility]) [address] [place] [address], * (ABNORMAL) CBC & Differential (08/02/2025 9:29 AM EDT) WBC 3.84 3.40 - 10.80 10*3/mm3 [facility] RBC 4.36 3.77 - 5.28 10*6/mm3 [facility] Hemoglobin 13.9 12.0 - 15.9 g/dL [facility] Hematocrit 41.0 34.0 - 46.6 % [facility] MCV 94.0 79.0 - 97.0 fL [facility] MCH 31.9 26.6 - 33.0 pg [facility] MCHC 33.9 31.5 - 35.7 g/dL [facility] RDW 11.7(L) 12.3 - 15.4 % [facility] Platelets 235 140 - 450 10*3/mm3 [facility] Neutrophil Rel % 59.9 42.7 - 76.0 % [facility] Lymphocyte Rel % 27.6 19.6 - 45.3 % [facility] Monocyte Rel % 9.1 5.0 - 12.0 % [facility] Eosinophil Rel % 2.3 0.3 - 6.2 % [facility] Basophil Rel % 0.8 0.0 - 1.5 % [facility] Neutrophils Absolute 2.30 1.70 - 7.00 10*3/mm3 [facility] Lymphocytes Absolute 1.06 0.70 - 3.10 10*3/mm3 [facility] Monocytes Absolute 0.35 0.10 - 0.90 10*3/mm3 [facility] Eosinophils Absolute 0.09 0.00 - 0.40 10*3/mm3 [facility] Basophils Absolute 0.03 0.00 - 0.20 10*3/mm3 [facility] Immature Granulocyte Rel % 0.3 0.0 - 0.5 % [facility] Immature Grans Absolute 0.01 0.00 - 0.05 10*3/mm3 [facility] nRBC 0.0 0.0 - 0.2 /100 WBC [facility] 08/02/2025 9:29 AM EDT 08/02/2025 Narrative [facility] ([facility]) - 08/03/2025 1:06 AM EDT Performed at: [address] [place] [id number] Statistical Consultant: Ab Salcido MD, Phone: [phone] Patient Fasting: N Horace Hamilton MD LAB BLOOD ORDERABLES Final Result Performing Organization Address City/State/[facility] Co de Phone Number [facility] ([facility]) [address] [place] [address], [facility] [address] [place] [address], * Vitamin D,25-Hydroxy (08/02/2025 9:29 AM EDT) [facility] 25 Hydroxy, Vitamin D 34.4 30.0 - 100.0 ng/ml [facility] Comment: Reference Range for Total Vitamin D 25(OH) Deficiency <20.0 ng/mL Insufficiency 21-29 ng/mL Sufficiency 30-100 ng/mL Toxicity >100 ng/ml Blood 08/02/2025 9:29 AM EDT 08/02/2025 Narrative [facility] ([facility]) - 08/03/2025 1:06 AM EDT Performed at: [address] [place] [address] [address] [place], [place] [id number] Statistical Consultant: Ab Salcido MD, Phone: [phone] Patient Fasting: N us Horace Hamilton MD LAB BLOOD ORDERABLES Final Result Performing Organization Address [facility] de Phone Number [facility] ([facility]) [address] [place] [address], [place] [phone] [facility] [address] [place] [address], [place] [phone] * Vitamin B12 (08/02/2025 9:29 AM EDT) [facility] Vitamin B-12 346 211 - 946 pg/mL [facility] Comment:Results may be false ly increased if patient taking Biotin. Blood 08/02/2025 9:29 AM EDT 08/02/2025 Narrative [facility] ([facility]BULATORY) - 08/03/2025 1:06 AM EDT Performed at: [address] [place] [address] [id number] Statistical Consultant: Ab Salcido MD, Phone: [phone] Patient Fasting: N us Horace Hamilton MD LAB BLOOD ORDERABLES Final Result Performing Organization Address [facility] Co de Phone Number [facility] (AMBULATORY) [address] [place] [address], [place] [phone] [facility] [address] [place] [address], [place] [phone] * Iron Profile w/o Ferritin (08/02/2025 9:29 AM EDT) Pathologist [facility] TIBC 384 mcg/dL [facility] UIBC 256 112 - 346 mcg/dL [facility] Iron 128 37 - 145 mcg/dL [facility] Iron Saturation 33 20 - 50 % [facility] Blood 08/02/2025 9:29 AM EDT 08/02/2025 Narrative [facility] ([facility]) - 08/03/2025 1:06 AM EDT Performed at: [address] [place] [address] [id number] Statistical Consultant: Ab Salicdo MD, Phone: [phone] Patient Fasting: N us Horace Hamilton MD LAB BLOOD ORDERABLES Final Result Performing Organization Address [facility] de Phone Number [facility] ([facility]BULATORY) [address] [place] [address], [facility] [address] [place] [address], * Ferritin (08/02/2025 9:29 AM EDT) Ferritin 65.00 13.00 - 150.00 ng/mL [facility] Comment:Results may be false ly decreased if patient taking Biotin. Blood 08/02/2025 9:29 AM EDT 08/02/2025 Narrative [facility] ([facility]) - 08/03/2025 1:06 AM EDT Performed at: [address] [place] [address] [id number] Statistical Consultant: Ab Salcido MD, Phone: [phone] Patient Fasting: N us Horace Hamilton MD LAB BLOOD ORDERABLES Final Result Performing Organization Address [facility] de Phone Number [facility] (AMBULATORY) [address] [place] [address], [facility] [address] [place] [address], * Sedimentation Rate (08/02/2025 9:29 AM EDT) Sed Rate 9 0 - 30 mm/hr [facility] Blood 08/02/2025 9:29 AM EDT 08/02/2025 Narrative [facility] ([facility]) - 08/03/2025 1:06 AM EDT Performed at: [address] [place] [address] [address] [place], [place] [id number] Statistical Consultant: Ab Salcido MD, Phone: [phone] Patient Fasting: N us Horace Hamilton MD LAB BLOOD ORDERABLES Final Result Performing Organization Address [facility] Co de Phone Number [facility] (AMBULATORY) [address] [place] [address], [place] [phone] [facility] [address] [place] [address], [place] [phone] * C-reactive Protein (08/02/2025 9:29 AM EDT) Pathologist [facility] C-Reactive Protein <0.30 0.00 - 0.50 mg/dL [facility] Blood 08/02/2025 9:29 AM EDT 08/02/2025 Narrative [facility] ([facility]) - 08/03/2025 1:06 AM EDT Performed at: [address] [place] [address] [address] [place], [place] [id number] Statistical Consultant: Ab Salcido MD, Phone: [phone] Patient Fasting: N us Horace Hamilton MD LAB BLOOD ORDERABLES Final Result Performing Organization Address [facility] Co de Phone Number [facility] (AMBULATORY) [address] [place] [address], [place] [phone] [facility] [address] [place] [address], [place] [phone] * (ABNORMAL) Comprehensive Metabolic Panel (08/02/2025 9:29 AM EDT) Pathologist [facility] Glucose 64(L) 65 - 99 mg/dL [facility] BUN 13.0 6.0 - 20.0 mg/dL [facility] Creatinine 0.94 0.57 - 1.00 mg/dL [facility] EGFR Result 73.6 >60.0 mL/min/1.7 3 [facility] Comment: GFR Categories in Chronic Kidney Disease (CKD) GFR Category GFR (mL/min/1.73) Interpretation G1 90 or greater Normal or high (1) G2 60-89 Mild decrease (1) G3a 45-59 Mild to moderate decrease G3b 30-44 Moderate to severe decrease G4 15-29 Severe decrease G5 14 or less Kidney failure (1)In the absence of evidence of kidney disease, neither GFR category G1 or G2 fulfill the criteria for CKD. eGFR calculation 2020 CKD-EPI creatinine equation, which does not include race as a factor BUN/Creatinine Ratio 13.8 7.0 - 25.0 [facility] Sodium 141 136 - 145 mmol/L [facility] Potassium 3.9 3.5 - 5.2 mmol/L [facility] Chloride 102 98 - 107 mmol/L [facility] Total CO2 24.4 22.0 - 29.0 mmol/L [facility] Calcium 9.3 8.6 - 10.5 mg/dL [facility] Total Protein 7.3 6.0 - 8.5 g/dL [facility] Albumin 4.5 3.5 - 5.2 g/dL [facility] Globulin 2.8 gm/dL [facility] A/G Ratio 1.6 g/dL [facility] Total Bilirubin 0.5 0.0 - 1.2 mg/dL [facility] Alkaline Phosphatase 80 39 - 117 U/L [facility] AST (SGOT) 27 1 - 32 U/L [facility] ALT (SGPT) 15 1 - 33 U/L [facility] Blood 08/02/2025 9:29 AM EDT 08/02/2025 Narrative [facility] ([facility]) - 08/03/2025 1:06 AM EDT Performed at: [address] [id number] Statistical Consultant: Ab Salcido MD, Phone: [phone] Patient Fasting: N us Horace Hamilton MD LAB BLOOD ORDERABLES Final Result [facility] ([facility]) [address] [place] [address], [place] [phone] [facility] [address] [place] [address], [place] [phone] documented in this encounter Visit Diagnoses Diagnosis Arthralgia, unspecified joint- Primary Psoriasis Other psoriasis High risk medication use Immunosuppression due to drug therapy Low vitamin D level Anemia, unspecified type Other fatigue documented in this encounter Care Teams Nnp Relationship Specialty Start Date End Date Melecio Traore MD [address] [facility] [address] [facility] [address] [place] [address] PCP - General Family Medicine 06/24/21 documented as of this encounter
--- OUTSIDE RECORDS SUMMARY | 2025-08-18 12:42 | XMS_ITS | Encounter Summary ---
Author Organization [employer] ([place], [place], [place], [place]) Address [address], [place] [address] Care Team Providers Care Supervisor Microbiology Technologists Name Role Phone Unavailable Primary Care Provider Unavailabl e Encounter Details Date Type Department Care Team (Late st Contact Info) Description 10/03/2020 Transcribed Document [facility] [facility] Family [place] [facility] [place] [address] ProviderDonaldo MD [address] [place] [address] Social History Tobacco Use Types Packs/Day Years Used Date Smoking Tobacco: Never Assessed Comments Unknown Sex and Gender Information Value Date Recorded Sex Assigned at Not on file Legal Sex Female 6:43 PM CDT Gender Identity Not on file Sexual Orientation Not on file documented as of this encounter Miscellaneous Notes * Cerner Conversion Note - Donaldo ProviderMD - 10/03/2020 10:53 AM FLIGHT ATTENDANT INFLIGHT SERVICES [facility] Main OR PACU Summary Primary Physician: JAYCEE ROA MD-SUR Finalized Date/Time: 10/03/20 16:06:44 Pt. Name: JOLLY GORDON /Sex: 1975 Female Med Rec #: [id number] Physician: JAYCEE ROA MD-SUR Financial #: [id number] Pt. Type: O Room/Bed: Admit/Disch: 10/03/20 04:06:00 - Institution: [facility] [place] [place] Main OR PACU Case Times Entry 1 In PACU I 10/03/20 15:13:00 Ready for PACU 10/03/20 16:06:00 Discharge Discharge from PACU 10/03/20 16:06:00 I Last Modified By: BELÉN POLLOCK, [id number] CAR 10/03/20 16:06:36 Finalized By: BELÉN POLLOCK, [id number] CAR Document Signatures Signed By: BELÉN POLLOCK, [id number] CAR 10/03/20 16:06 documented in this encounter Plan of Treatment Not on file documented as of this encounter Visit Diagnoses Not on filedocumented in this encounter
--- OUTSIDE RECORDS SUMMARY | 2025-08-18 12:42 | XMS_ITS | Encounter Summary ---
Author Organization [employer] ([place], [place], [place], [place]) Address [address], [place] [address] Care Team Providers Care Crisis Therapist Name Role Phone Unavailable Primary Care Provider Unavailabl e Encounter Details Date Type Department Care Team (Late st Contact Info) Description 10/03/2020 Transcribed Document [facility] [place] [facility] [place] [address] ProviderDonaldo MD [address] [place] [address] Social History Tobacco Use Types Packs/Day Years Used Date Smoking Tobacco: Never Assessed Comments Unknown Sex and Gender Information Value Date Recorded Sex Assigned at Not on file Legal Sex Female 6:43 PM CDT Gender Identity Not on file Sexual Orientation Not on file documented as of this encounter Miscellaneous Notes * Cerner Conversion Note - Donaldo ProviderMD - 10/03/2020 9:30 AM GREASE AND TALLOW PUMPER Time Out Documentation Entered On: 10/03/2020 9:15 [...]
--- OUTSIDE RECORDS SUMMARY | 2025-08-18 12:42 | XMS_ITS | Encounter Summary ---
Author Organization [employer] ([place], [place], [place], [place]) Address [address] [place] [address] Care Team Providers Care Communication Clerk Name Role Phone Unavailable Primary Care Provider Unavailabl e Encounter Details Date Type Department Care Team (Late st Contact Info) Description 10/03/2020 Transcribed Document [facility] Family Medicine [facility] [place] [address] ProviderDonaldo MD [facility] [place] [address] Social History Tobacco Use Types [...] - Historical ProviderMD - 10/03/2020 5:00 PM REFRACTORY BRICKLAYER Chart Check - Review Order Profile Entered [...]
--- OUTSIDE RECORDS SUMMARY | 2025-08-18 12:42 | XMS_ITS | Encounter Summary ---
Author Organization [employer] ([place], [place], [place], [place]) Address [address] [address] Care Team Providers Care Interactive Project Manager Name Role Phone Unavailable Primary Care Provider Unavailabl e Encounter Details Date Type Department Care Team (Late st Contact Info) Description 10/03/2020 Transcribed Document [facility] [place] [facility] [place] [address] ProviderDonaldo MD [address] [place] [address] Social History Tobacco Use Types Packs/Day Years Used Date Smoking Tobacco: Never Assessed Comments Unknown Sex and Gender Information Value Date Recorded Sex Assigned at Not on file Legal Sex Female 6:43 PM CDT Gender Identity Not on file Sexual Orientation Not on file documented as of this encounter Miscellaneous Notes * Cerner Conversion Note - Donaldo ProviderMD - 10/03/2020 10:00 AM QUANTITATIVE RESEARCHER [facility] Main OR PreOp Summary Primary Physician: JAYCEE ROA MD-SUR Finalized Date/Time: 10/03/20 10:45:07 Pt. Name: JOLLY CARVAJAL /Sex: 1975 Female Med Rec #: [id number] Physician: JAYCEE ROA MD-SUR Financial #: [id number] Pt. Type: O Room/Bed: Admit/Disch: 10/03/20 04:06:00 - Institution: [facility] PreOp Case Times Entry 1 In Preop 10/03/20 08:00:00 Ready for Holding n/a Room Patient Ready for 10/03/20 10:00:00 Surgery Patient Out of Preop 10/03/20 10:15:00 Patient Out of n/a Holding Room Last Modified By: TERRA MERIDA RN 12/01/20 10:45:04 [facility] PreOp Case Times Audit 10/03/20 10:45:04 Seasonal Delivery Driver: JOSE ANTONIO Modifier: [id number] <*> Patient Out of Preop 10/03/20 10:10:00 Finalized By: TERRA MERIDA, RN Document Signatures Signed By: TERRA MERIDA, VICKY 10/03/20 10:45 Electronically signed by Nikunj [facility] Conversion Household Refrigeration Mechanic Cerner at 02/17/2023 12:11 PM CDT documented in this encounter Plan of Treatment Not on file documented as of this encounter Visit Diagnoses Not on filedocumented in this encounter
--- OUTSIDE RECORDS SUMMARY | 2025-08-18 12:43 | XMS_ITS | Encounter Summary ---
Author Organization [employer] ([place], [place], [place], [place]) Address [address], [place] [address] Care Team Providers Care Bird Raiser Name Role Phone Unavailable Primary Care Provider Unavailabl e Encounter Details Date Type Department Care Team (Late st Contact Info) Description 10/03/2020 Transcribed Document [facility] [place] [facility] [place] [address] ProviderDonaldo MD [address] [place] [address] Social History Tobacco Use Types Packs/Day Years Used Date Smoking Tobacco: Never Assessed Comments Unknown Sex and Gender Information Value Date Recorded Sex Assigned at Not on file Legal Sex Female 6:43 PM CDT Gender Identity Not on file Sexual Orientation Not on file documented as of this encounter Miscellaneous Notes * Cerner Conversion Note - Donaldo ProviderMD - 10/03/2020 4:05 AM SITECORE DEVELOPER Admission History, Adult Entered On: 10/03/2020 16:39 [...] Obtained From : Patient Primary Language : French Preferred Communication Mode : Verbal Communication Barrier : None Press Tender Incendiary Grenade Needed : No Azucena Guevara RN - [...] Scale Risk Level : 0-24 Low Risk [place] Fall Interventions : Adequate lighting, Bed in [...] 09/25/2020 10:39:12 EST by Doris Ovalle Rn) Height and Weight, Clinical Dosing Height Source : Stated Height Entry Format : [place] Height, Feet : 5 ft(Converted to: 152 cm, 60 Inch) Height, Inches : 8 Inch(Converted to: 0 ft 8 Inch, 20.32 cm) Clinical Height : 172.72 cm Weight Source : Standing scale Weight Entry Format : [place] Clinical Dosing Weight : 72.73 kg Weight, Pounds : 160 lb Body Surface Area (BSA) : 1.86 m2 Body Mass Index : 24.4 kg/m2 (HI) [place] Body Weight : 63 kg Azucena Guevara [...] Azucena Guevara RN - 10/03/2020 16:38 EST [place] Suicide Severity Rating Scale (C-SSRS) CSSRS Past [...]
--- OUTSIDE RECORDS SUMMARY | 2025-08-18 12:43 | XMS_ITS | Encounter Summary ---
Author Organization [employer] ([place], [place], [place], [place]) Address [address] [place] [address] Care Team Providers Care Video Producer Name Role Phone Unavailable Primary Care Provider Unavailabl e Encounter Details Date Type Department Care Team (Late st Contact Info) Description 10/03/2020 Transcribed Document [facility] [place] [facility] [place] [address] ProviderDonaldo MD [address] [place] [address] Social History Tobacco Use Types Packs/Day Years Used Date Smoking Tobacco: Never Assessed Comments Unknown Sex and Gender Information Value Date Recorded Sex Assigned at Not on file Legal Sex Female 6:43 PM CDT Gender Identity Not on file Sexual Orientation Not on file documented as of this encounter Miscellaneous Notes * Cerner Conversion Note - Donaldo ProviderMD - 10/03/2020 8:59 AM VIDEO JOURNALIST Pre Procedure Adult Entered On: 10/03/2020 9:01 EST Performed On: 10/03/2020 8:59 EST by ARNULFO ARMSTRONG RN Height and Weight, Clinical Dosing Height Source : Stated Height Entry Format : [place] Height, Feet : 5 ft(Converted to: 152 cm, 60 Inch) Height, Inches : 8 Inch(Converted to: 0 ft 8 Inch, 20.32 cm) Clinical Height : 172.72 cm Weight Source : Standing scale Weight Entry Format : [place] Clinical Dosing Weight : 72.73 kg Weight, Pounds : 160 lb Body Surface Area (BSA) : 1.86 m2 Body Mass Index : 24.4 kg/m2 (HI) [place] Body Weight : 63 kg ARNULFO ARMSTRONG [...] ARNULFO ARMSTRONG RN - 10/03/2020 8:59 EST [place] Suicide Severity Rating Scale (C-SSRS) CSSRS Past [...] Obtained From : Patient Primary Language : Icelandic Preferred Communication Mode : Verbal Communication Barrier : None Pattern Changer And Repairer Needed : ARNULFO Darnell RN - 10/03/2020 [...] Scale Risk Level : 25-45 Medium Risk [place] Fall Interventions : Adequate lighting, Assistive devices [...]
--- OUTSIDE RECORDS SUMMARY | 2025-08-18 12:43 | XMS_ITS | Referral Summary ---
Author Organization [facility] ([place], [place], [place], [place]) Address [address] [place] [address] Care Team Providers Care Server Systems Administrator Name Role Phone Unavailable Primary Care Provider [...]
--- OUTSIDE RECORDS SUMMARY | 2025-08-18 12:43 | XMS_ITS | Encounter Summary ---
[facility] Organization [facility] Address [address] [place] [address] Care Team Providers Care Autoclave Operator Name Role Phone Melecio Traore MD Primary Care Provider [phone] Encounter Details Date Type Department Care Team (Late st Contact Info) Description 08/03/2025 Results Follow-Up [facility] [address] [address] Horace Hamilton MD [address] [address] Social History Tobacco Use Types Packs/Day Years [...] or training? Not on file Preferred Language Hungarian 09/17/2022 Comments No Sex and Gender Information Value Date Recorded Sex Assigned at Not on file Legal Sex Female 4:39 PM EST Gender Identity Not on file Sexual Orientation Not on file documented as of this encounter Miscellaneous Notes * Telephone Encounter - Sejal Thompson MA - 08/15/2025 1:39 PM EDT New order for the Thyroid panel with signature requested. I will pend and send to Dr. Hamilton for signature. Once it has been signed, it needs to be faxed to [facility] at [phone].-GAMALIEL Pop documented in this encounter Plan of Treatment Upcoming Encounters Date Type Department Care Team (Late st Contact Info) Description 01/30/2026 8:45 AM EDT Office Visit [facility] [address] [address] Horace Hamilton MD [address] [id number] Scheduled Orders Name Type Priority Associated Diagnoses Orde r Schedule Thyroid Panel With TSH Lab Routine Other fatigue Immunosuppression due to drug therapy Encounter for long-term (current) use of high-risk medication Arthralgia of multiple sites Expected: 08/15/2025 (Approximate), Expires: 08/15/2026 documented as of this encounter Visit Diagnoses Diagnosis Other fatigue- Primary Immunosuppression due to drug therapy Encounter for long-term (current) use of high-risk medication Encounter for long-term (current) use of other medications Psoriasis Other psoriasis Arthralgia of multiple sites documented in this encounter Care Teams Autoclave Operator Relationship Specialty Start Date End Date Melecio Traore MD [address] [facility] [address] [place] [address] PCP - General Family Medicine 06/24/21 documented as of this encounter
--- OUTSIDE RECORDS SUMMARY | 2025-08-18 12:44 | XMS_ITS | Patient Health Record ---
Author Organization [facility] Address [address] [place] [id number] Care Team Providers Care Java Security Architect Name Role Phone Bentlye Traore Primary Care Provider [phone] Breanna Carter Unavailable [phone] Allergies No Known Allergies Results Component Value Reference Range Notes P-Vitamin B12 Reviewed date:04/15/2025 01:00:51 PM Interpretation:338 Performing Lab: Notes/Report: Test performed by [facility] [address] [place] [address] , [address], [place] [address] Chencho Mahajan MD, Coke Crusher Operator CLIA: [id number] Vitamin B12 912 190-7572 pg/mL P-Lipid Panel Reviewed date:04/15/2025 01:00:51 PM Interpretation:chol 205, non-hdl 150, ldl 133 Performing Lab: Notes/Report: Test performed by [facility] [address] [place] [address] , [address], [place] [address] Chencho Mahajan MD, Coke Crusher Operator CLIA: [id number] Cholesterol 205 <200 mg/dL Triglycerides 87 <150 [...] Results: 133 Units: mg/dL % Change: +34% H-BMP Reviewed date:08/30/2024 11:14:45 PM Interpretation:Normal Performing Lab: Notes/Report: NA 139 136-145 mmol/L K 3.9 3.5-5.1 mmoL/L CL 106 98-107 mmol/L CO2 27 22.0-30.0 mmol/L GAP 9.9 5-15 mEq/L BUN 15 7-17 mg/dl CREATT 0.90 0.52-1.04 mg/dl GFRAA 80 >60 ML/MIN EGFR 66 >60 ml/min GLU 94 74-100 mg/dl CA 9.2 8.4-10.2 mg/dl CBC Fingerstick (in house) Reviewed date:06/17/2025 05:04:22 [...] - 38 plat 155 100 - 400 Covid test (in house) Reviewed date:01/28/2025 06:21:23 PM Interpretation: Performing Lab: Notes/Report: Result: Neg CBC Fingerstick (in house) Reviewed date:01/28/2025 [...] - 38 plat 187 100 - 400 Influenza Screen (in house) Reviewed date:01/28/2025 06:20:57 PM Interpretation: Performing Lab: Notes/Report: results Neg TEN-stool panel Reviewed date:08/26/2024 08:57:20 AM Interpretation:Abnormal Performing Lab: Notes/Report: Abnormal Urinalysis - Inhouse Reviewed date:06/17/2025 05:04:22 PM Interpretation: Performing Lab: Notes/Report: Color/Clarity yellow/clear Leuk neg Nitrite neg Urobili 3.2 Protein 1+ pH 5.5 Blood neg Sp. Gr. 1.010 Ketone neg Bili neg Gluc neg Medications Medication SIG (Take, Route, Fr equency, [...] Vaccine Route Administration Date Status Comme nts COVID 19 Moderna Unknown 11/22/2020 Administered COVID 19 Moderna Unknown 12/22/2020 Administered COVID 19 Moderna Unknown 09/12/2021 Administered Fluzone PF Quad (6-35 months) Unknown 09/02/2018 Administered Fluzone PF Quad (6-35 months) Unknown 09/01/2019 Administered Fluzone PF Quad (6-35 months) Unknown 08/21/2020 Administered Fluzone PF Quad (6-35 months) Unknown 08/28/2021 Administered Fluzone PF Quad (6-35 months) Unknown 09/10/2022 Administered Fluzone PF Quad (6-35 months) Unknown 09/11/2023 Administered Hepatitis A (adult) Unknown 09/02/2018 Administered Hepatitis A (adult) Unknown 03/12/2019 Administered ppd ID Intradermal 07/01/2012 Administered xFlu shot-36 months and older IM Intramuscular 09/11/2009 Administered Problems Problem Type SNOMED Code ICD Code Onset Dates Problem Status W/U Status Risk Notes Problem Essential hypertension (74259993) HTN [Hypertension] (401.9) Active confirmed Problem Vitamin B12 deficiency (074265186) Vitamin B12 deficiency (E53.8) Active confirmed Problem Essential hypertension (46356130) Essential hypertension (I10) Active confirmed Problem Psoriasis (4137301) Other psoriasis (L40.8) Active confirmed Problem Fibrocystic breast changes (56899166) Diffuse cystic mastopathy of right breast (N60.11) Active confirmed Problem Screening for malignant neoplasm of cervix (844724839) Encounter for screening for malignant neoplasm of cervix (Z12.4) Active confirmed Problem Abnormal vaginal bleeding (347412960) DUB (dysfunctional uterine bleeding) (N93.8) Active confirmed Problem Hyperlipidaemia (75129100) Hyperlipidemia, unspecified hyperlipidemia type (E78.5) Active confirmed Problem Lymphadenopathy (83494306) Lymphadenopathy of head and neck (R59.1) Active confirmed Problem Disorder of conjunctiva (46211898) Conjunctiva disorder (H11.9) Active confirmed Problem Pterygium of left eye (503024397943103) Pterygium of left eye (H11.002) Active confirmed Vital Signs Heart Rate 78 /min 06/15/2025 Blood pressure diastolic 70 mm Hg 06/15/2025 Height 63.50 in 06/15/2025 Blood pressure systolic 116 mm Hg 06/15/2025 Weight 161 lbs 06/15/2025 BMI 28.07 kg/m2 06/15/2025 Encounters Encounter Location Date Provider Diagnosis [facility] [address] [place] [id number] 08/18/2024 Breannameir Carter Renal insufficiency N28.9 and Diarrhea, unspecified type R19.7 [facility] [address] [place] [id number] 08/23/2024 Breannameir Carter Diarrhea, unspecifie d type R19.7 [facility] [address] [place] [address] [place] [id number] 09/20/2024 Bentley Traore Essential hypertensi on I10 ; Hyperlipidemia, unspecified hyperlipidemia type E78.5 and Encounter for screening colonoscopy Z12.11 [facility] [address] [place] [id number] 01/24/2025 Bentley Traore URI (upper respirato ry infection) J06.9 and Laryngitis J04.0 [facility] [address] [place] [id number] 04/13/2025 Breannameir Carter Vitamin B12 deficien cy E53.8 ; Essential hypertension I10 ; Screening, lipid Z13.220 and BMI 27.0-27.9,adult Z68.27 [facility] [address] [place] [id number] 04/14/2025 Breanna Emma Hyperlipidemia, unspecified hyperlipidemia type E78.5 and Vitamin B12 deficiency E53.8 [facility] [address] [place] [id number] 06/15/2025 Breanna Emma Bronchitis J40 and Proteinuria, unspecified type R80.9 [facility] [address] [place] [id number] 08/26/2024 Breanna Carter [facility] [address] [place] [id number] 08/30/2024 Breanna Carter [facility] [address] [place] [id number] 02/21/2025 Bentley Traore [facility] [address] [place] [id number] 04/15/2025 Breanna Carter [facility] [address] [place] [id number] 04/25/2025 Bentley Traore [facility] [address] [place] [id number] 06/27/2025 Bentley Traore Assessments Encounter Date Diagnosis (ICD Code) Assessment Notes Treatment Notes Treatment Clinical Notes Section Notes 08/18/2024 Renal insufficiency (ICD-10 - N28.9) Will decrease maxzide dose and recheck BMP in 1 week. Will monitor BP. 08/18/2024 Diarrhea, unspecified type (ICD-10 - R19.7) 04/13/2025 Vitamin B12 deficiency (ICD-10 - E53.8) c 04/13/2025 Essential hypertension (ICD-10 - I10) c 06/15/2025 Bronchitis (ICD-10 - J40) 06/15/2025 Proteinuria, unspecified type (ICD-10 - R80.9) Increase water intake. 09/20/2024 Essential hypertension (ICD-10 - I10) 09/20/2024 Hyperlipidemia, unspecified hyperlipidemia type (ICD-10 - E78.5) 04/14/2025 Hyperlipidemia, unspecified hyperlipidemia type (ICD-10 - E78.5) 01/24/2025 URI (upper respiratory infection) (ICD-10 - J06.9) 01/24/2025 Laryngitis (ICD-10 - J04.0) 09/20/2024 Encounter for screening colonoscopy (ICD-10 - Z12.11) 04/14/2025 Vitamin B12 deficiency (ICD-10 - E53.8) 04/13/2025 Screening, lipid (ICD-10 - Z13.220) c 08/23/2024 Diarrhea, unspecified type (ICD-10 - R19.7) 04/13/2025 BMI 27.0-27.9,adult (ICD-10 - Z68.27) c Plan Of Treatment Pending Test Test Name Order Date P-Vitamin B12 04/13/2025 P-Lipid Panel 04/13/2025 Insurance Providers Payer Name Payer Address Payer Phone Subscriber Number Group Number Insured Name Patient Relationship to Insured Coverage Start Date Coverage End Date [employer] [address] [place] [address] [id number] LUZ CARVAJAL Self - patient is the [...] Tubal Ligation 01/2016 Hysterectomy, Oopherectomy, Cervix [facility] 04/07/2019 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
--- OUTSIDE RECORDS SUMMARY | 2025-08-18 12:44 | XMS_ITS | Encounter Summary ---
Author Organization [employer] ([place], [place], [place], [place]) Address [address] [address] Care Team Providers Care Department Coordinator Name Role Phone Unavailable Primary Care Provider Unavailabl e Encounter Details Date Type Department Care Team (Late st Contact Info) Description 10/04/2020 Transcribed Document [facility] [place] [facility] [place] [address] ProviderDonaldo MD [facility] [place] [address] Social History Tobacco Use Types [...] - Historical ProviderMD - 10/04/2020 12:43 PM GENERAL PRODUCTION MANAGER Stroke/Warfarin Instructions Entered On: 10/04/2020 12:43 EST [...]
--- OUTSIDE RECORDS SUMMARY | 2025-08-18 12:44 | XMS_ITS | Encounter Summary ---
Author Organization [employer] ([place], [place], [place], [place]) Address [address] [place] [address] Care Team Providers Care Certified Wellness Program Coordinator Name Role Phone Unavailable Primary Care Provider Unavailabl e Encounter Details Date Type Department Care Team (Late st Contact Info) Description 10/03/2020 Transcribed Document [facility] [place] Family Medicine [address] [place] [address] ProviderDonaldo MD [facility] [place], [place] [address] Social History Tobacco Use Types Packs/Day Years Used Date Smoking Tobacco: Never Assessed Comments Unknown Sex and Gender Information Value Date Recorded Sex Assigned at Not on file Legal Sex Female 6:43 PM CDT Gender Identity Not on file Sexual Orientation Not on file documented as of this encounter Miscellaneous Notes * [employer]ner Conversion Note - Historical ProviderMD - 10/03/2020 8:17 AM MAINTENANCE MECHANIC Consult Phone Call Documentation Entered On: 10/04/2020 8:33 EST Performed On: 10/03/2020 8:17 EST by ASHLEY JOHNSON Phone Call for Consults Consult Phone Call/Page Attempt : First call Consult Reason : courtesy notification Physician Requested for Consult : OSMANI ROGER MD-FAM Physician Covering for Consult : OSMANI ROGER MD-FAM Date and Time Call Returned : 10/04/2020 8:33 EST Physician Returning Call : osmani roger CHERYL - 10/04/2020 8:32 EST documented in this encounter Plan of Treatment Not on file documented as of this encounter Visit Diagnoses Not on filedocumented in this encounter
--- OUTSIDE RECORDS SUMMARY | 2025-08-18 12:44 | XMS_ITS | Encounter Summary ---
Author Organization [email or web address] ([place], [place], [place], [place]) Address [address] [place] [address] Care Team Providers Care Digital Strategy Specialist Name Role Phone Unavailable Primary Care Provider Unavailabl e Encounter Details Date Type Department Care Team (Late st Contact Info) Description 10/04/2020 Transcribed Document [facility] [place] [address] [place] [address] ProviderDonaldo MD [place] [address] Social History Tobacco Use Types [...] - Historical ProviderMD - 10/04/2020 5:00 AM DOCK MANAGER Chart Check - Review Order Profile Entered On: 10/04/2020 3:39 EST Performed On: 10/04/2020 5:00 EST by Ximena Toscano Rn Chart Check Powerplans Initiated/Discontinued as Appropriate : Yes All Active Orders Reviewed : Yes Ximena Toscano Rn - 10/04/2020 3:39 EST Electronically signed by Nikunj [facility] Conversion Tactical Air Control Party Manager Cerner at 02/17/2023 12:16 PM CDT documented in this encounter Plan of Treatment Not on file documented as of this encounter Visit Diagnoses Not on filedocumented in this encounter
--- OUTSIDE RECORDS SUMMARY | 2025-08-18 12:44 | XMS_ITS | Encounter Summary ---
Author Organization [employer] ([place], [place], [place], [place]) Address [address] [place] [address] Care Team Providers Care Cement Mason Name Role Phone Unavailable Primary Care Provider Unavailabl e Encounter Details Date Type Department Care Team (Late st Contact Info) Description 10/03/2020 Transcribed Document [facility] [place] Medicine [facility] [place] [address] ProviderDonaldo MD [address] [place] [address] Social History Tobacco Use Types Packs/Day Years Used Date Smoking Tobacco: Never Assessed Comments Unknown Sex and Gender Information Value Date Recorded Sex Assigned at Not on file Legal Sex Female 6:43 PM CDT Gender Identity Not on file Sexual Orientation Not on file documented as of this encounter Miscellaneous Notes * Cerner Conversion Note - Donaldo ProviderMD - 10/03/2020 4:11 PM ENGAGEMENT ENGINEER Pain Assessment Entered On: 10/04/2020 3:38 EST [...]
--- OUTSIDE RECORDS SUMMARY | 2025-08-18 12:44 | XMS_ITS | Encounter Summary ---
Author Organization [employer] ([place], [place], [place], [place]) Address [address] [place] [address] Care Team Providers Care Aadc Plans Staff Officer Name Role Phone Unavailable Primary Care Provider Unavailabl e Encounter Details Date Type Department Care Team (Late st Contact Info) Description 04/07/2019 Transcribed Document [facility] [place] [address] [place] [address] ProviderDonaldo MD [facility] [place] [address] Social History Tobacco Use Types [...] On: 04/07/2019 11:02 EDT by Madina Gold [facility] Unit Coord Height and Weight, Clinical Dosing Weight Source : Standing scale Weight Entry Format : [place] Clinical Dosing Weight : 75 kg Weight, Pounds : 165 lb [facility] - 04/07/2019 11:02 EDT documented in this encounter Plan of Treatment Not on file documented as of this encounter Visit Diagnoses Not on filedocumented in this encounter
--- OUTSIDE RECORDS SUMMARY | 2025-08-18 12:44 | XMS_ITS | Encounter Summary ---
Author Organization [employer] ([place], [place], [place], [place]) Address [address] [place] [address] Care Team Providers Care Inspector Crystal Name Role Phone Unavailable Primary Care Provider Unavailabl e Encounter Details Date Type Department Care Team (Late st Contact Info) Description 10/03/2020 Transcribed Document [facility] [place] Family Medicine [address] [place] [address] ProviderDonaldo MD [facility] [place], [place] [address] Social History Tobacco Use Types Packs/Day Years Used Date Smoking Tobacco: Never Assessed Comments Unknown Sex and Gender Information Value Date Recorded Sex Assigned at Not on file Legal Sex Female 6:43 PM CDT Gender Identity Not on file Sexual Orientation Not on file documented as of this encounter Miscellaneous Notes * [employer]ner Conversion Note - Donaldo ProviderMD - 10/03/2020 5:19 PM PLEATING SUPERVISOR Patient: JOLLY GORDON Age: 44 years Sex: Female : 1975 Associated Diagnoses: None Author: BLANCA VIEYRA, [facility] verified patient's allergies and home medication list with pharmacy records and are as follows: Home Medications (1) Active Taltz Prefilled Syringe 80 mg/mL subcutaneous solution 80 mg, SubCutaneous, [id number] Allergies (2) Active Reaction No Known Allergies No Known Medication Allergies Thank you, Blanca Vieyra, LucilaD, MSCR, BCPS documented in this encounter Plan of Treatment Not on file documented as of this encounter Visit Diagnoses Not on filedocumented in this encounter
--- OUTSIDE RECORDS SUMMARY | 2025-08-18 12:44 | XMS_ITS | Encounter Summary ---
[facility] Address [address] [place] [address] Care Team Providers Care Arc Cutter Plasma Arc Name Role Phone Melecio Traore MD Primary Care Provider [phone] Encounter Details Date Type Department Care Team [...] or training? Not on file Preferred Language Haitian 09/17/2022 Comments No Sex and Gender Information Value Date Recorded Sex Assigned at Not on file Legal Sex Female 4:39 PM EST Gender Identity Not on file Sexual Orientation Not on file documented as of this encounter Plan of Treatment Upcoming Encounters Date Type Department Care Team (Late st Contact Info) Description 01/30/2026 8:45 AM EDT Office Visit [facility] RHEUMATOLOGY [address] [phone] Horace Hamilton MD [address] [facility] [address] [place] [address] documented as of this encounter Visit Diagnoses Not on filedocumented in this encounter Care Teams Arc Cutter Plasma Arc Relationship Specialty Start Date End Date Melecio Traore MD [address] [facility] [address] [facility] [address] [place] [address] PCP - General Family Medicine 06/24/21 documented as of this encounter
--- OUTSIDE RECORDS SUMMARY | 2025-08-18 12:44 | XMS_ITS | Encounter Summary ---
Author Organization [employer] ([place], [place], [place], [place]) Address [address] [place] [address] Care Team Providers Care Computer Patternmaker Name Role Phone Unavailable Primary Care Provider Unavailabl e Encounter Details Date Type Department Care Team (Late st Contact Info) Description 10/04/2020 Transcribed Document [facility] Family Medicine [address] [place] [address] ProviderDonaldo MD [address] [place] [address] Social History Tobacco Use Types [...] - Donaldo ProviderMD - 10/04/2020 12:47 PM BUTTER PRODUCTION SUPERVISOR Patient Education Materials Follows: Surgical Drain Record [...] placed at your back, or any other dhqv-sy-pzctc area, ask another person to assist you [...] and water are not available, use hand assistant professor of theater. 3. Remove the old dressing. Avoid using [...] and water are not available, use hand assistant professor of theater. 3. Loosen any pins or clips that [...] placed at your back, or any other efza-di-mxwxd area, ask another person to assist you. ??? Contact your health care provider if you have redness, swelling, or pain around your drain area. This information is not intended to replace advice given to you by your health care provider. Make sure you discuss any questions you have with your health care provider. Document Released: 10/17/2001 Document Revised: 11/24/2019 Document Reviewed: 11/24/2019 [employer] Patient Education ? 2020 [employer] Exercises Following Breast Surgery The following [...] 05/12/2007 Document Revised: 02/10/2020 Document Reviewed: 07/23/2019 [employer] Patient Education ? 2020 [employer] Total or Modified Radical Mastectomy, Care [...] and water are not available, use hand assistant professor of theater. ? Change your dressing as told by [...] safe for you. General instructions ??? Take tpes-tsd-qgwkzeq and prescription medicines only as told by [...] 06/12/2005 Document Revised: 12/24/2019 Document Reviewed: 07/24/2018 [employer] Patient Education ? 2020 [employer] Total or Modified Radical Mastectomy A [...] including vitamins, herbs, eye drops, creams, and nvzl-hwl-bqfylan medicines. ??? Any problems you or family [...] tells you to take them. ? Taking rfeu-ijg-yurbwgt medicines, vitamins, herbs, and supplements. ??? Your [...] Reviewed: 07/24/2018 Elsevier Patient Education ? 2020 [employer] documented in this encounter Plan of Treatment Not on file documented as of this encounter Visit Diagnoses Not on filedocumented in this encounter
--- OUTSIDE RECORDS SUMMARY | 2025-08-18 12:44 | XMS_ITS | Encounter Summary ---
Author Organization [employer] ([place], [place], [place], [place]) Address [address] [place] [address] Care Team Providers Care Books Salesperson Name Role Phone Unavailable Primary Care Provider Unavailabl e Encounter Details Date Type Department Care Team (Late st Contact Info) Description 04/07/2019 Transcribed Document [facility] Family Medicine [facility] [place] [address] ProviderDonaldo MD [address] [place] [address] Social History Tobacco Use Types Packs/Day [...] FRANKO /Sex: 1975 Female Med Rec #: [id number] Physician: JAYCEE TORRES III, MD Financial #: [id number] Pt. Type: O Room/Bed: [facility] Admit/Disch: 04/07/19 15:59:00 - [place] [facility] IntraOp Case Attendance Entry 1 Entry 2 Entry 3 Case Attendee JAYCEE TORRES III, MD WICKER, KAREN KIM, MARIE RICE RN Role Performed Surgeon/Proceduralist, PI/SENIOR RESEARCH ASSOCIATE/Nurse Tool And Die Maker/Designer Docking Pilot, First First Time In 04/07/19 13:18:00 04/07/19 [...] MAN PA-C Shannon, Patrick Role Performed Physician orthodontic assistant, Ancillary Time In 04/07/19 13:18:00 04/07/19 13:18:00 Time Out 04/07/19 14:31:00 04/07/19 14:31:00 Procedure Vaginal Hysterectomy Vaginal Hysterectomy Lap Assisted Lap Assisted Other Attendee Superficial Wound Closed By: Last Modified By: MARIE CHAIREZ, MARIE CLINE RN 04/07/19 14:19:41 04/07/19 14:19:41 [facility] IntraOp Case Attendance Audit 04/07/19 14:19:41 Languages And Literature Instructor: CRMOSS Modifier: CRMOSS 1 <+> Time Out [...] Procedure Vaginal Hysterectomy Lap Assisted 04/07/19 14:09:56 Languages And Literature Instructor: CRMOSS Modifier: CRMOSS 1 <*> Procedure Vaginal [...] Procedure Vaginal Hysterectomy Lap Assisted 04/07/19 14:09:53 Languages And Literature Instructor: CRMOSS Modifier: CRMOSS <+> 8 Case Attendee <+> 8 Role Performed <+> 8 Procedure 04/07/19 13:57:04 Languages And Literature Instructor: CRMOSS Modifier: CRMOSS 1 <+> Time In [...] [facility] IntraOp Case Times Audit 04/07/19 14:19:39 Languages And Literature Instructor: CRMOSS Modifier: CRMOSS <+> 1 Out Room [...] IntraOp Fire Risk Assessment Audit 04/07/19 13:43:49 Languages And Literature Instructor: AGNES Modifier: CRMOSS <+> 1 Fire Risk Assessment Verified Date/Time [facility] IntraOp General Case Help Desk Specialist 1 Case Information OR OR 02 [facility] Case Level 1 Room Verified Yes Wound Class II - Clean-Contaminated Specialty SN Gynecology Anesthesia Type General ASA Class 1 Diagnosis Preop Diagnosis DYSMENORRHEA, AUB Postop Same As Preop No Postop Diagnosis DICTATED BY MD Last Modified By: MARIE CHAIREZ RN 04/07/19 13:46:44 [facility] IntraOp General Case Data Audit 04/07/19 13:46:44 Languages And Literature Instructor: CRMMIRIAN Modifier: CRMOSS <+> 1 ASA Class [...] 0.5% w/ epinephrine 1:200,000 30ml vial - [id number] Route of LOCAL Administration Dose Dose 30 [...] Yes Elements Complete? RN Sign Out MARIE CHAIREZ RN Signature RN Sign Out 04/07/19 14:31:00 [...] Intra Op Sign Out Audit 04/07/19 14:20:02 Languages And Literature Instructor: CRMOSS Modifier: CRMOSS <+> 1 Urinary Catheter Documented in IView 04/07/19 14:19:51 Languages And Literature Instructor: CRMOSS Modifier: CRMOSS <+> 1 RN Sign [...] [facility] IntraOp Surgical Procedures Audit 04/07/19 14:20:05 Languages And Literature Instructor: CRMOSS Modifier: CRMOSS <+> 1 Start <+> [...]
--- OUTSIDE RECORDS SUMMARY | 2025-08-18 12:44 | XMS_ITS | Encounter Summary ---
Author Organization [employer] ([place], [place], [place], [place]) Address [address] [address] Care Team Providers Care Tow Operator Name Role Phone Unavailable Primary Care Provider Unavailabl e Encounter Details Date Type Department Care Team (Late st Contact Info) Description 10/04/2020 Transcribed Document [facility] [place] [facility] [place] [address] ProviderDonaldo MD [facility] [place] [address] Social History Tobacco Use Types [...] Donaldo Russell MD - 10/04/2020 12:47 PM [address] [facility] [address] [place] [address] JOLLY GORDON :1975 Visit Time:10/03/2020 Your Visit Summary Your Care Team Admitting Physician - JAYCEE ROA MD-SUR Attending Physician - JAYCEE ROA MD-SUR Primary Care Physician - JAYCEE ROGER MD-[facility] Referring Physician - JAYCEE ROA MD-SUR Your Diagnosis BRCA positive, Genetic susceptibility to malignant neoplasm of breast, Genetic susceptibility to malignant neoplasm of breast These Are Your Goals to go home What to do next Follow-Up Appointments Follow Up with JAYCEE ROA When In 8 days 10/12/2020 EST Where: [facility] [address] [place] [address]- Medications What How Much When Instructions Next [...] 07/27/2018 Document Revised: 07/27/2018 Document Reviewed: 07/27/2018 [employer] Patient Education ?? 2020 [employer]. Surgical Drain Home Care Surgical drains are [...] placed at your back, or any other adfi-sw-bgqnd area, ask another person to assist you [...] and water are not available, use hand geography head. 3. Remove the old dressing. Avoid using [...] and water are not available, use hand geography head. 3. Loosen any pins or clips that [...] placed at your back, or any other jhyo-gp-htooy area, ask another person to assist you. ??? Contact your health care provider if you have redness, swelling, or pain around your drain area. This information is not intended to replace advice given to you by your health care provider. Make sure you discuss any questions you have with your health care provider. Document Released: 10/17/2001 Document Revised: 11/24/2019 Document Reviewed: 11/24/2019 [employer] Patient Education ?? 2020 [employer] Exercises Following Breast Surgery The following [...] 05/12/2007 Document Revised: 02/10/2020 Document Reviewed: 07/23/2019 [employer] Patient Education ?? 2020 [employer] Total or Modified Radical Mastectomy, Care [...] and water are not available, use hand geography head. ? Change your dressing as told by [...] safe for you. General instructions ??? Take tclt-dcm-wfquyyt and prescription medicines only as told by [...] 06/12/2005 Document Revised: 12/24/2019 Document Reviewed: 07/24/2018 [employer] Patient Education ?? 2020 [employer]. Total or Modified Radical Mastectomy A total [...] including vitamins, herbs, eye drops, creams, and aiji-slv-gagcded medicines. ??? Any problems you or family [...] tells you to take them. ? Taking ebgj-deg-raajfte medicines, vitamins, herbs, and supplements. ??? Your [...] 07/15/2002 Document Revised: 12/24/2019 Document Reviewed: 07/24/2018 [employer] Patient Education ?? 2020 [employer]. Emergency Awareness and Preventative Care STROKE is [...] Assistance with quitting is available by contacting 1-488-XAOS-NOW. This is a free resource providing counseling, [...] was given the opportunity to ask questions. Patient/Bench Molder Name: Patient/Bench Molder Signature: Relationship to Patient: Clinician/Hospital Bench Molder Signature: Date: Electronically signed by Nikunj, [facility] Conversion Assurance Senior Manager Insurance Keith at 02/17/2023 12:13 PM CDT documented in this encounter Plan of Treatment Not on file documented as of this encounter Visit Diagnoses Not on filedocumented in this encounter
--- OUTSIDE RECORDS SUMMARY | 2025-08-18 12:44 | XMS_ITS | Encounter Summary ---
Author Organization [employer] ([place], [place], [place], [place]) Address [address] [place] [address] Care Team Providers Care Catering Truck Operator Name Role Phone Unavailable Primary Care Provider Unavailabl e Encounter Details Date Type Department Care Team (Late st Contact Info) Description 10/03/2020 Transcribed Document [facility] Radiology [address] [place] [address] Quintin Lay MD [facility] [address] [address] Social History Tobacco Use Types [...] to breast cancer. 2. Bilateral absent breast. TISSUE INSERTER: DEBBIE Navarro. ANESTHESIA: General. PROCEDURE PERFORMED: Bilateral immediate prepectoralis implant-based breast reconstruction with placement of a tissue wrister and AlloDerm. The tissue wrister is Allergan brand full profile, volume 400 mL, base with 12 cm, serial number on the right is [id number] and serial number on the left is [id number]. The AlloDerm is 360 sq cm. The lot number on the right is [id number] and the lot number on the left is [id number]. INDICATION: The patient is a 44-year-old white [...] were noted to be viable. The tissue wrister and AlloDerm were brought onto the operative field. The AlloDerm was rinsed in saline for 2 minutes. The tissue wrister was placed in the subcutaneous space and secured at the medial, central, and lateral suture tabs. AlloDerm was used for soft tissue support and secured with 3-0 Vicryl suture in a horizontal mattress fashion. Two 15-Tamazight Shaquille drains were placed in the subcutaneous space, brought out the thoracoabdominal region, and secured with 3-0 nylon suture in a standard fashion. A rim of mastectomy skin was excised with a 10 blade. The skin was then temporarily closed with jose. My attention was then turned to the left side. AlloDerm and tissue wrister were brought onto the operative field. The AlloDerm was rinsed in saline for 2 minutes. The tissue wrister was placed in the subcutaneous space and secured at the medial, central, and lateral suture tabs with 2-0 silk suture. The AlloDerm was used for soft tissue support and secured with 3-0 Vicryl suture in a horizontal mattress fashion. Two 15-Tamazight Shaquille drains were placed in the subcutaneous [...] LOSS: Minimal. DRAINS: 4. COMPLICATIONS: None immediate. /[id number] MD MISSY Carbajal/PATTIE / MISSY / CARMEN /[id number] documented in this encounter Plan of Treatment Not on file documented as of this encounter Visit Diagnoses Not on filedocumented in this encounter
--- OUTSIDE RECORDS SUMMARY | 2025-08-18 12:44 | XMS_ITS | Encounter Summary ---
Author Organization [employer] ([place], [place], [place], [place]) Address [address] [address] Care Team Providers Care Air Traffic Control Operator Name Role Phone Unavailable Primary Care Provider Unavailabl e Encounter Details Date Type Department Care Team (Late st Contact Info) Description 10/03/2020 Transcribed Document [facility] [facility] [place] [address] ProviderDonaldo MD [address] [place] [id number] Social History Tobacco Use Types Packs/Day Years Used Date Smoking Tobacco: Never Assessed Comments Unknown Sex and Gender Information Value Date Recorded Sex Assigned at Not on file Legal Sex Female 6:43 PM CDT Gender Identity Not on file Sexual Orientation Not on file documented as of this encounter Miscellaneous Notes * Cerner Conversion Note - Donaldo ProviderMD - 10/03/2020 10:53 AM UNISHEAR OPERATOR DOMINGO Main OR IntraOp Summary Primary Physician: JAYCEE ROA MD-SUR Finalized Date/Time: 10/03/20 15:09:31 Pt. Name: JOLLY GORDON FRANKO /Sex: 1975 Female Med Rec #: [id number] Physician: JAYCEE ROA MD-SUR Financial #: [id number] Pt. Type: O Room/Bed: Admit/Disch: 10/03/20 04:06:00 - Institution: [facility] [place] Case Attendance Entry 1 Entry 2 Entry 3 Case Attendee JAYCEE ROA HILL, JOSEPH L, MD-MACEY LEOS PA-C MD-SUR Role Performed Surgeon/Proceduralist, Surgeon/Proceduralist, Physician construction administrative assistant First Second Time In 10/03/20 10:26:00 10/03/20 11:45:00 10/03/20 10:26:00 Time Out 10/03/20 13:41:00 10/03/20 15:09:00 10/03/20 13:41:00 Procedure Mastectomy Breast Reconstruction, Mastectomy Simple(Bilateral), Tissue Farmworker Diversified Crops Breast Simple(Bilateral), Breast Reconstruction Breast Reconstruction, Tissue Farmworker Diversified Crops Breast Other Attendee Superficial Wound Closed By: Last Modified By: Herlinda Schaffer, Herlinda Hu, Herlinda Hu, RN 10/03/20 15:09:15 10/03/20 15:09:15 10/03/20 15:09:15 Entry 4 Entry 5 Entry 6 Case Attendee Herlinda Schaffer, RICK TEIXEIRA ST STULL, KELSI A, INSOLVENCY CONSULTANT Role Performed Manager Acute, First Scrub, First INSOLVENCY CONSULTANT/Nurse Industrial Safety And Health Technician Time In 10/03/20 10:26:00 10/03/20 10:26:00 10/03/20 10:26:00 Time Out 10/03/20 13:54:00 10/03/20 15:09:00 10/03/20 15:09:00 Procedure Mastectomy Mastectomy Mastectomy Simple(Bilateral), Simple(Bilateral), Simple(Bilateral), Breast Reconstruction, Breast Reconstruction, Breast Reconstruction, Tissue Farmworker Diversified Crops Breast Tissue Farmworker Diversified Crops Breast Tissue Farmworker Diversified Crops Breast Other Attendee Superficial Wound Closed By: Last Modified By: Herlinda Schaffer, Herlinda Hu, RN Herlinda Schaffer, RN 10/03/20 15:09:15 10/03/20 15:09:15 10/03/20 15:09:15 Entry 7 Entry 8 Entry 9 Case Attendee GABRIEL MERAZ ST TERRY, JULIA OTHER, ATTENDEE Role Performed Scrub, Second Manager Acute, Second Vendor Time In 10/03/20 11:39:00 10/03/20 11:55:00 10/03/20 11:55:00 Time Out 10/03/20 12:11:00 10/03/20 12:24:00 10/03/20 15:09:00 Procedure Mastectomy Mastectomy Breast Reconstruction Simple(Bilateral), Simple(Bilateral), Breast Reconstruction, Breast Reconstruction, Tissue Farmworker Diversified Crops Breast Tissue Farmworker Diversified Crops Breast Other Attendee LUNCH RELIEF LUNCH RELIEF KANDICE: ALLERGAN REP Superficial Wound Closed By: Last Modified By: Herlinda Schaffer, Herlinda Hu, RN Herlinda Schaffer, VICKY 10/03/20 15:09:15 10/03/20 15:09:15 10/03/20 15:09:15 Entry 10 Entry 11 Case Attendee ANUSHA MELTON PA-C Wellnitz, Sara, RN Role Performed Physician construction administrative assistant Manager Acute, First Time In 10/03/20 11:55:00 10/03/20 13:54:00 Time Out 10/03/20 15:09:00 10/03/20 14:05:00 Procedure Breast Reconstruction, Mastectomy Tissue Farmworker Diversified Crops Breast Simple(Bilateral), Breast Reconstruction, Tissue Farmworker Diversified Crops Breast Other Attendee BREAK Superficial Wound Closed By: Last Modified By: Herlinda Schaffer, Herlinda Hu, VICKY 10/03/20 15:09:15 10/03/20 15:09:15 [facility] IntraOp Case Attendance Audit 10/03/20 15:09:15 Loom Doffer: [id number] Modifier: [id number] 1 <*> Procedure Mastectomy Simple(Bilateral), Breast Reconstruction 2 <+> Time Out 2 <*> Procedure Breast Reconstruction, Tissue Farmworker Diversified Crops Breast 3 <*> Procedure Mastectomy Simple(Bilateral), Breast Reconstruction, Tissue Farmworker Diversified Crops Breast 4 <*> Procedure Mastectomy Simple(Bilateral), Breast Reconstruction, Tissue Farmworker Diversified Crops Breast 5 <+> Time Out 5 <*> Procedure Mastectomy Simple(Bilateral), Breast Reconstruction, Tissue Farmworker Diversified Crops Breast 6 <+> Time Out 6 <*> Procedure Mastectomy Simple(Bilateral), Breast Reconstruction, Tissue Farmworker Diversified Crops Breast 7 <*> Procedure Mastectomy Simple(Bilateral), Breast Reconstruction, Tissue Farmworker Diversified Crops Breast 8 <*> Procedure Mastectomy Simple(Bilateral), Breast Reconstruction, Tissue Farmworker Diversified Crops Breast 9 <+> Time Out 9 <*> Procedure Breast Reconstruction 10 <+> Time Out 10 <*> Procedure Breast Reconstruction, Tissue Farmworker Diversified Crops Breast 11 <*> Procedure Mastectomy Simple(Bilateral), Breast Reconstruction, Tissue Farmworker Diversified Crops Breast 10/03/20 14:08:50 Loom Doffer: [id number] Modifier: [id number] <+> Time Out 4 <*> Procedure Mastectomy Simple(Bilateral), Breast Reconstruction, Tissue Farmworker Diversified Crops Breast <+> 11 Case Attendee <+> 11 Role Performed <+> 11 Time In <+> 11 Time Out <+> 11 Procedure <+> 11 Other Attendee 10/03/20 13:41:49 Loom Doffer: [id number] Modifier: [id number] 1 <+> Time Out 1 <*> Procedure Mastectomy Simple(Bilateral), Breast Reconstruction 3 <+> Time Out 3 <*> Procedure Mastectomy Simple(Bilateral), Breast Reconstruction, Tissue Farmworker Diversified Crops Breast 10/03/20 13:13:23 Loom Doffer: [id number] Modifier: [id number] 2 <*> Time In 10/03/20 10:26:00 2 <*> Procedure Breast Reconstruction, Tissue Farmworker Diversified Crops Breast <+> 10 Case Attendee <+> 10 Role Performed <+> 10 Time In <+> 10 Procedure 10/03/20 13:08:43 Loom Doffer: [id number] Modifier: [id number] <+> 9 Case Attendee <+> 9 Role Performed <+> 9 Time In <+> 9 Procedure <+> 9 Other Attendee 10/03/20 12:29:20 Loom Doffer: [id number] Modifier: [id number] <+> Time Out 7 <*> Procedure Mastectomy Simple(Bilateral), Breast Reconstruction, Tissue Farmworker Diversified Crops Breast 8 <+> Time Out 8 <*> Procedure Mastectomy Simple(Bilateral), Breast Reconstruction, Tissue Farmworker Diversified Crops Breast 10/03/20 11:55:28 Loom Doffer: [id number] Modifier: [id number] <+> 8 Case Attendee <+> 8 Role Performed <+> 8 Time In <+> 8 Procedure <+> 8 Other Attendee 10/03/20 11:50:36 Loom Doffer: [id number] Modifier: [id number] 1 <*> Procedure Mastectomy Simple(Bilateral), Breast Reconstruction 2 <*> Procedure Breast Reconstruction, Tissue Farmworker Diversified Crops Breast 3 <*> Procedure Mastectomy Simple(Bilateral), Breast Reconstruction, Tissue Farmworker Diversified Crops Breast 4 <*> Procedure Mastectomy Simple(Bilateral), Breast Reconstruction, Tissue Farmworker Diversified Crops Breast 5 <*> Procedure Mastectomy Simple(Bilateral), Breast Reconstruction, Tissue Farmworker Diversified Crops Breast 6 <+> Time In 6 <*> Procedure Mastectomy Simple(Bilateral), Breast Reconstruction, Tissue Farmworker Diversified Crops Breast <+> 7 Case Attendee <+> 7 Role Performed <+> 7 Time In <+> 7 Procedure <+> 7 Other Attendee 10/03/20 11:05:14 Loom Doffer: [id number] Modifier: [id number] 1 <*> Procedure Mastectomy Simple(Bilateral), Breast Reconstruction 2 <*> Procedure Breast Reconstruction, Tissue Farmworker Diversified Crops Breast 3 <+> Time In 3 <*> Procedure Mastectomy Simple(Bilateral), Breast Reconstruction, Tissue Farmworker Diversified Crops Breast 4 <+> Time In 4 <*> Procedure Mastectomy Simple(Bilateral), Breast Reconstruction, Tissue Farmworker Diversified Crops Breast 5 <+> Time In 5 <*> Procedure Mastectomy Simple(Bilateral), Breast Reconstruction, Tissue Farmworker Diversified Crops Breast <+> 6 Case Attendee <+> 6 [...] [facility] IntraOp Case Times Audit 10/03/20 15:09:13 Loom Doffer: [id number] Modifier: [id number] <+> 1 Out Room Time <+> 1 Stop Time 10/03/20 15:08:23 Loom Doffer: [id number] Modifier: [id number] <+> 1 Stop Time [facility] IntraOp Cautery [...] Last Modified By: Herlinda Schaffer RN Herlinda Schfafer RN 10/03/20 11:04:18 10/03/20 11:04:18 [facility] IntraOp Communication Entry 1 Entry 2 Communication To Family/Significant other Family/Significant other Comment START UPDATE Communication By Herlinda Schaffer RN STRIFLING, JOHN R, MD-SUR Date and Time 10/03/20 10:55:00 10/03/20 13:35:00 Last Modified By: Herlinda Schaffer RN Bruner, Kristen D, RN 10/03/20 11:04:31 10/03/20 14:13:11 [facility] IntraOp Communication Audit 10/03/20 14:13:11 Loom Doffer: [id number] Modifier: [id number] <+> 2 Date and Time 10/03/20 14:13:01 Loom Doffer: [id number] Modifier: [id number] <+> 2 Communication By <+> 2 Communication To <+> 2 Comment [facility] IntraOp Counts Verification Entry 1 Procedure Mastectomy Simple(Bilateral), Breast Reconstruction, Tissue Farmworker Diversified Crops Breast Count Info Count Type Sponge, Sharps, Instrument, Miscellaneous Counts Verification Baseline/pre-procedure Sequence Count Results Not Applicable Counts Performed By Count Performed By RICK PERKINS ST (Scrub) Count Performed By Herlinda Schaffer RN (RN) Last Modified By: Herlinda Schaffer RN 10/03/20 11:04:45 [facility] IntraOp Counts Final Entry 1 Procedure Mastectomy Simple(Bilateral), Breast Reconstruction, Tissue Farmworker Diversified Crops Breast Final Count Info Count Type Sponge, Sharps, Miscellaneous Counts Verification Skin Closure/end of Sequence procedure Count Results Correct, surgeon notified Counts Performed By Count Performed By RICK PERKINS ST (Scrub) Count Performed By Herlinda Schaffer RN (RN) Last Modified By: Herlinda Schaffer RN 10/03/20 14:51:16 [facility] IntraOp Counts Final Audit 10/03/20 14:51:16 Loom Doffer: [id number] Modifier: [id number] 1 <*> Procedure Mastectomy Simple(Bilateral), Breast Reconstruction, Tissue Farmworker Diversified Crops Breast 1 <+> Count Performed By (Scrub) [...] IntraOp Departure from OR Audit 10/03/20 11:08:28 Loom Doffer: [id number] Modifier: [id number] 1 <*> Patient Transport Accompanied by Herlinda [...] Yes Assessment Complete Fire Risk Herlinda Schaffer, linux developer Verified By Fire Risk 10/03/20 10:26:00 Assessment Verified Date/Time Fire Risk Standard Fire Yes Safety Precautions Followed Last Modified By: Herlinda Schaffer RN 10/03/20 11:08:52 [facility] IntraOp General Case Rigging And Controls Aircraft Mechanic 1 Case Information OR OR 09 SJE [...] (Biologic) (Biologic) Implant Log Implant Type Tissue Farmworker Diversified Crops Tissue Implant Type Tissue Tissue Implant TISS ALDRM SLCT RTM BIOMEDICAL TECHNICIAN TISSUE FV TISS ALDRM SLCT RTM Identification [id number] Description Implant Quantity 1 1 1 Implant Site OPSITE: RIGHT BREAST OPSITE: RIGHT BREAST OPSITE: LEFT BREAST Implant Identification Model Number Implant [id number] Identification Serial Number Implant [id number] Identification Lot Number Implant Lifecell Allergan:Inamed Lifecell Identification Aesthetics Enterprise Infrastructure Architect Name: Implant [id number] Identification Catalog Number Implant Size 16*20CM 400CC 16*20CM Implant Has an Yes Yes Yes Expiration Date Implant Expiration 12/03/21 03/01/25 12/03/21 Date Wasted Radioactive Material Time Implanted Tissue Implant Continue for Tissue Implant Documentation Tissue Identification Number Graft Prep Per Yes Yes Enterprise Infrastructure Architect Instructions: Tissue Preparation N/A N/A Method: Reconstitution Solution: Reconstitution Solution Lot Number Reconstitution Solution Expiration Date: Thawing Solution Thawing Solution Lot Number Thawing Solution Expiration Date Preparation Materials, Other Preparation Materials, Other Lot Number Preparation Materials, Other Expiration Date Tissue ROLAND HERNANDEZ MD-MIKE ROLAND HERNANDEZ MD-PLA Prepared/Processed By Enterprise Infrastructure Architect Yes Yes Paperwork Completed Implant Type Comment Last Modified By: Herlinda Schaffer, RN Herlinda Schaffer, RN Herlinda Schaffer, RN 10/03/20 12:44:34 10/03/20 12:44:34 10/03/20 13:06:42 Entry 4 Type Implant (Synthetic) Implant Log Implant Type Tissue Farmworker Diversified Crops Tissue Implant Type Implant BIOMEDICAL TECHNICIAN TISSUE FV Identification [id number] Description Implant Quantity 1 Implant Site OPSITE:LEFT BREAST Implant Identification Model Number Implant [id number] Identification Serial Number Implant Identification Lot Number Implant Allergan:Inamed Identification Aesthetics Enterprise Infrastructure Architect Name: Implant [id number] Identification Catalog Number Implant Size 400CC Implant Has an Yes Expiration Date Implant Expiration 05/30/24 Date Wasted Radioactive Material Time Implanted Tissue Implant Continue for Tissue Implant Documentation Tissue Identification Number Graft Prep Per Enterprise Infrastructure Architect Instructions: Tissue Preparation Method: Reconstitution Solution: Reconstitution Solution Lot Number Reconstitution Solution Expiration Date: Thawing Solution Thawing Solution Lot Number Thawing Solution Expiration Date Preparation Materials, Other Preparation Materials, Other Lot Number Preparation Materials, Other Expiration Date Tissue Prepared/Processed By Enterprise Infrastructure Architect Paperwork Completed Implant Type Comment Last Modified By: Herlinda Schaffer RN 10/03/20 13:06:42 [facility] IntraOp Implant Log Audit 10/03/20 13:06:42 Loom Doffer: [id number] Modifier: [id number] <+> 3 Implant Identification Description <+> 3 Implant Identification Lot Number <+> 3 Implant Identification Enterprise Infrastructure Architect Name: <+> 3 Implant Size <+> 3 Implant Expiration Date <+> 3 Implant Site <+> 3 Implant Quantity <+> 3 Implant Identification Catalog Number <+> 3 Tissue Implant Type <+> 3 Graft Prep Per Enterprise Infrastructure Architect Instructions: <+> 3 Tissue Preparation Method: <+> 3 Tissue Prepared/Processed By <+> 3 Enterprise Infrastructure Architect Paperwork Completed <+> 3 Implant Has an Expiration Date <+> 3 Type <+> 4 Implant Identification Description <+> 4 Implant Identification Serial Number <+> 4 Implant Identification Enterprise Infrastructure Architect Name: <+> 4 Implant Size <+> 4 [...] - Garamycin 80mg 2ml powder vial - [id number] injection - [id number] Combo Med List 1 - Combo Med 1 - Combo Med 1 - Combo Med Time Administered 10/03/20 12:29:00 10/03/20 12:29:00 10/03/20 12:29:00 Route of IRRIGATION W/1000ML OF Irrigation w/1000ml Irrigation w/1000ml Administration 0.9%NaCl: RIGHT BREAST 0.9%NaCl: RIGHT BREAST 0.9%NaCl: RIGHT BREAST Dose Dose [id number] 1 80 Unit of Measure units gram [...] powder - Garamycin 80mg 2ml Bacitracin 50,000units [id number] injection - [id number] powder vial - [id number] Combo Med List 1 - Combo Med 1 - Combo Med 1 - Combo Med Time Administered 10/03/20 13:45:00 10/03/20 13:46:00 10/03/20 13:46:00 Route of Irrigation w/1000ml Irrigation w/1000ml Irrigation w/1000ml Administration 0.9%NaCl: LEFT BREAST 0.9%NaCl: LEFT BREAST 0.9%NaCl: LEFT BREAST Dose Dose 1 80 50187 Unit of Measure gram mg units Volume qs qs qs Administered By ROLAND HERNANDEZ MD-PLA HILL, JOSEPH L, MD-PLA HILL, JOSEPH L, MD-PLA Procedure Irrigation Irrigant Volume In Irrigant Volume Out Last Modified By: Herlinda Schaffer, RN Herlinda Schaffer, RN Herlinda Schaffer, RN 10/03/20 13:47:25 10/03/20 13:47:25 10/03/20 13:47:25 [facility] IntraOp Medication Admin Audit 10/03/20 13:47:25 Loom Doffer: [id number] Modifier: [id number] 1 <*> Medication/Irrigant Bacitracin 50,000units powder vial - [id number] 1 <*> Route of Administration IRRIGATION W/1000ML OF 0.9%NaCl 2 <*> Medication/Irrigant Ancef 1Gm powder - [id number] 2 <*> Route of Administration Irrigation w/1000ml 0.9%NaCl 3 <*> Medication/Irrigant Garamycin 80mg 2ml injection - [id number] 3 <*> Route of Administration Irrigation w/1000ml [...] 1 Procedure Mastectomy Simple(Bilateral), Breast Reconstruction, Tissue Farmworker Diversified Crops Breast Body Position Supine Left Arm Position [...] Intra Op Sign Out Audit 10/03/20 15:08:30 Loom Doffer: [id number] Modifier: [id number] <+> 1 RN Sign Out Signature Date/Time [facility] IntraOp Skin Prep Entry 1 Procedure Mastectomy Simple(Bilateral), Breast Reconstruction, Tissue Farmworker Diversified Crops Breast Prescribed Yes Pre-Surgical Prep Completed Prep Area CHEST/BREASTS NECK TO MID ABDOMEN. Intraop Prep Integumentary WDL Assessment WDL Prep Agents Chlorhexadine gluconate Prep by Herlinda Schaffer, VICKY Hair Removal Methods No hair removal performed Last Modified By: Herlinda Schaffer RN 10/03/20 11:10:51 [facility] IntraOp Surgical Procedures Entry 1 Entry 2 Entry 3 Procedure Mastectomy Simple Breast Reconstruction Tissue Farmworker Diversified Crops Breast Modifiers Bilateral Additional BILATERAL TOTAL Procedure [...] [facility] IntraOp Surgical Procedures Audit 10/03/20 15:09:28 Loom Doffer: [id number] Modifier: [id number] 3 <*> Procedure Tissue Farmworker Diversified Crops Breast 3 <+> Specialty 10/03/20 15:09:09 Loom Doffer: [id number] Modifier: [id number] 2 <*> Procedure Breast Reconstruction 10/03/20 15:08:45 Loom Doffer: [id number] Modifier: [id number] 1 <*> Procedure Mastectomy Simple 2 <*> Procedure Breast Reconstruction 10/03/20 15:08:31 Loom Doffer: [id number] Modifier: [id number] <+> 1 Stop <+> 2 Stop <+> 3 Stop 10/03/20 11:31:25 Loom Doffer: [id number] Modifier: [id number] 1 <*> Procedure Mastectomy Simple [facility] IntraOp [...] be Mastectomy Breast Reconstruction, Performed Simple(Bilateral), Tissue Farmworker Diversified Crops Breast Breast Reconstruction Time Out Time Out [...] [facility] IntraOp Time Out Audit 10/03/20 13:07:24 Loom Doffer: [id number] Modifier: [id number] 1 <*> Procedure to be Performed Mastectomy [...] Signed By: Herlinda Schaffer RN 10/03/20 15:09 Electronically signed by Nikunj [facility] Conversion Paper Bag Press Operator Cerner at 02/17/2023 12:32 PM CDT documented in this encounter Plan of Treatment Not on file documented as of this encounter Visit Diagnoses Not on filedocumented in this encounter
--- OUTSIDE RECORDS SUMMARY | 2025-08-18 12:45 | XMS_ITS ---
Author Organization [facility] Address [address] [place] [address] Care Team Providers Care Paper Pattern Folder Name Role Phone Melecio Traore MD Primary Care Provider [phone] Rheumatology - External Fill Status:Enrolled (Active) Start date:08/02/2024 Enrollment date:08/02/2024 Enrollment reason:Identified as being on target medication Current support & services provided:Benefits Investigation, External Pharmacy Dispensing Linked medications:Ixekizumab (Patient Reported) Linked problems:Psoriasis (Active) Continued Care and Services Coordination
--- OUTSIDE RECORDS SUMMARY | 2025-08-18 12:45 | XMS_ITS | Encounter Summary ---
Author Organization [employer] ([place], [place], [place], [place]) Address [address] [address] Care Team Providers Care Scraper Tender Name Role Phone Unavailable Primary Care Provider Unavailabl e Encounter Details Date Type Department Care Team (Late st Contact Info) Description 10/09/2020 Transcribed Document [facility] - [address] [address] [place] [address] Jaycee Roa MD [address] [place] [address] Social History Tobacco Use Types [...] 10/04/2020 13:46 Primary Care Provider JAYCEE ROGER MD-[facility] Discharge Diagnosis BRCA positive 10/04/2020 Z15.01 ICD-10-CM Procedures SN - Proc - Procedure: 1. Right total nipple-sparing mastectomy. 2. Left total nipple-sparing mastectomy. [1] Bilateral immediate prepectoralis implant-based breast reconstruction with placement of a tissue feather stitcher and AlloDerm. The tissue feather stitcher is Allergan brand full profile, volume 400 mL, base with 12 cm, serial number on the right is [id number] and serial number on the left is [id number]. The AlloDerm is 360 sq cm. The lot number on the right is [id number] and the lot number on the left is [id number]. [2] Reason for Hospitalization Ms. Gordon is [...] 80 mg/mL subcutaneous solution 80 mg, SubCutaneous, [id number] Code Status No Code Status Order on [...]
--- OUTSIDE RECORDS SUMMARY | 2025-08-18 12:45 | XMS_ITS | Encounter Summary ---
Author Organization [facility] Address [address] [place] [address] Care Team Providers Care Commercial Lending Relationship Manager Name Role Phone Melecio Traore MD Primary Care Provider [phone] Encounter Details Date Type Department Care Team (Late st Contact Info) Description 08/15/2025 Telephone [facility] RHEUMATOLOGY [address] [address] Horace Hamilton MD [address] [id number] Social History Tobacco Use Types Packs/Day Years [...] or training? Not on file Preferred Language Colombian 09/17/2022 Comments No Sex and Gender Information Value Date Recorded Sex Assigned at Not on file Legal Sex Female 4:39 PM EST Gender Identity Not on file Sexual Orientation Not on file documented as of this encounter Miscellaneous Notes * Telephone Encounter - Sejal Thompson MA - 08/16/2025 4:38 PM EDT I faxed lab order to [facility] Lab. -GAMALIEL Pop * Telephone Encounter - Gia Ochoa RegSched Rep - 08/15/2025 12:55 PM EDT pt is at [facility] they are needing a signed lab order faxed to [phone] documented in this encounter Plan of Treatment Upcoming Encounters Date Type Department Care Team (Late st Contact Info) Description 01/30/2026 8:45 AM EDT Office Visit [facility] RHEUMATOLOGY [address] [phone] Horace Hamilton MD [address] [address] documented as of this encounter Visit Diagnoses Not on filedocumented in this encounter Care Teams Commercial Lending Relationship Manager Relationship Specialty Start Date End Date Melecio Traore MD Pending sale to [facility] [address] [facility] [address] [place] [address] PCP - General Family Medicine 06/24/21 documented as of this encounter
--- OUTSIDE RECORDS SUMMARY | 2025-08-18 12:45 | XMS_ITS | Encounter Summary ---
Author Organization [employer] ([place], [place], [place], [place]) Address [address] [address] Care Team Providers Care Kiln Maintenance Name Role Phone Unavailable Primary Care Provider Unavailabl e Encounter Details Date Type Department Care Team (Late st Contact Info) Description 10/04/2020 Transcribed Document [facility] [place] Family Medicine [address] [place] [address] ProviderDonaldo MD [address], [place] [address] Social History Tobacco Use Types Packs/Day Years Used Date Smoking Tobacco: Never Assessed Comments Unknown Sex and Gender Information Value Date Recorded Sex Assigned at Not on file Legal Sex Female 6:43 PM CDT Gender Identity Not on file Sexual Orientation Not on file documented as of this encounter Miscellaneous Notes * Cerner Conversion Note - Historical ProviderMD - 10/04/2020 2:00 AM LICENSED SALES ASSISTANT Trenching Machine Operator Details Entered On: 10/04/2020 1:06 EST Performed [...]
--- OUTSIDE RECORDS SUMMARY | 2025-08-18 12:45 | XMS_ITS | Clinical Summary ---
Author Organization [employer] ([place], [place], [place], [place]) Address [address] [place] [address] Care Team Providers Care Typesetting Supervisor Name Role Phone Unavailable Primary Care Provider [...]
--- OUTSIDE RECORDS SUMMARY | 2025-08-18 12:45 | XMS_ITS | Encounter Summary ---
Author Organization [employer] ([place], [place], [place], [place]) Address [address] [place] [address] Care Team Providers Care Associate Account Director Name Role Phone Unavailable Primary Care Provider Unavailabl e Encounter Details Date Type Department Care Team (Late st Contact Info) Description 10/04/2020 Transcribed Document [facility] Surgery - [employer] [address] [place] [address] Melecio Oconnor MD [address] [place] [address] Social History Tobacco Use Types [...] nipple-sparing mastectomy. 2. Left total nipple-sparing mastectomy. [employer] NETWORK ARCHITECT: Shree Trevino PA-C. ANESTHESIA: General. ESTIMATED BLOOD [...] complications. Ms. Gordon tolerated the procedure well. /[id number] MD MARCELLUS Hobson/PATTIE / MARCELLUS / MODL /[id number] CC: Quintin Lay MD [facility] documented in this encounter Plan of Treatment Not on file documented as of this encounter Visit Diagnoses Not on filedocumented in this encounter
--- OUTSIDE RECORDS SUMMARY | 2025-08-18 12:45 | XMS_ITS | Encounter Summary ---
Author Organization [employer] ([place], [place], [place], [place]) Address [address] [place] [address] Care Team Providers Care Head Char Filter Tank Tender Name Role Phone Unavailable Primary Care Provider Unavailabl e Encounter Details Date Type Department Care Team (Late st Contact Info) Description 10/04/[address] [facility] Surgery - [employer] [address] [place] [address] Melecio Oconnor MD [address] [place] [address] Social History Tobacco Use Types [...] 80 mg/mL subcutaneous solution, 80 mg, SubCutaneous, [id number] Labs Results SEP 25 10:49 142 109 [...]
--- OUTSIDE RECORDS SUMMARY | 2025-08-18 12:45 | XMS_ITS | Encounter Summary ---
Author Organization [employer] ([place], [place], [place], [place]) Address [address] [place] [address] Care Team Providers Care Permastone Applicator Name Role Phone Unavailable Primary Care Provider Unavailabl e Encounter Details Date Type Department Care Team (Late st Contact Info) Description 10/03/2020 Transcribed Document [facility] Family [place] [facility] [place] [address] ProviderDonaldo MD [address] [place] [address] Social History Tobacco Use Types Packs/Day Years Used Date Smoking Tobacco: Never Assessed Comments Unknown Sex and Gender Information Value Date Recorded Sex Assigned at Not on file Legal Sex Female 6:43 PM CDT Gender Identity Not on file Sexual Orientation Not on file documented as of this encounter Miscellaneous Notes * Cerner Conversion Note - Donaldo ProviderMD - 10/03/2020 9:32 AM NUTRITION EDUCATOR Peripheral Nerve Block Entered On: 10/03/2020 9:58 [...] 10/03/2020 9:57 EST Electronically signed by Nikunj [facility] Conversion Wire Mesh Filter Fabricator Cerner at 02/17/2023 12:33 PM CDT documented in this encounter Plan of Treatment Not on file documented as of this encounter Visit Diagnoses Not on filedocumented in this encounter
--- OUTSIDE RECORDS SUMMARY | 2025-08-18 12:45 | XMS_ITS | Encounter Summary ---
Author Organization [employer] ([place], [place], [place], [place]) Address [address] [place] [address] Care Team Providers Care Compounding Pharmacy Technician Name Role Phone Unavailable Primary Care Provider Unavailabl e Encounter Details Date Type Department Care Team (Late st Contact Info) Description 10/04/2020 Transcribed Document [facility] Family Medicine [facility] [place] [address] ProviderDonaldo MD [address] [place] [address] Social History Tobacco Use Types Packs/Day Years Used Date Smoking Tobacco: Never Assessed Comments Unknown Sex and Gender Information Value Date Recorded Sex Assigned at Not on file Legal Sex Female 6:43 PM CDT Gender Identity Not on file Sexual Orientation Not on file documented as of this encounter Miscellaneous Notes * Cerner Conversion Note - Donaldo ProviderMD - 10/04/2020 8:37 AM INSURANCE COUNSEL Initial Discharge Planning Entered On: 10/04/2020 8:38 EST Performed On: 10/04/2020 8:37 EST by SHAWNA GARCIA RN-Tubing Mill Operator Initial Assessment I Previously Documented Living Environment [...] have PCP Listed? : Yes SHAWNA GARCIA RN-Tubing Mill Operator - 10/04/2020 8:37 EST Initial Assessment II Sensory and Motor Deficits : None Current Home Treatments and Equipment : None SHAWNA GARCIA RN-Tubing Mill Operator - 10/04/2020 8:37 EST Discharge Needs I Anticipated Discharge Date : 10/04/2020 EST Anticipated Discharge To, CM : Home with family care Current Home Treatment/Equipment : Current Home Treatment/Equipment No qualifying data available. Post Acute/Home Treatments : None Documentation Status Complete : Yes SHAWNA GARCIA RN-Tubing Mill Operator - 10/04/2020 8:37 EST Discharge Needs II Professional Skilled Services : Professional Skilled Services No qualifying data available. Needs Assistance with Transportation : No Discharge Options Discussed with Patient : Discharge transportation, Outpatient services SHAWNA GARCIA RN-Tubing Mill Operator - 10/04/2020 8:37 EST Narrative Note Narrative Note : Patient underwent bilateral breast reconstruction with tissue trials manager. Lives at home with S.O., iADLs. Plan is to return home, no services needed at this time........................sds SHAWNA GARCIA RN-Tubing Mill Operator - 10/04/2020 8:37 EST documented in this encounter Plan of Treatment Not on file documented as of this encounter Visit Diagnoses Not on filedocumented in this encounter
--- OUTSIDE RECORDS SUMMARY | 2025-08-18 12:45 | XMS_ITS | Encounter Summary ---
Author Organization [employer] ([place], [place], [place], [place]) Address [address] [place] [address] Care Team Providers Care Labor Law Professor Name Role Phone Unavailable Primary Care Provider Unavailabl e Encounter Details Date Type Department Care Team (Late st Contact Info) Description 10/04/2020 Transcribed Document [facility] [place] [address] ProviderDonaldo MD [address] [place] [address] Social History Tobacco Use Types Packs/Day Years Used Date Smoking Tobacco: Never Assessed Comments Unknown Sex and Gender Information Value Date Recorded Sex Assigned at Not on file Legal Sex Female 6:43 PM CDT Gender Identity Not on file Sexual Orientation Not on file documented as of this encounter Miscellaneous Notes * Cerner Conversion Note - Donaldo ProviderMD - 10/04/2020 8:38 AM DESKTOP PUBLISHING OPERATOR Final Discharge Planning Entered On: 10/04/2020 8:38 EST Performed On: 10/04/2020 8:38 EST by SHAWNA GARCIA RN-Sole Skiver Final Discharge Planning Discharge Arrangements : Patient Post-Acute Information Patient Name: JOLLY CARVAJAL Gender: Female : [birth year] Age: 44 Years No Post-Acute Placement(s) Listed No Post-Acute Service(s) Listed No Curaspan Referral(s) Listed Transportation Needs : Family/Friend Follow Up Appointment Scheduled : Yes Is Patient High/Moderate Readmission Risk? : No Patient/Family Notified of Plan : Yes Discharge To Care Management : Home/Residential/Penitentiary or Self Care -01 SHAWNA GARCIA RN-Sole Skiver - 10/04/2020 8:38 EST documented in this encounter Plan of Treatment Not on file documented as of this encounter Visit Diagnoses Not on filedocumented in this encounter
--- OUTSIDE RECORDS SUMMARY | 2025-08-18 12:45 | XMS_ITS | Encounter Summary ---
Author Organization [employer] ([place], [place], [place], [place]) Address [address] [place] [address] Care Team Providers Care Ballroom Dancer Name Role Phone Unavailable Primary Care Provider Unavailabl e Encounter Details Date Type Department Care Team (Late st Contact Info) Description 10/04/2020 Transcribed Document [facility] Family [place] [address] ProviderDonaldo MD [address] [place] [address] Social History Tobacco Use Types Packs/Day Years Used Date Smoking Tobacco: Never Assessed Comments Unknown Sex and Gender Information Value Date Recorded Sex Assigned at Not on file Legal Sex Female 6:43 PM CDT Gender Identity Not on file Sexual Orientation Not on file documented as of this encounter Miscellaneous Notes * Cerner Conversion Note - Donaldo ProviderMD - 10/04/2020 2:09 PM VOLUNTEER SERVICES SUPERVISOR Nursing Discharge Summary Entered On: 10/04/2020 14:10 [...] 10/04/2020 14:09 EST Electronically signed by Nikunj [facility] Conversion Cable Engineer Cerner at 02/17/2023 12:32 PM CDT documented in this encounter Plan of Treatment Not on file documented as of this encounter Visit Diagnoses Not on filedocumented in this encounter
--- OUTSIDE RECORDS SUMMARY | 2025-08-18 12:46 | XMS_ITS | Encounter Summary ---
Author Organization [employer] ([place], [place], [place], [place]) Address [address] [place] [address] Care Team Providers Care Manager Star Name Role Phone Unavailable Primary Care Provider Unavailabl e Encounter Details Date Type Department Care Team (Late st Contact Info) Description 04/08/2019 Transcribed Document [facility] Family Medicine [facility] [place] [address] ProviderDonaldo MD [address] [place] [address] Social History Tobacco Use Types Packs/Day [...] 80 mg/mL subcutaneous solution 80 mg, SubCutaneous, [id number] , Medications (14) Active Scheduled: (2) #NaCl [...]
--- OUTSIDE RECORDS SUMMARY | 2025-08-18 12:46 | XMS_ITS | Encounter Summary ---
Author Organization [employer] ([place], [place], [place], [place]) Address [address] [place] [address] Care Team Providers Care Journeyman Sheet Metal Worker Name Role Phone Unavailable Primary Care Provider Unavailabl e Encounter Details Date Type Department Care Team (Late st Contact Info) Description 04/07/2019 Transcribed Document [facility] Family Medicine [facility] [place] [address] ProviderDonaldo MD [address] [place] [address] Social History Tobacco Use Types Packs/Day [...] CARVAJAL /Sex: 1975 Female Med Rec #: [id number] Physician: JAYCEE TORRES III, MD Financial #: [id number] Pt. Type: O Room/Bed: / Admit/Disch: 04/07/19 10:30:00 - Institution: [facility] Main OR PACU Case Times Entry 1 In PACU I 04/07/19 14:24:00 Ready for PACU 04/07/19 15:24:00 Discharge Discharge from PACU 04/07/19 15:24:00 I Last Modified By: Cira Bustos, AST-KC-PRHC-OP CAR 04/07/19 15:43:27 SJAmanda Main OR PACU Case Times Audit 04/07/19 15:43:27 Mailing Clerk: [id number] Modifier: [id number] <+> 1 Ready for PACU Discharge <+> 1 Discharge from PACU I Finalized By: Cira Bustos, CVM-WC-CBUF-OP CAR Document Signatures Signed By: Cira Bustos, EVQ-YN-LFUT-OP CAR 04/07/19 15:43 Electronically signed by Nikunj [facility] Conversion Dump Truck Driver Off Highway Cerner at 02/17/2023 12:35 PM CDT documented in this encounter Plan of Treatment Not on file documented as of this encounter Visit Diagnoses Not on filedocumented in this encounter
--- OUTSIDE RECORDS SUMMARY | 2025-08-18 12:46 | XMS_ITS | Encounter Summary ---
Author Organization [employer] ([place], [place], [place], [place]) Address [address] [place], [place] [address] Care Team Providers Care Plate Grainer Name Role Phone Unavailable Primary Care Provider Unavailabl e Encounter Details Date Type Department Care Team (Late st Contact Info) Description 04/07/2019 Transcribed Document [facility] [place] [facility] [place] [address] ProviderDonaldo MD [address] [place] [address] Social History Tobacco Use Types Packs/Day [...] bilateral salpingo-oophorectomy. SURGEON: Melecio Shepherd III, M.D. GRASS CUTTER: Eryn Ellington PA-C. ANESTHESIA: General endotracheal. FINDINGS: [...]
--- OUTSIDE RECORDS SUMMARY | 2025-08-18 12:46 | XMS_ITS | Encounter Summary ---
Author Organization [employer] ([place], [place], [place], [place]) Address [address] [place] [address] Care Team Providers Care Hoop Riveting Machine Operator Helper Name Role Phone Unavailable Primary Care Provider Unavailabl e Encounter Details Date Type Department Care Team (Late st Contact Info) Description 04/08/2019 Transcribed Document [facility] Family Medicine [address] [place] [address] ProviderDonaldo MD [address] [place] [address] Social History Tobacco Use Types [...] these instructions at home: Medicines ??? Take esvj-pgs-mgohdni and prescription medicines only as told by [...] and water are not available, use hand window treatment installer. ? Change your dressing as told by [...] urine clear or pale yellow. ? Take kmbg-zfc-zlstkij or prescription medicines. ? Eat foods that [...] 10/08/2012 Document Revised: 12/16/2017 Document Reviewed: 12/16/2017 [employer] Interactive Patient Education ? 2019 [employer] documented in this encounter Plan of Treatment Not on file documented as of this encounter Visit Diagnoses Not on filedocumented in this encounter
--- OUTSIDE RECORDS SUMMARY | 2025-08-18 12:46 | XMS_ITS | Encounter Summary ---
Author Organization [employer] ([place], [place], [place], [place]) Address [address] [place] [address] Care Team Providers Care Director Regulatory Agency Name Role Phone Unavailable Primary Care Provider Unavailabl e Encounter Details Date Type Department Care Team (Late st Contact Info) Description 04/07/2019 Transcribed Document [facility] [place] [facility] [place] [address] ProviderDonaldo MD [address] [place] [address] Social History Tobacco Use Types Packs/Day [...] CARVAJAL /Sex: 1975 Female Med Rec #: [id number] Physician: JAYCEE TORRES III, MD Financial #: [id number] Pt. Type: O Room/Bed: Admit/Disch: 04/07/19 10:30:00 - Institution: [facility] PreOp Case Times Entry 1 In Preop 04/07/19 10:45:00 Ready for Holding n/a Room Patient Ready for 04/07/19 11:38:00 Surgery Patient Out of Preop 04/07/19 13:08:00 Patient Out of n/a Holding Room Last Modified By: JOHNNY BERNAL 04/07/19 13:11:04 SJE PreOp Case Times Audit 04/07/19 13:11:04 Web Pressman: RODERICK Modifier: [email or web address] <+> 1 Patient Out of Preop Finalized By: JOHNNY BERNAL Document Signatures Signed By: JOHNNY BERNAL 04/07/19 13:11 Electronically signed by Nikunj [facility] Conversion Manager Culinary Cerner at 02/17/2023 12:38 PM CDT documented in this encounter Plan of Treatment Not on file documented as of this encounter Visit Diagnoses Not on filedocumented in this encounter
--- OUTSIDE RECORDS SUMMARY | 2025-08-18 12:46 | XMS_ITS | Encounter Summary ---
Author Organization [employer] ([place], [place], [place], [place]) Address [address] [place] [address] Care Team Providers Care Research Food Technologist Name Role Phone Unavailable Primary Care Provider Unavailabl e Encounter Details Date Type Department Care Team (Late st Contact Info) Description 04/08/2019 Transcribed Document [facility] [place] Family Medicine [facility] [place] [address] ProviderDonaldo MD [address] [place] [address] Social History Tobacco Use Types Packs/Day [...]
--- OUTSIDE RECORDS SUMMARY | 2025-08-18 12:46 | XMS_ITS | Clinical Summary ---
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 Bella - Continue José Manuel per Dermatology. Taltz has really helped her skin but not her joints. High-risk medication. Well tolerated and effective. No serious side effects - getting labs with dermatology for monitoring Encounters Date Type Department Care Team Description 08/15/2025 Telephone [facility] [address] [place] [phone] Horace Hamilton MD 08/03/2025 Results Follow-Up [facility] [address] [place] [phone] Horace Hamilton MD 08/02/2025 8:45 AM EDT Office Visit [facility] [address] [place] [phone] Horace Hamilton MD Arthralgia, unspecified joint (Primary [...] or training? Not on file Preferred Language Kyrgyz 09/17/2022 Comments No Sex and Gender Information [...] Description 01/30/2026 8:45 AM EDT Office Visit [facility] [address] [address] Horace Hamilton MD [address] [address] Health Maintenance Due Date Last Done [...] history exists Medical Devices Implanted Type Area Train Conductor Device Identifier Shelf Expiration Date Model / Serial / Lot Bilateral Temporary Tissue Expanders Implant Brst Gel Natrelle Inspira Smoth Cohesive Xf/P 525cc - [id number] Implanted:Qty : 1 on 06/26/2021 by Quintin Lay MD at [facility] Implant Right: Breast [employer] [id number] / / [id number] Brst Gel Danette Kearns Smoth Cohesive Xf/P 525cc - [id number] Implanted:Qty : 1 on 06/26/2021 by Quintin Lay MD at [facility] Implant Left: Breast [employer] [id number] / / [id number] Dev Contrl Tiss Stratafix Spiral Mncryl Ud 3/0 Pls 30cm - [id number] Implanted:Qty : 1 on 09/24/2022 by Quintin Lay MD at [facility] Implant Right: Breast [employer] J AND J [id number] 06/02/2024 [id number] / / [id number] Dev Contrl Tiss Stratafix Spiral Mncryl Ud 3/0 Pls 30cm - [id number] Implanted:Qty : 1 on 09/24/2022 by Quintin Lay MD at [facility] Implant Left: Breast [employer] DIV OF J AND J 06/02/2024 [id number] / / [id number] Procedures Procedure Name Priority Date/Time Associated Diagnosis Comments THYROID PANEL WITH TSH Routine 08/15/2025 Arthralgia, unspecified joint Psoriasis High risk medication use Immunosuppression due to drug therapy Low vitamin D level Anemia, unspecified type Other fatigue CBC AND DIFFERENTIAL Routine 08/02/2025 [...] fatigue from Last 3 Months Results * Thyroid Panel With TSH (08/15/2025) Blood us Horace Hamilton MD LAB BLOOD ORDERABLES Final Result [facility] (AMBULATORY) [address] [place] [address], [place] [phone] * Iron Profile w/o Ferritin (08/02/2025 9:29 AM EDT) TIBC 384 mcg/dL [facility] UIBC 256 112 - 346 mcg/dL [facility] Iron 128 37 - 145 mcg/dL [facility] Iron Saturation 33 20 - 50 % [facility] Blood 08/02/2025 9:29 AM EDT 08/02/2025 Narrative [facility] ([facility]UL[facility]) - 08/03/2025 1:06 AM EDT Performed at: [address] [place] [address] [id number] Knot Saw Operator: Ab Salcido MD, Phone: [phone] Patient Fasting: N us Horace Hamilton MD LAB BLOOD ORDERABLES Final Result [facility] ([facility]) [address] [place] [address], [place] [phone] [facility] [address] [place] [address], [place] [phone] * Vitamin D,25-Hydroxy (08/02/2025 9:29 AM EDT) 25 Hydroxy, Vitamin D 34.4 30.0 - 100.0 ng/ml [facility] Comment: Reference Range for Total Vitamin D 25(OH) Deficiency <20.0 ng/mL Insufficiency 21-29 ng/mL Sufficiency 30-100 ng/mL Toxicity >100 ng/ml Blood 08/02/2025 9:29 AM EDT 08/02/2025 Narrative [facility] ([facility]) - 08/03/2025 1:06 AM EDT Performed at: [address] [place] [address] [id number] Knot Saw Operator: Ab Salcido MD, Phone: [phone] Patient Fasting: N us Horace Hamilton MD LAB BLOOD ORDERABLES Final Result [facility] (AMBULATORY) [address] [place] [address], [place] [phone] [facility] [address] [place] [address], [place] [phone] * Sedimentation Rate (08/02/2025 9:29 AM EDT) Pathologist [facility] Sed Rate 9 0 - 30 mm/hr [facility] Blood 08/02/2025 9:29 AM EDT 08/02/2025 Narrative [facility] ([facility]) - 08/03/2025 1:06 AM EDT Performed at: [address] [place] [address] [id number] Knot Saw Operator: Ab Salcido MD, Phone: [phone] Patient Fasting: N us Horace Hamilton MD LAB BLOOD ORDERABLES Final Result [facility] ([facility]UL[facility]) [address] [place] [address], [place] [phone] [facility] [address] [place] [address], * (ABNORMAL) CBC & Differential (08/02/2025 9:29 [...] - 0.2 /100 WBC [facility] 08/02/2025 9:2 9 AM EDT 08/02/2025 Narrative [facility] ([facility]) - 08/03/2025 1:06 AM EDT Performed at: [address] [place] [address] [id number] Knot Saw Operator: Ab Salcido MD, Phone: [phone] Patient Fasting: N us Horace Hamilton MD LAB BLOOD ORDERABLES Final Result Performing Organization Address [facility] Co de Phone Number [facility] ([facility]BULAT[facility]) [address] [place] [address], [facility] [address] [place] [address], * C-reactive Protein (08/02/2025 9:29 AM EDT) C-Reactive Protein <0.30 0.00 - 0.50 mg/dL [facility] Blood 08/02/2025 9:29 AM EDT 08/02/2025 Narrative [facility] ([facility]) - 08/03/2025 1:06 AM EDT Performed at: [address] [place] [address] [id number] Knot Saw Operator: Ab Salcido MD, Phone: [phone] Patient Fasting: N us Horace Hamilton MD LAB BLOOD ORDERABLES Final Result Performing Organization Address [facility] Co de Phone Number [facility] (AM[facility]ULATORY) [address] [place] [address], [place] [phone] [facility] [address] [place] [address], * Ferritin (08/02/2025 9:29 AM EDT) Ferritin 65.00 13.00 - 150.00 ng/mL [facility] Comment:Results may be false ly decreased if patient taking Biotin. Blood 08/02/2025 9:29 AM EDT 08/02/2025 Narrative [facility] ([facility]) - 08/03/2025 1:06 AM EDT Performed at: [address] [place] [address] [address] [place], [place] [id number] Knot Saw Operator: Ab Salcido MD, Phone: [phone] Patient Fasting: N us Horace Hamilton MD LAB BLOOD ORDERABLES Final Result Performing Organization Address [facility] Co de Phone Number [facility] [address] [place] [address], [facility] [address] [place] [address], * Vitamin B12 (08/02/2025 9:29 AM EDT) [facility] Vitamin B-12 346 211 - 946 pg/mL [facility] Comment:Results may be false ly increased if patient taking Biotin. Blood 08/02/2025 9:29 AM EDT 08/02/2025 [facility] (AMBULATORY) - 08/03/2025 1:06 AM EDT Performed at: [address] [place] [address] [address] [place], [place] [id number] Knot Saw Operator: Ab Salcido MD, Phone: [phone] Patient Fasting: N us Horace Hamilton MD LAB BLOOD ORDERABLES Final Result Performing Organization Address [facility] de Phone Number [facility] [address] [place] [address], [facility] [address] [place] [address], * (ABNORMAL) Comprehensive Metabolic Panel (08/02/2025 9:29 AM EDT) Pathologist [facility] Glucose 64(L) 65 - 99 mg/dL [facility] [...] - 08/03/2025 1:06 AM EDT Performed at: [address] [id number] Knot Saw Operator: Ab Salcido MD, Phone: [phone] Patient Fasting: N Horace Hamilton MD LAB BLOOD ORDERABLES Final Result [facility]) [address] [place] [address], [facility] [address] [place] [address], from Last 3 Months Insurance [employer] Care Teams Balance Wheel Screw Hole Driller Relationship Specialty Start Date End Date Melecio Traore MD [address] [facility] [address] [place] [address] PCP - General Family Medicine 06/24/21
--- OUTSIDE RECORDS SUMMARY | 2025-08-18 12:46 | XMS_ITS | Encounter Summary ---
Author Organization [email or web address] ([place], [place], [place], [place]) Address [address] [place] [address] Care Team Providers Care Tandem Mill Roller Name Role Phone Unavailable Primary Care Provider Unavailabl e Encounter Details Date Type Department Care Team (Late st Contact Info) Description 04/08/2019 Transcribed Document [facility] [place] [facility] [place] [address] ProviderDonaldo MD [address] [place] [address] Social History Tobacco Use Types Packs/Day [...] Russell MD - 04/08/2019 3:00 PM CDT [place] [id number] JOLLY GORDON :1975 Visit Time:04/07/2019 Your Visit Summary Your Care Team Admitting Physician - JAYCEE TORRES MD-[facility] Attending Physician - JAYCEE TORRES MD-OBG Primary Care Physician - JAYCEE ROGER MD-[facility] Referring Physician - JAYCEE TORRES MD-OBG [...] Comments Call for follow up appointment Where: [address] [place] [address] [employer] (1) Medications What How Much When Instructions [...] these instructions at home: Medicines ??? Take hjjw-thw-iaxlxui and prescription medicines only as told by [...] and water are not available, use hand family physician. ? Change your dressing as told by [...] urine clear or pale yellow. ? Take puhi-clj-oipdunf or prescription medicines. ? Eat foods that [...] 10/08/2012 Document Revised: 12/16/2017 Document Reviewed: 12/16/2017 [employer] Patient Education ?? 2019 [employer]. acetaminophen and oxycodone (a SEET a MIN [...] may report side effects to FDA at 9-523-EYH-0279. What other drugs will affect acetaminophen and [...] affect acetaminophen and oxycodone, including prescription and mohv-fzl-tkfidas medicines, vitamins, and herbal products. Not all [...] to ensure that the information provided by [employer]') is accurate, up-to-date, and complete, but no guarantee is made to that effect. Drug information contained herein may be time sensitive. [employer] information has been compiled for use by healthcare practitioners and consumers in the [place] and therefore [employer] does not warrant that uses outside of the [place] are appropriate, unless specifically indicated otherwise. [employer] drug information does not endorse drugs, diagnose patients or recommend therapy. [employer] drug information is an informational resource designed [...] effective or appropriate for any given patient. [employer] does not assume any responsibility for any aspect of healthcare administered with the aid of information [employer] provides. The information contained herein is not intended to cover all possible uses, directions, precautions, warnings, drug interactions, allergic reactions, or adverse effects. If you have questions about the drugs you are taking, check with your doctor, nurse or pharmacist. Copyright 6245-1721 [employer] Version: 18.02. Revision Date: 09/30/2018.ibuprofen (EYE bue PROE fen) Advil, Genpril, IBU, Midol IB, Motrin IB, Proprinal, Smart Sense Children's Ibuprofen What is the most important information I should know about ibuprofen? Ibuprofen can increase your risk of fatal heart attack or stroke, especially if you use it art gilder or take high doses, or if you [...] or stroke, especially if you use it art gilder or take high doses, or if you [...] may report side effects to FDA at 6-394-VEL-3096. What other drugs will affect ibuprofen? Ask [...] may interact with ibuprofen, including prescription and znvh-yjf-okqptja medicines, vitamins, and herbal products. Not all [...] to ensure that the information provided by [employer] is accurate, up-to-date, and complete, but no guarantee is made to that effect. Drug information contained herein may be time sensitive. [employer] information has been compiled for use by healthcare practitioners and consumers in the [place] and therefore [employer] does not warrant that uses outside of the [place] are appropriate, unless specifically indicated otherwise. [employer] drug information does not endorse drugs, diagnose patients or recommend therapy. [employer] drug information is an informational resource designed [...] effective or appropriate for any given patient. [employer] does not assume any responsibility for any aspect of healthcare administered with the aid of information [employer] provides. The information contained herein is not intended to cover all possible uses, directions, precautions, warnings, drug interactions, allergic reactions, or adverse effects. If you have questions about the drugs you are taking, check with your doctor, nurse or pharmacist. Copyright 9005-9161 [employer] Version: 18.01. Revision Date: 01/30/2017. Emergency Awareness [...] Assistance with quitting is available by contacting 9-843-VTLJNOW. This is a free resource providing counseling, support, and referral. Or you may contact your personal physician. [employer] Suicide Prevention [facility]: The National Suicide Prevention Lifeline is a [...] sure to sign up for the [facility] patient portal, which gives you 26/05 access to your medical information ??? including these discharge instructions ??? using your computer, smartphone, or tablet. Just go to [employer] to get started. Questions? Call . Test [...] range between ( 1.0 and 7.0 ) Starr #: 0.31 K/uL -- Normal range between ( 0.24 and 0.82 ) Eos #: 0.08 K/uL -- Normal range between ( 0.04 and 0.54 ) Starr %: 7.6 % -- Normal range between [...] was given the opportunity to ask questions. Patient/Fish Egg Packer Name: Patient/Fish Egg Packer Signature: Relationship to Patient: Clinician/Hospital Fish Egg Packer Signature: Date: documented in this encounter Plan of Treatment Not on file documented as of this encounter Visit Diagnoses Not on filedocumented in this encounter
--- OUTSIDE RECORDS SUMMARY | 2025-08-18 12:46 | XMS_ITS | Encounter Summary ---
Author Organization [employer] ([place], [place], [place], [place]) Address [address] [place], [place] [address] Care Team Providers Care Rail Switchman Name Role Phone Unavailable Primary Care Provider Unavailabl e Encounter Details Date Type Department Care Team (Late st Contact Info) Description 09/25/2020 Transcribed Document [facility] [place] Medicine [facility] [place] [address] ProviderDonaldo MD [address] [place] [address] Social History Tobacco Use Types Packs/Day Years Used Date Smoking Tobacco: Never Assessed Comments Unknown Sex and Gender Information Value Date Recorded Sex Assigned at Not on file Legal Sex Female 6:43 PM CDT Gender Identity Not on file Sexual Orientation Not on file documented as of this encounter Miscellaneous Notes * Cerner Conversion Note - Donaldo ProviderMD - 09/25/2020 10:39 AM ELIGIBILITY SPECIALIST PAT Adult Entered On: 09/25/2020 10:43 EST [...] Source : Stated Height Entry Format : Nance Height, Feet : 5 ft(Converted to: 152 cm, 60 Inch) Height, Inches : 8 Inch(Converted to: 0 ft 8 Inch, 20.32 cm) Clinical Height : 172.72 cm Weight Source : Standing scale Weight Entry Format : Nance Clinical Dosing Weight : 72.73 kg Weight, Pounds : 160 lb Body Surface Area (BSA) : 1.86 m2 Body Mass Index : 24.4 kg/m2 (HI) [place] Body Weight : 63 kg Doris Ovalle [...] Doris Ovalle Rn - 09/25/2020 10:39 EST [place] Suicide Severity Rating Scale (C-SSRS) CSSRS Past [...] Obtained From : Patient Primary Language : Sami Preferred Communication Mode : Verbal Communication Barrier : None Specialty Food Products Supervisor Needed : No Doris Ovalle Rn - [...] Doris Ovalle Rn - 09/25/2020 10:39 EST documented in this encounter Plan of Treatment Not on file documented as of this encounter Visit Diagnoses Not on filedocumented in this encounter
--- OUTSIDE RECORDS SUMMARY | 2025-08-18 12:46 | XMS_ITS | Encounter Summary ---
Author Organization [employer] ([place], [place], [place], [place]) Address [address] [place] [address] Care Team Providers Care Android Framework Developer Name Role Phone Unavailable Primary Care Provider Unavailabl e Encounter Details Date Type Department Care Team (Late st Contact Info) Description 04/07/2019 Transcribed Document [facility] [place] [facility] [place] [address] ProviderDonaldo MD [address] [place] [address] Social History Tobacco Use Types Packs/Day [...] Source : Stated Height Entry Format : [place] Height, Feet : 5 ft(Converted to: 152 cm, 60 Inch) Height, Inches : 8 Inch(Converted to: 0 ft 8 Inch, 20.32 cm) Clinical Height : 172.72 cm Weight Source : Standing scale Weight Entry Format : Johnston Clinical Dosing Weight : 75 kg Weight, Pounds : 165 lb Body Surface Area (BSA) : 1.89 m2 Body Mass Index : 25.1 kg/m2 (HI) [place] Body Weight : 63 kg Veronica Chung [...] Gordon Emergency Contact #1 Phone Number : [phone] Emergency Contact #1 Relationship : Emergency Contact #2 : Melissa Tracy Emergency Contact #2 Phone Number : [phone] Emergency Contact #2 Relationship : mother Primary Language : Maori Communication Barrier : Veronica Hartman Rn - [...] Scale Risk Level : 0-24 Low Risk [place] Fall Interventions : Adequate lighting, Assistive devices [...] Rn - 04/07/2019 11:07 EDT Antonella Coma [place] Best Motor Response : Obey commands Antonella Best Verbal Response : Oriented Antonella Eye Opening Response : Spontaneous Antonella Coma Score : 15 Veronica Chung Rn - 04/07/2019 11:07 EDT documented in this encounter Plan of Treatment Not on file documented as of this encounter Visit Diagnoses Not on filedocumented in this encounter
--- OUTSIDE RECORDS SUMMARY | 2025-08-18 12:46 | XMS_ITS | Clinical Summary ---
Author Organization Healthcare Address [address] [place] [address] Care Team Providers Care Cigarette Seller Name Role Phone Unavailable Primary Care Provider [...] 2023 UKY-Zoster Vaccines (1 of 2) 2023 [id number] Vaccine (1 - 20 24-25 season) 2025 [...]
== END 2025-08-18 23:59 | disposition home or self-care (01) ==
LOC: LAB 12:40
PROVIDERS: PCP Family Medicine; Visit Provider Dermatology
DX: L40.0 Psoriasis vulgaris (principal)
CPT/HCPCS: 36415; 86480